=== PATIENT | female | born 1950 | race Caucasian/White ===

== ENCOUNTER → 2018-01-31 08:38 | Outpatient (CLI) | payer MEDICARE, OTHER, SELFPAY ==
[2018-01-31 09:25] LABS: Absolute Lymphocyte Count 2.06 X10^3/ul (0.83-4.51); Absolute Neutrophil Count 3.4 X10^3/uL (2.0-7.7); Basophil# 0.02 X10^3/uL; Basophil% 0.3 % (0-1); Eosinophil# 0.08 X10^3/uL; Eosinophils% 1.3 % (0-5); Hematocrit 40.3 % (37-47); Hemoglobin 13.3 g/dl (12.0-15.0); Lymphocyte # 2.06 X10^3/ul (4.0); Mean Corpuscular Hgb 29.4 pg (27.0-32.0); Mean Corpuscular Volume 89.2 fL (81-99); Mean Platelet Vol. 9.4 fl (6.2-12.0); Monocyte# 0.69 X10^3/uL; Monocyte% 11.1 % (0-10); Neutrophil # 3.38 X10^3/uL (2.7-7.7); Neutrophil % 54.1 % (47-70); Platelet Count 222 K/mm3 (150-450); RBC Distribution Width CV 13.3 % (11.6-14.6); RBC Distribution Width SD 43.1 fl (35.1-43.9); Red Blood Count 4.52 M/mm3 (4.2-5.4); White Blood Count 6.2 K/mm3 (4.4-11.0)
[2018-01-31 09:26] LABS: POSITIVE COUNT NO; POSITIVE DIFFERENTIAL NO; POSITIVE MORPHOLOGY NO
[2018-01-31 09:56] LABS: BUN 17 mg/dL (7-18); Creatinine, Serum 1.44 mg/dL (0.55-1.02); Glucose 74 mg/dL (74-106)
[2018-01-31 09:57] LABS: Anion Gap 7 (5-15); BUN/Creat Ratio 11.8 RATIO (10-20); Calcium,Total 9.2 mg/dL (8.5-10.1); Chloride 107 mmol/L (98-107); EST Glomerular Filtration Rate 39 mL/min (>60); Est Glom Filt Rate - Afr Amer 47 mL/min (>60); Potassium 3.8 mmol/L (3.5-5.1); Sodium Level 142 mmol/L (136-145); Thyroid Stim Hormone (TSH) 2.54 uIU/mL (0.358-3.74)
== END ==
PROVIDERS: Visit Provider Internal Medicine Cardiovascular Disease
DX: I10 Essential (primary) hypertension (principal)
CPT/HCPCS: 36415; 80048; 84443; 85025

== ENCOUNTER → 2019-05-08 08:11 | Outpatient (CLI) | payer MEDICARE, OTHER, SELFPAY ==
[2019-02-28 08:53] VITALS: BMI 27.8
--- NOTE | 2019-05-08 08:14 | BI_ITS ---
MAMMOGRAPHY - BILATERAL SCREENING 3-D TOMOSYNTHESIS REASON FOR EXAM: Female, 68 years old. Bilateral Screening 3-D tomosynthesis PERTINENT HISTORY: No significant family history. TECHNIQUE: 2-D mammograms and 3-D Tomosynthesis of the breast (s) were performed. CAD was performed. COMPARISON: February 02, 2018, January 28, 2017 FINDINGS: The breast composition is almost entirely fat. Scattered benign calcifications are seen. No dense spiculated masses or suspicious microcalcifications are identified. No architectural distortion is identified. There is no skin thickening or retraction. There are stable lymph nodes. There has been no significant change since the prior study. BI/SCREEN MAMM (CAD) W/GERONIMO BILAT IMPRESSION: No mammographic signs of malignancy. Routine yearly mammograms recommended. ASSESSMENT CATEGORY: BIRADS Category 2: Benign. A letter regarding these results will be sent to the patient by the facility within 30 days. FOLLOW UP RECOMMENDATION: Yearly follow up mammogram recommended. (A) Approximately 10% of breast cancers are not detected by mammography. A normal mammogram should not delay biopsy of a clinically suspicious abnormality. Electronically Signed: Joe Agrawal MD at 12:25 EDT , Service support ,
== END ==
PROVIDERS: Referring Provider Obstetrics & Gynecology; Visit Provider Obstetrics & Gynecology
DX: Z12.31 Encounter for screening mammogram for malignant neoplasm of breast (principal)
CPT/HCPCS: 77063; 77067

== ENCOUNTER → 2019-05-10 07:54 | Outpatient (CLI) | payer MEDICARE, OTHER, SELFPAY ==
[2019-02-28 08:53] VITALS: BMI 27.8
--- NOTE | 2019-05-10 07:57 | BD_ITS ---
STUDY: DUAL ENERGY X-RAY ABSORPTIOMETRY / DXA REASON FOR EXAM: Female, 68 years old. The patient is postmenopausal. Loss of height. TECHNIQUE: Bone Mineral Density (BMD) measurements of lumbar spine and bilateral hips were obtained. COMPARISON: None. FINDINGS: Lumbar Spine (L1-L4): g/cm2 (1.008) / T-score (-1.4) / Z-score (0.2) Findings are suggestive of osteopenia with a moderate fracture risk. Left Femur Total: g/cm2 (0.837) / T-score (-1.4) / Z-score (0.0) Left Femoral Neck: g/cm2 (0.737) / T-score (-2.2) / Z-score (-0.5) Right Femur Total: g/cm2 (0.838) / T-score (-1.3) / Z-score (0.0) Right Femoral Neck: g/cm2 (0.747) / T-score (-2.1) / Z-score (-0.5) BD/Dexa Bone Density Study IMPRESSION: The patient is considered osteopenic as outlined below according to World Lele Organization (WHO) criteria with a high fracture risk. Reference Information: The T-score is the number of standard deviations above or below the standard which is normal for young adults at their peak bone mineral density. The World Health Organization (WHO) interprets the T-scores as follows: Above -1 Normal bone density Between -1 and -2.5 Osteopenia Equal to / or below -2.5 Osteoporosis As a practical clinical guideline, osteopenia may be graded as follows: Mild -1 through -1.5 Moderate -1.6 through -2.0 Severe -2.1 through -2.4 The Z-score is the number of standard deviations above or below age-matched controls. A Z-score of less than -1.5 would be considered abnormal. References: 1. NIH Osteoporosis and Related Bone Diseases http://www.osteo.org 2. International Society for Clinical Densitometry http://www.iscd.org 3. National Osteoporosis Foundation http://www.nof.org Electronically Signed: Adán Valderrama, at 11:01 EDT , Service support ,
== END ==
PROVIDERS: Referring Provider Obstetrics & Gynecology; Visit Provider Obstetrics & Gynecology
DX: M85.9 Disorder of bone density and structure, unspecified (principal)
CPT/HCPCS: 77080

== ENCOUNTER → 2021-03-17 08:45 | Outpatient (CLI) | payer MEDICARE, OTHER, SELFPAY ==
[2021-02-24 14:24] VITALS: BMI 27.0
--- NOTE | 2021-03-17 08:48 | ECHOD_ITS ---
Reason For Study: HTN Procedure This was a 2D Doppler, Color Flow transthoracic echocardiogram. Exam performed in department. Left Ventricle Normal LV size. Left ventricular systolic function is normal. The estimated ejection fraction is 60 %. Stage 2 diastolic dysfunction. No regional wall motion abnormalities noted. Right Ventricle Normal RV size. Normal systolic function. Atria Normal left atrium. Normal right atrium. Mitral Valve Normal mitral valve. Tricuspid Valve Normal tricuspid valve. Mild tricuspid valve insufficiency. Pulmonary artery systolic pressure is 37 mmHg. Aortic Valve Normal aortic valve. Trisinus/trileaflet aortic valve. Pulmonic Valve Normal pulmonic valve. Great Vessels Normal aortic root. The pulmonary is not well visualized. Pericardium/Pleural No pericardial effusion. MMode/2D Measurements & Calculations LVIDd: 4.0 cm IVSd: 0.97 cm LA dimension: 3.6 cm LVIDs: 2.9 cm LVPWd: 0.85 cm FS: 28.5 % LAV(MOD-bp): 43.6 ml LA A4 area: 16.4 cm2 RA A4 area: 14.8 cm2 LAV(MOD-bp) Indexed: 26.8 ml/m2 LAV(MOD-sp2): 41.1 ml LAV(MOD-sp4): 42.3 ml Time Measurements MV dec time: 0.18 sec Doppler Measurements & Calculations MV E max timoteo: 104.1 cm/sec Lat Peak E' Timoteo: 11.0 cm/sec Med Peak E' Timoteo: 7.5 cm/sec MV A max timoteo: 79.8 cm/sec E/E' lat: 9.4 E/E' med: 13.9 MV E/A: 1.3 MV V2 max: 113.2 cm/sec MV P1/2t max timoteo: 112.6 cm/sec Ao V2 max: 121.9 cm/sec MV max P.1 mmHg MV P1/2t: 92.1 msec Ao max P.9 mmHg MV V2 mean: 71.0 cm/sec MV dec slope: 358.2 cm/sec2 MV mean P.2 mmHg MVA(P1/2t): 2.4 cm2 MV V2 VTI: 31.3 cm LV V1 max: 111.1 cm/sec PA V2 max: 100.2 cm/sec TR max timoteo: 290.4 cm/sec LV V1 max P.9 mmHg TR max P.7 mmHg ECHO/Echo Complete Interpretation Summary Normal LV size. Left ventricular systolic function is normal. The estimated ejection fraction is 60 %. Mild tricuspid valve insufficiency. Stage 2 diastolic dysfunction. Ordering Physician: Hima Tavarez Referring Physician: Rupert Araya Performed By: Alonzo George RCS
== END ==
PROVIDERS: Referring Provider Internal Medicine Cardiovascular Disease; Visit Provider Internal Medicine Cardiovascular Disease
DX: R00.2 Palpitations (principal); I10 Essential (primary) hypertension
CPT/HCPCS: 93306

== ENCOUNTER → 2021-06-22 14:19 | Outpatient (CLI) | payer MEDICARE, OTHER, SELFPAY ==
[2021-05-01 07:56] VITALS: BMI 25.9
--- NOTE | 2021-06-22 14:21 | CT_ITS ---
STUDY: CT CHEST WITHOUT CONTRAST REASON FOR EXAM: Female, 70 years old. Lung Abscess follow up RADIATION DOSAGE (If Supplied By Facility): CTDIvol = ( 7.07 ) mGy, DLP = ( 247.27 ) mGycm TECHNIQUE: Transaxial imaging was performed without the administration of intravenous contrast material. Multiplanar coronal and sagittal images were reformatted. Individualized dose optimization techniques were used for this CT. COMPARISON: Comparison is made with prior outside chest radiograph dated 04/23/2021. FINDINGS: There is evidence of airspace disease in the posterior aspect of the right upper lobe abutting the right minor fissure. Air bronchograms are seen within this infiltration. This may represent either postpneumonic scarring versus persistent infiltrate. The visualized bronchi are patent. Minimal volume loss of the right upper lobe. Minimal increase in markings at the left lung base suggestive of scarring. There is no demonstrated pleural abnormality. There are calcifications of the coronary arteries. Normal mediastinum. Normal hilar regions. Normal unenhanced pulmonary arteries. Normal aorta arch and descending thoracic aorta. There are degenerative changes of the thoracic spine. Questionable sludge or small gallstones along the dependent portion of the gallbladder. CT/Chest without Contrast IMPRESSION: Persistent patchy airspace disease in the posterior aspect of the right upper lobe abutting the right minor fissure. Air bronchograms are seen within it. Minimal volume loss in the right upper lobe. Further follow-up is recommended. Electronically Signed: Adán Valderrama MD at 15:29 EDT , Service support ,
== END ==
PROVIDERS: PCP Nurse Practitioner Family; Referring Provider Internal Medicine Critical Care Medicine; Visit Provider Internal Medicine Critical Care Medicine
DX: J85.2 Abscess of lung without pneumonia (principal)
CPT/HCPCS: 71250

== ENCOUNTER → 2021-09-23 21:16 | Outpatient (CLI) | payer MEDICARE, OTHER, SELFPAY | PROVIDERS: PCP Nurse Practitioner Family; Visit Provider Nurse Practitioner Acute Care | DX: G47.33 Obstructive sleep apnea (adult) (pediatric) (principal) | CPT/HCPCS: 95811 ==

== ENCOUNTER → 2021-10-29 15:12 | Outpatient (CLI) | payer MEDICARE, OTHER, SELFPAY | PROVIDERS: PCP Nurse Practitioner Family; Visit Provider Nurse Practitioner Acute Care | DX: Z46.89 Encounter for fitting and adjustment of other specified devices (principal) ==

== ENCOUNTER → 2022-10-25 | Outpatient (CLI) | payer MEDICARE, OTHER, SELFPAY ==
[2022-10-25 15:08] LABS: Color, Urine Yellow (Yellow); Glucose, Dipstick Normal (Normal); Ketone-Dipstick Negative (Negative); Leukocyte Esterase-Dipstick Negative /ul (Negative); Nitrite-Dipstick Negative (Negative); Occult Blood-Urine Negative /ul (Negative); Protein-Dipstick Negative (Negative); Specific Gravity, Urine 1.015 (1.002-1.030); Urine Bilirubin Dipstick Negative (Negative); Urine Clarity Clear (Clear); Urine Urobilinogen Normal (Normal)
[2022-10-25 15:31] LABS: Microalbumin:Creatinine Ratio 52.4 mg/g CRE (<30 mg/g CRE)
== END | disposition home or self-care (01) ==
LOC: LABSPEC 13:14
PROVIDERS: PCP Family Medicine; Visit Provider Family Medicine
DX: R30.0 Dysuria (principal); N18.31 Chronic kidney disease, stage 3a
CPT/HCPCS: 81002; 82043; 82570

== ENCOUNTER → 2022-11-12 | Outpatient (CLI) | payer MEDICARE, OTHER, SELFPAY ==
--- NOTE | 2022-11-12 12:43 | VDUE_ITS ---
Reason For Study: Erythema, warmth Left Proximal Left jugular vein is spontaneous, widely patent, phasic, with no intraluminal echogenicity noted. Left subclavian vein is spontaneous, widely patent, phasic, with no intraluminal echogenicity noted. Left Arm Left axillary vein is spontaneous, patent, phasic, competent, compressible and demonstrates augmentation. Left brachial vein is compressible. Left cephalic vein is compressible. Left basilic vein is compressible. Left Lower Arm Left radial vein is compressible. Left ulnar vein is compressible. Patient Safety Preliminary report sent to Dr. Castanon. VL/Venous Duplex US, Unilateral Interpretation Summary No evidence for acute deep venous thrombosis[left] upper extremity with patent and compressible cephalic and basilic veins. Ordering Physician: Alicia Castanon Referring Physician: Alicia Castanon Performed By: Graciela Edwards RVT ???
== END | disposition home or self-care (01) ==
LOC: CVS 12:40
PROVIDERS: PCP Family Medicine; Visit Provider Family Medicine
DX: M79.602 Pain in left arm (principal); M79.89 Other specified soft tissue disorders
CPT/HCPCS: 93971

== ENCOUNTER → 2023-01-24 | Outpatient (CLI) | payer MEDICARE, OTHER, SELFPAY ==
[2023-01-24 18:03] LABS: AST(SGOT) 33 U/L (15-37); Alanine Aminotransfer ALT/SGPT 31 U/L (13-56); Albumin, Serum 3.8 g/dL (3.2-5.0); Alkaline Phosphatase 90 U/L (45-117); Anion Gap 7 (5-15); BUN 18 mg/dL (7-18); BUN/Creat Ratio 14.3 RATIO (10-20); Calcium,Total 9.8 mg/dL (8.5-10.1); Chloride 111 mmol/L (98-107); Creatinine, Serum 1.26 mg/dL (0.55-1.02); EST Glomerular Filtration Rate 44 mL/min (>60); Est Glom Filt Rate - Afr Amer 54 mL/min (>60); Globulin 3.7 g/dL (2.2-4.2); Glucose 102 mg/dL (74-106); Potassium 3.9 mmol/L (3.5-5.1); Protein, Total 7.5 g/dL (6.4-8.2); Sodium Level 144 mmol/L (136-145)
== END | disposition home or self-care (01) ==
LOC: BFHLAB 15:06
PROVIDERS: PCP Family Medicine; Visit Provider Family Medicine
DX: N18.31 Chronic kidney disease, stage 3a (principal); Z51.81 Encounter for therapeutic drug level monitoring
CPT/HCPCS: 36415; 80053; 82043; 82570

== ENCOUNTER → 2023-02-04 | Outpatient (CLI) | payer MEDICARE, OTHER, SELFPAY ==
--- NOTE | 2023-02-04 12:18 | US_ITS ---
STUDY: RENAL ULTRASOUND - COMPLETE REASON FOR EXAM: Female, 72 years old. Decreased renal function. TECHNIQUE: Ultrasound evaluation of the kidneys was performed with real-time and static diamond-scale imaging. COMPARISON: None. FINDINGS: RIGHT KIDNEY: Normal location of the right kidney, which is normal in size. The right kidney measures 8.9 cm. There is a normal cortex of the right kidney. The renal cortex measures 1.1 cm. There is a 2.4 x 2.0 x 2.4 cm simple cyst mid cortex. There appears to be a 5 mm nonobstructing calculus lower pole calyx. There is no right hydronephrosis. DISTAL RIGHT URETER: There is non-visualization of the distal right ureter. There is no demonstrated right ureterovesical junction calculus. There is a visualized right ureteral jet. LEFT KIDNEY: Normal location of the left kidney, which is normal in size. The left kidney measures 8.6 cm. There is a normal cortex of the left kidney. The renal cortex measures 1.5 cm. There is no left renal mass or cyst. There are no left renal calculi. There is no left hydronephrosis. DISTAL LEFT URETER: There is non-visualization of the distal left ureter. There is no demonstrated left ureterovesical junction calculus. There is a visualized left ureteral jet. BLADDER: The distended urinary bladder has a volume of 275 ml. There is a normal wall thickness of the distended urinary bladder. There is no demonstrated mass within the urinary bladder. There are no demonstrated bladder calculi. US/Kidney and Bladder IMPRESSION: 1. Nonobstructing right renal calculus. 2. Large simple cyst in the mid right kidney. This requires no further follow-up. 3. Otherwise normal ultrasound of the kidneys and urinary bladder. Electronically Signed: Trent Hassan DO at 17:20 EDT ,
== END | disposition home or self-care (01) ==
LOC: US 12:16
PROVIDERS: PCP Family Medicine; Referring Provider Family Medicine; Visit Provider Family Medicine
DX: N18.9 Chronic kidney disease, unspecified (principal)
CPT/HCPCS: 76770

== ENCOUNTER → 2023-03-31 | Outpatient (CLI) | payer MEDICARE, OTHER, SELFPAY ==
[2023-03-31 12:37] LABS: Absolute Neutrophil Count 4.2 X10^3/uL (2.0-7.7); Basophil# 0.03 X10^3/uL; Basophil% 0.5 % (0-1); Eosinophil# 0.12 X10^3/uL; Eosinophils% 1.8 % (0-5); Hematocrit 40.5 % (37-47); Hemoglobin 12.9 g/dL (12.0-15.0); Lymphocyte % 24.1 % (19-41); Mean Corp Hgb Conc 31.9 g/dL (32-36); Mean Corpuscular Hgb 29.1 pg (27.0-32.0); Mean Corpuscular Volume 91.2 fL (81-99); Mean Platelet Vol. 10.3 fl (6.2-12.0); Monocyte% 10.6 % (0-10); NRBC Flagged by Analyzer 0 % (0-5); Neutrophil # 4.16 X10^3/uL (2.7-7.7); Neutrophil % 62.7 % (47-70); Platelet Count 193 K/mm3 (150-450); RBC Distribution Width CV 13.2 % (11.6-14.6); RBC Distribution Width SD 44.6 fl (35.1-43.9); Red Blood Count 4.44 M/mm3 (4.2-5.4); White Blood Count 6.6 K/mm3 (4.4-11.0)
[2023-03-31 12:54] LABS: AST(SGOT) 33 U/L (15-37); Alanine Aminotransfer ALT/SGPT 27 U/L (13-56); Albumin, Serum 3.7 g/dL (3.2-5.0); Alkaline Phosphatase 94 U/L (45-117); Anion Gap 5 (5-15); BUN 19 mg/dL (7-18); BUN/Creat Ratio 14.4 RATIO (10-20); Calcium,Total 9.6 mg/dL (8.5-10.1); Chloride 109 mmol/L (98-107); Cholesterol 143 mg/dL (200); Creatinine, Serum 1.32 mg/dL (0.55-1.02); EST Glomerular Filtration Rate 42 mL/min (>60); Est Glom Filt Rate - Afr Amer 51 mL/min (>60); Globulin 3.8 g/dL (2.2-4.2); Glucose 78 mg/dL (74-106); High Density Lipoprotein 84 mg/dL; Potassium 4.1 mmol/L (3.5-5.1); Protein, Total 7.5 g/dL (6.4-8.2); Sodium Level 141 mmol/L (136-145); Triglycerides 43 mg/dL; Very Low Density Lipoprotein 9 mg/dL (5-40)
[2023-03-31 13:12] LABS: Microalbumin,Random Urine 95.1 mg/L (NO RANGE EST.); Microalbumin:Creatinine Ratio 84.9 mg/g CRE (<30 mg/g CRE)
[2023-04-01 18:39] LABS: Color, Urine Yellow (Yellow); Glucose, Dipstick Normal (Normal); Ketone-Dipstick Negative (Negative); Leukocyte Esterase-Dipstick 500 /ul (Negative); Nitrite-Dipstick Negative (Negative); Occult Blood-Urine 25 /ul (Negative); Protein-Dipstick 30 mg/dl (Negative); Specific Gravity, Urine 1.015 (1.002-1.030); Urine Bilirubin Dipstick Negative (Negative); Urine Clarity Cloudy (Clear); Urine Urobilinogen Normal (Normal)
== END | disposition home or self-care (01) ==
LOC: BFHLAB 09:06
PROVIDERS: PCP Family Medicine; Referring Provider Family Medicine; Visit Provider Family Medicine
DX: R30.0 Dysuria (principal); N18.31 Chronic kidney disease, stage 3a; I12.9 Hypertensive chronic kidney disease with stage 1 through stage 4 chronic kidney disease, or unspecified chronic kidney disease; E78.5 Hyperlipidemia, unspecified; R80.9 Proteinuria, unspecified
CPT/HCPCS: 36415; 80053; 80061; 81002; 82043; 82570; 85025; 87077; 87086; 87088; 87186

== ENCOUNTER → 2023-05-12 | Outpatient (CLI) | payer MEDICARE, OTHER, SELFPAY | END | disposition home or self-care (01) | LOC: SL 15:27 | PROVIDERS: PCP Family Medicine; Referring Provider Nurse Practitioner Acute Care; Visit Provider Nurse Practitioner Acute Care | DX: G47.33 Obstructive sleep apnea (adult) (pediatric) (principal) | CPT/HCPCS: 95806 ==

== ENCOUNTER → 2023-07-27 | Outpatient (CLI) | payer MEDICARE, OTHER, SELFPAY ==
[2023-07-27 12:30] LABS: Absolute Lymphocyte Count 1.51 X10^3/uL (0.83-4.51); Absolute Neutrophil Count 4.7 X10^3/uL (2.0-7.7); Basophil# 0.04 X10^3/uL; Basophil% 0.6 % (0-1); Eosinophil# 0.09 X10^3/uL; Eosinophils% 1.3 % (0-5); Hematocrit 43.5 % (37-47); Hemoglobin 13.3 g/dL (12.0-15.0); Lymphocyte # 1.51 X10^3/ul (0.83-4.51); Lymphocyte % 21.4 % (19-41); Mean Corp Hgb Conc 30.6 g/dL (32-36); Mean Corpuscular Hgb 28.3 pg (27.0-32.0); Mean Corpuscular Volume 92.6 fL (81-99); Mean Platelet Vol. 10.2 fl (6.2-12.0); Monocyte# 0.68 X10^3/uL; Monocyte% 9.7 % (0-10); NRBC Flagged by Analyzer 0 % (0-5); Neutrophil # 4.69 X10^3/uL (2.7-7.7); Neutrophil % 66.6 % (47-70); Platelet Count 223 K/mm3 (150-450); RBC Distribution Width CV 13.7 % (11.6-14.6); RBC Distribution Width SD 47.1 fl (35.1-43.9)
[2023-07-27 12:52] LABS: ALB/GLOB Ratio 1.1 RATIO (0.9-2.4); AST(SGOT) 24 U/L (15-37); Alanine Aminotransfer ALT/SGPT 24 U/L (13-56); Albumin, Serum 3.9 g/dL (3.2-5.0); Alkaline Phosphatase 104 U/L (45-117); Anion Gap 3 (5-15); BUN 22 mg/dL (7-18); BUN/Creat Ratio 16.4 RATIO (10-20); Calcium,Total 9.6 mg/dL (8.5-10.1); Chloride 110 mmol/L (98-107); Creatinine, Serum 1.34 mg/dL (0.55-1.02); EST Glomerular Filtration Rate 41 mL/min (>60); Est Glom Filt Rate - Afr Amer 50 mL/min (>60); Globulin 3.6 g/dL (2.2-4.2); Glucose 83 mg/dL (74-106); Potassium 4.3 mmol/L (3.5-5.1); Protein, Total 7.5 g/dL (6.4-8.2); Sodium Level 141 mmol/L (136-145)
[2023-07-27 12:59] LABS: Vitamin D,25 Hydroxy 46.6 ng/mL
[2023-07-27 13:06] LABS: Microalbumin,Random Urine 43.2 mg/L (NO RANGE EST.); Microalbumin:Creatinine Ratio 35.4 mg/g CRE (<30 mg/g CRE)
== END | disposition home or self-care (01) ==
LOC: BFHLAB 09:12
PROVIDERS: PCP Family Medicine; Referring Provider Family Medicine; Visit Provider Family Medicine
DX: I12.9 Hypertensive chronic kidney disease with stage 1 through stage 4 chronic kidney disease, or unspecified chronic kidney disease (principal); N18.31 Chronic kidney disease, stage 3a; E55.9 Vitamin D deficiency, unspecified; Z51.81 Encounter for therapeutic drug level monitoring
CPT/HCPCS: 36415; 80053; 82043; 82306; 82570; 85025

== ENCOUNTER → 2024-01-25 | Outpatient (CLI) | payer MEDICARE, OTHER, SELFPAY ==
[2024-01-25 13:05] LABS: ALB/GLOB Ratio 1.1 RATIO (0.9-2.4); AST(SGOT) 26 U/L (15-37); Alanine Aminotransfer ALT/SGPT 22 U/L (13-56); Albumin, Serum 3.9 g/dL (3.2-5.0); Alkaline Phosphatase 88 U/L (45-117); Anion Gap 10 (5-15); BUN 21 mg/dL (7-18); Calcium,Total 9.4 mg/dL (8.5-10.1); Chloride 107 mmol/L (98-107); EST Glomerular Filtration Rate 36 mL/min (>60); Est Glom Filt Rate - Afr Amer 44 mL/min (>60); Globulin 3.4 g/dL (2.2-4.2); Glucose 99 mg/dL (74-106); Protein, Total 7.3 g/dL (6.4-8.2); Sodium Level 141 mmol/L (136-145)
[2024-01-25 13:17] LABS: Microalbumin,Random Urine 24.3 mg/L (NO RANGE EST.); Microalbumin:Creatinine Ratio 22.9 mg/g CRE (<30 mg/g CRE)
== END | disposition home or self-care (01) ==
LOC: BFHLAB 09:54
PROVIDERS: PCP Family Medicine; Visit Provider Family Medicine
DX: I12.9 Hypertensive chronic kidney disease with stage 1 through stage 4 chronic kidney disease, or unspecified chronic kidney disease (principal); N18.31 Chronic kidney disease, stage 3a
CPT/HCPCS: 36415; 80053; 82043; 82570

== ENCOUNTER → 2024-02-21 | Outpatient (CLI) | payer MEDICARE, OTHER, SELFPAY ==
[2024-02-21 14:51] LABS: Anion Gap 9 (5-15); BUN 25 mg/dL (7-18); BUN/Creat Ratio 15.5 RATIO (10-20); Calcium,Total 9.9 mg/dL (8.5-10.1); Chloride 106 mmol/L (98-107); Creatinine, Serum 1.61 mg/dL (0.55-1.02); EST Glomerular Filtration Rate 33 mL/min (>60); Est Glom Filt Rate - Afr Amer 40 mL/min (>60); Glucose 136 mg/dL (74-106); Potassium 4.3 mmol/L (3.5-5.1); Sodium Level 140 mmol/L (136-145)
== END | disposition home or self-care (01) ==
LOC: LAB.FUTURE 09:33 → BFHLAB 09:35
PROVIDERS: PCP Family Medicine; Visit Provider Family Medicine
DX: N18.31 Chronic kidney disease, stage 3a (principal); Z51.81 Encounter for therapeutic drug level monitoring
CPT/HCPCS: 36415; 80048

== ENCOUNTER → 2024-03-14 | Outpatient (CLI) | payer MEDICARE, OTHER, SELFPAY ==
--- NOTE | 2024-03-14 13:47 | US_ITS ---
STUDY: RENAL ULTRASOUND - COMPLETE REASON FOR EXAM: Female, 73 years old. CKD/ DECREASED KIDNEY FX TECHNIQUE: Ultrasound evaluation of the kidneys was performed with real-time and static diamond-scale imaging. COMPARISON: Comparison is made with prior study February 04, 2023. FINDINGS: RIGHT KIDNEY: Normal location of the right kidney, which is normal in size. The right kidney measures 8.2 sono by 4.8 cm x 3.4 cm. There is diffuse thinning of the renal cortex. The renal cortex measures 0.72 cm. There is a 2.5 cm x 2.6 cm x 1.9 cm cyst in the lower pole. There are no right renal calculi. There is no right hydronephrosis. DISTAL RIGHT URETER: There is non-visualization of the distal right ureter. There is no demonstrated right ureterovesical junction calculus. There is no demonstrated right ureteral jet. LEFT KIDNEY: Normal location of the left kidney, which is normal in size. The left kidney measures 8.5 cm x 4.1 cm x 5 cm. There is a normal cortex of the left kidney. The renal cortex measures 1.2 cm. There is no left renal mass or cyst. There are no left renal calculi. There is no left hydronephrosis. DISTAL LEFT URETER: There is non-visualization of the distal left ureter. There is no demonstrated left ureterovesical junction calculus. There is no demonstrated left ureteral jet. BLADDER: The distended urinary bladder has a volume of 93 ml. Bladder wall thickening. There is no demonstrated mass within the urinary bladder. There are no demonstrated bladder calculi. US/Kidney and Bladder IMPRESSION: Cortical thinning of the right kidney. 2.5 cm x 2.6 cm x 1.9 cm cyst in the inferior pole of the right kidney. Bladder wall thickening. Electronically Signed: Adán Valderrama MD at 10:37 EDT ,
== END | disposition home or self-care (01) ==
LOC: US 13:46
PROVIDERS: PCP Family Medicine; Referring Provider Family Medicine; Visit Provider Family Medicine
DX: N18.31 Chronic kidney disease, stage 3a (principal)
CPT/HCPCS: 76770

== ENCOUNTER → 2024-05-07 | Outpatient (CLI) | payer MEDICARE, OTHER, SELFPAY ==
[2024-05-07 18:30] LABS: Microalbumin,Random Urine 12.6 mg/L (NO RANGE EST.); Microalbumin:Creatinine Ratio 17.4 mg/g CRE (<30 mg/g CRE)
[2024-05-07 18:46] LABS: ALB/GLOB Ratio 1.1 RATIO (0.9-2.4); AST(SGOT) 26 U/L (15-37); Alanine Aminotransfer ALT/SGPT 25 U/L (13-56); Albumin, Serum 3.6 g/dL (3.2-5.0); Alkaline Phosphatase 92 U/L (45-117); Anion Gap 9 (5-15); BUN 20 mg/dL (7-18); BUN/Creat Ratio 14.7 RATIO (10-20); CRP 3.26 mg/L (0.0-3.0); Calcium,Total 9.6 mg/dL (8.5-10.1); Chloride 101 mmol/L (98-107); Creatinine, Serum 1.36 mg/dL (0.55-1.02); EST Glomerular Filtration Rate 40 mL/min (>60); Est Glom Filt Rate - Afr Amer 49 mL/min (>60); Globulin 3.4 g/dL (2.2-4.2); Glucose 85 mg/dL (74-106); Potassium 4.2 mmol/L (3.5-5.1); Sodium Level 132 mmol/L (136-145)
[2024-05-07 19:03] LABS: Absolute Lymphocyte Count 1.65 X10^3/uL (0.83-4.51); Absolute Neutrophil Count 5.2 X10^3/uL (2.0-7.7); Basophil# 0.06 X10^3/uL; Basophil% 0.8 % (0-1); Eosinophil# 0.13 X10^3/uL; Eosinophils% 1.6 % (0-5); Erythrocyte Sedimentation Rate 18 mm/hr (0-30); Hematocrit 39.9 % (37-47); Hemoglobin 12.5 g/dL (12.0-15.0); Lymphocyte # 1.65 X10^3/ul (0.83-4.51); Lymphocyte % 20.7 % (19-41); Mean Corp Hgb Conc 31.3 g/dL (32-36); Mean Corpuscular Hgb 28.2 pg (27.0-32.0); Mean Corpuscular Volume 90.1 fL (81-99); Mean Platelet Vol. 9.1 fl (6.2-12.0); Monocyte# 0.93 X10^3/uL; Monocyte% 11.7 % (0-10); NRBC Flagged by Analyzer 0 % (0-5); Neutrophil # 5.15 X10^3/uL (2.7-7.7); Neutrophil % 64.6 % (47-70); Platelet Count 251 K/mm3 (150-450); RBC Distribution Width CV 13.6 % (11.6-14.6); RBC Distribution Width SD 45.4 fl (35.1-43.9); Red Blood Count 4.43 M/mm3 (4.2-5.4)
[2024-05-09 11:09] LABS: ANTINUCLEAR ANTIBODIES DIRECT Negative (Negative)
== END | disposition home or self-care (01) ==
LOC: BFHLAB 14:37
PROVIDERS: PCP Family Medicine; Referring Provider Family Medicine; Visit Provider Family Medicine
DX: N18.31 Chronic kidney disease, stage 3a (principal); Z51.81 Encounter for therapeutic drug level monitoring
CPT/HCPCS: 36415; 80053; 82043; 82570; 85025; 85652; 86038; 86140; 86225; 86235

== ENCOUNTER → 2024-05-10 | Outpatient (CLI) | payer MEDICARE, OTHER, SELFPAY | END | disposition home or self-care (01) | LOC: BFHLAB 13:57 → LABSPEC 13:59 | PROVIDERS: PCP Family Medicine; Referring Provider Family Medicine; Visit Provider Family Medicine | DX: R30.0 Dysuria (principal) | CPT/HCPCS: 87086; 87088 ==

== ENCOUNTER → 2024-05-22 | Outpatient (CLI) | payer MEDICARE, OTHER, SELFPAY | END | disposition home or self-care (01) | PROVIDERS: PCP Family Medicine; Referring Provider Nurse Practitioner Acute Care; Visit Provider Nurse Practitioner Acute Care | DX: G47.33 Obstructive sleep apnea (adult) (pediatric) (principal) | CPT/HCPCS: 95806 ==

== ENCOUNTER → 2024-06-19 | Outpatient (CLI) | payer MEDICARE, OTHER, SELFPAY ==
[2024-06-19 15:30] LABS: Absolute Lymphocyte Count 1.88 X10^3/uL (0.83-4.51); Absolute Neutrophil Count 4.7 X10^3/uL (2.0-7.7); Basophil# 0.05 X10^3/uL; Basophil% 0.7 % (0-1); Eosinophil# 0.08 X10^3/uL; Eosinophils% 1.1 % (0-5); Hematocrit 39.2 % (37-47); Hemoglobin 12.5 g/dL (12.0-15.0); Lymphocyte # 1.88 X10^3/ul (0.83-4.51); Mean Corp Hgb Conc 31.9 g/dL (32-36); Mean Corpuscular Hgb 28.1 pg (27.0-32.0); Mean Corpuscular Volume 88.1 fL (81-99); Mean Platelet Vol. 9.5 fl (6.2-12.0); Monocyte# 0.76 X10^3/uL; Monocyte% 10.1 % (0-10); NRBC Flagged by Analyzer 0 % (0-5); Neutrophil # 4.71 X10^3/uL (2.7-7.7); Neutrophil % 62.7 % (47-70); Platelet Count 197 K/mm3 (150-450); RBC Distribution Width CV 13.4 % (11.6-14.6); RBC Distribution Width SD 43.2 fl (35.1-43.9); Red Blood Count 4.45 M/mm3 (4.2-5.4); White Blood Count 7.5 K/mm3 (4.4-11.0)
[2024-06-19 15:53] LABS: Protein, Urine (Random) 6.6 mg/dL (<11.9); Protein:Creat Ratio 233 mg/g CRE (0-200)
[2024-06-19 20:24] LABS: BUN 19 mg/dL (7-18); BUN/Creat Ratio 13.3 RATIO (10-20); Calcium,Total 9.6 mg/dL (8.5-10.1); Chloride 99 mmol/L (98-107); Creatinine, Serum 1.43 mg/dL (0.55-1.02); EST Glomerular Filtration Rate 38 mL/min (>60); Est Glom Filt Rate - Afr Amer 46 mL/min (>60); Glucose 87 mg/dL (74-106); Phosphorus 2.7 mg/dL (2.5-4.9); Potassium 4.1 mmol/L (3.5-5.1); Sodium Level 131 mmol/L (136-145)
[2024-06-20 14:29] LABS: Color, Urine Straw (Yellow); Glucose, Dipstick Normal (Normal); Ketone-Dipstick Negative (Negative); Leukocyte Esterase-Dipstick Negative /ul (Negative); Nitrite-Dipstick Negative (Negative); Occult Blood-Urine Negative /ul (Negative); Protein-Dipstick Negative (Negative); Urine Bilirubin Dipstick Negative (Negative); Urine Clarity Clear (Clear); Urine Urobilinogen Normal (Normal)
[2024-06-21 14:09] LABS: ANTINUCLEAR ANTIBODIES DIRECT Negative (Negative)
[2024-06-26 11:59] LABS: Complement C3 131 mg/dL (82-167); Complement CH50 > 60 U/mL (>41); Cytoplasmic Ab (C-ANCA) <1:20 titer (Neg:<1:20); Free Lambda Light Chains 10.5 mg/L (5.7-26.3); Immunoglobulin A 129 mg/dL (64-422); Immunoglobulin G 812 mg/dL (586-1602); Immunoglobulin M 32 mg/dL (26-217); Perinuclear Ab (P-ANCA) <1:20 titer (Neg:<1:20)
== END | disposition home or self-care (01) ==
PROVIDERS: PCP Family Medicine
DX: N17.9 Acute kidney failure, unspecified (principal)
CPT/HCPCS: 36415; 80069; 81002; 82570; 82784; 83883; 84156; 85025; 86038; 86160; 86162; 86256; 86334; 86335

== ENCOUNTER → 2024-08-01 | Outpatient (CLI) | payer MEDICARE, OTHER, SELFPAY ==
[2024-08-01 15:24] LABS: Osmolality, Serum 280 mOsm/KG (280-301); Osmolality, Urine 293 mOsm/KG
[2024-08-01 15:40] LABS: ALB/GLOB Ratio 1.2 RATIO (0.9-2.4); AST(SGOT) 25 U/L (15-37); Alanine Aminotransfer ALT/SGPT 21 U/L (13-56); Alkaline Phosphatase 93 U/L (45-117); Anion Gap 9 (5-15); BUN 22 mg/dL (7-18); BUN/Creat Ratio 14.6 RATIO (10-20); Calcium,Total 9.9 mg/dL (8.5-10.1); Chloride 99 mmol/L (98-107); Creatinine, Serum 1.51 mg/dL (0.55-1.02); EST Glomerular Filtration Rate 36 mL/min (>60); Est Glom Filt Rate - Afr Amer 43 mL/min (>60); Free T3 2.5 pg/mL (2.18-3.98); Globulin 3.4 g/dL (2.2-4.2); Glucose 80 mg/dL (74-106); Potassium 4.4 mmol/L (3.5-5.1); Protein, Total 7.4 g/dL (6.4-8.2); Sodium Level 131 mmol/L (136-145); T4 Free Direct 0.96 ng/dL (0.76-1.46); Uric Acid 4.1 mg/dL (2.6-6.0)
[2024-08-01 16:00] LABS: Microalbumin,Random Urine 17.8 mg/L (NO RANGE EST.); Urine Sodium 47 mmol/L (Not Establ.)
== END | disposition home or self-care (01) ==
LOC: MTLAB 10:48
PROVIDERS: PCP Family Medicine; Referring Provider Family Medicine; Visit Provider Family Medicine
DX: Z51.81 Encounter for therapeutic drug level monitoring (principal); N18.31 Chronic kidney disease, stage 3a; E87.1 Hypo-osmolality and hyponatremia
CPT/HCPCS: 36415; 80053; 82043; 83930; 83935; 84300; 84439; 84443; 84481; 84550

== ENCOUNTER → 2024-08-24 | Outpatient (CLI) | payer MEDICARE, OTHER, SELFPAY ==
[2024-08-24 13:15] LABS: ALB/GLOB Ratio 1.1 RATIO (0.9-2.4); AST(SGOT) 24 U/L (15-37); Alanine Aminotransfer ALT/SGPT 21 U/L (13-56); Albumin, Serum 3.9 g/dL (3.2-5.0); Alkaline Phosphatase 95 U/L (45-117); Anion Gap 7 (5-15); BUN 17 mg/dL (7-18); BUN/Creat Ratio 12.5 RATIO (10-20); Calcium,Total 9.9 mg/dL (8.5-10.1); Chloride 102 mmol/L (98-107); Creatinine, Serum 1.36 mg/dL (0.55-1.02); EST Glomerular Filtration Rate 40 mL/min (>60); Est Glom Filt Rate - Afr Amer 49 mL/min (>60); Globulin 3.6 g/dL (2.2-4.2); Glucose 78 mg/dL (74-106); Potassium 4.1 mmol/L (3.5-5.1); Protein, Total 7.5 g/dL (6.4-8.2); Sodium Level 136 mmol/L (136-145)
== END | disposition home or self-care (01) ==
LOC: BFHLAB 09:36
PROVIDERS: PCP Family Medicine; Referring Provider Family Medicine; Visit Provider Family Medicine
DX: M17.9 Osteoarthritis of knee, unspecified (principal); N18.32 Chronic kidney disease, stage 3b; E87.1 Hypo-osmolality and hyponatremia
CPT/HCPCS: 36415; 80053

== ENCOUNTER → 2024-09-18 | Outpatient (CLI) | payer MEDICARE, OTHER, SELFPAY ==
--- NOTE | 2024-09-18 09:34 | RAD_ITS ---
STUDY: X-RAY - LUMBAR SPINE REASON FOR EXAM: Female, 73 years old. Pain, Sciatica, left side TECHNIQUE: 4 view(s) of the lumbar spine were obtained. COMPARISON: None FINDINGS: Normal lumbar lordosis. Mild dextroscoliosis centered at L3. Bilateral pars defects at L5 vertebra consistent with L5 spondylolysis. 15 mm of anterolisthesis of L5 on S1 consistent with grade 2 spondylolisthesis. There is multilevel endplate spondylosis of the lumbar vertebrae. There is multi-level degenerative disc disease with multi-level disc space narrowing. There is multilevel facet hypertrophy in the lower lumbar spine. The soft tissue structures are unremarkable. 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 Mild dextroscoliosis with degenerative disc disease. Electronically Signed: Iker Soriano MD at 9:25 EST ,
[2024-09-18 12:24] LABS: Anion Gap 10 (5-15); BUN 19 mg/dL (7-18); Calcium,Total 10.1 mg/dL (8.5-10.1); Chloride 105 mmol/L (98-107); Creatinine, Serum 1.36 mg/dL (0.55-1.02); EST Glomerular Filtration Rate 40 mL/min (>60); Est Glom Filt Rate - Afr Amer 49 mL/min (>60); Glucose 71 mg/dL (74-106); Sodium Level 140 mmol/L (136-145)
== END | disposition home or self-care (01) ==
LOC: MTRAD 09:32
PROVIDERS: PCP Family Medicine; Referring Provider Nurse Practitioner Family; Visit Provider Nurse Practitioner Family
DX: M54.32 Sciatica, left side (principal); N18.32 Chronic kidney disease, stage 3b
CPT/HCPCS: 36415; 72110; 80048

== ENCOUNTER → 2024-10-31 | Outpatient (CLI) | payer MEDICARE, OTHER, SELFPAY ==
--- NOTE | 2024-10-31 10:14 | RAD_ITS ---
INDICATION: BILATERAL HIP PAIN EXAMINATION/TECHNIQUE: X-RAY - XR Hips Bilateral with Pelvis when performed; 2 Views COMPARISON: FINDINGS: PELVIC BONES: No displaced fracture, destructive or sclerotic lesions. Note that overlapping bowel shadows may however obscure fine detail. Sacroiliac joints are unremarkable. No widening of the pubic symphysis. HIPS: The articular structures are unremarkable. No displaced fracture seen in this frontal view. SOFT TISSUES: No soft tissue swelling or gas. RAD/Hips B/L min 2 views w/ Pelvis IMPRESSION: No evidence of displaced pelvic or hip fracture. Electronically Signed: Iker Soriano MD at 13:46 EST ,
== END | disposition home or self-care (01) ==
LOC: MTRAD 10:12
PROVIDERS: PCP Family Medicine; Referring Provider Family Medicine; Visit Provider Family Medicine
DX: M25.551 Pain in right hip (principal); M25.552 Pain in left hip
CPT/HCPCS: 73521

== ENCOUNTER → 2025-02-27 | Outpatient (CLI) | payer MEDICARE, OTHER, SELFPAY ==
[2025-02-27 13:11] LABS: PTHIN 70 pg/mL (11-61)
[2025-02-27 13:45] LABS: Protein, Urine (Random) 8.1 mg/dL (0.0-12.0); Protein:Creat Ratio 186 mg/g CRE (0-200)
== END | disposition home or self-care (01) ==
LOC: BFHLAB 10:44
PROVIDERS: PCP Family Medicine
DX: I12.9 Hypertensive chronic kidney disease with stage 1 through stage 4 chronic kidney disease, or unspecified chronic kidney disease (principal); N18.32 Chronic kidney disease, stage 3b; N17.9 Acute kidney failure, unspecified
CPT/HCPCS: 36415; 82570; 83970; 84156

== ENCOUNTER → 2025-03-13 | Outpatient (CLI) | payer MEDICARE, OTHER, SELFPAY ==
[2025-03-13 11:35] LABS: Albumin, Serum 4.6 g/dL (3.4-4.8); Anion Gap 12 (5-15); BUN 25 mg/dL (4-19); BUN/Creat Ratio 16.4 RATIO (10-20); Calcium,Total 10.1 mg/dL (7.6-11.0); Carbon Dioxide 24.7 mmol/L (21.0-32.0); Chloride 104 mmol/L (98-108); Creatinine, Serum 1.52 mg/dL (0.70-1.20); EST Glomerular Filtration Rate 36 (>60); Glucose 84 mg/dL (70-99); Phosphorus 3.5 mg/dL (2.7-4.5); Potassium 4.8 mmol/L (3.3-5.1); Sodium Level 140 mmol/L (133-145)
== END | disposition home or self-care (01) ==
LOC: LAB.FUTURE 10:15 → LAB 10:18
PROVIDERS: PCP Family Medicine
DX: I12.9 Hypertensive chronic kidney disease with stage 1 through stage 4 chronic kidney disease, or unspecified chronic kidney disease (principal); N18.32 Chronic kidney disease, stage 3b; N17.9 Acute kidney failure, unspecified
CPT/HCPCS: 80069

== ENCOUNTER → 2025-06-18 | Outpatient (CLI) | payer MEDICARE, OTHER, SELFPAY ==
--- OUTSIDE RECORDS SUMMARY | 2025-06-18 10:02 | XMS RPT_ITS | CCD ---
Author Organization [facility] Care Team Providers Care Pharmacy Stock Clerk Name Role Phone DannysEkaterinaAranza L Unavailable Unavailable Benekos, Aranza L Unavailable Unavailable Rupert Araya Unavailable Unavailable Benekos, Aranza L Unavailable Unavailable Benekos, Aranza L Unavailable Unavailable Rupert Araya Unavailable Unavailable Regina Quiñones Unavailable Damon Bergern Unavailable Unavailable Baldo Arriola Unavailable Unknown, Pcp Unavailable Unavailable Dr. Alicia Castanon Primary Care Provider Dr. Alicia Castanon Referring Provider DAVID Chen Attending Provider Dr. Ernesto Jason Attending Provider [phone] Dr. Alicia Castanon Primary Care Provider [phone] Dr. Alicia Castanon Referring Provider [phone] DAVID Chen Attending Provider Dr. Ernesto Jason Attending Provider Jeannette VERIFIER OPERATOR, VERIFIER OPERATOR-C Regina Referring Provider [phone] Belkis VERIFIER OPERATOR, VERIFIER OPERATOR-C Anne Attending Provider Dr. Alicia Castanon Primary Care Provider Unavailable Primary Care Provider UnavailMARY JO Fleming Attending Unavailable Dr. Alicia Castanon DO Primary Care Provider [phone] RICHA VARGHESE Attending Provider [phone] ABIMAEL CHAUDHRY Attending Provider ABIMAEL CHAUDHRY Referring Provider Malys, Alicia Primary Care Unavailable Yinka, Marleny Attending Unavailable Yinka, Marleny Referring Unavailable Malys, Alicia Primary Care Unavailable Malys, Alicia Attending Unavailable Malys, Alicia Referring Unavailable Page, Norberto Referring Unavailable Malys, Alicia Primary Care Unavailable Page, Norberto Attending Unavailable Malys, Alicia Primary Care Unavailable Malys, Alicia Attending Unavailable Malys, Alicia Referring Unavailable Tamayo VERIFIER OPERATOR, Anen Attending Unavailable Tamayo VERIFIER OPERATOR, Anne Referring Unavailable Malys, Alicia Primary Care Unavailable Malys, Alicia Primary Care Unavailable Malys, Alicia Attending Unavailable Malys, Alicia Referring Unavailable Malys, Alicia Primary Care Unavailable Malys, Alicia Attending Unavailable Malys, Alicia Referring Unavailable Tamayo VERIFIER OPERATOR, Anne Attending Unavailable Malys, Alicia Primary Care Unavailable Malys, Alicia Referring Unavailable Malys, Alicia Primary Care Unavailable Page, Norberto Referring Unavailable Page, Norberto Attending Unavailable Malys, Alicia Primary Care Unavailable Page, Norberto Attending Unavailable Malys, Alicia Primary Care Unavailable Medardo Tate Attending Unavailable Medardo Tate Referring Unavailable Allergies Allergy Classification Reported Allergen(s) Allergy Type Date of Onset Reaction(s) Facility Penicillins (antibiotic) (2 sources) Penicillin Drug Allergy Hives/Urticaria [facility] Sulfonamides (antibiotic) (2 sources) Sulfonamides (Antibiotic) Drug Allergy Hives/Urticaria [facility] (12 sources) Penicillins; Translations: [penicillins] Propensity to adverse reactions (disorder) 2 AOF, unknown [facility] Repository (1 source) sertraline; Translations: [Zoloft] [facility] Sulfonamides (Antibiotic); Translations: [sulfa drugs] Propensity to adverse reactions to drug (disorder) AOF, Hives/Urticaria [facility] Repository (4 sources) Penicillin; Translations: [PENICILLIN] Drug Allergy 4 [facility] (11 sources) Sulfonamides (Antibiotic); Translations: [SULFA (SULFONAMIDE ANTIBIOTICS)] Allergy to substance 2 [facility] (9 sources) Cephalexin; Translations: [CEPHALEXIN] Drug Allergy 3 Unknown [facility] Comment on above: Pt had C-diff (3 sources) Codeine; Translations: [CODEINE] Drug Allergy 4 Unknown [facility] Work Phone: (2 sources) Sulfonamides (Antibiotic) Propensity to adverse reactions 4 Anxiety [facility] Work Phone: (1 source) Cephalexin Drug Allergy 4 [facility] Repository (1 source) Sulfonamides (Antibiotic) Drug allergy (disorder) 4 [facility] Repository Medications Current Medications Medication Drug Class(es) Dates Sig (Normalized) Sig (Original) amiodarone hydrochloride 100 mg oral tablet (3 sources) Antiarrhythmic take 2 tablets by mouth once daily amiodarone 100 mg oral tablet ; 2 tab(s) orally once a day Quantity: 0 Refills: 0 Ordered: 04-Nov-2020 Alicia Baeza Status: Other Generic Substitution Allowed atorvastatin 10 mg oral tablet (15 sources) HMG-CoA Reductase Inhibitor Start: 02-24-2021 take 1 tablet by mouth at bedtime Atorvastatin 10 mg tablet Active 10 mg PO AT BEDTIME February 24, 2021 12:00am 24 hr buPROPion hydrochloride 150 mg extended release oral tablet (3 sources) Aminoketone take 1 tablet by mouth twice daily buPROPion XL (Wellbutrin XL) 150 mg 24 hr tablet Take 1 tablet (150 mg) by mouth 2 times a day. Active take 1 tablet by levi th every twenty-four hours buPROPion 150 mg/24 hours (XL) oral tablet, extended release ; 1 tab(s) orally every 24 hours Quantity: 0 Refills: 0 Ordered: 18-Feb-2022 Carolyn Goodwin Generic Substitution Allowed calcium citrate 1190 mg / cholecalciferol 0.005 mg oral tablet (10 sources) Vitamin D Start: 02-24-2021 Calcium Citrate-Vitamin D3 250 mg-5 mcg (200 unit) tablet Active 1 {tbl} PO DAILY February 24, 2021 12:00am ciprofloxacin 250 mg oral tablet (10 sources) Quinolone Antimicrobial Start: 10-24-2024 End: 10-27-2024 take 1 tablet by mouth twice daily ciprofloxacin (Cipro) 250 mg tablet Indications: Urinary incontinence, unspecified type Take 1 tablet (250 mg) by mouth 2 times a day for 3 days. 6 tablet 10/24/2024 10/27/2024 Active Start: 05-16-2024 take 1 tablet by levi twice daily as needed Ciprofloxacin Hcl 500 mg tablet Active 500 mg PO TWICE A DAY as needed May 16, 2024 12:00am Start: 02-18-2022 End: 02-22-2022 take 1 tablet by mouth twice daily Cipro 500 mg oral tablet ; 1 tab(s) orally 2 times a day x 5 days Quantity: 10 Refills: 0 Ordered: 18-Feb-2022 AbPer Start: 18-Feb-2022 End: 22-Feb-2022 Generic Substitution Allowed Comments: Avoid prolonged or excessive exposure to direct and/or artificial sunlight while taking this medication.Check with your doctor before becoming .Do not take dairy products, antacids, or iron preparations within one hour of this medication.Finish all this medication unless otherwise directed by prescriber.Medication should be taken with plenty of water. Start: 05-07-2020 End: 06-05-2020 take 1 tablet by mouth twice daily Cipro 500 mg oral tablet ; 1 tab(s) orally 2 times a day Quantity: 20 Refills: 2 Ordered: 07-May-2020 Thomas Stevenson Start: 07-May-2020 End: 05-Jun-2020 Status: Completed Generic Substitution Allowed Comments: Avoid prolonged or excessive exposure to direct and/or artificial sunlight while taking this medication.Check with your doctor before becoming .Do not take dairy products, antacids, or iron preparations within one hour of this medication.Finish all this medication unless otherwise directed by prescriber.Medication should be taken with plenty of water. Start: 09-02-2019 End: 12-04-2019 take 1 tablet by mouth twice daily Cipro 250 mg oral tablet ; 1 tab(s) orally 2 times a day Quantity: 10 Refills: 0 Ordered: 30-Nov-2019 Thomas Stevenson Start: 02-Sep-2019 End: 04-Dec-2019 Status: Discontinued Generic Substitution Allowed Comments: Avoid prolonged or excessive exposure to direct and/or artificial sunlight while taking this medication.Check with your doctor before becoming .Do not take dairy products, antacids, or iron preparations within one hour of this medication.Finish all this medication unless otherwise directed by prescriber.Medication should be taken with plenty of water. Comment on above: Avoid prolonged or e xcessive exposure to direct and/or artificial sunlight while taking this medication.Check with your doctor before becoming .Do not take dairy products, antacids, or iron preparations within one hour of this medication.Finish all this medication unless otherwise directed by prescriber.Medication should be taken with plenty of water. FLUoxetine 10 mg oral capsule (12 sources) Serotonin Reuptake Inhibitor Start: take 1 capsule by mouth once daily Fluoxetine 10 mg capsule Active 10 mg PO daily May 16, 2024 12:00am Start: 01-26-2018 End: 02-25-2020 take 1 tablet by mouth once daily Fluoxetine 20 mg tablet Discontinued 20 mg PO daily January 26, 2018 12:00am February 25, 2020 2:03pm fluticasone propionate 0.05 mg/actuat metered dose nasal spray (12 sources) Corticosteroid Start: 02-25-2020 Fluticasone Pr opionate 50 mcg/actuation spray,suspension Active 2 NMA INTRANASAL DAILY February 25, 2020 12:00am Start: 02-25-2020 Fluticasone Pr opionate Active 2 SPRAY INTRANASAL DAILY February 25, 2020 12:00am latanoprost 0.05 mg/ml ophthalmic solution (4 sources) Prostaglandin Analog Start: 05-16-[address] 0.005 % drops Active 1 NMA OPHTHALMIC AT BEDTIME May 16, 2024 12:00am take 1 drop(s) into the eye(s) once daily in the evening latanoprost 0.005% ophthalmic solution ; 1 drop(s) to each affected eye once a day (in the evening) Quantity: 0 Refills: 0 Ordered: 24-Apr-2021 Melanie Lo Generic Substitution Allowed montelukast 10 mg oral tablet (14 sources) Leukotriene Receptor Antagonist Start: 02-24-2021 take 1 tablet by mouth once daily Montelukast 10 mg tablet Active 10 mg PO DAILY February 24, 2021 12:00am Oral appliance (6 sources) Start: 02-23-2023 Oral appliance Active 0 .ROUTE .MEDSUPPLY February 23, 2023 12:00am As directed pantoprazole 40 mg delayed release oral tablet (14 sources) Proton Pump Inhibitor Start: 02-24-2021 End: 09-19-2024 take 1 tablet by mouth once daily Pantoprazole 40 mg tablet,delayed release (DR/EC) Active 40 mg PO DAILY February 24, 2021 12:00am vibegron (Gemtesa) 75 mg tablet (1 source) Start: 10-24-2024 take 1 tablet by mouth once daily vibegron (Gemtesa) 75 mg tablet Indications: Urinary incontinence, unspecified type Take 1 tablet (75 mg) by mouth once daily. 30 tablet 11 10/24/2024 Active Completed/Discontinued Medications Medication Drug Class(es) Dates Sig (Normalized) Sig (Original) [id number] actuat albuterol 0.09 mg/actuat metered dose inhaler (12 sources) beta2-Adrenergic Agonist Start: 05-01-2021 End: 09-14-2021 Albuterol Sulfate 90 mcg/actuation HFA aerosol inhaler Discontinued 2 NMA INHALATION EVERY 6 HOURS as needed May 01, 2021 12:00am September 14, 2021 8:38am Start: 05-01-2021 End: 09-14-2021 take 1 puff(s) by inhalation every six hours Albuterol Sulfate Discontinued 2 PUFF INHALATION EVERY 6 HOURS May 01, 2021 12:00am September 14, 2021 8:38am Start: 04-23-2021 End: 05-02-2021 take 2 puff(s) by inhalation every four hours as needed for wheezing albuterol 90 mcg/inh inhalation aerosol ; 2 puff(s) inhaled every 4 hours, As Needed for wheezing or shortness of breath Quantity: 1 Refills: 0 Ordered: 23-Apr-2021 Per Berger Start: 23-Apr-2021 End: 02-May-2021 Generic Substitution Allowed Comments: For inhalation only.It is very important that you take or use this exactly as directed. Do not skip doses or discontinue unless directed by your doctor.Obtain medical advice before taking any non-prescription drugs as some may affect the action of this medication.Shake well before use. Comment on above: For inhalation only. It is very important that you take or use this exactly as directed. Do not skip doses or discontinue unless directed by your doctor.Obtain medical advice before taking any non-prescription drugs as some may affect the action of this medication.Shake well before use. amLODIPine 10 mg oral tablet (20 sources) Dihydropyridine Calcium Channel Charmaine Start: 01-27-20 18 End: 02-25-20 take 1 tablet by mouth once daily Amlodipine 10 mg tablet Discontinued 10 mg PO daily 90 February 28, 2019 10:27am February 25, 2020 2:06pm azithromycin 250 mg oral tablet (2 sources) Macrolide Antimicrobial Start: 04-23-20 End: 04-27-20 Zithromax Z-Arsh 250 mg oral tablet ; 2 tab(s) by mouth at once on day 1, then 1 tablet once a day on days 2-5 Quantity: 6 Refills: 0 Ordered: 23-Apr-2021 Per Berger Start: 23-Apr-2021 End: 27-Apr-2021 Status: Discontinued Generic Substitution Allowed Comments: Do not take dairy products, antacids, or iron preparations within one hour of this medication.Finish all this medication unless otherwise directed by prescriber. Comment on above: Do not take dairy pr oducts, antacids, or iron preparations within one hour of this medication.Finish all this medication unless otherwise directed by prescriber. citalopram 10 mg oral tablet (10 sources) Serotonin Reuptake Inhibitor Start: 09-14-20 End: 05-16-20 take 1 tablet by mouth once daily Citalopram 10 mg tablet Discontinued 10 mg PO DAILY September 14, 2021 12:00am May 16, 2024 9:14am levoFLOXacin 500 mg oral tablet (2 sources) Quinolone Antimicrobial Start: 04-27-20 End: 05-03-20 take 1 tablet by mouth once daily levoFLOXacin 500 mg oral tablet ; 1 tab(s) orally once a day Quantity: 7 Refills: 0 Ordered: 26-Apr-2021 Baldo Arriola Start: 27-Apr-2021 End: 03-May-2021 Status: Other Generic Substitution Allowed Comments: Avoid prolonged or excessive exposure to direct and/or artificial sunlight while taking this medication.Do not take dairy products, antacids, or iron preparations within one hour of this medication.Finish all this medication unless otherwise directed by prescriber.May cause drowsiness or dizziness.Medicatio n should be taken with plenty of water. Comment on above: Avoid prolonged or e xcessive exposure to direct and/or artificial sunlight while taking this medication.Do not take dairy products, antacids, or iron preparations within one hour of this medication.Finish all this medication unless otherwise directed by prescriber.May cause drowsiness or dizziness.Medication should be taken with plenty of water. 24 hr metoprolol succinate 25 mg extended release oral tablet (20 sources) beta-Adrenergic Charmaine Start: 01-27-20 18 End: 02-25-20 20 take 1 tablet by mouth once daily Metoprolol Succinate 25 mg tablet extended release 24 hr Discontinued 25 mg PO daily 90 February 28, 2019 10:27am February 25, 2020 2:06pm take 1 tablet by mouth once daniel y metoprolol tartrate 25 mg oral tablet ; 1 tab(s) orally once a day Quantity: 0 Refills: 0 Ordered: 04-Nov-2020 Alicia Baeza Generic Substitution Allowed metroNIDAZOLE 500 mg oral tablet (2 sources) Nitroimidazole Antimicrobial Start: 04-26-2021 End: 05-02-2021 take 1 tablet by mouth every eight hours metroNIDAZOLE 500 mg oral tablet ; 1 tab(s) orally every 8 hours; take first dose today at 1 pm Quantity: 21 Refills: 0 Ordered: 26-Apr-2021 Baldo Arriola Start: 26-Apr-2021 End: 02-May-2021 Status: Other Generic Substitution Allowed Molnupiravir (10 sources) Start: 11-05-2022 End: 11-10-2022 take 1 capsule by mouth every twelve hours Molnupiravir 200 mg capsule Discontinued 800 mg PO Q12H 40 5 November 05, 2022 1:00am November 09, 2022 1:00am November 10, 2022 1:04am Start: 11-05-2022 End: 11-10-2022 take 800 mg by mouth every twelve hours Molnupiravir Discontinued 800 MG PO Q12H 40 November 05, 2022 1:00am November 10, 2022 1:04am Start: 11-05-2022 End: 11-10-2022 take 800 mg by mouth every twelve hours Molnupiravir Discontinued 800 MG PO Q12H 40 5 November 05, 2022 12:00am November 10, 2022 12:04am vitamin b12 1 mg oral capsule (10 sources) Vitamin B12 Start: 02-24-2021 End: 09-14-2021 take 1 capsule by mouth once daily Cyanocobalamin (Vitamin B-12) 1,000 mcg capsule Discontinued 1000 ug PO DAILY February 24, 2021 12:00am September 14, 2021 8:39am Problems Active Problems Problem Classification Problem Date Documented Date Episodic/Chronic Cardiac dysrhythmias (10 sources) Palpitations; Translations: [Palpitations] 01-25-2018 Episodic Chronic kidney disease (1 source) Chronic kidney disease; Translations: [Chronic kidney disease, stage 3a] Onset: 05-09-2024 Disorders of lipid metabolism (10 sources) Hypercholesterolemia; Translations: [Pure hypercholesterolemia, unspecified] 05-01-2021 Chronic Essential hypertension (10 sources) Essential hypertension; Translations: [Essential (primary) hypertension] 02-23-2020 Chronic Fluid and electrolyte disorders (4 sources) Hypokalemia; Translations: [Hypopotassemia] 04-24-2021 Episodic Comment on above: HYPOKALEMIA Genitourinary symptoms and ill-defined conditions (4 sources) Urinary incontinence; Translations: [Unspecified urinary incontinence] Onset: 09-19-2024 09-19-2024 Chronic Hypertension with complications and secondary hypertension (1 source) Hypertensive chronic kidney disease with stage 1 through stage 4 chronic kidney disease, or unspecified chronic kidney disease; Translations: [Hypertensive chronic kidney disease with stage 1 through stage 4 chronic kidney disease, or unspecified chronic kidney disease] Onset: 03-20-2025 Chronic Malaise and fatigue (4 sources) Fatigue; Translations: [Other malaise and fatigue] 04-23-2021 Episodic Osteoarthritis (1 source) Osteoarthritis of knee, unspecified; Translations: [Osteoarthritis of knee, unspecified] Onset: 09-19-2024 Chronic Other lower respiratory disease (2 sources) Cough; Translations: [Cough] 04-23-2021 Episodic Other lower respiratory disease (11 sources) Abscess of lung; Translations: [Abscess of lung] 04-24-2021 Episodic Pleurisy; pneumothorax; pulmonary collapse (2 sources) Empyema ; Translations: [Empyema without mention of fistula] 04-24-2021 Episodic Residual codes; unclassified (10 sources) Obstructive sleep apnea syndrome; Translations: [Obstructive sleep apnea (adult) (pediatric)] 09-14-2021 Chronic Comment on above: oral device Residual codes; unclassified (2 sources) Obstructive sleep apnea (adult) (pediatric); Translations: [Obstructive sleep apnea (adult)(pediatric)] Onset: 05-31-2024 02-23-2023 Chronic Unclassified (2 sources) DRY COUGH FATIGUE BODY ACHES 04-23-2021 Comment on above: DRY COUGH FATIGUE PIERRE DY ACHES Unclassified (1 source) Lung abscess 04-24-2021 Urinary tract infections (2 sources) Urinary tract infectious disease 02-18-2022 Episodic Comment on above: UTI Viral infection (14 sources) Disease caused by 2019-nCoV; Translations: [COVID-19] Episodic Past or Other Problems Problem Classification Problem Date Documented Da te Episodic/Chronic Acute and unspecified renal failure (1 source) Acute kidney failure, unspecified; Translations: [Acute kidney failure, unspecified] Onset: 07-18-2024 Episodic Genitourinary symptoms and ill-defined conditions (6 sources) Dysuria; Translations: [Dysuria] Onset: 05-17-2024 02-18-2022 Episodic Other aftercare (1 source) Encounter for therapeutic drug level monitoring; Translations: [Encounter for therapeutic drug level monitoring] Onset: 08-28-2024 Episodic Other non-traumatic joint disorders (1 source) Pain in right hip; Translations: [Pain in right hip] Onset: 12-05-2024 Episodic Spondylosis; intervertebral disc disorders; other back problems (1 source) Sciatica, left side; Translations: [Sciatica, left side] Onset: 10-10-2024 Episodic Unclassified (1 source) EXAM - SENT BY DOCTOR AT [facility] 04-24-2021 Comment on above: EXAM - SENT BY ARELIS R AT [facility] Unclassified (2 sources) Onset: 09-19-2024 09-19-2024 Results Test Name Value Interpretation Reference Range Facility Anion gap in Serum or Plasma on 03-13-2025 Anion gap [Moles/Vol] 12 mmol[facility]L 5-[facility]/creatinine [facility] 03-13 Urea nitrogen/Creatinine [Mass ratio] 16.4 mg/mg - [facility] Carbon dioxide, total [Moles /volume] in Central venous bloodon 03-13-2025 CO2 [Moles/Vol] 24.7 mmol/L 21.0-32.0 [facility] Chloride assayon 03-13-2025 Chloride [Moles/Vol] 104 mmol/L 98-108 [facility] Glomerular filtration rate ( GFR) estimation/1.73 sq m using serum, plasma, or whole bon 03-13-2025 GFR/1.73 sq M.predicted among non-blacks MDRD (S/P/Bld) [Vol rate/Area] 36 mL/min/{1.73_m2} Low >60 [facility] Comment on above: mL/min/1.73m2 CKD-EP I Creatinine Equation (2020) Potassium measurement (mass/ volume)on 03-13-2025 Potassium (Unsp spec) [Mass/Vol] 4.8 mmol/L 3.3-5.1 [facility] Renal Profileon 03-13-2025 Albumin [Mass/Vol] 4.6 g/dL Normal 3.4-4.8 [facility] Comment on above: Performed By: #### L [id number] #### [facility] [address] [place], [address] BUN/CRE 16.4 RATIO Normal 10-20 [facility] Comment on above: Performed By: #### L [id number] #### [facility] [address] [place], [address] Calcium [Mass/Vol] 10.1 mg/dL Normal 7.6-11.0 [facility] Comment on above: Performed By: #### L [id number] #### [facility] [address] [place], [address] Chloride [Moles/Vol] 104 mmol/L Normal 98-108 [facility] Comment on above: Performed By: #### L [id number] #### [facility] [address] [place], [address] CO2 [Moles/Vol] 24.7 mmol/L Normal 21.0-32.0 [facility] Comment on above: Performed By: #### L [id number] #### [facility] [address] [place], [address] Creatinine [Mass/Vol] 1.52 mg/dL High 0.70-1.20 [facility] Comment on above: Performed By: #### L [id number] #### [facility] [address] [place], [address] GAP 12 Normal 5-15 [facility] Comment on above: Performed By: #### L [id number] #### [facility] [address] [place], [address] GFR/1.73 sq M.predicted among non-blacks MDRD (S/P/Bld) [Vol rate/Area] 36 mL/min/{1.73_m2} Low >60 [facility] Comment on above: Result Comment: mL/m in/1.73m2 CKD-EPI Creatinine Equation (2020) Performed By: #### L [id number] #### [facility] [address] [place], [address] Glucose [Mass/Vol] 84 mg/dL Normal 70-99 [facility] Comment on above: Performed By: #### L [id number] #### [facility] [address] [place], [address] Phosphate [Mass/Vol] 3.5 mg/dL Normal 2.7-4.5 [facility] Comment on above: Performed By: #### L [id number] #### [facility] [address] [place], [address] Potassium [Moles/Vol] 4.8 mmol/L Normal 3.3-5.1 [facility] Comment on above: Performed By: #### L [id number] #### [facility] [address] [place], [address] Sodium [Moles/Vol] 140 mmol/L Normal 133-145 [facility] Comment on above: Performed By: #### L [id number] #### [facility] [address] [place], [address] Urea nitrogen [Mass/Vol] 25 mg/dL High 03-02 [facility] Comment on above: Performed By: #### L [id number] #### [facility] [address] [place], [place], [address] Serum creatinine measurement (mass/volume)on 03-13-2025 Creatinine [Mass/Vol] 1.52 mg/dL High 0.70-1.20 [facility] Serum glucose measurement (m ass/volume)on 03-13-2025 Glucose [Mass/Vol] 84 mg/dL 70-99 [facility] Serum or plasma albumin linnea urement (mass/volume)on 03-13-2025 Albumin [Mass/Vol] 4.6 g/dL 3.4-4.8 [facility] Serum or plasma calcium linnea urement (mass/volume)on 03-13-2025 Calcium [Mass/Vol] 10.1 mg/dL 7.6-11.0 [facility] Serum or plasma urea nitroge n measurement (mass/volume)on 03-13-2025 Urea nitrogen [Mass/Vol] 25 mg/dL High 03-02 [facility] Sodium levelon 03-13-2025 Sodium [Moles/Vol] 140 mmol/L 133-145 [facility] Creatinine Unsp time (U) [Ma ss/Vol]on 02-27-2025 Creatinine (U) [Mass/Vol] 43.60 mg/dL 28.00-217. 00 [facility] PTH intacton 02-27-2025 Parathyroid Hormone (Intact) 70 pg/mL High [facility] PTHINon 02-27-2025 PTH 70 pg/mL High [facility] Comment on above: Performed By: #### L 501.0900, L509.1000 #### [facility] [facility] [address] [facility] [place], [address] Protein+Creatinine Ratio,Uri neon 02-27-2025 PROT:CRE RATIO 186 mg/g CRE Normal 0-200 [facility] Comment on above: Performed By: #### L 501.0900, L509.1000 #### [facility] [address] [place], [address] Protein (U) [Mass/Vol] 8.1 mg/dL Normal 0.0-12.0 [facility] Comment on above: Performed By: #### L 501.0900, L509.1000 #### [facility] [address] [place], [address] UR CREAT 43.60 mg/dL Normal 28.00-217. 00 [facility] Comment on above: Performed By: #### L 501.0900, L509.1000 #### [facility] [address] [place], [address] Protein/Creatinine (U) [Mass ratio]on 02-27-2025 Urine Protein/Creatinine Ratio 186 mg/g CRE 0-200 [facility] Random urine creatinine linnea urement (mass/volume)on 02-27-2025 Creatinine Unsp time (U) [Mass/Vol] 43.60 mg/dL 28.00-217. 00 [facility] Urine protein measurement (m ass/volume)on 02-27-2025 Protein (U) [Mass/Vol] 8.1 mg/dL 0.0-12.0 [facility] Urine protein/creatinine mas s ratioon 02-27-2025 Protein/Creatinine (U) [Mass ratio] 186 mg/g CRE 0-200 [facility] Hips B/L min 2 views w/ Pelv sully 10-31-2024 Hips B/L min 2 views w/ Pelvis [facility] Imaging Services [address] [place] [address] Hips B/L min 2 views w/ Pelvis MR#: [id number] Acct: [id number] Name: KRISTY LICONA Rep #: [id number] : 1950 F 74 From: Iker Soriano MD PCP: Dr. Alicia Castanon DO Status: REG CLI Study: Hips B/L min 2 views w/ Pelvis Date of Exam: 01/01/24 Exam# [id number] Ordering Dr: Medardo Tate DO :[id number] INDICATION: BILATERAL HIP PAIN EXAMINATION/TECHNIQUE: X-RAY - XR Hips Bilateral with Pelvis when performed; 2 Views COMPARISON: FINDINGS: PELVIC BONES: No displaced fracture, destructive or sclerotic lesions. Note that overlapping bowel shadows may however obscure fine detail. Sacroiliac joints are unremarkable. No widening of the pubic symphysis. HIPS: The articular structures are unremarkable. No displaced fracture seen in this frontal view. SOFT TISSUES: No soft tissue swelling or gas. RAD/Hips B/L min 2 views w/ Pelvis IMPRESSION: No evidence of displaced pelvic or hip fracture. Electronically Signed: Iker Soriano MD at 13:46 EST , CC: Dr. Alicia Castanon DO; Dr. 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 [place], [place], [address] CA,Total 10.1 mg/dL Normal 8.5-10.1 [facility] Comment on above: Performed By: #### L 500.2500 ####[facility] [address] [place], [address] Chloride [Moles/Vol] 105 mmol/L Normal 98-107 [facility] Comment on above: Performed By: #### L 500.2500 ####[facility] [address] [place], [address] CO2 [Moles/Vol] 25.0 mmol/L Normal 21.0-32.0 [facility] Comment on above: Performed By: #### L 500.2500 ####[facility] [address] [place], [address] Creatinine [Mass/Vol] 1.36 mg/dL High 0.55-1.02 [facility] Comment on above: Result Comment: The validity of the calculated GFR GFRAA in patients over 70 years has not been determined. Clinical correlation is essential. Performed By: #### L 500.2500 ####[facility] [address] [place], [address] EST GFR - AA 49 mL/min Low >60 [facility] Comment on above: Result Comment: Afri can Russian GFR Calc Performed By: #### L 500.2500 ####[facility] [address] [place], [address] GAP 10 Normal 5-15 [facility] Comment on above: Performed By: #### L 500.2500 ####[facility] [address] [place], [address] GFR/1.73 sq M.predicted among non-blacks MDRD (S/P/Bld) [Vol rate/Area] 40 mL/min/{1.73_m2} Low >60 [facility] Comment on above: Result Comment: Non- GFR Calc Performed By: #### L 500.2500 ####[facility] [address] [place], [address] Glucose [Mass/Vol] 71 mg/dL Low 74-106 [facility] Comment on above: Performed By: #### L 500.2500 ####[facility] [address] [place], [address] Potassium [Moles/Vol] 4.0 mmol/L Normal 3.5-5.1 [facility] Comment on above: Performed By: #### L 500.2500 ####[facility] [address] [place], [address] Sodium [Moles/Vol] 140 mmol/L Normal 136-145 [facility] Comment on above: Performed By: #### L 500.2500 ####[facility] [address] [place], [address] Urea nitrogen [Mass/Vol] 19 mg/dL High 7-18 [facility] Comment on above: Performed By: #### L 500.2500 ####[facility] [address] [place], [address] L/S Spine Min 4 Viewson 11-0 5-2024 L/S Spine Min 4 Views [facility] Imaging Services [address] [place] [address] L/S Spine Min 4 Views MR#: [id number] Acct: [id number] Name: KRISTY LICONA Rep #: [id number] : 1950 F 73 From: Iker Soriano MD PCP: Dr. 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 Pain, Sciatica, left side TECHNIQUE: 4 view(s) of the lumbar spine were obtained. COMPARISON: None FINDINGS: Normal lumbar lordosis. Mild dextroscoliosis centered at L3. Bilateral pars defects at L5 vertebra consistent with L5 spondylolysis. 15 mm of anterolisthesis of L5 on S1 consistent with grade 2 spondylolisthesis. There is multilevel endplate spondylosis of the lumbar vertebrae. There is multi-level degenerative disc disease with multi-level disc space narrowing. There is multilevel facet hypertrophy in the lower lumbar spine. The soft tissue structures are unremarkable. 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 Mild dextroscoliosis with degenerative disc disease. Electronically Signed: Iker Soriano MD at 9:25 EST , CC: LEONARDO Honeycutt; Dr. Alicia Castanon DO [employer]: Signed Normal [facility] Comprehensive Metabolic Prof ilon 08-24-2024 Albumin [Mass/Vol] 3.9 g/dL Normal 3.2-5.0 [facility] Comment on above: Performed By: #### L 500.3603 #### [facility] [address] [place], [place], [address] Albumin/Globulin [Mass ratio] 1.1 {ratio} Normal 0.9-2.4 [facility] Comment on above: Performed By: #### L 500.3600 #### [facility] [address] [place], [address] ALK P 95 U/L Normal 45-117 [facility] Comment on above: Performed By: #### L 500.3606 #### [facility] [address] [place], [address] ALT [Catalytic activity/Vol] 21 U/L Normal 13-56 [facility] Comment on above: Performed By: #### L 500.3600 #### [facility] [address] [place], [address] AST [Catalytic activity/Vol] 24 U/L Normal 15-37 [facility] Comment on above: Performed By: #### L 500.3600 #### [facility] [address] [place], [address] Bilirubin [Mass/Vol] 0.50 mg/dL Normal 0.20-1.00 [facility] Comment on above: Result Comment: For patients on eltrombopag therapy, use of Dimension [place] TBIL is not recommended. Performed By: #### L 500.3600 #### [facility] [address] [place], [address] BUN/CRE 12.5 RATIO Normal 10-20 [facility] Comment on above: Performed By: #### L 500.3600 #### [facility] [address] [place], [address] CA,Total 9.9 mg/dL Normal 8.5-10.1 [facility] Comment on above: Performed By: #### L 500.3600 #### [facility] [address] [place], [address] Chloride [Moles/Vol] 102 mmol/L Normal 98-107 [facility] Comment on above: Performed By: #### L 500.3600 #### [facility] [address] [place], [address] CO2 [Moles/Vol] 27.0 mmol/L Normal 21.0-32.0 [facility] Comment on above: Performed By: #### L 500.3600 #### [facility] [address] [place], [address] Creatinine [Mass/Vol] 1.36 mg/dL High 0.55-1.02 [facility] Comment on above: Result Comment: The validity of the calculated GFR GFRAA in patients over 70 years has not been determined. Clinical correlation is essential. Performed By: #### L 500.3600 #### [facility] [address] [place], [address] EST GFR - AA 49 mL/min Low >60 [facility] Comment on above: Result Comment: Afri can Russian GFR Calc Performed By: #### L 500.3600 #### [facility] [address] [place], [address] GAP 7 Normal 5-15 [facility] Comment on above: Performed By: #### L 500.3600 #### [facility] [address] [place], [address] GFR/1.73 sq M.predicted among non-blacks MDRD (S/P/Bld) [Vol rate/Area] 40 mL/min/{1.73_m2} Low >60 [facility] Comment on above: Result Comment: Non- GFR Calc Performed By: #### L 500.3600 #### [facility] [address] [place], [address] Globulin (S) [Mass/Vol] 3.6 g/dL Normal 2.2-4.2 [facility] Comment on above: Performed By: #### L 500.3600 #### [facility] [address] [place], [address] Glucose [Mass/Vol] 78 mg/dL Normal 74-106 [facility] Comment on above: Performed By: #### L 500.3600 #### [facility] [address] [place], [address] Potassium [Moles/Vol] 4.1 mmol/L Normal 3.5-5.1 [facility] Comment on above: Performed By: #### L 500.3600 #### [facility] [address] [place], [address] Sodium [Moles/Vol] 136 mmol/L Normal 136-145 [facility] Comment on above: Performed By: #### L 500.3600 #### [facility] [address] [place], [address] T PROT 7.5 g/dL Normal 6.4-8.2 [facility] Comment on above: Performed By: #### L 500.3600 #### [facility] [address] [place], [address] Urea nitrogen [Mass/Vol] 17 mg/dL Normal 7-18 [facility] Comment on above: Performed By: #### L 500.3600 #### [facility] [address] [place], [address] Comprehensive Metabolic Prof [facility] 08-01-2024 Albumin [Mass/Vol] 4.0 g/dL Normal 3.2-5.0 [facility] Comment on above: Performed By: #### L 500.3600 #### [facility] [address] [place], [address] Albumin/Globulin [Mass ratio] 1.2 {ratio} Normal 0.9-2.4 [facility] Comment on above: Performed By: #### L 500.3600 #### [facility] [address] [place], [address] ALK P 93 U/L Normal 45-117 [facility] Comment on above: Performed By: #### L 500.3600 #### [facility] [address] [place], [address] ALT [Catalytic activity/Vol] 21 U/L Normal 13-56 [facility] Comment on above: Performed By: #### L 500.3600 #### [facility] [address] [place], [address] AST [Catalytic activity/Vol] 25 U/L Normal 15-37 [facility] Comment on above: Performed By: #### L 500.3600 #### [facility] [address] [place], [address] Bilirubin [Mass/Vol] 0.40 mg/dL Normal 0.20-1.00 [facility] Comment on above: Result Comment: For patients on eltrombopag therapy, use of Dimension [place] TBIL is not recommended. Performed By: #### L 500.3600 #### [facility] [address] [place], [address] BUN/CRE 14.6 RATIO Normal 10-20 [facility] Comment on above: Performed By: #### L 500.3600 #### [facility] [address] [place], [address] CA,Total 9.9 mg/dL Normal 8.5-10.1 [facility] Comment on above: Performed By: #### L 500.3600 #### [facility] [address] [place], [address] Chloride [Moles/Vol] 99 mmol/L Normal 98-107 [facility] Comment on above: Performed By: #### L 500.3600 #### [facility] [address] [place], [address] CO2 [Moles/Vol] 23.0 mmol/L Normal 21.0-32.0 [facility] Comment on above: Performed By: #### L 500.3600 #### [facility] [address] [place], [address] Creatinine [Mass/Vol] 1.51 mg/dL High 0.55-1.02 [facility] Comment on above: Result Comment: The validity of the calculated GFR GFRAA in patients over 70 years has not been determined. Clinical correlation is essential. Performed By: #### L 500.3600 #### [place] [facility] [address] [place], [address] EST GFR - AA 43 mL/min Low >60 [facility] Comment on above: Result Comment: Afri can Russian GFR Calc Performed By: #### L 500.3600 #### [facility] [address] [place], [address] GAP 9 Normal 5-15 [facility] Comment on above: Performed By: #### L 500.3600 #### [facility] [address] [place], [address] GFR/1.73 sq M.predicted among non-blacks MDRD (S/P/Bld) [Vol rate/Area] 36 mL/min/{1.73_m2} Low >60 [facility] Comment on above: Result Comment: Non- GFR Calc Performed By: #### L 500.3600 #### [facility] [address] [place], [address] Globulin (S) [Mass/Vol] 3.4 g/dL Normal 2.2-4.2 [facility] Comment on above: Performed By: #### L 500.3600 #### [facility] [address] [place], [address] Glucose [Mass/Vol] 80 mg/dL Normal 74-106 [facility] Comment on above: Performed By: #### L 500.3600 #### [facility] [address] [place], [address] Potassium [Moles/Vol] 4.4 mmol/L Normal 3.5-5.1 [facility] Comment on above: Performed By: #### L 500.3600 #### [facility] [address] [place], [address] Sodium [Moles/Vol] 131 mmol/L Low 136-145 [facility] Comment on above: Performed By: #### L 500.3600 #### [facility] [address] [place], [address] T PROT 7.4 g/dL Normal 6.4-8.2 [facility] Comment on above: Performed By: #### L 500.3600 #### [facility] [address] [place], [address] Urea nitrogen [Mass/Vol] 22 mg/dL High - [facility] Comment on above: Performed By: #### L 500.3600 #### [facility] [address] [place], [address] Free T3on 08-01-2024 Free T3 [Mass/Vol] 2.5 pg/mL Normal 2.18-3.98 [facility] Comment on above: Performed By: #### L 500.3600 #### [facility] [address] [place], [address] Microalbumin,Random Urineon 08-01-2024 MICROALBUMIN,UR 17.8 mg/L Normal NO RANGE EST. [facility] Comment on above: Performed By: #### L 500.3600 #### [facility] [address] [place], [address] Osmolality, Serumon 08-01-20 24 OSMOLALITY,SER 280 mOsm/KG Normal 280-301 [facility] Comment on above: Performed By: #### L 500.3600 #### [facility] [address] [place], [address] Osmolality, Urineon 08-01-20 24 OSMOLALITY,UR 293 mOsm/KG Normal [facility] Comment on above: Result Comment: Normal Urine Reference Ranges Random: 50 - 1200 mOsm/kg H20 depending on fluid intake Random: >850 mOsm/kg after 12 hour fluid restriction 24 hour: 300 - 900 mOsm/kg H2O Performed By: #### L 501.0900, L509.1000 #### [facility] [address] [place], [address] T4 Free Directon 08-01-2024 T4 FREE DIRECT 0.96 ng/dL Normal 0.76-1.46 [facility] Comment on above: Performed By: #### L 500.3600 #### [facility] [address] [place], [address] Thyroid Stim Hormone (TSH)on 08-01-2024 TSH 1.740 uIU/mL Normal 0.358-3.74 0 [facility] Comment on above: Performed By: #### L 500.3600 #### [facility] [address] [place], [address] Uric Acidon 08-01-2024 URIC 4.1 mg/dL Normal 2.6-6.0 [facility] Comment on above: Result Comment: The drugs N-Acetylcysteine and Metamizole may falsely depress this assay. Performed By: #### L 500.3600 #### [facility] [address] [place], [address] Urine Sodiumon 08-01-2024 Sodium (U) [Moles/Vol] 47 mmol/L Normal Not Establ. [facility] Comment on above: Performed By: #### L 500.3600 #### [facility] [address] [place], [address] ANCAon 06-26-2024 Atypical pANCA <1:20 Normal Neg:<1:20 [facility] Comment on above: Result Comment: The atypical pANCA pattern has been observed in a significant percentage of patients with ulcerative colitis, primary sclerosing cholangitis and autoimmune hepatitis. Performed By: #### L 501.0900, L509.1000 #### [facility] [address] [place], [address] Cytoplasmic Ab <1:20 Normal Neg:<1:20 [facility] Comment on above: Performed By: #### L 501.0900, L509.1000 #### [facility] [address] [place], [address] Perinuclear Ab. <1:20 Normal Neg:<1:20 [facility] Comment on above: Result Comment: The presence of positive fluorescence exhibiting P-ANCA or C-ANCA patterns alone is not specific for the diagnosis of Lizet's Granulomatosis (WG) or microscopic polyangiitis. Decisions about treatment should not be based solely on ANCA IFA results. The International ANCA Group Consensus recommends follow up testing of positive sera with both KS- 3 and MPO-ANCA enzyme immunoassays. As many as 5% serum samples are positive only by EIA. Ref. AM J Clin Pathol 1999;111:507-513. Performed By: #### L 501.0900, L509.1000 #### [facility] [address] [place], [address] Complement C3on 06-26-2024 COMP C3 131 mg/dL Normal 82-167 [facility] Comment on above: Performed By: #### L 501.0900, L509.1000 #### [facility] [address] [place], [address] Complement C4on 06-26-2024 COMPLEMENT, C4 29 mg/dL Normal 12-38 [facility] Comment on above: Performed By: #### L 501.0900, L509.1000 #### [facility] [address] [place], [address] Complement CH50on 06-26-2024 COMPLEMENT,CH50 > 60 Normal >41 [facility] Comment on above: Result Comment: Age Male Female 1 - 30 days Not Estab. Not Estab. 31 days - 6 months >32 >20 7 months - 17 years >39 >39 >17 years >41 >41 NOTE: The adult (>17 years) reference interval range is used to flag abnormals on this report. If the patient is 17 years old or younger, use the table above to determine out of range values. Performed at: [facility] [place] [address] [id number] Penciller: Cameron Justice PhD, Phone: [phone] Performed By: #### L 501.0900, L509.1000 #### [facility] [address] [place], [address] Immunofixation Urineon 06-26 ELIZABETH Urine Comment Normal . [facility] Comment on above: Result Comment: No m onoclonality detected. Performed By: #### L 501.0900, L509.1000 #### [facility] [address] [place], [address] Immunofixation, Serumon 06-14 ELIZABETH RESULT,S Comment Normal . [facility] Comment on above: Result Comment: No m onoclonality detected. Performed By: #### L 501.0900, L509.1000 #### [facility] [address] [place], [address] IMMUNOGLOB A QN 129 mg/dL Normal 64-422 [facility] Comment on above: Performed By: #### L 501.0900, L509.1000 #### [facility] [address] [place], [address] IMMUNOGLOB G QN 812 mg/dL Normal 586-1602 [facility] Comment on above: Performed By: #### L 501.0900, L509.1000 #### [facility] [address] [place], [address] IMMUNOGLOB M QN 32 mg/dL Normal 26-217 [facility] Comment on above: Performed By: #### L 501.0900, L509.1000 #### [facility] [address] [place], [address] [place] [employer] Chainson 06-26-2024 FR KAPPA LT CHN 13.0 mg/L Normal 3.3-19.4 [facility] Comment on above: Performed By: #### L 501.0900, L509.1000 #### [facility] [address] [place], [address] FR LAMBDA LT CH 10.5 mg/L Normal 5.7-26.3 [facility] Comment on above: Performed By: #### L 501.0900, L509.1000 #### [facility] [address] [place], [address] KAPPA/LAMBDA % 1.24 Normal 0.26-1.65 [facility] Comment on above: Performed By: #### L 501.0900, L509.1000 #### [facility] [address] [place], [address] ANTINUCLEAR ANTIBODIES DIREC Ton 06-21-2024 GOOD,DIRECT Negative Normal Negative [facility] Comment on above: Result Comment: Perf ormed at: - [facility] [id number] Penciller: Cameron Justice PhD, Phone: [phone] Performed By: #### L 501.0900, L509.1000 #### [facility] [address] [place], [address] Urinalysis, Routine (Dipstic k)on 06-20-2024 BILIRUBIN URINE Negative Normal Negative [facility] Comment on above: Order Comment: Urine , Random Performed By: #### L 501.0900, L509.1000 #### [facility] [address] [place], [address] Clarity (U) Clear Normal Clear [facility] Comment on above: Order Comment: Urine , Random Performed By: #### L 501.0900, L509.1000 #### [facility] [address] [place], [address] Color (U) Straw Normal Yellow [facility] Comment on above: Order Comment: Urine , Random Performed By: #### L 501.0900, L509.1000 #### [facility] [address] [place], [address] GLUCOSE, UR Normal Normal Normal [facility] Comment on above: Order Comment: Urine , Random Performed By: #### L 501.0900, L509.1000 #### [facility] [address] [place], [address] KETONE UR Negative Normal Negative [facility] Comment on above: Order Comment: Urine , Random Performed By: #### L 501.0900, L509.1000 #### [facility] [address] [place], [address] LEUK ESTERASE Negative Normal Negative [facility] Comment on above: Order Comment: Urine , Random Performed By: #### L 501.0900, L509.1000 #### [facility] [address] [place], [address] Nitrite Ql (U) Negative Normal Negative [facility] Comment on above: Order Comment: Urine , Random Performed By: #### L 501.0900, L509.1000 #### [facility] [address] [place], [address] OCCULT BLOOD-UR Negative Normal Negative [facility] Comment on above: Order Comment: Urine , Random Performed By: #### L 501.0900, L509.1000 #### [facility] [address] [place], [address] pH UR 5.0 Normal 5.0 - 8.0 [facility] Comment on above: Order Comment: Urine , Random Performed By: #### L 501.0900, L509.1000 #### [facility] [address] [place], [address] PROT DIPSTX Negative Normal Negative [facility] Comment on above: Order Comment: Urine , Random Performed By: #### L 501.0900, L509.1000 #### [facility] [address] [place], [address] SP.GR. DIPSTX 1.010 Normal 1.002-1.03 0 [facility] Comment on above: Order Comment: Urine , Random Performed By: #### L 501.0900, L509.1000 #### [facility] [address] [place], [address] UROBILI Normal Normal Normal [facility] Comment on above: Order Comment: Urine , Random Performed By: #### L 501.0900, L509.1000 #### [facility] [address] [place], [address] CBC W/Diff, Automatedon 08-0 -2023 Absolute Lymph 1.88 X10 3/uL Normal 0.83-4.51 [facility] Comment on above: Performed By: #### L 3130.0010, L3300.1200, L100.0100, L3100.5600, L3100.5475, L501.0900, L3100.5800, L400.2011, L3600.4030, L3100.5700, L500.3600, L3200.1275 #### [facility] [address] [place] [place], [address] Absolute Neut 4.7 X10 3/uL Normal 2.0-7.7 [facility] Comment on above: Performed By: #### L 3130.0010, L3300.1200, L100.0100, L3100.5600, L3100.5475, L501.0900, L3100.5800, L400.2011, L3600.4030, L3100.5700, L500.3600, L3200.1275 #### [facility] [address] [place], [address] Basophils/100 WBC (Bld) 0.7 % Normal 0-1 [facility] Comment on above: Performed By: #### L 3130.0010, L3300.1200, L100.0100, L3100.5600, L3100.5475, L501.0900, L3100.5800, L400.2011, L3600.4030, L3100.5700, L500.3600, L3200.1275 #### [facility] [address] [place], [address] Eosinophils/100 WBC (Bld) 1.1 % Normal 0-5 [facility] Comment on above: Performed By: #### L 3130.0010, L3300.1200, L100.0100, L3100.5600, L3100.5475, L501.0900, L3100.5800, L400.2011, L3600.4030, L3100.5700, L500.3600, L3200.1275 #### [facility] [address] [place], [place], [phone] (204) Erythrocyte distribution width (RBC) [Ratio] 13.4 % Normal 11.6-14.6 [facility] Comment on above: Performed By: #### L 3130.0010, L3300.1200, L100.0100, L3100.5600, L3100.5475, L501.0900, L3100.5800, L400.2010, L3600.4030, L3100.5700, L500.3600, L3200.1275 #### [facility] [address] [place], [address] (643) Hematocrit (Bld) [Volume fraction] 39.2 % Normal 37-47 [facility] Comment on above: Performed By: #### L 3130.0010, L3300.1200, L100.0100, L3100.5600, L3100.5475, L501.0900, L3100.5800, L400.2010, L3600.4030, L3100.5700, L500.3600, L3200.1275 #### [facility] [address] [place], [place], [phone] (937) Hemoglobin (Bld) [Mass/Vol] 12.5 g/dL Normal 12.0-15.0 [facility] Comment on above: Performed By: #### L 3130.0010, L3300.1200, L100.0100, L3100.5600, L3100.5475, L501.0900, L3100.5800, L400.2011, L3600.4030, L3100.5700, L500.3600, L3200.1275 #### [facility] [address] [place], [address] IG% 0.400 Normal 0.0-0.9 [facility] Comment on above: Result Comment: IG% - Immature Granulocytes (promyelocytes, myelocytes and metamyelocytes) > 1% indicates that a LEFT SHIFT is Present. Performed By: #### L 3130.0010, L3300.1200, L100.0100, L3100.5600, L3100.5475, L501.0900, L3100.5800, L400.2010, L3600.4030, L3100.5700, L500.3600, L3200.1275 #### [facility] [address] [place], [address] Lymphocytes/100 WBC (Bld) 25.0 % Normal 19-41 [facility] Comment on above: Performed By: #### L 3130.0010, L3300.1200, L100.0100, L3100.5600, L3100.5475, L501.0900, L3100.5800, L400.2010, L3600.4030, L3100.5700, L500.3600, L3200.1275 #### [facility] [address] [place], [address] MCH (RBC) [Entitic mass] 28.1 pg Normal 27.0-32.0 [facility] Comment on above: Performed By: #### L 3130.0010, L3300.1200, L100.0100, L3100.5600, L3100.5475, L501.0900, L3100.5800, L400.2010, L3600.4030, L3100.5700, L500.3600, L3200.1275 #### [facility] [address] [place], [address] MCHC (RBC) [Mass/Vol] 31.9 g/dL Low 32-36 [facility] Comment on above: Performed By: #### L 3130.0010, L3300.1200, L100.0100, L3100.5600, L3100.5475, L501.0900, L3100.5800, L400.2011, L3600.4030, L3100.5700, L500.3600, L3200.1275 #### [facility] [address] [place], [address] MCV (RBC) [Entitic vol] 88.1 fL Normal 81-99 [facility] Comment on above: Performed By: #### L 3130.0010, L3300.1200, L100.0100, L3100.5600, L3100.5475, L501.0900, L3100.5800, L400.2011, L3600.4030, L3100.5700, L500.3600, L3200.1275 #### [facility] [address] [place], [address] Monocytes/100 WBC (Bld) 10.1 % High 0-10 [facility] Comment on above: Performed By: #### L 3130.0010, L3300.1200, L100.0100, L3100.5600, L3100.5475, L501.0900, L3100.5800, L400.2011, L3600.4030, L3100.5700, L500.3600, L3200.1275 #### [facility] [address] [place], [address] Neutrophils/100 WBC (Bld) 62.7 % Normal 47-70 [facility] Comment on above: Performed By: #### L 3130.0010, L3300.1200, L100.0100, L3100.5600, L3100.5475, L501.0900, L3100.5800, L400.2011, L3600.4030, L3100.5700, L500.3600, L3200.1275 #### [facility] [address] [place], [address] Nucleated RBC (Bld) [#/Vol] 0 10*3/uL Normal 0-5 [facility] Comment on above: Performed By: #### L 3130.0010, L3300.1200, L100.0100, L3100.5600, L3100.5475, L501.0900, L3100.5800, L400.2011, L3600.4030, L3100.5700, L500.3600, L3200.1275 #### [facility] [address] [place], [address] (619) Platelet mean volume (Bld) [Entitic vol] 9.5 fL Normal 6.2-12.0 [facility] Comment on above: Performed By: #### L 3130.0010, L3300.1200, L100.0100, L3100.5600, L3100.5475, L501.0900, L3100.5800, L400.2011, L3600.4030, L3100.5700, L500.3600, L3200.1275 #### [facility] [address] [place], [place], [phone] (319 Platelets (Bld) [#/Vol] 197 10*3/uL Normal 150-450 [facility] Comment on above: Performed By: #### L 3130.0010, L3300.1200, L100.0100, L3100.5600, L3100.5475, L501.0900, L3100.5800, L400.2011, L3600.4030, L3100.5700, L500.3600, L3200.1275 #### [facility] [address] [place], [address] (687) RBC (Bld) [#/Vol] 4.45 10*6/uL Normal 4.2-5.4 [facility] Comment on above: Performed By: #### L 3130.0010, L3300.1200, L100.0100, L3100.5600, L3100.5475, L501.0900, L3100.5800, L400.2011, L3600.4030, L3100.5700, L500.3600, L3200.1275 #### [facility] [address] [place], [address] RDW SD 43.2 fl Normal 35.1-43.9 [facility] Comment on above: Performed By: #### L 3130.0010, L3300.1200, L100.0100, L3100.5600, L3100.5475, L501.0900, L3100.5800, L400.2010, L3600.4030, L3100.5700, L500.3600, L3200.1275 #### [facility] [address] [place], [address] WBC (Bld) [#/Vol] 7.5 10*3/uL Normal 4.4-11.0 [facility] Comment on above: Performed By: #### L 3130.0010, L3300.1200, L100.0100, L3100.5600, L3100.5475, L501.0900, L3100.5800, L400.2010, L3600.4030, L3100.5700, L500.3600, L3200.1275 #### [facility] [address] [place], [address] Protein+Creatinine Ratio,Uri neon 06-19-2024 PROT:CRE RATIO 233 mg/g CRE High 0-200 [facility] Comment on above: Performed By: #### L 3130.0010, L3300.1200, L100.0100, L3100.5600, L3100.5475, L501.0900, L3100.5800, L400.2010, L3600.4030, L3100.5700, L500.3600, L3200.1275 #### [facility] [address] [place], [place], [phone] (357) Protein (U) [Mass/Vol] 6.6 mg/dL Normal <11.9 [facility] Comment on above: Performed By: #### L 3130.0010, L3300.1200, L100.0100, L3100.5600, L3100.5475, L501.0900, L3100.5800, L400.2010, L3600.4030, L3100.5700, L500.3600, L3200.1275 #### [facility] [address] [place], [address] UR CREAT 28.30 mg/dL Normal NO RANGE EST. [facility] Comment on above: Performed By: #### L 3130.0010, L3300.1200, L100.0100, L3100.5600, L3100.5475, L501.0900, L3100.5800, L400.2010, L3600.4030, L3100.5700, L500.3600, L3200.1275 #### [facility] [address] [place], [place], [phone] (946) Renal Profileon 06-19-2024 Albumin [Mass/Vol] 4.0 g/dL Normal 3.2-5.0 [facility] Comment on above: Performed By: #### L 3130.0010, L3300.1200, L100.0100, L3100.5600, L3100.5475, L501.0900, L3100.5800, L400.2010, L3600.4030, L3100.5700, L500.3600, L3200.1275 #### [facility] [address] [place], [place], [phone] (465) BUN/CRE 13.3 RATIO Normal 10-20 [facility] Comment on above: Performed By: #### L 3130.0010, L3300.1200, L100.0100, L3100.5600, L3100.5475, L501.0900, L3100.5800, L400.2011, L3600.4030, L3100.5700, L500.3600, L3200.1275 #### [facility] [address] [place], [address] CA,Total 9.6 mg/dL Normal 8.5-10.1 [facility] Comment on above: Performed By: #### L 3130.0010, L3300.1200, L100.0100, L3100.5600, L3100.5475, L501.0900, L3100.5800, L400.2011, L3600.4030, L3100.5700, L500.3600, L3200.1275 #### [facility] [address] [place], [place], [phone] (188) Chloride [Moles/Vol] 99 mmol/L Normal 98-107 [facility] Comment on above: Performed By: #### L 3130.0010, L3300.1200, L100.0100, L3100.5600, L3100.5475, L501.0900, L3100.5800, L400.2011, L3600.4030, L3100.5700, L500.3600, L3200.1275 #### [facility] [address] [place], [address] CO2 [Moles/Vol] 21.0 mmol/L Normal 21.0-32.0 [facility] Comment on above: Performed By: #### L 3130.0010, L3300.1200, L100.0100, L3100.5600, L3100.5475, L501.0900, L3100.5800, L400.2011, L3600.4030, L3100.5700, L500.3600, L3200.1275 #### [facility] [address] [place], [place], [phone] (096) Creatinine [Mass/Vol] 1.43 mg/dL High 0.55-1.02 [facility] Comment on above: Result Comment: The validity of the calculated GFR GFRAA in patients over 70 years has not been determined. Clinical correlation is essential. Performed By: #### L 3130.0010, L3300.1200, L100.0100, L3100.5600, L3100.5475, L501.0900, L3100.5800, L400.2011, L3600.4030, L3100.5700, L500.3600, L3200.1275 #### [facility] [address] [place], [address] EST GFR - AA 46 mL/min Low >60 [facility] Comment on above: Result Comment: Afri can Russian GFR Calc Performed By: #### L 3130.0010, L3300.1200, L100.0100, L3100.5600, L3100.5475, L501.0900, L3100.5800, L400.2010, L3600.4030, L3100.5700, L500.3600, L3200.1275 #### [facility] [address] [place], [place], [phone] (702) GFR/1.73 sq M.predicted among non-blacks MDRD (S/P/Bld) [Vol rate/Area] 38 mL/min/{1.73_m2} Low >60 [facility] Comment on above: Result Comment: Non- GFR Calc Performed By: #### L 3130.0010, L3300.1200, L100.0100, L3100.5600, L3100.5475, L501.0900, L3100.5800, L400.2010, L3600.4030, L3100.5700, L500.3600, L3200.1275 #### [facility] [address] [place], [place], [phone] Glucose [Mass/Vol] 87 mg/dL Normal 74-106 [facility] Comment on above: Performed By: #### L 3130.0010, L3300.1200, L100.0100, L3100.5600, L3100.5475, L501.0900, L3100.5800, L400.2011, L3600.4030, L3100.5700, L500.3600, L3200.1275 #### [facility] [address] [place], [address] Phosphate [Mass/Vol] 2.7 mg/dL Normal 2.5-4.9 [facility] Comment on above: Performed By: #### L 3130.0010, L3300.1200, L100.0100, L3100.5600, L3100.5475, L501.0900, L3100.5800, L400.2011, L3600.4030, L3100.5700, L500.3600, L3200.1275 #### [facility] [address] [place], [address] Potassium [Moles/Vol] 4.1 mmol/L Normal 3.5-5.1 [facility] Comment on above: Performed By: #### L 3130.0010, L3300.1200, L100.0100, L3100.5600, L3100.5475, L501.0900, L3100.5800, L400.2010, L3600.4030, L3100.5700, L500.3600, L3200.1275 #### [facility] [address] [place], [address] Sodium [Moles/Vol] 131 mmol/L Low 136-145 [facility] Comment on above: Performed By: #### L 3130.0010, L3300.1200, L100.0100, L3100.5600, L3100.5475, L501.0900, L3100.5800, L400.2011, L3600.4030, L3100.5700, L500.3600, L3200.1275 #### [facility] [address] [place], [address] Urea nitrogen [Mass/Vol] 19 mg/dL High 7-18 [facility] Comment on above: Performed By: #### L 3130.0010, L3300.1200, L100.0100, L3100.5600, L3100.5475, L501.0900, L3100.5800, L400.2011, L3600.4030, L3100.5700, L500.3600, L3200.1275 #### [facility] [address] [place], [place], [phone] Pulmonary Visit Reporton Pulmonary Visit Report [facility] [address] [place], [place] [address] OFFICE VISIT Date of Service: 05/16/24 MR#: [id number] Acct: [id number] Name: KRISTY LICONA SANA Rep #: [id number] : 1950 Provider: LEONARDO Tamayo Age/Sex: 73/F Location: [facility] [place] Status: Signed Assessment and Plan Assessment and Plan (1) ONIEL (obstructive sleep apnea): Status: Chronic Comment: oral device Plan: Currently treating with oral device. The patient is agreeable to an unattended home sleep study with the oral device in place. Test results will be reviewed with the patient by phone. If this indicates adequate control of her sleep apnea the patient may follow-up as needed. Orders: Orders Polysomnography Today G47.33 - Obstructive sleep apnea (adult) (pediatric) HPI 1 Y FU Chief Complaint: Sleep apnea HPI Comments Details: This patient presents to the office today for follow-up of her obstructive sleep apnea. She is ambulatory and currently on room air. She has not recently been seen in the ED or urgent care for any respiratory illness. She has not required any antibiotics or prednisone for any breathing problems. She denies any difficulty with shortness of breath. She denies any wheezing, chest tightness, chest pain or palpitations. She has a dry cough with a hoarse voice. She feels as though she is suffering from some seasonal allergies. She has not had any fever, chills or body aches. The patient did have the oral appliance designed and has been utilizing it for almost a year. The patient reports waking up feeling rested and refreshed. She only occasionally has difficulty with dry mouth. She is not having morning headaches. She is not requiring naps. She loves it. Test results personally viewed with patient: Polysomnogram completed on May 12, 2023. Overall AHI is 5.3 events per hour. Diagnosis is mild obstructive sleep apnea. Recommendation is to consider a dental device therapy for sleep apnea. Intake Vital Signs 02/23/23 07:44 05/16/24 07:45 Height 5 ft 1.5 in 5 ft 1.5 in Weight: 138 lb BMI 25.6 BP 134/67 H Blood Pressure Location Rt brachial Position Sitting Respiration 16 Pulse 50 L Pulse Source Monitor Temp 98.0 F Temperature Source Temporal Artery Pulse Oximetry (%) 99 Oxygen Delivery Method room air Intake Visit Reasons: 1 Y FU Chief Complaint: ONIEL [employer] Required: No DME Vendor: None Accompanied by: Self Is patient in pain?: No Allergies Sulfa (Sulfonamide Antibiotics) Allergy (Severe, Verified 05/16/24 09:12) Hives cephalexin (From Keflex) Allergy (Verified 05/16/24 09:12) Diarrhea Penicillins Adverse Reaction (Mild, Verified 05/16/24 09:12) unknown Medications ???Medication ???Instructions ???Recorded ???Confirmed ???Type amlodipine 10 mg tablet 10 mg PO QDAY #90 tabs 02/25/20 05/16/24 Rx fluticasone propionate 50 2 spray intranasal DAILY 02/25/20 05/16/24 History mcg/actuation nasal spray,suspension metoprolol succinate 25 mg 25 mg PO QDAY #90 tabs 02/25/20 05/16/24 Rx tablet,extended release 24 hr atorvastatin 10 mg tablet 10 mg PO QHS 02/24/21 05/16/24 History calcium citrate 250 mg 1 tablet PO DAILY 02/24/21 05/16/24 History calcium-vitamin D3 5 mcg (200 unit) tablet montelukast 10 mg tablet 10 mg PO DAILY 02/24/21 05/16/24 History pantoprazole 40 mg tablet,delayed 40 mg PO DAILY 02/24/21 05/16/24 History release Oral appliance #1 ea 02/23/23 02/23/23 Rx ciprofloxacin HCl 500 mg tablet 500 mg PO BID PRN 05/16/24 05/16/24 History fluoxetine 10 mg capsule 10 mg PO QDAY 05/16/24 05/16/24 History latanoprost 0.005 % eye drops 1 drp ophthalmic (eye) QHS 05/16/24 05/16/24 History Have you fallen in the past year?: No PFSH Medical History COVID-19 Hx of gastroesophageal reflux (GERD) Essential (primary) hypertension Palpitations Surgical History History of bladder suspension procedure History of appendectomy Family History Grandfather , AGe 50 from [place] CAD (coronary artery disease) Myocardial infarction Sudden cardiac Aunt , Age 80 CVA CVA (cerebral vascular accident) Social History Smoking Status: Never smoker Review of Systems Resp Respiratory: Yes as per HPI Exam Const Constitutional: Positive conversant, cooperative, in no acute respiratory distress, well developed, well nourished and good hygiene Head Head: Yes normocephalic, Yes atraumatic and Yes micrognathia Eyes Eye: Positive clear conjunctiva (more content not included)... Normal [facility] Urine Cultureon 05-12-2024 URC Mixed Gram Pos Gram Neg Org [place] Count 1000-10,000 MIXC Mixed contaminants. Submit a new specimen if indicated. Normal [facility] Comment on above: Performed By: #### M 100.0758 #### [facility] [address] [place], [address] GOOD w/ Reflex Mult Confirmon 05-09-2024 GOOD,DIRECT Negative Normal Negative [facility] Comment on above: Result Comment: Perf ormed at: CB - [facility] [address] [id number] Penciller: Cameron Justice PhD, Phone: [phone] Performed By: #### L 854.9157, L502.0250, L500.4050, L101.9900, L100.0100, L3100.5450 ####[facility] [address] [place], [address] CBC W/Diff, Automatedon 04-15 Absolute Lymph 1.65 X10 3/uL Normal 0.83-4.51 [facility] Comment on above: Performed By: #### L 501.6710, L502.0250, L500.4050, L101.9900, L100.0100, L3100.5450 ####[facility] [address] [place], [address] Absolute Neut 5.2 X10 3/uL Normal 2.0-7.7 [facility] Comment on above: Performed By: #### L 501.6710, L502.0250, L500.4050, L101.9900, L100.0100, L3100.5450 ####[facility] [address] [place], [address] Basophils/100 WBC (Bld) 0.8 % Normal 0-1 [facility] Comment on above: Performed By: #### L 501.6710, L502.0250, L500.4050, L101.9900, L100.0100, L3100.5450 ####[facility] [address] [place], [address] Eosinophils/100 WBC (Bld) 1.6 % Normal 0-5 [facility] Comment on above: Performed By: #### L 501.6710, L502.0250, L500.4050, L101.9900, L100.0100, L3100.5450 ####[facility] [address] [place], [address] Erythrocyte distribution width (RBC) [Ratio] 13.6 % Normal 11.6-14.6 [facility] Comment on above: Performed By: #### L 501.6710, L502.0250, L500.4050, L101.9900, L100.0100, L3100.5450 ####[facility] [address] [place], [address] Hematocrit (Bld) [Volume fraction] 39.9 % Normal 37-47 [facility] Comment on above: Performed By: #### L 501.6710, L502.0250, L500.4050, L101.9900, L100.0100, L3100.5450 ####[facility] [address] [place], [address] Hemoglobin (Bld) [Mass/Vol] 12.5 g/dL Normal 12.0-15.0 [facility] Comment on above: Performed By: #### L 501.6710, L502.0250, L500.4050, L101.9900, L100.0100, L3100.5450 ####[facility] [address] [place], [address] IG% 0.600 Normal 0.0-0.9 [facility] Comment on above: Result Comment: IG% - Immature Granulocytes (promyelocytes, myelocytes and metamyelocytes) > 1% indicates that a LEFT SHIFT is Present. Performed By: #### L 501.6710, L502.0250, L500.4050, L101.9900, L100.0100, L3100.5450 ####[facility] [address] [place], [address] Lymphocytes/100 WBC (Bld) 20.7 % Normal 19-41 [facility] Comment on above: Performed By: #### L 501.6710, L502.0250, L500.4050, L101.9900, L100.0100, L3100.5450 ####[facility] [address] [place], [address] MCH (RBC) [Entitic mass] 28.2 pg Normal 27.0-32.0 [facility] Comment on above: Performed By: #### L 501.6710, L502.0250, L500.4050, L101.9900, L100.0100, L3100.5450 ####[facility] [address] [place], [address] MCHC (RBC) [Mass/Vol] 31.3 g/dL Low 32-36 [facility] Comment on above: Performed By: #### L 501.6710, L502.0250, L500.4050, L101.9900, L100.0100, L3100.5450 ####[facility] [address] [place], [address] MCV (RBC) [Entitic vol] 90.1 fL Normal 81-99 [facility] Comment on above: Performed By: #### L 501.6710, L502.0250, L500.4050, L101.9900, L100.0100, L3100.5450 ####[facility] [address] [place], [address] Monocytes/100 WBC (Bld) 11.7 % High 0-10 [facility] Comment on above: Performed By: #### L 501.6710, L502.0250, L500.4050, L101.9900, L100.0100, L3100.5450 ####[facility] [address] [place], [address] Neutrophils/100 WBC (Bld) 64.6 % Normal 47-70 [facility] Comment on above: Performed By: #### L 501.6710, L502.0250, L500.4050, L101.9900, L100.0100, L3100.5450 ####[facility] [address] [place], [address] Nucleated RBC (Bld) [#/Vol] 0 10*3/uL Normal 0-5 [facility] Comment on above: Performed By: #### L 501.6710, L502.0250, L500.4050, L101.9900, L100.0100, L3100.5450 ####[facility] [address] [place], [address] Platelet mean volume (Bld) [Entitic vol] 9.1 fL Normal 6.2-12.0 [facility] Comment on above: Performed By: #### L 501.6710, L502.0250, L500.4050, L101.9900, L100.0100, L3100.5450 ####[facility] [address] [place], [address] Platelets (Bld) [#/Vol] 251 10*3/uL Normal 150-450 [facility] Comment on above: Performed By: #### L 501.6710, L502.0250, L500.4050, L101.9900, L100.0100, L3100.5450 ####[facility] [address] [place], [address] RBC (Bld) [#/Vol] 4.43 10*6/uL Normal 4.2-5.4 [facility] Comment on above: Performed By: #### L 501.6710, L502.0250, L500.4050, L101.9900, L100.0100, L3100.5450 ####[facility] [address] [place], [address] RDW SD 45.4 fl High 35.1-43.9 [facility] Comment on above: Performed By: #### L 501.6710, L502.0250, L500.4050, L101.9900, L100.0100, L3100.5450 ####[facility] [address] [place], [address] WBC (Bld) [#/Vol] 8.0 10*3/uL Normal 4.4-11.0 [facility] Comment on above: Performed By: #### L 501.6710, L502.0250, L500.4050, L101.9900, L100.0100, L3100.5450 ####[facility] [address] [place], [address] CRPon 05-07-2024 C-REACTIVE PROT 3.26 mg/L High 0.0-3.0 [facility] Comment on above: Result Comment: C-Re active Protein (CRP) provides useful information for the diagnosis, therapy and monitoring of inflammatory processes and associated diseases. For the evaluation of Relative Risk for Cardiovascular Disease, a High Sensitivity CRP (HSCRP) should be ordered. Performed By: #### L 501.6710, L502.0250, L500.4050, L101.9900, L100.0100, L3100.5450 ####[facility] [address] [place], [address] Comprehensive Metabolic Prof ilon 05-07-2024 Albumin [Mass/Vol] 3.6 g/dL Normal 3.2-5.0 [facility] Comment on above: Performed By: #### L 501.6710, L502.0250, L500.4050, L101.9900, L100.0100, L3100.5450 ####[facility] [address] [place], [address] Albumin/Globulin [Mass ratio] 1.1 {ratio} Normal 0.9-2.4 [facility] Comment on above: Performed By: #### L 501.6710, L502.0250, L500.4050, L101.9900, L100.0100, L3100.5450 ####[facility] [address] [place], [address] ALK P 92 U/L Normal 45-117 [facility] Comment on above: Performed By: #### L 501.6710, L502.0250, L500.4050, L101.9900, L100.0100, L3100.5450 ####[facility] [address] [place], [address] ALT [Catalytic activity/Vol] 25 U/L Normal 13-56 [facility] Comment on above: Performed By: #### L 501.6710, L502.0250, L500.4050, L101.9900, L100.0100, L3100.5450 ####[facility] [address] [place], [address] AST [Catalytic activity/Vol] 26 U/L Normal 15-37 [facility] Comment on above: Performed By: #### L 501.6710, L502.0250, L500.4050, L101.9900, L100.0100, L3100.5450 ####[facility] [address] [place], [address] Bilirubin [Mass/Vol] 0.30 mg/dL Normal 0.20-1.00 [facility] Comment on above: Result Comment: For patients on eltrombopag therapy, use of Dimension [place] TBIL is not recommended. Performed By: #### L 501.6710, L502.0250, L500.4050, L101.9900, L100.0100, L3100.5450 ####[facility] [address] [place], [address] BUN/CRE 14.7 RATIO Normal 10-20 [facility] Comment on above: Performed By: #### L 501.6710, L502.0250, L500.4050, L101.9900, L100.0100, L3100.5450 ####[facility] [address] [place], [address] CA,Total 9.6 mg/dL Normal 8.5-10.1 [facility] Comment on above: Performed By: #### L 501.6710, L502.0250, L500.4050, L101.9900, L100.0100, L3100.5450 ####[facility] [address] [place], [address] Chloride [Moles/Vol] 101 mmol/L Normal 98-107 [facility] Comment on above: Performed By: #### L 501.6710, L502.0250, L500.4050, L101.9900, L100.0100, L3100.5450 ####[facility] [address] [place], [address] CO2 [Moles/Vol] 22.0 mmol/L Normal 21.0-32.0 [facility] Comment on above: Performed By: #### L 501.6710, L502.0250, L500.4050, L101.9900, L100.0100, L3100.5450 ####[facility] [address] [place], [address] Creatinine [Mass/Vol] 1.36 mg/dL High 0.55-1.02 [facility] Comment on above: Result Comment: The validity of the calculated GFR GFRAA in patients over 70 years has not been determined. Clinical correlation is essential. Performed By: #### L 501.6710, L502.0250, L500.4050, L101.9900, L100.0100, L3100.5450 ####[facility] [address] [place], [address] EST GFR - AA 49 mL/min Low >60 [facility] Comment on above: Result Comment: Afri can Russian GFR Calc Performed By: #### L 501.6710, L502.0250, L500.4050, L101.9900, L100.0100, L3100.5450 ####[facility] [address] [place], [address] GAP 9 Normal 5-15 [facility] Comment on above: Performed By: #### L 501.6710, L502.0250, L500.4050, L101.9900, L100.0100, L3100.5450 ####[facility] [address] [place], [address] GFR/1.73 sq M.predicted among non-blacks MDRD (S/P/Bld) [Vol rate/Area] 40 mL/min/{1.73_m2} Low >60 [facility] Comment on above: Result Comment: Non- GFR Calc Performed By: #### L 501.6710, L502.0250, L500.4050, L101.9900, L100.0100, L3100.5450 ####[facility] [address] [place], [address] Globulin (S) [Mass/Vol] 3.4 g/dL Normal 2.2-4.2 [facility] Comment on above: Performed By: #### L 501.6710, L502.0250, L500.4050, L101.9900, L100.0100, L3100.5450 ####[facility] [address] [place], [address] Glucose [Mass/Vol] 85 mg/dL Normal 74-106 [facility] Comment on above: Performed By: #### L 501.6710, L502.0250, L500.4050, L101.9900, L100.0100, L3100.5450 ####[facility] [address] [place], [address] Potassium [Moles/Vol] 4.2 mmol/L Normal 3.5-5.1 [facility] Comment on above: Performed By: #### L 501.6710, L502.0250, L500.4050, L101.9900, L100.0100, L3100.5450 ####[facility] [address] [place], [address] Sodium [Moles/Vol] 132 mmol/L Low 136-145 [facility] Comment on above: Performed By: #### L 501.6710, L502.0250, L500.4050, L101.9900, L100.0100, L3100.5450 ####[facility] [address] [place], [address] T PROT 7.0 g/dL Normal 6.4-8.2 [facility] Comment on above: Performed By: #### L 501.6710, L502.0250, L500.4050, L101.9900, L100.0100, L3100.5450 ####[facility] [address] [place], [address] Urea nitrogen [Mass/Vol] 20 mg/dL High 7-18 [facility] Comment on above: Performed By: #### L 501.6710, L502.0250, L500.4050, L101.9900, L100.0100, L3100.5450 ####[facility] [address] [place], [address] Erythrocyte Sed Rateon 05-07 SED RATE 18 mm/hr Normal 0-30 [facility] Comment on above: Performed By: #### L 501.6710, L502.0250, L500.4050, L101.9900, L100.0100, L3100.5450 ####[facility] [address] [place], [address] Microalb:Creat Ratio,Random URon 05-07-2024 Creatinine [Mass/Vol] 72.30 mg/dL Normal NO RAN GE EST. [facility] Comment on above: Performed By: #### L 500.3600 #### [facility] [address] [place], [address] MALB:CRE 17.4 mg/g CRE Normal <30 mg/g CRE [facility] Comment on above: Performed By: #### L 500.3600 #### [facility] [address] [place], [place], [address] MICROALBUMIN,UR 12.6 mg/L Normal NO RANGE EST. [facility] Comment on above: Performed By: #### L 500.3600 #### [facility] [address] [place], [place], [address] Basophil percentageOrdered B y: Alicia Castanon on 02-21-2024 Chloride [Moles/Vol] 106 mmol/L 98-107 [facility] Glucose [Mass/Vol] 136 mg/dL 74-106 [facility] Comment on above: Fasting Glucose resu lt greater than or equal to 126 mg/dL suggests DIABETES MELLITUS per A.D.A. criteria. Potassium [Moles/Vol] 4.3 mmol/L 3.5-5.1 [facility] Sodium [Moles/Vol] 140 mmol/L 136-145 [facility] - Chemistry and C hemistry - challengeOrdered By: Alicia Castanon on 02-21-2024 CO2 [Moles/Vol] 25.0 mmol/L 21.0-32.0 [facility] Urea nitrogen/Creatinine [Mass ratio] 15.5 mg/mg 10-20 [facility] No Panel InformationOrdered By: Alicia Castanon on 02-21-2024 Estimated GFR (MDRD) Amer 40 mL/min >60 [facility] Comment on above: GFR Calc Estimated GFR (MDRD) Non-Af Amer 33 mL/min >60 [facility] Comment on above: Non- GFR Calc Serum or plasma calcium linnea urement (mass/volume)Ordered By: Alicia Castanon on 02-21-2024 Calcium [Mass/Vol] 9.9 mg/dL 8.5-10.1 [facility] Serum or plasma creatinine m easurement (mass/volume)Ordered By: Alicia Castanon on 02-21-2024 Creatinine [Mass/Vol] 1.61 mg/dL 0.55-1.02 [facility] Comment on above: The validity of the calculated GFR & GFRAA in patients over 70 years has not been determined. Clinical correlation is essential. Serum or plasma urea nitroge n measurement (mass/volume)Ordered By: Alicia Castanon on 02-21-2024 Urea nitrogen [Mass/Vol] 25 mg/dL 7-18 [facility] Thin prep Papanicolaou smear with manual screeningOrdered By: Alicia Castanon on 02-21-2024 Thin prep Papanicolaou smear with manual screening 9 5-15 [facility] Basophil percentageOrdered B y: Alicia Castanon on 01-25-2024 Bilirubin [Mass/Vol] 0.40 mg/dL 0.20-1.00 [facility] Comment on above: For patients on eltr ombopag therapy, use of Dimension [place] TBIL is not recommended. Chloride [Moles/Vol] 107 mmol/L 98-107 [facility] Glucose [Mass/Vol] 99 mg/dL 74-106 [facility] Potassium [Moles/Vol] 4.0 mmol/L 3.5-5.1 [facility] Protein [Mass/Vol] 7.3 g/dL 6.4-8.2 [facility] Sodium [Moles/Vol] 141 mmol/L 136-145 [facility] - Chemistry and C hemistry - challengeOrdered By: Alicia Castanon on 01-25-2024 Albumin/Globulin [Mass ratio] 1.1 {ratio} 0.9-2.4 [facility] ALP [Catalytic activity/Vol] 88 U/L 45-117 [facility] ALT [Catalytic activity/Vol] 22 U/L 13-56 [facility] CO2 [Moles/Vol] 24.0 mmol/L 21.0-32.0 [facility] Globulin (S) [Mass/Vol] 3.4 g/dL 2.2-4.2 [facility] Urea nitrogen/Creatinine [Mass ratio] 14.0 mg/mg 10-20 [facility] No Panel InformationOrdered By: Alicia Castanon on 01-25-2024 Estimated GFR (MDRD) Amer 44 mL/min >60 [facility] Comment on above: GFR Calc Estimated GFR (MDRD) Non-Af Amer 36 mL/min >60 [facility] Comment on above: Non- GFR Calc Urine Microalbumin/Creatinin e Ratio 22.9 mg/g CRE <30 [facility] Serum or plasma calcium linnea urement (mass/volume)Ordered By: Alicia Castanon on 01-25-2024 Calcium [Mass/Vol] 9.4 mg/dL 8.5-10.1 [facility] Serum or plasma creatinine m easurement (mass/volume)Ordered By: Alicia Castanon on 01-25-2024 Creatinine [Mass/Vol] 1.50 mg/dL 0.55-1.02 [facility] Comment on above: The validity of the calculated GFR & GFRAA in patients over 70 years has not been determined. Clinical correlation is essential. Serum or plasma urea nitroge n measurement (mass/volume)Ordered By: Alicia Castanon on 01-25-2024 Urea nitrogen [Mass/Vol] 21 mg/dL 7-18 [facility] Thin prep Papanicolaou smear with manual screeningOrdered By: Alicia Castanon on 01-25-2024 Thin prep Papanicolaou smear with manual screening 3.9 g/dL 3.2-5.0 [facility] Thin prep Papanicolaou smear with manual screening 26 U/L 15-37 [facility] Thin prep Papanicolaou smear with manual screening 10 5-15 [facility] Thin prep Papanicolaou smear with manual screening 24.3 mg/L NO RANGE EST. [facility] Urine creatinine measurement (mass/volume)Ordered By: Alicia Castanon on 01-25-2024 Creatinine (U) [Mass/Vol] 106.00 mg/dL NO RANGE EST. [facility] Culture, urineOrdered By: Dr Radha Castanon on 04-03-2023 Bacteria identified Cx Nom (U) Proteus mirabilis [facility] Absolute lymphocyte countOrd ered By: Dr. Castanon on 03-31-2023 Lymphocytes Auto (Unsp spec) [#/Vol] 1.60 10*3/uL 0.83-4.51 [facility] Basophil percentageOrdered B y: Dr. Castanon on 03-31-2023 Basophils/100 WBC (Bld) 0.5 % 0-1 [facility] Bilirubin [Mass/Vol] 0.60 mg/dL 0.20-1.00 [facility] Comment on above: For patients on eltr ombopag therapy, use of Dimension [place] TBIL is not recommended. Chloride [Moles/Vol] 109 mmol/L 98-107 [facility] Cholesterol [Mass/Vol] 143 mg/dL <200 [facility] Comment on above: <200 mg/dL Desirable 200-240 mg/dL Borderline >240 mg/dL High Risk Eosinophils/100 WBC (Bld) 1.8 % 0-5 [facility] Glucose [Mass/Vol] 78 mg/dL 74-106 [facility] Neutrophils (Bld) [#/Vol] 4.2 10*3/uL 2.0-7.7 [facility] Neutrophils/100 WBC (Bld) 62.7 % 47-70 [facility] Potassium [Moles/Vol] 4.1 mmol/L 3.5-5.1 [facility] Protein [Mass/Vol] 7.5 g/dL 6.4-8.2 [facility] Sodium [Moles/Vol] 141 mmol/L 136-145 [facility] Triglyceride [Mass/Vol] 43 mg/dL <199 [facility] Comment on above: The drugs N-Acetylcy steine and Metamizole may falsely depress this assay.Serum Triglycerides Reference Interval Normal <150 mg/dL Borderline high 150 - 199 mg/dL High 200 - 499 mg/dL Very High > or = 500 mg/dL WBC (Bld) [#/Vol] 6.6 10*3/uL 4.4-11.0 [facility] Bilirubin Test strip Ql (U)O rdered By: Dr. Castanon on 03-31-2023 Bilirubin Ql (U) Negative Negative [facility] Blood erythrocytes count (nu mber/volume)Ordered By: Dr. Castanon on 03-31-2023 RBC (Bld) [#/Vol] 4.44 10*6/uL 4.2-5.4 [facility] Blood hemoglobin measurement (mass/volume)Ordered By: Dr. Castanon on 03-31-2023 Hemoglobin (Bld) [Mass/Vol] 12.9 g/dL 12.0-15.0 [facility] Blood lymphocytes/100 leukoc ytesOrdered By: Dr. Castanon on 03-31-2023 Lymphocytes/100 WBC (Bld) 24.1 % 19-41 [facility] Blood monocytes/100 leukocyt esOrdered By: Dr. Castanon on 03-31-2023 Monocytes/100 WBC (Bld) 10.6 % 0-10 [facility] Blood platelet mean volumeOr dered By: Dr. Castanon on 03-31-2023 Platelet mean volume (Bld) [Entitic vol] 10.3 fL 6.2-12.0 [facility] Determination of erythrocyte mean corpuscular volume (MCV)Ordered By: Dr. Castanon on 03-31-2023 MCV (RBC) [Entitic vol] 91.2 fL 81-99 [facility] Hematocrit Auto (Bld) [Volum e fraction]Ordered By: Dr. Castanon on 03-31-2023 Hematocrit (Bld) [Volume fraction] 40.5 % 37-47 [facility] Ketones Test strip Ql (U)Ord ered By: Dr. Castanon on 03-31-2023 Ketones Ql (U) Negative Negative [facility] - Chemistry and C hemistry - challengeOrdered By: Dr. Castanon on 03-31-2023 ALP [Catalytic activity/Vol] 94 U/L 45-117 [facility] ALT [Catalytic activity/Vol] 27 U/L 13-56 [facility] CO2 [Moles/Vol] 27.0 mmol/L 21.0-32.0 [facility] Globulin (S) [Mass/Vol] 3.8 g/dL 2.2-4.2 [facility] Urea nitrogen/Creatinine [Mass ratio] 14.4 mg/mg 10-20 [facility] - Hematology and Cell countsOrdered By: Dr. Castanon on 03-31-2023 Erythrocyte distribution width (RBC) [Entitic vol] 44.6 fL 35.1-43.9 [facility] Erythrocyte distribution width (RBC) [Ratio] 13.2 % 11.6-14.6 [facility] Immature granulocytes/100 WBC (Bld) 0.300 % 0.0-0.9 [facility] Comment on above: IG% - Immature Granu locytes (promyelocytes, myelocytes and metamyelocytes) > 1% indicates that a LEFT SHIFT is Present. MCH (RBC) [Entitic mass] 29.1 pg 27.0-32.0 [facility] Nucleated RBC/100 WBC (Bld) [Ratio] 0 % 0-5 [facility] MCHC Auto (RBC) [Mass/Vol]Or dered By: Dr. Castanon on 03-31-2023 MCHC (RBC) [Mass/Vol] 31.9 g/dL 32-36 [facility] Nitrite Test strip Ql (U)Ord ered By: Dr. Castanon on 03-31-2023 Nitrite Ql (U) Negative Negative [facility] No Panel InformationOrdered By: Dr. Castanon on 03-31-2023 Estimated GFR (MDRD) Amer 51 mL/min >60 [facility] Comment on above: GFR Calc Estimated GFR (MDRD) Non-Af Amer 42 mL/min >60 [facility] Comment on above: Non- GFR Calc Urine Microalbumin/Creatinin e Ratio 84.9 mg/g CRE <30 [facility] Platelets bldOrdered By: Dr. Castanon on 03-31-2023 Platelets (Bld) [#/Vol] 193 10*3/uL 150-450 [facility] Protein Test strip Ql (U)Ord ered By: Dr. Castanon on 03-31-2023 Protein Ql (U) 30 mg/dl Negative [facility] Serum or plasma albumin linnea urement (mass/volume)Ordered By: Dr. Castanon on 03-31-2023 Albumin [Mass/Vol] 3.7 g/dL 3.2-5.0 [facility] Serum or plasma albumin/glob ulin mass ratioOrdered By: Dr. Castanon on 03-31-2023 Albumin/Globulin [Mass ratio] 1.0 {ratio} 0.9-2.4 [facility] Serum or plasma calcium linnea urement (mass/volume)Ordered By: Dr. Castanon on 03-31-2023 Calcium [Mass/Vol] 9.6 mg/dL 8.5-10.1 [facility] Serum or plasma cholesterol in HDL measurement (mass/volume)Ordered By: Dr. Castanon on 03-31-2023 Cholesterol in HDL [Mass/Vol] 84 mg/dL >40 [facility] Comment on above: The drugs N-Acetylcy steine and Metamizole may falsely depress this assay. Reference Range HDL <40 mg/dL Low HDL Cholesterol HDL >or= 60 mg/dL High HDL Cholesterol Serum or plasma cholesterol in VLDL measurement (mass/volume)Ordered By: Dr. Castanon on 03-31-2023 Cholesterol in VLDL [Mass/Vol] 9 mg/dL 5-40 [facility] Serum or plasma creatinine m easurement (mass/volume)Ordered By: Dr. Castanon on 03-31-2023 Creatinine [Mass/Vol] 1.32 mg/dL 0.55-1.02 [facility] Comment on above: The validity of the calculated GFR & GFRAA in patients over 70 years has not been determined. Clinical correlation is essential. Serum or plasma low density lipoprotein (LDL) cholesterol measurement (mass/volume)Ordered By: Dr. Castanon on 03-31-2023 Cholesterol in LDL [Mass/Vol] 50 mg/dL 0-130 [facility] Serum or plasma urea nitroge n measurement (mass/volume)Ordered By: Dr. Castanon on 03-31-2023 Urea nitrogen [Mass/Vol] 19 mg/dL 7-18 [facility] Thin prep Papanicolaou smear with manual screeningOrdered By: Dr. Castanon on 03-31-2023 Thin prep Papanicolaou smear with manual screening 33 U/L 15-37 [facility] Thin prep Papanicolaou smear with manual screening 5 5-15 [facility] Thin prep Papanicolaou smear with manual screening 95.1 mg/L NO RANGE EST. [facility] Urine blood detectionOrdered By: Dr. Castanon on 03-31-2023 RBC Ql (U) 25 /ul Negative [facility] Urine clarityOrdered By: Dr. Castanon on 03-31-2023 Clarity (U) Cloudy Clear [facility] Urine color determinationOrd ered By: Dr. Castanon on 03-31-2023 Color (U) Yellow Yellow [facility] Urine creatinine measurement (mass/volume)Ordered By: Dr. Castanon on 03-31-2023 Creatinine (U) [Mass/Vol] 112.00 mg/dL NO RANGE EST. [facility] Urine glucose detectionOrder ed By: Dr. Castanon on 03-31-2023 Glucose Ql (U) Normal mg/dl Normal [facility] Urine leukocyte esterase det ection by dipstickOrdered By: Dr. Castanon on 03-31-2023 Leukocyte esterase Test strip Ql (U) 500 /ul Negative [facility] Urine pHOrdered By: Dr. Martha jones on 03-31-2023 pH (U) 9.0 [pH] 5.0 - 8.0 [facility] Urine specific gravity measu rementOrdered By: Dr. Castanon on 03-31-2023 Specific gravity (U) [Rel density] 1.015 1.002-1.03 0 [facility] Urobilinogen Auto test strip Ql (U)Ordered By: Dr. Castanon on 03-31-2023 Urobilinogen Ql (U) Normal mg/dl Normal [facility] Basophil percentageOrdered B y: Dr. Castanon on 01-24-2023 Bilirubin [Mass/Vol] 0.30 mg/dL 0.20-1.00 [facility] Comment on above: For patients on eltr ombopag therapy, use of Dimension [place] TBIL is not recommended. Chloride [Moles/Vol] 111 mmol/L 98-107 [facility] Glucose [Mass/Vol] 102 mg/dL 74-106 [facility] Comment on above: Fasting Glucose resu lt from 100 to 125 mg/dL suggests IMPAIRED HOMEOSTASIS per A.D.A. criteria. Potassium [Moles/Vol] 3.9 mmol/L 3.5-5.1 [facility] Protein [Mass/Vol] 7.5 g/dL 6.4-8.2 [facility] Sodium [Moles/Vol] 144 mmol/L 136-145 [facility] - Chemistry and C hemistry - challengeOrdered By: Dr. Castanon on 01-24-2023 ALP [Catalytic activity/Vol] 90 U/L 45-117 [facility] ALT [Catalytic activity/Vol] 31 U/L 13-56 [facility] CO2 [Moles/Vol] 26.0 mmol/L 21.0-32.0 [facility] Globulin (S) [Mass/Vol] 3.7 g/dL 2.2-4.2 [facility] Urea nitrogen/Creatinine [Mass ratio] 14.3 mg/mg 10-20 [facility] No Panel InformationOrdered By: Dr. Castanon on 01-24-2023 Urine Microalbumin/Creatinin e Ratio 200.0 mg/g CRE <30 [facility] Estimated GFR (MDRD) Amer 54 mL/min >60 [facility] Comment on above: GFR Calc Estimated GFR (MDRD) Non-Af Amer 44 mL/min >60 [facility] Comment on above: Non- GFR Calc Serum or plasma albumin linnea urement (mass/volume)Ordered By: Dr. Castanon on 01-24-2023 Albumin [Mass/Vol] 3.8 g/dL 3.2-5.0 [facility] Serum or plasma albumin/glob ulin mass ratioOrdered By: Dr. Castanon on 01-24-2023 Albumin/Globulin [Mass ratio] 1.0 {ratio} 0.9-2.4 [facility] Serum or plasma calcium linnea urement (mass/volume)Ordered By: Dr. Castanon on 01-24-2023 Calcium [Mass/Vol] 9.8 mg/dL 8.5-10.1 [facility] Serum or plasma creatinine m easurement (mass/volume)Ordered By: Dr. Castanon on 01-24-2023 Creatinine [Mass/Vol] 1.26 mg/dL 0.55-1.02 [facility] Comment on above: The validity of the calculated GFR & GFRAA in patients over 70 years has not been determined. Clinical correlation is essential. Serum or plasma urea nitroge n measurement (mass/volume)Ordered By: Dr. Castanon on 01-24-2023 Urea nitrogen [Mass/Vol] 18 mg/dL 7-18 [facility] Thin prep Papanicolaou smear with manual screeningOrdered By: Dr. Castanon on 01-24-2023 Thin prep Papanicolaou smear with manual screening 234.0 mg/L NO RANGE EST. [facility] Thin prep Papanicolaou smear with manual screening 33 U/L 15-37 [facility] Thin prep Papanicolaou smear with manual screening 7 5-15 [facility] Urine creatinine measurement (mass/volume)Ordered By: Dr. Castanon on 01-24-2023 Creatinine (U) [Mass/Vol] 117.00 mg/dL NO RANGE EST. [facility] Laboratory - Microbiology an d Antimicrobial susceptibilityon 11-04-2022 SARS-CoV-2 (COVID-19) RNA MARILY+probe Ql (Unsp spec) Detected [facility] No Panel Informationon 11-04 Influenza Types A,B Rapid (Clinic) Not detected [facility] Bilirubin Test strip Ql (U)O rdered By: Dr. Castanon on 10-25-2022 Bilirubin Ql (U) Negative Negative [facility] Ketones Test strip Ql (U)Ord ered By: Dr. Castanon on 10-25-2022 Ketones Ql (U) Negative Negative [facility] Nitrite Test strip Ql (U)Ord ered By: Dr. Castanon on 10-25-2022 Nitrite Ql (U) Negative Negative [facility] No Panel InformationOrdered By: Dr. Castanon on 10-25-2022 Urine Microalbumin/Creatinin e Ratio 52.4 mg/g CRE <30 [facility] Protein Test strip Ql (U)Ord ered By: Dr. Castanon on 10-25-2022 Protein Ql (U) Negative Negative [facility] Thin prep Papanicolaou smear with manual screeningOrdered By: Dr. Castanon on 10-25-2022 Thin prep Papanicolaou smear with manual screening 40.0 mg/L NO RANGE EST. [facility] Urine blood detectionOrdered By: Dr. Castanon on 10-25-2022 RBC Ql (U) Negative Negative [facility] Urine clarityOrdered By: Dr. Castanon on 10-25-2022 Clarity (U) Clear Clear [facility] Urine color determinationOrd ered By: Dr. Castanon on 10-25-2022 Color (U) Yellow Yellow [facility] Urine creatinine measurement (mass/volume)Ordered By: Dr. Castanon on 10-25-2022 Creatinine (U) [Mass/Vol] 76.30 mg/dL NO RANGE EST. [facility] Urine glucose detectionOrder ed By: Dr. Castanon on 10-25-2022 Glucose Ql (U) Normal mg/dl Normal [facility] Urine leukocyte esterase det ection by dipstickOrdered By: Dr. Castanon on 10-25-2022 Leukocyte esterase Test strip Ql (U) Negative Negative [facility] Urine pHOrdered By: Dr. Martha jones on 10-25-2022 pH (U) 6.0 [pH] 5.0 - 8.0 [facility] Urine specific gravity measu rementOrdered By: Dr. Castanon on 10-25-2022 Specific gravity (U) [Rel density] 1.015 1.002-1.03 0 [facility] Urobilinogen Auto test strip Ql (U)Ordered By: Dr. Castanon on 10-25-2022 Urobilinogen Ql (U) Normal mg/dl Normal [facility] Provider Note - ED v3on 040 Provider Note - ED v3 Provider Note: Chart Review HISTORY OF PRESENTING ILLNESS KRISTY is a 71 year old Female and was seen by me at 18-Feb-2022 16:13. The historian is the patient. Triage Information: Most recent Vital Sign Value Date PAST MEDICAL HISTORY ALLERGIES/INTOLERANCES: Allergy Allergen: penicillin Type: Drug Reaction: Hives/Urticaria Allergen: sulfa drugs Type: Drug Category Reaction: Hives/Urticaria Intolerance Allergen: Doxycycline Hyclate Type: Drug Reaction: Nausea/Vomiting Allergen: levofloxacin Type: Drug Reaction: Nausea/Vomiting HEALTH HISTORY: Medical History Name:Hypertension Code:I10 Name:High cholesterol Code:E78.00 Name:GERD (gastroesophageal reflux disease) Code:K21.9 Family history: sister recently dx'd with lung CA. Social history: Non-smoker. . OUTPATIENT MEDICATIONS: Home Medications Review Status for Reconciliation: Incomplete Med Status: Patient Currently Takes Medications Drug Name: atorvastatin 10 mg oral tablet Instructions: 1 tab(s) orally once a day Drug Name: pantoprazole 40 mg oral delayed release tablet Instructions: 1 tab(s) orally once a day Drug Name: albuterol 90 mcg/inh inhalation aerosol Instructions: 2 puff(s) inhaled every 4 hours, As Needed for wheezing or shortness of breath Drug Name: montelukast 10 mg oral tablet Instructions: 1 tab(s) orally once a day Drug Name: amLODIPine 10 mg oral tablet Instructions: 1 tab(s) orally once a day Drug Name: fluticasone 50 mcg/inh nasal spray Instructions: 1 spray(s) nasal once a day Drug Name: latanoprost 0.005% ophthalmic solution Instructions: 1 drop(s) to each affected eye once a day (in the evening) Drug Name: Metoprolol Succinate ER 25 mg oral tablet, extended release Instructions: 1 tab(s) orally once a day Drug Name: buPROPion 150 mg/24 hours (XL) oral tablet, extended release Instructions: 1 tab(s) orally every 24 hours Drug Name: Cipro 500 mg oral tablet Instructions: 1 tab(s) orally 2 times a day x 5 days SIGNIFICANT EVENTS: Past Medical History Description:Pneumonia History of appendectomy and bladder sling; no other known significant events or other known past surgical history. Has received 2 doses of the COVID-19 vaccine + 1 booster. Has received the [id number] flu vaccine. CRITICAL CARE RESULTS: Recent Lab Results: POCT Urinalysis showed trace blood and 1+ leukocytes; neg nitrites. SG 1.025. VITAL SIGNS: T PRBP SpO2O2(LPM) %FiO2 Method 18-Feb-2022 16:08:[id number]/61 97 MDM MDM/ED COURSE: This note was generated with voice recognition software and may contain errors including spelling, grammar, syntax, and misrecognization of what was dictated CHIEF COMPLAINT burning with urination, urinary frequency/urgency HISTORY OF PRESENT ILLNESS Patient presents for evaluation of dysuria x 5-6 days - symptoms come and go. Has had burning with urination, urinary frequency, urgency, and one episode of urinary incontinence d/t the urgency. She denies any fever/chills, blood in urine, malaise, lethargy, nausea/vomiting, bloating, abdominal distention/pain, back pain, change in bowel habits, and vaginal symptoms. Patient reports has had similar symptoms in the past (last time was in ~2019) and was diagnosed with a UTI - reports that Cipro 500 mg BID has been the only thing that seems to work. Feels that actively urinating helps symptoms, but the discomfort returns as soon as she is finished voiding. Has not tried any OTC medications for her symptoms. Admits does not drink a lot of water. REVIEW OF SYSTEMS 10 systems reviewed negative with exception of history of present illness listed above PHYSICAL EXAMINATION General: Pleasant, well-nourished female; alert and oriented, in no acute distress. Sitting comfortably on exam table. Eye: Pupils equal, round and reactive to light. HENT: Normocephalic. Oral mucosa moist. Neck: Supple. No lymphadenopathy. Respiratory: Lungs are clear to auscultation; no wheezes, rhonchi, or rales. Respirations unlabored, Breath sounds are equal, Symmetrical chest wall expansion. Cardiovascular: Regular rate, Regular rhythm. Normal S1S2. No m/r/g. Gastrointestinal: Soft, non-tender, non-distended; no palpable masses or organomegaly. No suprapubic tenderness. Bowel sounds normoactive. No CVA tenderness. Musculoskeletal: Grossly normal; appropriate for age. Integumentary: [place], warm, dry, and intact. No rashes or skin discoloration appreciated. Good skin turgor. Neurologic: Alert and oriented; grossly intact. Cognition and Speech: Oriented, Speech clear and coherent. Psychiatric: Cooperative, Appropriate mood & affect. MEDICAL DECISION MAKING Course: Worsening; stable. Impression/Plan: Symptoms/exam consistent with UTI, although reviewed other potential etiologies. No CVA tenderness, but has low-grade fever (more content not included)... Normal [facility] URINE CULTURE,BACTERIALon URINE CULTURE,BACTERIAL PATIENT: KRISTY LICONA LOCATION: [address]#: [id number] : 50 AGE: SEX: F ORDERED BY: PER BERGER SOURCE: URINE COLLECTED: 02/18/22 16:28 ANTIBIOTICS AT SAM.: RECEIVED : 02/19/22 00:26 SITE: Clean Catch/Voided R E S U L T S URINE CULTURE,BACTERIAL FINAL 02/19/22 18:47 NO SIGNIFICANT GROWTH. Normal [facility] Comment on above: Performed By: #### [facility] #### [facility] [address] [place] [address] BONE DENSITY, DEXA 1 OR MORE SITES: AXIAL SKELETONon 06-29-2021 BONE DENSITY, DEXA 1 OR MORE SITES: AXIAL SKELETON Patient Name: KRISTY LICONA STUDY: BONE DENSITY, DEXA 1 OR MORE SITES: AXIAL SKELETN; 06/29/2021 7:45 am INDICATION: POST MENOPAUSAL 2 YRS. Evaluate for osteopenia/osteoporosis, ACCESSION NUMBER(S): [id number] ORDERING CLINICIAN: REGINA QUIÑONES FINDINGS: Standard measurements were obtained utilizing an [employer] X-ray Absorptiometry bone densitometer. Data obtained includes planar bone density measurements over the left hip and lumbar spine. Comparison of measured data and standardized mean data for a young adult population (when peak bone mass occurs) results in a T score. This represents the number of standard deviations above or below the mean of a young adult population. Comparison of measured data to standards from an age-adjusted population similarly yields a Z score. Left femoral neck Bone density: 0.596 g/cm2 T score: -2.3 Z Score: -0.4 Lumbar Spine (L1-4) Bone density: 0.843 g/cm2 T Score: -1.9 Z Score: 0.3 World Health Organization (WHO) criteria defines normal bone density as that which is less than 1 standard deviation below the mean of a young adult population. Osteopenia is defined as a measured bone density that is between 1 and 2.5 standard deviations below the mean of a young adult population. Osteoporosis is defined as a measured bone density that is greater than or equal to 2.5 standard deviations below the mean of a young adult population. IMPRESSION: According to World Health Organization criteria, bone mineral density of the left femoral neck and lumbar spine is osteopenic. The patient is at increased risk for fracture. 10 year fracture risk for major osteoporotic fracture is 13 %. 10 year fracture risk for hip fracture 3.0 % according to the World Health Organization FRAX- fracture risk assessment tool. Left total hip bone mineral density has decreased 2.6 % when compared to the prior study of 01/28/2017. Lumbar spine bone mineral density has decreased 3.7 % when compared to the prior study. Electronically signed by: HARDIK YUNG MD [facility] DIGITAL MAMM SCREENING W/ TO [facility] 06-29-2021 DIGITAL MAMM SCREENING W/ GERONIMO Patient Name: KRISTY LICONA STUDY: DIGITAL MAMM SCREENING W/ GERONIMO; 06/29/2021 7:52 am ACCESSION NUMBER(S): [id number] ORDERING CLINICIAN: REGINA QUIÑONES INDICATION: Screening. COMPARISON: 02/02/2018, 01/28/2017 FINDINGS: 2D and tomosynthesis images were reviewed at 1 mm slice thickness. There are areas of scattered fibroglandular tissue. No suspicious masses or calcifications are identified. Benign calcifications are seen bilaterally. CAD was utilized. IMPRESSION: No mammographic evidence of malignancy. BI-RADS CATEGORY: Category: 2 - Benign. Recommendation: 1 Year Screening. For any future breast imaging appointments, please call [phone]). Electronically signed by: MIKE SOUSA MD Normal [facility] BASIC METABOLIC PANELon - Anion gap [Moles/Vol] 12 mmol/L Normal 10 - 20 [facility] Comment on above: Performed By: #### B MP #### [place] [address] Calcium [Mass/Vol] 9.3 mg/dL Normal 8.6 - 10.3 [facility] Comment on above: Performed By: #### B MP #### [address] [address] Chloride [Moles/Vol] 104 mmol/L Normal 98 - 107 [facility] Comment on above: Performed By: #### B MP #### [place] [id number] Creatinine [Mass/Vol] 0.95 mg/dL Normal 0.50 - 1.05 [facility] Comment on above: Performed By: #### B MP #### [place] [id number] GFR- AM. 70 mL/min/1.73m2 Normal >60 [facility] Comment on above: Result Comment: CALC ULATIONS OF ESTIMATED GFR ARE PERFORMED USING THE MDRD STUDY EQUATION FOR THE IDMS-TRACEABLE CREATININE METHODS. CLIN CHEM 2007;53:766-72 Performed By: #### B MP #### [address] [address] GFR-NON AM. 58 mL/min/1.73m2 Abnormal >60 [facility] Comment on above: Performed By: #### B MP #### [address] [address] Glucose [Mass/Vol] 87 mg/dL Normal 74 - 99 [facility] Comment on above: Performed By: #### B MP #### [address] [address] HCO3 (Bld) [Moles/Vol] 26 mmol/L Normal 21 - 32 [facility] Comment on above: Performed By: #### B MP #### [address] [address] Potassium [Moles/Vol] 3.9 mmol/L Normal 3.5 - 5.3 [facility] Comment on above: Performed By: #### B MP #### [address] [address] Sodium [Moles/Vol] 138 mmol/L Normal 136 - 145 [facility] Comment on above: Performed By: #### B MP #### [address] [address] Urea nitrogen [Mass/Vol] 10 mg/dL Normal 6 - 23 [facility] Comment on above: Performed By: #### B MP #### [address] [address] Discharge [id number] Discharge Profile2 Discharge Orders: Anticipated Discharge Date: Anticipated Discharge [id number] DNAR: DNAR Status: none Diet: Dietlow fat, low sodium Provider FINAL REVIEW of Orders: Final Review: Final Review of Medication Reconciliation and Orders Completedby Physician Reviewing ProviderBaldo Dorado MD at 26-Apr-2021 09:45:10 Appointments: Follow-Up Appointment 01: 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 Electronic Signatures: Baldo Arriola) (Signed 26-Apr-2021 09:45) Authored: Discharge Orders, Provider FINAL REVIEW of Orders, Appointments, Gold Form - Unhairing Inspector Summary Shruthi Diaz (SUZIE) (Signed 26-Apr-2021 09:46) Authored: Discharge Orders, Appointments Last Updated: 26-Apr-2021 09:46 by Shruthi Diaz (SUZIE) [facility] MAGNESIUMon 04-26-2021 Magnesium [Mass/Vol] 1.84 mg/dL Normal 1.60 - 2.40 [facility] Comment on above: Performed By: #### B #### [facility] [address] [place] [address] Order Reconciliationon 04-26 Order Reconciliation Page 1 Discharge Reconciliation Document Reconciliation Type: Discharge requested on behalf of Baldo Arriola (Physician) done by Baldo Arriola) Discharge - Reconciliation: 26-Apr-2021 09:44 by: Baldo Arriola) Home Medications EnteredHOME MEDICATIONS AT DISCHARGE DateReconciliation Comment/ Additional Information albuterol 90 mcg/inh inhalation aerosol 2 puff(s) inhaled every 4 hours, As Needed for wheezing or shortness of breath 23-Apr-2021 13:10 albuterol 90 mcg/inh inhalation aerosol 2 puff(s) inhaled every 4 hours, As Needed for wheezing or shortness of breath 23-Apr-2021 13:10 albuterol 90 mcg/inh inhalation aerosol is continued as albuterol 90 mcg/inh inhalation aerosol amLODIPine 10 mg oral tablet 1 tab(s) orally once a day 24-Apr-2021 01:06 amLODIPine 10 mg oral tablet 1 tab(s) orally once a day 24-Apr-2021 01:06 amLODIPine 10 mg oral tablet is continued as amLODIPine 10 mg oral tablet atorvastatin 10 mg oral tablet 1 tab(s) orally once a day 04-Nov-2020 10:01 atorvastatin 10 mg oral tablet 1 tab(s) orally once a day 04-Nov-2020 10:01 atorvastatin 10 mg oral tablet is continued as atorvastatin 10 mg oral tablet fluticasone 50 mcg/inh nasal spray 1 spray(s) nasal once a day 24-Apr-2021 01:07 fluticasone 50 mcg/inh nasal spray 1 spray(s) nasal once a day 24-Apr-2021 01:07 fluticasone 50 mcg/inh nasal spray is continued as fluticasone 50 mcg/inh nasal spray latanoprost 0.005% ophthalmic solution 1 drop(s) to each affected eye once a day (in the evening) 24-Apr-2021 06:59 latanoprost 0.005% ophthalmic solution 1 drop(s) to each affected eye once a day (in the evening) 24-Apr-2021 06:59 latanoprost 0.005% ophthalmic solution is continued as latanoprost 0.005% ophthalmic solution Metoprolol Succinate ER 25 mg oral tablet, extended release 1 tab(s) orally once a day 24-Apr-2021 06:59 Metoprolol Succinate ER 25 mg oral tablet, extended release 1 tab(s) orally once a day 24-Apr-2021 06:59 Metoprolol Succinate ER 25 mg oral tablet, extended release is continued as Metoprolol Succinate ER 25 mg oral tablet, extended release montelukast 10 mg oral tablet 1 tab(s) orally once a day 24-Apr-2021 01:03 montelukast 10 mg oral tablet 1 tab(s) orally once a day 24-Apr-2021 01:03 montelukast 10 mg oral tablet is continued as montelukast 10 mg oral tablet pantoprazole 40 mg oral delayed release tablet 1 tab(s) orally once a day 04-Nov-2020 10:02 pantoprazole 40 mg oral delayed release tablet 1 tab(s) orally once a day 04-Nov-2020 10:02 pantoprazole 40 mg oral delayed release tablet is continued as pantoprazole 40 mg oral delayed release tablet Zithromax Z-Arsh 250 mg oral tablet 2 tab(s) by mouth at once on day 1, then 1 tablet once a day on days 2-5 23-Apr-2021 13:13 Discontinued; Discontinue from ORM Zithromax Z-Arsh 250 mg oral tablet is not required Current OrdersDateHOME MEDICATIONS AT DISCHARGE DateReconciliation Comment/ Additional Information Acetaminophen Tablet (TYLENOL)DOSE = 650 mg Oral Every 4 Hours, PRN Pain - Mild (1-3) 24-Apr-2021 02:16 Acetaminophen is not required Acetaminophen Tablet (TYLENOL)DOSE = 650 mg Oral Every 4 Hours, PRN Temp Greater Than or Equal to 38.0 C 24-Apr-2021 02:16 Acetaminophen is not required amLODIPine (NORVASC) TabletDOSE = 10 mg Oral Daily 24-Apr-2021 01:33 amLODIPine (NORVASC) is not required Atorvastatin Tablet (LIPITOR)DOSE = 10 mg Oral Daily 24-Apr-2021 01:33 Atorvastatin is not required levoFLOXacin (LEVAQUIN) TabletDOSE = 750 mg Oral Every 24 Hours 25-Apr-2021 22:58 levoFLOXacin (LEVAQUIN) is not required Magnesium Hydroxide Oral Liquid CONCENTRATE (MILK OF MAGNESIA)DOSE = 10 mL Oral Every 24 Hours, PRN Constipation 24-Apr-2021 02:16 Magnesium Hydroxide Oral Liquid CONCENTRATE is not required Metoprolol Succinate Extended Release Tablet, Extended Release (TOPROL-XL)DOSE = 25 mg Oral Daily 24-Apr-2021 07:36 Metoprolol Succinate Extended Release is not required metroNIDAZOLE (FLAGYL) TabletDOSE = 500 mg Oral Every 8 Hours 25-Apr-2021 22:58 metroNIDAZOLE 500 mg oral tablet 1 tab(s) orally every 8 hours; take first dose today at 1 pm 26-Apr-2021 09:42 Prescription is created for metroNIDAZOLE 500 mg oral tablet Montelukast Tablet (SINGULAIR)DOSE = 10 mg Oral At Bedtime 24-Apr-2021 01:33 Montelukast is not required Ondansetron Injectable (ZOFRAN)DOSE = 4 mg IntraVenous Push Every 4 Hours, PRN Nausea and/or Vomiting 24-Apr-2021 02:16 Ondansetron Injectable is not required Pantoprazole Enteric Coated Tablet (PROTONIX)DOSE = 40 mg Oral Daily 24-Apr-2021 01:33 Pantoprazole is not required Home Medications Added During Discharge Reconciliation Discharge Discharge Diagnosis< J18.9 Pneumonia;J85.2 Lung abscess Discharge Provider, Baldo Arriola Discharge Disposition : .Home Condition at Discharge: Satisfactory Discharge Communication Instructions for Nursing Only: Remove IV prior to discha (more content not included)... Normal [facility] PHOSPHORUSon 04-26-2021 Phosphate [Mass/Vol] 3.6 mg/dL Normal 2.5 - 4.9 [facility] Comment on above: Result Comment: The performance characteristics of phosphorus testing in heparinized plasma have been validated by the individual laboratory site where testing is performed. Testing on heparinized plasma is not approved by the FDA; however, such approval is not necessary. Performed By: #### P HOS ####[place] [address] BASIC METABOLIC PANELon 04-14 Anion gap [Moles/Vol] 10 mmol/L Normal 10 - 20 [facility] Comment on above: Performed By: #### B MP #### [address] [address] Calcium [Mass/Vol] 9.4 mg/dL Normal 8.6 - 10.3 [facility] Comment on above: Performed By: #### B MP #### [address] [address] Chloride [Moles/Vol] 107 mmol/L Normal 98 - 107 [facility] Comment on above: Performed By: #### B MP #### [address] [address] Creatinine [Mass/Vol] 0.92 mg/dL Normal 0.50 - 1.05 [facility] Comment on above: Performed By: #### B MP #### [address] [address] GFR- AM. 73 mL/min/1.73m2 Normal >60 [facility] Comment on above: Result Comment: CALC ULATIONS OF ESTIMATED GFR ARE PERFORMED USING THE MDRD STUDY EQUATION FOR THE IDMS-TRACEABLE CREATININE METHODS. CLIN CHEM 2007;53:766-72 Performed By: #### B MP #### [address] [address] GFR-NON AM. 60 mL/min/1.73m2 Abnormal >60 [facility] Comment on above: Performed By: #### B MP #### [address] [address] Glucose [Mass/Vol] 85 mg/dL Normal 74 - 99 [facility] Comment on above: Performed By: #### B MP #### [address] [address] HCO3 (Bld) [Moles/Vol] 27 mmol/L Normal 21 - 32 [facility] Comment on above: Performed By: #### B MP #### [address] [address] Potassium [Moles/Vol] 4.1 mmol/L Normal 3.5 - 5.3 [facility] Comment on above: Performed By: #### B MP #### [address] [address] Sodium [Moles/Vol] 140 mmol/L Normal 136 - 145 [facility] Comment on above: Performed By: #### B MP #### [address] [address] Urea nitrogen [Mass/Vol] 9 mg/dL Normal 6 - 23 [facility] Comment on above: Performed By: #### B MP #### [address] [address] CBC AND DIFFERENTIALon 04-25 DIFFERENTIAL SEE MANUAL DIFF Normal [facility] Comment on above: Performed By: #### B MP #### [address] [address] Erythrocyte distribution width (RBC) [Ratio] 13.2 % Normal 11.5 - 14.5 [facility] Comment on above: Performed By: #### B MP #### [place] [id number] Hematocrit (Bld) [Volume fraction] 30.3 % Low 36.0 - 46.0 [facility] Comment on above: Performed By: #### B MP #### [address] [address] Hemoglobin (Bld) [Mass/Vol] 10.1 g/dL Low 12.0 - 16.0 [facility] Comment on above: Performed By: #### B MP #### [place] [id number] MCHC (RBC) [Mass/Vol] 33.4 g/dL Normal 32.0 - 36.0 [facility] Comment on above: Performed By: #### B MP #### [address] [address] MCV (RBC) [Entitic vol] 85 fL Normal 80 - 100 [facility] Comment on above: Performed By: #### B MP #### [address] [address] Platelets (Bld) [#/Vol] 326 10*3/uL Normal 150 - 450 [facility] Comment on above: Performed By: #### B MP #### [address] [address] RBC 3.56 x10E12/L Low 4.00 - 5.20 [facility] Comment on above: Performed By: #### B MP #### [address] [address] WBC (Bld) [#/Vol] 10.0 10*3/uL Normal 4.4 - 11.3 [facility] Comment on above: Performed By: #### B MP #### [address] [address] Daily Progress Note-Medicine on 04-25-2021 Daily Progress Note-Medicine Service: Medicine Subjective Data: KRISTY LICONA is a 70 year old Female who is Hospital Day # 3. No acute events overnight. Patient today reports that she is still feeling crappy and weak and tired. No subjective fever or chills. No chest pain. Appetite is good. Objective Data: Objective Information: T PRBPSpO2 [id number]/7193% Date/Time04/25 7: 7: 7: 7: 7:51 Range(36.4C - 36.9C ) (70 - 75 ) (18 - 18 ) (111 - 133 )/ (68 - 72 ) (93% - 95% ) Highest temp of 36.9 C was recorded at 04/24 15:29 Pain reported at 04/25 7:30: 0 = None Physical Exam by System: Constitutional: awake/alert/oriented x3, not in acute distress, Eyes: PERRL, EOMI, clear sclera ENMT: normal hearing, mucous membranes moist, no pharyngeal erythema or exudates Head/Neck: neck supple, no apparent injury, no JVD, no lymphadenopathy, trachea midline Respiratory/Thorax: patent airways, clear to auscultation bilaterally, no crackles or wheezing or rhonchi Cardiovascular: Regular, rate and rhythm, no murmurs, 2+ equal pulses of the extremities Gastrointestinal: nondistended, positive bowel sounds, soft, non-tender, no rebound tenderness or guarding, no masses palpable, no organomegaly Extremities: no edema Neurological: intact senses, motor, response and reflexes, normal strength, babinski negative Psychological: Appropriate mood and behavior Skin: warm, no rashes Medication: Medications: Continuous Medications ---- No continuous medications are active Scheduled Medications ---- 1. amLODIPine (NORVASC): 10 mg Oral Daily 2. Atorvastatin: 10 mg Oral Daily 3. levoFLOXacin (LEVAQUIN) 750 mg IVPB/ Premix 150 mL: 150 mL IntraVenous Piggyback Every 24 Hours 4. Metoprolol Succinate Extended Release: 25 mg Oral Daily 5. metroNIDAZOLE (FLAGYL) 500 mg IVPB/ Premixed Soln 100 mL: 100 mL IntraVenous Piggyback Every 8 Hours 6. Montelukast: 10 mg Oral At Bedtime 7. Pantoprazole: 40 mg Oral Daily 8. Potassium Phosphate - Sodium Phosphate: 1 tablet(s) Oral Every 6 Hours PRN Medications ---- 1. Acetaminophen: 650 mg Oral Every 4 Hours 2. Acetaminophen: 650 mg Oral Every 4 Hours 3. Magnesium Hydroxide Oral Liquid CONCENTRATE: 10 mL Oral Every 24 Hours 4. Ondansetron Injectable: 4 mg IntraVenous Push Every 4 Hours Recent Lab Results: Results: CBC: 04/25/2021 05:24 \ Hgb / \ 10.1 L / WBC Plt 10.0 326 / Hct \ / 30.3 L \ RBC: 3.56 L MCV: 85 BMP: 04/25/2021 05:24 NA+ Cl- BUN / 140 107 9 / ---- Glucose 85 K+ HCO3- Creat \ 4.1 27 0.92 \ Calcium : 9.4 Anion Gap : 10 Assessment and Plan: Code Status: Code StatusFull Code Advance Care Planning: Advance Care Planning: I evaluated the patient and determined the patient's capacity to understand the risks, benefits and alternatives to treatment. I elicited the patient's goals for treatment and reviewed advance directives and medical orders for life sustaining treatment. The patient was given an opportunity to review a blank advance directive as appropriate. Assessment: 70-year-old female with a past medical history of hypertension, hyperlipidemia and GERD who presented to the emergency room for dry cough and severe weakness. She was found to have a right upper lobe pneumonia with the possibility of an abscess formation associated with leukocytosis. Patient still feeling weak but leukocytosis resolved. No subjective fever. No chills. Hemodynamically stable. So patient is responding to the antibiotic regimen. The weakness is expected to happen in the setting of the pneumonia and I told the patient this may take a while to resolve. That is why she would benefit from outpatient physical therapy later on his discharge. I will go ahead and replace the IV Levaquin and Flagyl by oral and see if patient will be able to tolerate them or not. DuoNebs 4 times a day. Pulmicort twice a day. Continue home dose Singulair. SCDs for DVT prophylaxis Full code (This note was generated with voice recognition software and may contain errors including spelling, grammar, syntax and misrecognition of what was dictated, that are not fully corrected) Electronic Signatures: Baldo Arriola) (Signed 25-Apr-2021 10:52) Authored: Service, Subjective Data, Objective Data, Assessment and Plan, Note Completion Last Updated: 25-Apr-2021 10:52 by Baldo Arriola) Normal [facility] MAGNESIUMon 04-25-2021 Magnesium [Mass/Vol] 1.85 mg/dL Normal 1.60 - 2.40 [facility] Comment on above: Performed By: #### B MP #### [facility] [address] [place] [id number] MANUAL DIFFERENTIALon 2020 % BASOPHIL 0.0 % Normal 0.0 - 2.0 [facility] Comment on above: Performed By: #### B MP #### [address] [address] % EOSINOPHIL 0.0 % Normal 0.0 - 6.0 [facility] Comment on above: Performed By: #### B MP #### [address] [address] % LYMPHOCYTE 21.0 % Normal 13.0 - 44.0 [facility] Comment on above: Performed By: #### B MP #### [address] [address] % MONOCYTE 4.0 % Normal 2.0 - 10.0 [facility] Comment on above: Performed By: #### B MP #### [address] [address] % SEG NEUTROPHIL 75.0 % Normal 40.0 - 80.0 [facility] Comment on above: Result Comment: Perc ent differential counts (%) should be interpreted in the context of the absolute cell counts (cells/L). Performed By: #### B MP #### [address] [address] ANC 7.50 x10E9/L Normal 1.20 - 7.70 [facility] Comment on above: Performed By: #### B MP #### [address] [address] BASOPHIL 0.00 x10E9/L Normal 0.00 - 0.10 [facility] Comment on above: Performed By: #### B MP #### [address] [address] EOSINOPHIL 0.00 x10E9/L Normal 0.00 - 0.70 [facility] Comment on above: Performed By: #### B MP #### [address] [address] LYMPHOCYTE 2.10 x10E9/L Normal 1.20 - 4.80 [facility] Comment on above: Performed By: #### B MP #### [address] [address] MONOCYTE 0.40 x10E9/L Normal 0.10 - 1.00 [facility] Comment on above: Performed By: #### B MP #### [address] [address] SEG NEUTROPHIL 7.50 x10E9/L High 1.20 - 7.00 [facility] Comment on above: Performed By: #### B MP #### [address] [address] PHOSPHORUSon 04-25-2021 Phosphate [Mass/Vol] 2.1 mg/dL Low 2.5 - 4.9 [facility] Comment on above: Result Comment: The performance characteristics of phosphorus testing in heparinized plasma have been validated by the individual laboratory site where testing is performed. Testing on heparinized plasma is not approved by the FDA; however, such approval is not necessary. Performed By: #### B MP #### [address] [address] RED CELL MORPHOLOGYon 2020 RBC morphology finding Nom (Bld) NORMAL Normal [facility] Comment on above: Performed By: #### B MP #### [address] [address] Admission Risk Screen - Adul ton 04-24-2021 Admission Risk Screen - Adult Allergies: Allergies: penicillin: Hives/Urticaria sulfa drugs: Hives/Urticaria Intolerances: Doxycycline Hyclate: Nausea/Vomiting levofloxacin: Nausea/Vomiting Patient Verification: New W ID Band Applied in my Departmentno Type of ID Patient is WearingW wristband, but not applied here Patient Transferred from Other Facility ([facility], [facility],etc)no Patient Identity Verified Bypatient ID Band FULL Name, include Middle, spelling matches patient's ID used for verificationyes ID Band Matches Patient ID used for Verficationyes ID Band MRN Matches EMR MRNyes Visitor Restriction: Coronavirus Visitor Restriction: Reasonable restrictions to in-person visitors will be observed due to current coronavirus pandemic. Travel History: COVID-19 Screening Completedno exposure or symptoms(1) Travel or Exposure Past 30 DaysNO travel to International locations in the past 30 days Ebola AlertFor Ebola-like Symptoms: Isolate Patient and Notify Provider/Data Integration Developer For Contact: Notify Provider/Data Integration Developer Advance Directive: Advance Directive/DNRyes Advance Directive typeLiving Will Living Will AvailabilityLiving Will not available now Living Will [id number] Advanced Directive CommentPt states she thinks it is on file here [facility] Fall Screen: History of falling (immediate or previous)no (0) Secondary Diagnosisyes (15) Intravenous Therapy/ Heparin/Saline Lockyes (20) Gait/Transferringnormal/bedr est/wheelchair (0) Ambulatory Aidsnone/bedrest/nurse assist (0) Mental Statusoriented to own ability (0) Score: Low risk (<25). Moderate risk (25-44). High risk (>44).35 [facility] InterventionsMODERATE INTERVENTIONS: *Low Interventions Plus: * falls risk band/sticker applied to patient, *yellow non-skid footwear, *instruct to call for assistance before getting out of bed, *bed/chair/bedside commode/toilet alarms, *sensory devices/ambulatory aides available and in reach, *medications reviewed for potential side effects and care planning. Family Violence Screen: Are you or have you been threatened or abused physically, emotionally, or sexually by anyoneno Do you feel UNSAFE going back to the place where you are livingno Clinical assessment: Are there any apparent signs of injuries/behaviors that could be related to abuse/neglectno Social Service Consult for abuse/neglect needed this visitno Functional Screen: Functional Screen: In the recent/past 2-4 weeks, patient or family have noticedno issues that require a speech/language consult at this time AM-PAC- Basic Mobility/Daily Activity: Patient baseline bedboundno Turning from your back to your side while in a flat bed without using bedrailsnone Moving from lying on your back to sitting on the side of a flat bed without using bedrailsnone Moving to and from bed to chair (including a wheelchair)none Standing up from a chair using your arms (e.g. wheelchair or bedside chair) none To walk in hospital roomnone Climbing 3-5 steps with railingnone Basic Mobility - Total Score24 Putting on and taking off regular lower body clothingnone Bathing (including washing, rinsing, drying)none Putting on and taking off regular upper body clothingnone Toileting, which includes using toilet, bedpan or urinalnone Taking care of personal grooming such as brushing teethnone Eating Mealsnone Daily Activity - Total Score24 Learning Assessment (Patient): Patient is Able to be Assessed for Learningyes Factors Influencing Readiness to Learnacuteness of illness Factors that Impact Ability to Learnnone Devices/Methods Used to Communicateglasses Learning Preferencesindividual instruction Cultural Considerationsnone Developmental Considerationsnone Yarsanism Considerationsnone Learning Assessment (Other Learner): Other learner availableno Depression Screen: During the past month, have you often been bothered by feeling down, depressed or hopelessno During the past month, have you often had little interest or pleasure in doing thingsno Have you had any thoughts of harming anyone elseno (1) [place] Suicide: Risk Screen Not Applicable/Able to Answerable to be screened In the Past Month: Have you wished you were or could go to sleep and not wake upno(1) In the Past Month: Have you had any actual thoughts of killing yourself no(1) Lifetime: Have you ever done, started to do, or prepared to do anything to end your lifeno [place] Suicide Risknegative Adult Nutrition Screen: Have you recently lost weight without tryingyes; 2-13 lb Have you been eating poorly because of a decreased appetiteyes Malnutrition Screening Tool Score2 Malnutrition Screening Tool RiskMST = 2 or more At Risk. Eating poorly and/or recent weight loss Nutrition Consult needed this visityes Can Patient Participate in Room Serviceyes Patient requires Paper Dishes/Plasti (more content not included)... Normal [facility] BASIC METABOLIC PANELon 06 Anion gap [Moles/Vol] 11 mmol/L Normal 10 - 20 [facility] Comment on above: Performed By: #### B MP #### [address] [address] Calcium [Mass/Vol] 8.8 mg/dL Normal 8.6 - 10.3 [facility] Comment on above: Performed By: #### B MP #### [address] [address] Chloride [Moles/Vol] 104 mmol/L Normal 98 - 107 [facility] Comment on above: Performed By: #### B MP #### [address] [address] Creatinine [Mass/Vol] 0.81 mg/dL Normal 0.50 - 1.05 [facility] Comment on above: Performed By: #### B MP #### [address] [address] GFR- AM. >60 Normal >60 [facility] Comment on above: Result Comment: CALC ULATIONS OF ESTIMATED GFR ARE PERFORMED USING THE MDRD STUDY EQUATION FOR THE IDMS-TRACEABLE CREATININE METHODS. CLIN CHEM 2007;53:766-72 Performed By: #### B MP #### [address] [address] GFR-NON AM. >60 Normal >60 [facility] Comment on above: Performed By: #### B MP #### [address] [address] Glucose [Mass/Vol] 95 mg/dL Normal 74 - 99 [facility] Comment on above: Performed By: #### B MP #### [address] [address] HCO3 (Bld) [Moles/Vol] 26 mmol/L Normal 21 - 32 [facility] Comment on above: Performed By: #### B MP #### [address] [address] Potassium [Moles/Vol] 3.2 mmol/L Low 3.5 - 5.3 [facility] Comment on above: Performed By: #### B MP #### [address] [address] Sodium [Moles/Vol] 138 mmol/L Normal 136 - 145 [facility] Comment on above: Performed By: #### B MP #### [address] [address] Urea nitrogen [Mass/Vol] 11 mg/dL Normal 6 - 23 [facility] Comment on above: Performed By: #### B MP #### [address] [address] CBC AND DIFFERENTIALon 04-24 Basophils (Bld) [#/Vol] 0.00 10*3/uL Normal 0.00 - 0.10 [facility] Comment on above: Performed By: #### C BCDF #### [address] [address] Basophils/100 WBC (Bld) 0.2 % Normal 0.0 - 2.0 [facility] Comment on above: Performed By: #### C BCDF #### [address] [address] Eosinophils (Bld) [#/Vol] 0.10 10*3/uL Normal 0.00 - 0.70 [facility] Comment on above: Performed By: #### C BCDF #### [address] [address] Eosinophils/100 WBC (Bld) 0.6 % Normal 0.0 - 6.0 [facility] Comment on above: Performed By: #### C BCDF #### [address] [address] Erythrocyte distribution width (RBC) [Ratio] 13.0 % Normal 11.5 - 14.5 [facility] Comment on above: Performed By: #### C BCDF #### [address] [address] Hematocrit (Bld) [Volume fraction] 29.0 % Low 36.0 - 46.0 [facility] Comment on above: Performed By: #### C BCDF #### [address] [address] Hemoglobin (Bld) [Mass/Vol] 9.8 g/dL Low 12.0 - 16.0 [facility] Comment on above: Performed By: #### C BCDF #### [address] [address] Lymphocytes (Bld) [#/Vol] 1.90 10*3/uL Normal 1.20 - 4.80 [facility] Comment on above: Performed By: #### C BCDF #### [address] [address] Lymphocytes/100 WBC (Bld) 17.4 % Normal 13.0 - 44.0 [facility] Comment on above: Performed By: #### C BCDF #### [address] [address] MCHC (RBC) [Mass/Vol] 33.8 g/dL Normal 32.0 - 36.0 [facility] Comment on above: Performed By: #### C BCDF #### [address] [address] MCV (RBC) [Entitic vol] 84 fL Normal 80 - 100 [facility] Comment on above: Performed By: #### C BCDF #### [address] [address] Monocytes (Bld) [#/Vol] 1.10 10*3/uL High 0.10 - 1.00 [facility] Comment on above: Performed By: #### C BCDF #### [address] [address] Monocytes/100 WBC (Bld) 9.7 % Normal 2.0 - 10.0 [facility] Comment on above: Performed By: #### C BCDF #### [address] [address] Neutrophils (Bld) [#/Vol] 7.90 10*3/uL High 1.20 - 7.70 [facility] Comment on above: Result Comment: Perc ent differential counts (%) should be interpreted in the context of the absolute cell counts (cells/L). Performed By: #### C BCDF #### [address] [address] Neutrophils/100 WBC (Bld) 72.1 % Normal 40.0 - 80.0 [facility] Comment on above: Performed By: #### C BCDF #### [address] [address] Platelets (Bld) [#/Vol] 307 10*3/uL Normal 150 - 450 [facility] Comment on above: Performed By: #### C BCDF #### [address] [address] RBC 3.45 x10E12/L Low 4.00 - 5.20 [facility] Comment on above: Performed By: #### C BCDF #### [address] [address] WBC (Bld) [#/Vol] 11.0 10*3/uL Normal 4.4 - 11.3 [facility] Comment on above: Performed By: #### C BCDF #### [address] [address] CORONAVIRUS 2019 BY PCRon SARS-CoV-2 (COVID-19) RNA MARILY+probe Ql (Unsp spec) Not detected Normal Not Detected [facility] Comment on above: Result Comment: . This assay is designed to detect the ORF1ab and/or S genes of SARS-CoV-2 via nucleic acid amplification. A Not Detected result does not preclude 2019-nCoV infection since the adequacy of sample collection and/or low viral burden may result in presence of viral nucleic acids below the clinical sensitivity of this test method. Fact sheet for providers: www.fda.gov/media/904475/download Fact sheet for patients: www.fda.gov/media/079061/download This test has received FDA Emergency Use Authorization (EUA) and has been verified by [facility] ([facility]). This test is only authorized for the duration of time that circumstances exist to justify the authorization of the emergency use of in vitro diagnostic tests for the detection of SARS-CoV-2 virus and/or diagnosis of COVID-19 infection under section 564(b)(1) of the Act, 21 U.S.C. 360bbb-3(b)(1), unless the authorization is terminated or revoked sooner. [facility] is certified under CLIA-88 as qualified to perform high complexity testing. Testing is performed in the [facility] laboratories located at [id number] [place] [address]. Performed By: #### C OV19 #### [facility] [address] [place] [address] Covid 19 Resultson SARS-CoV-2 (COVID-19) RNA MARILY+probe Ql (Unsp spec) NEGATIVE COVID-19 Test Coronaviruses are common world-wide and are the cause of many common colds. SARS-COV2 is a new coronavirus that began circulating worldwide in 2019 so we are calling it COVID-19. It has been estimated that four out of five patients with COVID-19 will recover at home without the need for medical attention. Symptoms of COVID-19 may include cough, fever, shortness of breath, loss of taste or smell and other flu-like symptoms including chills, sore muscles, sore throat, and headache. Severe illness is more common in older people and people with other health problems such as high blood pressure, obesity, and immune system problems. If the test is positive, you have COVID-19. You will be contacted by the ordering physicians office and instructed to remain on home isolation, in accordance with CDC guidelines. You may also be contacted by the [facility] to see if any of your close contacts may have been exposed to the virus and need to quarantine. If the test is negative, you likely do not have COVID-19 at this time, but you still may have a different illness that can spread to other people (like Influenza, or the Flu) and could still be at risk for getting COVID-19. We recommend that you stay away from other people to limit the spread of illness until your symptoms are improving and you are fever-free for 24 hours without the use of fever lowering medications such as acetaminophen or ibuprofen. No test is 100% accurate so if you are still concerned you may have COVID-19, talk to your doctor about the need to continue to stay away from others. Medicines Unless your provider told you not to use the following: Acetaminophen (Tylenol and others) is generally safe. Anti-inflammatory medications, such as Ibuprofen (Advil or Motrin) or Naproxen (Aleve) can also be used. Sdpe-wlu-waxghrm cough and cold medicines can be used according to the instructions on the package. Some zcdd-ogz-gkexobn medicines also contain acetaminophen. Make sure you are not taking more than your recommended dose. For those not hospitalized, there is no specific treatment available for this illness. Antibiotics do not treat Coronaviruses. Follow-Up Follow up with your doctor by scheduling a virtual visit or consider follow-up at one of our urgent care fever clinics. If you are having difficulty breathing, or are very weak and having difficulty standing, this is a medical emergency. Call 911 or have someone take you to the nearest emergency room immediately. If possible, wear a facemask. Additional guidance from the CDC for patients who tested POSITIVE for COVID-19 How to isolate: Isolate yourself in a specific room at home and limit your contact with others. Use a separate bathroom from other members of the household, when possible. Leave home only to get essential medical care. Do not go to work, school or public areas. Avoid using public transportation, ride-sharing, or taxis. Restrict contact with pets and other animals. If you must care for your pet or be around animals while you are sick, wash your hands before and after your interaction and wear a facemask. Make sure that shared spaces in the home have good airflow, such as by an air conditioner or an opened window, weather permitting. Personal Hygiene Procedures: Wear a face mask when in the same room as other people or pets. If a face mask interferes with your breathing, others should wear a mask when sharing space with you. Frequent hand-washing: wash your hands with soap and water for at least 20 seconds. If soap and water are not available, use alcohol-based hand vice president financial. Avoid touching your eyes, nose, and mouth with unwashed hands. Household Hygiene Procedures: Avoid sharing personal household items such as dishes, glassware, cups, eating utensils, towels or bedding with other people or pets in your home. After use, these items should be washed with soap and hot water. Disinfect all high-touch surfaces every day with antibacterial cleaning solutions such as Lysol wipes, bleach, cleansers, etc. High-touch surfaces include tabletops, doorknobs, bathroom fixtures, toilets, phones, keyboards, tablets and bedside tables. Immediately clean any surfaces that may have blood, poop or body fluids on them, using antibacterial cleaning solutions such as Lysol wipes, bleach, cleansers, etc. If clothing or bedding come into contact with blood, poop or body fluids, they should be washed immediately. Follow the directions on the laundry detergent and clothing labels but hot water is recommended when possible. Stopping home isolation precautions: If possible, consult your doctor before stopping home isolation precautions. According to the CDC, you can discontinue home isolation precautions when you have met both of these criteria: Your fever and respiratory symptoms have been gone for 24 gaurav (more content not included)... Normal [facility] Discharge Planning Excm6xt 0 04-24-2021 Discharge Planning Note2 Discharge Planning: Planned Dispositionhome Discharge DestinationHome [facility] Patient/Sheriffs Stated GoalHome Anticipated Discharge [id number] Discharge Planning 04/26/2021 @1030- Pt A+Ox4. VS stable. Pt denies needs at this time. Reviewed discharge instructions with pt via teachback method. Discussed new medications and reviewed education regarding pneumonia with pt. allowed time for questions. Pt denied questions at this time. IV removed. Copy of discharge instructions placed in chart. Pt awaiting ride at this time. MARIA R Gonzalez 04/26/2021 @1135- Pt taken to private vehicle via wheelchair accompanied by GABRIEL Epperson. No needs at this time. MARIA R Gonzalezcardiac technician: Discharge Planning Assessment [id number] Discharge Planning Assessment Completed byE.. JULIANNA Haro Primary Contact Name and NumberJian Licona, Stated Reason for Admissionno energy for 8 days, decided to go to urgent care(1) Arrived [place] (1) Readmission Within the Last 30 Daysno previous admission in last 30 days PCPHellinger PCP Last Date Seenapprox 1 week ago [facility] Medication Adherence/Afford/Obtainyes InsuranceMedicare, Other Lives Withspouse(1) Living Arrangementshouse(1) Prior Level of FunctioningIndependent Resource/Environmental Concernsnone(1) Anticipated Transition [place](1) Services Anticipated at Transitionnone(1) Anticipated Changes Related to Illnessnone Equipment Needed After Dischargenone Anticipated Discharge Facility/Level of Care NeedsHome Discharge Planning Comments04/24/21 @ 311pm Care Transitions; bridge ironworker helper reviewed chart and met with pt to complete the assessment. Pt is alert and oriented, pleasant and cooperative and she was educated to the wheel worker's roles in the discharge planning process. Prior to hospitalization, pt was living with her spouse in a two story home. She reports being independent with all care/activities, including driving. Pt does not use any DME. She reports being at the same level of functioning and will return home at discharge. She has no concerns regarding her discharge plan. AMPAC score is 24 today- approp for return home. No needs identified at this time. Care Transitions will follow if needed. JULIANNA Andujar Discharge Documentation: Discharge/Transfer Date/[id number] 11:35 Discharge Modewheelchair Discharged Accompanied Byspouse Transportation Methodprivate car Final DispositionHome Electronic Signatures: Jasmina Millan (VOCATIONAL INSTRUCTOR-S) (Signed 24-Apr-2021 15:16) Authored: Discharge Planning, Assessment Judi Ch (RN) (Signed 26-Apr-2021 11:37) Authored: Discharge Planning, Discharge Documentation Clemencia Landaverde (RN) (Signed 24-Apr-2021 01:09) Authored: Assessment Last Updated: 26-Apr-2021 11:37 by Judi Ch (RN) References: 1. Data Referenced From Patient Profile - Adult v2 24-Apr-2021 00:29 Formerly [facility] EMR ADDONon 04-24-2021 ADDON CONFIRMATION REQUEST REC'D Normal [facility] Comment on above: Performed By: #### E MRAD #### [place] [id number] MAGNESIUMon 04-24-2021 Magnesium [Mass/Vol] 1.95 mg/dL Normal 1.60 - 2.40 [facility] Comment on above: Performed By: #### M G #### [place] [id number] Nutrition Therapy-Assessment on 04-24-2021 Nutrition Therapy-Assessment Assessment Subjective/Objective: Note Type: Assessment Note Authored by: Registered Dietitian Fire Protection Specialist Pager Number: Doc Halo Nutrition Note: The patient is a 70 year old Female hospital day 1. Nutrition assessment complete today for MST 2 - recent weight loss and eating poorly. Pt admitted right upper lobe pneumonia with possibility of abscess formation associated with leukocytosis per H&P note. Past medical history of hypertension, hyperlipidemia, and GERD. Seen this morning sitting up in bed with breakfast tray in front of her. Pt recalls poor appetite at home for ~1 week just as she began feeling sick. Prior to illness, she reports good appetite and appropriate intake. Usual body weight ~135-145lbs per patient. Admission weight 142lbs consistent with reported usual body weight. No further EMR wt history available for review. Pt stated that she is feeling slightly better and plans to attempt eating food provided on trays. No further concerns. Based on assessment data, pt not currently at high nutrition risk. Will follow PRN. Please re-consult if condition declines or with identified need for additional nutrition intervention or recommendation. Admitting Dx: Pneumonia: Additional Dx: Lung abscess: Medical History: GERD (gastroesophageal reflux disease): High cholesterol: Hypertension: Medical History: GERD (gastroesophageal reflux disease): High cholesterol: Hypertension: Surg History: History of tubal ligation: History of esophagogastroduodenoscopy (EGD): History of colonoscopy: History of appendectomy: History of bladder suspension procedure: Objective Information: T PRBPSpO2 [id number]/7195% Date/Time04/24 8: 8: 8: 8: 8:02 Range(36.8C - 37.8C ) (80 - 90 ) (16 - 18 ) (117 - 152 )/ (69 - 80 ) (91% - 97% ) Highest temp of 37.8 C was recorded at 04/23 20:01 Pain reported at 04/24 8:37: 0 = None Weights 04/24 0:29: Weight in kg (Weight (kg)) 64.9 04/24 0:29: Weight in lbs ((lbs)) 143 04/24 0:29: BMI (kg/m2) (BMI (kg/m2)) 27.048 Height/Weight: Height in cm: 154.9 centimeter(s) Weight (kg): 64.9 BMI (kg/m2): 27.048 square meter Weight history/ % weight change: No EMR wt history available for review. Significant Weight Change: no Recent Lab Results: Results: I have reviewed these laboratory results: Basic Metabolic Panel 24-Apr-2021 05:37:00 ResultValue Glucose, Serum 95 NA 138 K 3.2 L CL 104 Bicarbonate, Serum 26 Anion Gap, Serum 11 BUN 11 CREAT 0.81 GFR-Non >60 GFR- >60 Calcium, Serum 8.8 Magnesium, Serum 23-Apr-2021 20:46:00 ResultValue Magnesium, Serum 1.95 Comprehensive Metabolic Panel 23-Apr-2021 13:28:00 ResultValue Lab Comment: Potassium Called- RB to Cece Ramírez, 04/23/2021 17:39 Glucose, Serum 134 H NA 138 K 2.9 LL CL 98 Bicarbonate, Serum 30 Anion Gap, Serum 13 BUN 14 CREAT 1.00 GFR-Non 55 A GFR- 67 Calcium, Serum 9.9 ALB 3.6 ALKP 128 T Pro 7.3 T Bili 0.6 Alanine Aminotransferase, Serum 17 Aspartate Transaminase, Serum 21 Current Active Medications/PN: amLODIPine (NORVASC), Tablet DOSE = 10 mg Oral Daily, 24-Apr-2021 Atorvastatin, Tablet (LIPITOR) DOSE = 10 mg Oral Daily, 24-Apr-2021 Montelukast, Tablet (SINGULAIR) DOSE = 10 mg Oral At Bedtime, 24-Apr-2021 Pantoprazole, Enteric Coated Tablet (PROTONIX) DOSE = 40 mg Oral Daily, 24-Apr-2021 levoFLOXacin (LEVAQUIN) 750 mg IVPB/ Premix 150 mL, Every 24 Hours Recommended Infusion Time: 90 minute(s), 24-Apr-2021 metroNIDAZOLE (FLAGYL) 500 mg IVPB/ Premixed Soln 100 mL, Every 8 Hours Recommended Infusion Time: 60 minute(s), 24-Apr-2021 Metoprolol Succinate Extended Release, Tablet, Extended Release (TOPROL-XL) DOSE = 25 mg Oral Daily, 24-Apr-2021 Potassium Chloride Extended Release, Tablet, Extended Release DOSE = 40 mEq Oral 2 Times a Day Stop After 2 Doses, 24-Apr-2021 Nutrition Orders: Patient tray Paper-Plastic, Patient requires paper dishes/plastic utensils/disposable tray, 23-Apr-2021 May Participate in Room Service, Yes Order entered from Admission Screens., 24-Apr-2021 Diet, Cardiac; Regular, 24-Apr-2021 Food/Nutrition Related History: Change in Oral Intake/Appetite: decrease Decrease just BOARD LAYER, but patient reports slight increase now GI Symptoms: none Oral Problems: denies Food Allergies Comment: NKFA Nutritional Supplements: denies Food/Nutrition Related History: Pt recalled intake prior to illness. Recalls decreased appetite ~1 week, but states that this is not usual for her. She was eager to try breakfast and increase intake. Nutrition Focused Physical Findings: Physical Findings: deferred Pt without current risk criteria for malnutrition based on assessment Other Physical Findings: Subjective Global Assessment Rating: mal (more content not included)... Normal [facility] Order Reconciliationon 04-24 Order Reconciliation Page 1 Admission Reconciliation Document Reconciliation Type: ED to Observation requested on behalf of Baldo Arriola (Physician) done by Baldo Arriola) ED to Observation - Reconciliation: 24-Apr-2021 01:33 by: Baldo Arriola) ED to Observation - AutoLinked: 24-Apr-2021 01:33 by: Baldo Arriola) Home MedicationsEnteredLast Dose TakenReconciled with current Order Reconciliation Comment/ Additional Information albuterol 90 mcg/inh inhalation aerosol 2 puff(s) inhaled every 4 hours, As Needed for wheezing or shortness of [id number] Reviewed and Held amLODIPine 10 mg oral tablet 1 tab(s) orally once a [id number] 9:00 AM amLODIPine (NORVASC) TabletDOSE = 10 mg Oral DailyamLODIPine 10 mg oral tablet continued as the inpatient order amLODIPine (NORVASC) atorvastatin 10 mg oral tablet 1 tab(s) orally once a [id number]-Apr-2021 Atorvastatin Tablet (LIPITOR)DOSE = 10 mg Oral Daily atorvastatin 10 mg oral tablet continued as the inpatient order Atorvastatin fluticasone 50 mcg/inh nasal spray 1 spray(s) nasal once a [id number]-Apr-2021 9:00 AM Reviewed and Held metoprolol tartrate 25 mg oral tablet 1 tab(s) orally once a [id number]-Apr-2021 AM Metoprolol Tartrate Tablet (LOPRESSOR)DOSE = 25 mg Oral 2 Times a Daymetoprolol tartrate 25 mg oral tablet continued as the inpatient order Metoprolol Tartrate montelukast 10 mg oral tablet 1 tab(s) orally once a [id number]-Apr-2021 9:00 AM Montelukast Tablet (SINGULAIR)DOSE = 10 mg Oral At Bedtimemontelukast 10 mg oral tablet continued as the inpatient order Montelukast pantoprazole 40 mg oral delayed release tablet 1 tab(s) orally once a day [id number] Pantoprazole Enteric Coated Tablet (PROTONIX)DOSE = 40 mg Oral Dailypantoprazole 40 mg oral delayed release tablet continued as the inpatient order Pantoprazole Zithromax Z-Arsh 250 mg oral tablet 2 tab(s) by mouth at once on day 1, then 1 tablet once a day on days [id number] 2:00 PM Reviewed and Held Additional Current Orders Pneumococcal 23-Valent (PNEUMOVAX) Vaccine DOSE = 0.5 mL IntraMuscular OnceClinician Notes: :: Must be given prior to discharge. Order entered from Admission Screen. Formerly [facility] Patient Profile - Adult v2on 04-24-2021 Patient Profile - Adult v2 Profile: Initial Info: How to be AddressedDeb(1) Spoken Language PreferredEnglish (1) Stated Reason for Admissionno energy for 8 days, decided to go to urgent care Primary Contact Name and NumberJian Licona Other Contact Names and [phone] Patient Belongingsremains with patient Patient Belongings Remaining with Patientmedication(s); vision aids; jewelry; clothing; cell phone/electronics Arrived [place] [facility] Med[facility] Dispositionbedside Are you currently using the Personal Electronic Health Record or flexReceiptsno (1) Wants Family/Rep Notified of Admissionn/a; family present Notify PCPnotify PCP Informed of Patient Visiting [facility] General Health: Weight in kg64.9 kilogram(s) Weight in ujs705 pound(s) Weight Methodactual (measured) Scale Typebed Height in cm154.9 centimeter(s) Height in feet5 feet(2) Height in inches1 inch(es)(2) Height Methodstated BMI (kg/m2)27.048 square meter RSP Based Care: How would you like to participate in your careto be taken care of What is the number one concern for you during this hospitalizationnothing What is the most important thing we can do to support you during this hospitalizationtake care of me Is there anything we need to know to best care for youno Substance: Current or Former Substance Use never: Cigarette/Tobacco, e-Cigarette/Vaping, Street Drugs YES: Alcohol Alcohol Use Statuscurrent alcohol Alcohol Frequency2-3 times/week Health Mgmt: Symptoms/Conditions Managed at Homecardiovascular; gastrointestinal Cardiovascular Symptoms/Conditionshypertens ion Cardiovascular Management Strategiesmedication therapy Cardiovascular Managementmanaged Gastrointestinal Symptoms/Conditionsreflux/he artburn Gastrointestinal Management Strategiesmedication therapy Gastrointestinal Managementmanaged Relationship/Environ: Resource/Environmental Concernsnone Primary Source of Support/Comfortspouse Lives Withspouse Living Arrangementshouse Services Anticipated at Transitionnone Anticipated Transition [facility] Significant IndicatorsComplete Information Review: Allergies, Home Meds and Significant Events have been Reviewed and Verified with Patient/Familyyes ALLERGY, INTOLERANCE, ADVERSE EVENT: Allergies: penicillin: Drug, Hives/Urticaria, Active sulfa drugs: Drug Category, Hives/Urticaria, Active Intolerances: Doxycycline Hyclate: Drug, Nausea/Vomiting, Active levofloxacin: Drug, Nausea/Vomiting, Active Electronic Signatures: Clemencia Landaverde (MARIA R) (Signed 24-Apr-2021 00:41) Authored: Initial Info, General Health, [facility] [place] Based Care, Substance, Health Mgmt, Relationship/Environ, Additional Information Last Updated: 24-Apr-2021 00:41 by Clemencia Landaverde (MARIA R) References: 1. Data Referenced From Patient Profile - Procedure-H and P 04-Nov-2020 10:02 2. Data Referenced From 1. Vital Signs 23-Apr-2021 20:01 Formerly [facility] STAPH/MRSA SCREENon 04-24-20 21 STAPH/MRSA SCREEN PATIENT: COLUMBA LICONA LOCATION: [address]#: [id number] : 50 AGE: SEX: F ORDERED BY: BALDO ARRIOLA SOURCE: ANTERIOR NARES COLLECTED: 04/24/21 06:43 ANTIBIOTICS AT SAM.: RECEIVED : 04/24/21 10:52 SITE: nares R E S U L T S STAPH/MRSA SCREEN FINAL 04/26/21 08:30 NO Staphylococcus aureus ISOLATED. [facility] Comment on above: Performed By: #### B MP #### [place] [address] BLOOD CULTURE, BACTERIALon 0 04-23-2021 BLOOD CULTURE, BACTERIAL PATIENT: KRISTY LICONA LOCATION: [facility] [place]#: [id number] : 50 AGE: SEX: F ORDERED BY: KACI HAZEL SOURCE: Blood COLLECTED: 04/23/21 21:22 ANTIBIOTICS AT SAM.: RECEIVED : 04/24/21 10:10 SITE: R E S U L T S BLOOD CULTURE, BACTERIAL FINAL 04/29/21 11:42 No Growth at 1 days No Growth at 2 days No Growth at 3 days No Growth at 4 days NO GROWTH - FINAL REPORT Normal [facility] Comment on above: Performed By: #### B LDC #### [facility] [address] [place] [address] BLOOD CULTURE, BACTERIAL PATIENT: KRISTY LICONA LOCATION: [facility]#: [id number] : 50 AGE: SEX: F ORDERED BY: KACI HAZEL SOURCE: Blood COLLECTED: 04/23/21 20:46 ANTIBIOTICS AT SAM.: RECEIVED : 04/24/21 10:12 SITE: PERIPHERAL R E S U L T S BLOOD CULTURE, BACTERIAL FINAL 04/29/21 11:42 No Growth at 1 days No Growth at 2 days No Growth at 3 days No Growth at 4 days NO GROWTH - FINAL REPORT Normal [facility] Comment on above: Performed By: #### B LDC ####[id number] [place] [address] CBC AND DIFFERENTIALon 04-23 Basophils (Bld) [#/Vol] 0.00 10*3/uL Normal 0.00 - 0.10 [facility] Comment on above: Performed By: #### C BCDF ####[address] [address] Basophils/100 WBC (Bld) 0.2 % Normal 0.0 - 2.0 [facility] Comment on above: Performed By: #### C BCDF ####[address] [address] Eosinophils (Bld) [#/Vol] 0.00 10*3/uL Normal 0.00 - 0.70 [facility] Comment on above: Performed By: #### C BCDF ####[address] [address] Eosinophils/100 WBC (Bld) 0.2 % Normal 0.0 - 6.0 [facility] Comment on above: Performed By: #### C BCDF ####[address] [address] Erythrocyte distribution width (RBC) [Ratio] 13.0 % Normal 11.5 - 14.5 [facility] Comment on above: Performed By: #### C BCDF ####[address] [address] Hematocrit (Bld) [Volume fraction] 36.2 % Normal 36.0 - 46.0 [facility] Comment on above: Performed By: #### C BCDF ####[address] [address] Hemoglobin (Bld) [Mass/Vol] 11.8 g/dL Low 12.0 - 16.0 [facility] Comment on above: Performed By: #### C BCDF ####[address] [address] Lymphocytes (Bld) [#/Vol] 2.30 10*3/uL Normal 1.20 - 4.80 [facility] Comment on above: Performed By: #### C BCDF ####[address] [address] Lymphocytes/100 WBC (Bld) 16.4 % Normal 13.0 - 44.0 [facility] Comment on above: Performed By: #### C BCDF ####[address] [address] MCHC (RBC) [Mass/Vol] 32.5 g/dL Normal 32.0 - 36.0 [facility] Comment on above: Performed By: #### C BCDF ####[address] [address] MCV (RBC) [Entitic vol] 85 fL Normal 80 - 100 [facility] Comment on above: Performed By: #### C BCDF ####[address] [address] Monocytes (Bld) [#/Vol] 1.10 10*3/uL High 0.10 - 1.00 [facility] Comment on above: Performed By: #### C BCDF ####[address] [address] Monocytes/100 WBC (Bld) 7.7 % Normal 2.0 - 10.0 [facility] Comment on above: Performed By: #### C BCDF ####[address] [address] Neutrophils (Bld) [#/Vol] 10.50 10*3/uL High 1.20 - 7.70 [facility] Comment on above: Result Comment: Perc ent differential counts (%) should be interpreted in the context of the absolute cell counts (cells/L). Performed By: #### C BCDF ####[address] [address] Neutrophils/100 WBC (Bld) 75.5 % Normal 40.0 - 80.0 [facility] Comment on above: Performed By: #### C BCDF ####[address] [address] Platelets (Bld) [#/Vol] 367 10*3/uL Normal 150 - 450 [facility] Comment on above: Performed By: #### C BCDF ####[address] [address] RBC 4.25 x10E12/L Normal 4.00 - 5.20 [facility] Comment on above: Performed By: #### C BCDF ####[address] [address] WBC (Bld) [#/Vol] 14.0 10*3/uL High 4.4 - 11.3 [facility] Comment on above: Performed By: #### C BCDF ####[address] [address] CHEST 2 VIEW PA AND LATon CHEST 2 VIEW PA AND LAT Patient Name: KRISTY LICONA STUDY: TH CHEST 2 VIEW PA AND LAT; 04/23/2021 10:41 am INDICATION: persistent cough, fatigue, body aches x 3.5 weeks. COMPARISON: None. ACCESSION NUMBER(S): [id number] ORDERING CLINICIAN: PER BERGER FINDINGS: PA and lateral views of the chest were obtained. Dense airspace consolidation is seen in the right upper lobe along the minor fissure, concerning for pneumonia. No pneumothorax is identified. The cardiac silhouette is within normal limits for size. Mild discogenic degenerative changes are seen throughout the thoracic spine. IMPRESSION: Right upper lobe airspace consolidation, as above. Clinical correlation and continued follow-up until clearing is recommended. Electronically signed by: HARDIK YUNG MD Normal [facility] COMPREHENSIVE PANELon 2020 Anion gap [Moles/Vol] 13 mmol/L Normal 10 - 20 [facility] Comment on above: Order Comment: Potas sium Called- RB to Cece Ramírez, 04/23/2021 17:39 Performed By: #### C MP ####[place] [address] Potassium [Moles/Vol] 2.9 mmol/L Critically low 3.5 - 5.3 [facility] Comment on above: Order Comment: Potas sium Called- RB to Cece Ramírez, 04/23/2021 17:39 Result Comment: Pota ssium Called- RB to Cece Ramírez, 04/23/2021 17:39 Performed By: #### C MP ####[place] [id number] Albumin [Mass/Vol] 3.6 g/dL Normal 3.4 - 5.0 [facility] Comment on above: Order Comment: Potas sium Called- RB to Cece Ramírez, 04/23/2021 17:39 Performed By: #### C MP ####[place] [id number] ALP [Catalytic activity/Vol] 128 U/L Normal 33 - 136 [facility] Comment on above: Order Comment: Potas sium Called- RB to Cece Ritz, 04/23/2021 17:39 Performed By: #### C MP ####[address] [address] ALT [Catalytic activity/Vol] 17 U/L Normal 7 - 45 [facility] Comment on above: Order Comment: Potas sium Called- RB to Cece Ritz, 04/23/2021 17:39 Result Comment: Khadijah ents treated with Sulfasalazine may generate falsely decreased results for ALT. Performed By: #### C MP ####[place] [address] AST [Catalytic activity/Vol] 21 U/L Normal 9 - 39 [facility] Comment on above: Order Comment: Potas sium Called- RB to Cece Ritz, 04/23/2021 17:39 Performed By: #### C MP ####[place] [id number] Bilirubin [Mass/Vol] 0.6 mg/dL Normal 0.0 - 1.2 [facility] Comment on above: Order Comment: Potas sium Called- RB to Cece Ritz, 04/23/2021 17:39 Performed By: #### C MP ####[address] [address] Calcium [Mass/Vol] 9.9 mg/dL Normal 8.6 - 10.3 [facility] Comment on above: Order Comment: Potas sium Called- RB to Cece Ritz, 04/23/2021 17:39 Performed By: #### C MP ####[address] [address] Chloride [Moles/Vol] 98 mmol/L Normal 98 - 107 [facility] Comment on above: Order Comment: Potas sium Called- RB to Cece Ritz, 04/23/2021 17:39 Performed By: #### C MP ####[address] [address] Creatinine [Mass/Vol] 1.00 mg/dL Normal 0.50 - 1.05 [facility] Comment on above: Order Comment: Potleti sium Called- RB to Cece Itaz, 04/23/2021 17:39 Performed By: #### C MP ####[address] [address] GFR- AM. 67 mL/min/1.73m2 Normal >60 [facility] Comment on above: Order Comment: Potas sium Called- RB to Cece Itaz, 04/23/2021 17:39 Result Comment: CALC ULATIONS OF ESTIMATED GFR ARE PERFORMED USING THE MDRD STUDY EQUATION FOR THE IDMS-TRACEABLE CREATININE METHODS. CLIN CHEM 2007;53:766-72 Performed By: #### C MP ####[place] [id number] GFR-NON AM. 55 mL/min/1.73m2 Abnormal >60 [facility] Comment on above: Order Comment: Potleti sium Called- RB to Cece Desiree, 04/23/2021 17:39 Performed By: #### C MP ####[place] [id number] Glucose [Mass/Vol] 134 mg/dL High 74 - 99 [facility] Comment on above: Order Comment: Potleti sium Called- RB to Cece Ramírez, 04/23/2021 17:39 Performed By: #### C MP ####[address] [address] HCO3 (Bld) [Moles/Vol] 30 mmol/L Normal 21 - 32 [facility] Comment on above: Order Comment: Potas sium Called- RB to Cece Ritz, 04/23/2021 17:39 Performed By: #### C MP ####[address] [address] Protein [Mass/Vol] 7.3 g/dL Normal 6.4 - 8.2 [facility] Comment on above: Order Comment: Potas sium Called- RB to Cece Ritz, 04/23/2021 17:39 Performed By: #### C MP ####[address] [place] [address] Sodium [Moles/Vol] 138 mmol/L Normal 136 - 145 [facility] Comment on above: Order Comment: William simon Called- RB to Cece Ramírez, 04/23/2021 17:39 Performed By: #### C MP ####[place] [address] Urea nitrogen [Mass/Vol] 14 mg/dL Normal 6 - 23 [facility] Comment on above: Order Comment: William simon Called- RB to Cece Ramírez, 04/23/2021 17:39 Performed By: #### C MP ####[place] [address] CORONAVIRUS 2019 BY PCRon SARS-CoV-2 (COVID-19) RNA MARILY+probe Ql (Unsp spec) Not detected Normal Not Detected [facility] Comment on above: Result Comment: . This test has received FDA Emergency Use Authorization (EUA) and has been verified by [facility]. This test is only authorized for the duration of time that circumstances exist to justify the authorization of the emergency use of in vitro diagnostic tests for the detection of SARS-CoV-2 virus and/or diagnosis of COVID-19 infection under section 564(b)(1) of the Act, 21 U.S.C. 360bbb-3(b)(1), unless the authorization is terminated or revoked sooner. [facility] is certified under CLIA-88 as qualified to perform high complexity testing. Testing is performed in the [facility] laboratory located at [address] [place] [address]. SARS-CoV-2/Flu/RSV Multiplex Test: Fact sheet for providers: https://www.fda.gov/media/213848/download Fact sheet for patients: https://www.fda.gov/media/998610/download Performed By: #### C OV19 ####[place] [address] Lab Specimen Source Nasal, Nasopharyngeal Normal [facility] Comment on above: Performed By: #### C OV19 ####[address] [place] [address] DATE OF SYMPTOM ONSET [YYYYMMDD]? [id number] Normal [facility] Comment on above: Performed By: #### C OV19 ####[place] [address] [place] [address] DATE OF SYMPTOM ONSET [YYYYMMDD]? [id number] Normal [facility] Comment on above: Performed By: #### C OV19 #### [facility] [address] [place] [address] Lab Specimen Source Nasal, Nasopharyngeal Normal [facility] Comment on above: Performed By: #### C OV19 #### [facility] [address] [place] [address] CT CHEST W CONTRASTon 2020 CT CHEST W CONTRAST STUDY: CT Chest with IV Contrast; 04/23/2021 at 6:53 p.m. INDICATION: Shortness of breath. Cough. Fatigue. Additional History: Hypertension. Appendectomy. COMPARISON: None Available. ACCESSION NUMBER(S): [id number] ORDERING CLINICIAN: KACI HAZEL PA-C TECHNIQUE: CT of the chest was performed with intravenous contrast. Omnipaque 300 90 mL was administered intravenously. Automated mA/kV exposure control was utilized and patient examination was performed in strict accordance with principles of ALARA. FINDINGS: MEDIASTINUM: The heart is normal in size without pericardial effusion. Central vascular structures opacify normally. There is no aneurysm in the thoracic aorta and no evidence of aortic dissection. There are multiple borderline enlarged pericarinal and right paratracheal lymph nodes. There is a small hiatal hernia. LUNGS/PLEURA: There is no pneumothorax. There is a tiny right pleural effusion. The left lung shows linear scarring or discoid atelectasis at the left base but the left lung otherwise is clear. On the right there is dense consolidation in the posterior right upper lobe in the area measuring about 6 x 5.5 cm. The airways appear patent but there are areas of loculated low-density or fluid suggesting possible parenchymal abscess within this consolidation the largest about 3.5 x 2.4 cm. LYMPH NODES: Thoracic lymph nodes are not enlarged. UPPER ABDOMEN: In the included upper abdomen there is a question of mild hydronephrosis on the right.. BONES: There are no acute fractures. No suspicious bony lesions. IMPRESSION: There is an area of dense alveolar consolidation or pneumonia in the posterior right upper lobe measuring about 6 x 5.5 cm. While there is no evidence of airway obstruction there are areas of low density irregular fluid collection within this consolidation that could represent areas of parenchymal abscess. Also noted is a very tiny right pleural effusion. In the included upper abdomen there is a question of mild right hydronephrosis. Signed by Vaughn Martinez MD Electronically signed by: VAUGHN MARTINEZ MD [facility] Covid 19 Resultson 1 SARS-CoV-2 (COVID-19) RNA MARILY+probe Ql (Unsp spec) NEGATIVE COVID-19 Test Coronaviruses are common world-wide and are the cause of many common colds. SARS-COV2 is a new coronavirus that began circulating worldwide in 2019 so we are calling it COVID-19. It has been estimated that four out of five patients with COVID-19 will recover at home without the need for medical attention. Symptoms of COVID-19 may include cough, fever, shortness of breath, loss of taste or smell and other flu-like symptoms including chills, sore muscles, sore throat, and headache. Severe illness is more common in older people and people with other health problems such as high blood pressure, obesity, and immune system problems. If the test is positive, you have COVID-19. You will be contacted by the ordering physicians office and instructed to remain on home isolation, in accordance with CDC guidelines. You may also be contacted by the [facility] to see if any of your close contacts may have been exposed to the virus and need to quarantine. If the test is negative, you likely do not have COVID-19 at this time, but you still may have a different illness that can spread to other people (like Influenza, or the Flu) and could still be at risk for getting COVID-19. We recommend that you stay away from other people to limit the spread of illness until your symptoms are improving and you are fever-free for 24 hours without the use of fever lowering medications such as acetaminophen or ibuprofen. No test is 100% accurate so if you are still concerned you may have COVID-19, talk to your doctor about the need to continue to stay away from others. Medicines Unless your provider told you not to use the following: Acetaminophen (Tylenol and others) is generally safe. Anti-inflammatory medications, such as Ibuprofen (Advil or Motrin) or Naproxen (Aleve) can also be used. Jhcy-ckn-qbwoexa cough and cold medicines can be used according to the instructions on the package. Some jafd-tmb-xrrqrhp medicines also contain acetaminophen. Make sure you are not taking more than your recommended dose. For those not hospitalized, there is no specific treatment available for this illness. Antibiotics do not treat Coronaviruses. Follow-Up Follow up with your doctor by scheduling a virtual visit or consider follow-up at one of our urgent care fever clinics. If you are having difficulty breathing, or are very weak and having difficulty standing, this is a medical emergency. Call 911 or have someone take you to the nearest emergency room immediately. If possible, wear a facemask. Additional guidance from the CDC for patients who tested POSITIVE for COVID-19 How to isolate: Isolate yourself in a specific room at home and limit your contact with others. Use a separate bathroom from other members of the household, when possible. Leave home only to get essential medical care. Do not go to work, school or public areas. Avoid using public transportation, ride-sharing, or taxis. Restrict contact with pets and other animals. If you must care for your pet or be around animals while you are sick, wash your hands before and after your interaction and wear a facemask. Make sure that shared spaces in the home have good airflow, such as by an air conditioner or an opened window, weather permitting. Personal Hygiene Procedures: Wear a face mask when in the same room as other people or pets. If a face mask interferes with your breathing, others should wear a mask when sharing space with you. Frequent hand-washing: wash your hands with soap and water for at least 20 seconds. If soap and water are not available, use alcohol-based hand vice president financial. Avoid touching your eyes, nose, and mouth with unwashed hands. Household Hygiene Procedures: Avoid sharing personal household items such as dishes, glassware, cups, eating utensils, towels or bedding with other people or pets in your home. After use, these items should be washed with soap and hot water. Disinfect all high-touch surfaces every day with antibacterial cleaning solutions such as Lysol wipes, bleach, cleansers, etc. High-touch surfaces include tabletops, doorknobs, bathroom fixtures, toilets, phones, keyboards, tablets and bedside tables. Immediately clean any surfaces that may have blood, poop or body fluids on them, using antibacterial cleaning solutions such as Lysol wipes, bleach, cleansers, etc. If clothing or bedding come into contact with blood, poop or body fluids, they should be washed immediately. Follow the directions on the laundry detergent and clothing labels but hot water is recommended when possible. Stopping home isolation precautions: If possible, consult your doctor before stopping home isolation precautions. According to the CDC, you can discontinue home isolation precautions when you have met both of these criteria: Your fever and respiratory symptoms have been gone for 24 gaurav (more content not included)... Normal [facility] LACTATEon 04-23-2021 Lactate [Moles/Vol] 1.1 mmol/L Normal 0.4 - 2.0 [facility] Comment on above: Result Comment: Lou puncture immediately after or during the administration of Metamizole may lead to falsely low results. Testing should be performed immediately prior to Metamizole dosing. Performed By: #### L ACT ####[place] [address] Provider Note - ED v2on 04-14 Provider Note - ED v2 Provider Note - ED v2: Chart Review: ED NOTES ED NOTES: ====HPI==== Patient is a 70-year-old female who presents to the emergency department with a chief complaint of generalized weakness. She states that over the past 3 weeks she has felt generally unwell. She states that she saw her family physician who prescribed her an antibiotic. She states that she took 1 dose and it made her sick and did not continue to take any additional doses. She states that her family practitioner prescribed her another antibiotic, doxycycline. She states that was prescribed on Tuesday. She states that she is taken only about 5 or 6 pills. She states that she has not had a fever until tonight. She reports that she has had a cough. She states that she has had a Covid vaccine. She denies any vomiting or nausea. No abdominal pain. No chest pain or shortness of breath. He states that she went to [place] urgent care today and was told that she has pneumonia and prescribed azithromycin. They did lab work and the patient's potassium was 2.9. They recommended she be evaluated in the emergency department. PMHX: HTN, High Cholesterol, GERD Social HX: Denies TOBACCO Denies ETOH Denies DRUGS ====Review of Systems==== 10 point system review is negative except for those specifically mentioned in history of present illness ====Physical Exam==== VITALS: Constitutional/General: Alert and oriented x3, well appearing, nontoxic, and in NAD. Head: Normocephalic and atraumatic. Eyes: PERRL, EOMI, conjunctive normal, sclera nonicteric, subconjunctival layer is pink. Mouth: Oropharynx clear, handling secretions, no trismus, no asymmetry of the posterior oropharynx or uvular edema Neck: Supple, full ROM, non tender to palpation in the midline, no stridor, no crepitus, no meningeal signs. Trachea at midline. Respiratory: Lungs clear to auscultation bilaterally, no wheezes, rales, or rhonchi, not in respiratory distress. Cardiovascular: Regular rate, regular rhythm, no murmurs, gallops, or rubs, 2+ distal pulses. Chest: normal chest wall movement GI: Abdomen soft, nontender, nondistended, + BS, no organomegaly, no palpable masses, no rebound, guarding, or rigidity. Musculoskeletal: Moves all extremities x4, warm and well perfused, no clubbing, cyanosis, or edema, cap refill <3 seconds Integument: Skin warm and dry, no rashes. Lymphatic: No lymphadenopathy noted. Neurologic: GCS 15, no focal deficits, symmetric strength 5/5 in the upper and lower extremities bilaterally. Psychiatric: Normal affect. ====ED Course and Medical Decision Making==== Differential diagnosis includes, but is not limited to: #### See MDM section for review of findings & plan of care. Portions of this note were dictated by speech recognition. An attempt at proof reading was made to minimize errors. Minor errors in electric welder helper may be present. Please call if questions.. HISTORY OF PRESENTING ILLNESS KRISTY is a 70 year old Female and was seen by me at 23-Apr-2021 19:02 for a chief complaint of other (Seen at [place] and diagnosed with Pneumonia which she go Zithromax for. Also was informed that her Potassium is 2.9 and WBC is 14. Pt c/o very tired.)(1). Triage Information: Most recent Vital Sign Value Date Temp (F): 100.1 04-23-2021 20:01 Temp (C): 37.8 04-23-2021 20:01 Heart Rate (beats/min): 87 04-23-2021 20:01 Respirations (breaths/min): 18 04-23-2021 20:01 SpO2 (%): 97 04-23-2021 20:01 BP Systolic (mm Hg): 146 04-23-2021 20:01 BP Diastolic (mm Hg): 75 04-23-2021 20:01 PAST MEDICAL HISTORY ATTESTATION: I have reviewed and confirmed nurse's/medic's notes for patient's medications, allergies, and medical, surgical, family and social history ALLERGIES/INTOLERANCES: Allergy Allergen: penicillin Type: Drug Reaction: Hives/Urticaria Allergen: sulfa drugs Type: Drug Category Reaction: Hives/Urticaria Intolerance Allergen: Doxycycline Hyclate Type: Drug Reaction: Nausea/Vomiting Allergen: levofloxacin Type: Drug Reaction: Nausea/Vomiting HEALTH HISTORY: Medical History Name:Hypertension Code:I10 Name:High cholesterol Code:E78.00 Name:GERD (gastroesophageal reflux disease) Code:K21.9 OUTPATIENT MEDICATIONS: Home Medications Review Status for Reconciliation: N/A Med Status: Patient Currently Takes Medications Drug Name: amiodarone 100 mg oral tablet Instructions: 2 tab(s) orally once a day Drug Name: metoprolol tartrate 25 mg oral tablet Instructions: 1 tab(s) orally once a day Drug Name: atorvastatin 10 mg oral tablet Instructions: 1 tab(s) orally once a day Drug Name: pantoprazole 40 mg oral delayed release tablet Instructions: 1 tab(s) orally once a day Drug Name: albuterol 90 mcg/inh inhalation aerosol Instructions: 2 puff(s) inhaled every 4 hours, As Needed for wheezing or shortness of breath Drug Nam (more content not included)... Normal [facility] Provider Note - ED v2 Provider Note - ED v2: Chart Review HISTORY OF PRESENTING ILLNESS KRISTY is a 70 year old Female and was seen by me at 23-Apr-2021 16:42. The historian is the patient. Triage Information: Most recent Vital Sign Value Date PAST MEDICAL HISTORY ATTESTATION: I have reviewed and confirmed nurse's/medic's notes for patient's medications, allergies, and medical, surgical, family and social history ALLERGIES/INTOLERANCES: Allergy Allergen: penicillin Type: Drug Reaction: Hives/Urticaria Allergen: sulfa drugs Type: Drug Category Reaction: Hives/Urticaria Intolerance Allergen: Doxycycline Hyclate Type: Drug Reaction: Nausea/Vomiting Allergen: levofloxacin Type: Drug Reaction: Nausea/Vomiting HEALTH HISTORY: Medical History Name:Hypertension Code:I10 Name:High cholesterol Code:E78.00 Name:GERD (gastroesophageal reflux disease) Code:K21.9 Family history: sister recently dx'd with lung CA. Social history: Non-smoker. . OUTPATIENT MEDICATIONS: Home Medications Review Status for Reconciliation: Complete Med Status: Patient Currently Takes Medications Drug Name: amiodarone 100 mg oral tablet Instructions: 2 tab(s) orally once a day Drug Name: metoprolol tartrate 25 mg oral tablet Instructions: 1 tab(s) orally once a day Drug Name: atorvastatin 10 mg oral tablet Instructions: 1 tab(s) orally once a day Drug Name: pantoprazole 40 mg oral delayed release tablet Instructions: 1 tab(s) orally once a day Drug Name: albuterol 90 mcg/inh inhalation aerosol Instructions: 2 puff(s) inhaled every 4 hours, As Needed for wheezing or shortness of breath Drug Name: Zithromax Z-Arsh 250 mg oral tablet Instructions: 2 tab(s) by mouth at once on day 1, then 1 tablet once a day on days 2-5 SIGNIFICANT EVENTS: No known significant events or known past surgical history. Has had Moderna vaccines x2 in 02/2021. RESULTS/VITAL SIGNS RESULTS: Radiology Results: Xray Chest 2 View PA + Lateral [Apr 23 2021 10:57AM] FINAL REPORT Interpreted by: HARDIK YUNG CHRISTOPHER, MD 04/23/21 10:55 Facility: [facility] Patient Name: KRISTY LICONA STUDY: CHEST 2 VIEW PA AND LAT; 04/23/2021 10:41 am INDICATION: persistent cough, fatigue, body aches x 3.5 weeks. COMPARISON: None. ACCESSION NUMBER(S): [id number] ORDERING CLINICIAN: PER BERGER FINDINGS: PA and lateral views of the chest were obtained. Dense airspace consolidation is seen in the right upper lobe along the minor fissure, concerning for pneumonia. No pneumothorax is identified. The cardiac silhouette is within normal limits for size. Mild discogenic degenerative changes are seen throughout the thoracic spine. IMPRESSION: Right upper lobe airspace consolidation, as above. Clinical correlation and continued follow-up until clearing is recommended. Transcribed By: Interface, User Electronically Signed By: HARDIK YUNG CHRISTOPHER 04/23/21 10:55 VITAL SIGNS: T PRBP SpO2O2(LPM) %FiO2 Method 23-Apr-2021 09:41:[id number] MEDICAL DECISION MAKING/ED COURSE MDM/ED COURSE: This note was generated with voice recognition software and may contain errors including spelling, grammar, syntax, and misrecognization of what was dictated CHIEF COMPLAINT persistent cough, fatigue, body aches HISTORY OF PRESENT ILLNESS Patient presents today for evaluation - reports that a little over 3 weeks ago, she developed what she believed were allergy symptoms. Reports she saw her PCP (Regina Quiñones) and was told to use OTC allergy medications. Sxs improved with time, although never fully resolved. About 1 week ago, she developed extreme fatigue, skin aches, and intermittent nausea; she also has a persistent dry cough that comes and goes. She reports nasal congestion is mild at this point; denies any sore throat, ear pain, and fever/chills; denies any wheezing, shortness of breath, rashes, abdominal pain, urinary symptoms, diarrhea, and swelling in legs. On Tuesday, she called her PCP (as her fatigue/aches were continuing to worsen) and they rx'd Levofloxacin - she took 1 dose but had emesis soon after. She called her PCP again that night - Levofloxacin was stopped and Doxycycline was started. She has taken ~5 doses of the Doxycycline (admits poor compliance with BID dosing), but has had further emesis with some of the doses, and ongoing nausea - reports appetite is very poor. Tried to schedule with her PCP today, but they were unable to fit her in, so she decided to come here today, instead. States she does not want to take either of these rx'd antibiotics anymore d/t the nausea/vomiting they have caused. She has been trying to eat small amounts, and is able to drink fluids without difficulty; denies any loss of sense of taste or smell. Last emesis was last nigh (more content not included)... [facility] Risk Screen - Adult Emergenc yon 04-23-2021 Risk Screen - Adult Emergency Preferred Language: Preferred Language: Preferred Language for Discussing Health Care (patient/designee)Malian Advanced Directives: Advance Directive/DNRno Family Violence Adult: Abuse Screen: Are you or have you been threatened or abused physically, emotionally, or sexually by anyoneno Learning Assessment (Patient): Learning Assessment (Patient): Patient is Able to be Assessed for Learningyes Factors Influencing Readiness to Learnpain Factors that Impact Ability to Learnnone Devices/Methods Used to Communicatenone Learning Preferenceswritten material Cultural Considerationsnone Developmental Considerationsnone Yarsanism Considerationsnone Other Learnersnone Learning Assessment (Other Learner): Learning Assessment (Other Learner): Other learner availableno Pressure Injury/TB/Substance: Pressure Injury: Pressure Injury Present on Admissionno Do you have a coughno Substance Use Current or Former Historynever: Cigarette/Tobacco, e-Cigarette/Vaping, Alcohol, Street Drugs Admission Risk Screen: Significant IndicatorsComplete CAGE: CAGE: Is this an injured patient at a Trauma Center ([facility]/[place]): no Electronic Signatures: Kalpana Kebede (SUPCarmela) (Signed 23-Apr-2021 20:10) Authored: Preferred Language, Advanced Directives, Family Violence Adult, Learning Assessment (Patient), Learning Assessment (Other Learner), Pressure Injury/TB/Substance, Pressure Injury, CAGE Last Updated: 23-Apr-2021 20:10 by Kalpana Kebede (SUPV) [facility] Triage - EDon 04-23-2021 Triage - ED Quick Triage: The patient and/or guardian verbally acknowledges placement for services into the following (when Urgent Care Service hours are operating):emergency department Chart Review: ARRIVAL INFORMATION Mode of Arrival: private vehicle CHIEF COMPLAINT KRISTY LICONA is a Female patient with a chief complaint of other (Seen at [place] and diagnosed with Pneumonia which she go Zithromax for. Also was informed that her Potassium is 2.9 and WBC is 14. Pt c/o very tired.). Onset of the Complaint: 23-Apr-2021 Triage Date/Time: 23-Apr-2021 20:01 ISSAC: 3 Pain Rating (0-10): 0 = None Vital Signs: Temperature: 100.1F ( 37.8C) taken oral Blood Pressure: 146/75 Mean: Heart Rate: 87 Respiratory Rate: 18 Pulse Oximetry: 97% on room air, no respiratory support. Height: 5 feet 1 inches. 154.9 CM Weight: 136.6 pounds. Calculated 62.0 kg. 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 Patient has homicidal thoughts: no Last Known Well: unknown Risk Screens Suicide Risk Screen In the Past Month: Have you wished you were or wished you could go to sleep and not wake up no In the Past Month: Have you had any actual thoughts of killing yourself no In Your Lifetime: Have you ever done anything, started to do anything, or prepared to do anything to end your life no Guerra Fall Scale Screening Has the patient fallen before (or is the patient in the ED as a result of a fall) has not had a fall Does the patient have an impaired gait does not have impaired gait Is the patient cognitively impaired not cognitively impaired Interventions: Guerra Fall Interventions: LOW INTERVENTIONS: *patient oriented to surroundings and call system, * patient/family falls education completed and documented, *patients fall status communicated during bedside handoff, *whiteboard updated, *mode of toileting discussed with patient, *bed in low position with brakes locked, *call light in reach, * non-skid footwearlow interventions except: patient oriented to surroundings and call systemlow interventions except: patient/family falls education completed and documentedlow interventions except: patients fall status communicated during bedside handoff, whiteboard updatedlow interventions except: mode of toileting discussed with patientlow interventions except: bed in low position with brakes lockedlow interventions except: call light in reach and low interventions except: non-skid footwear TRAVEL HISTORY Travel History Coronavirus Screening: no exposure or symptoms Travel Exposure History: NO travel to International locations in the past 30 days PAIN Pain Scale Used: BRANDON Pain Rating (0-10): 0 = None Past Medical History: Past Medical History Reviewedyes Pneumonia: Past Medical History, Active Electronic Signatures: Kalpana Kebede (SUPV) (Signed 23-Apr-2021 20:08) Entered: Risk Screens, Pain, Travel History, Chart Review, Scores, Past Medical History Authored: Quick Triage, Risk Screens, Pain, Travel History, Chart Review, Scores, Past Medical History Last Updated: 23-Apr-2021 20:08 by Kalpana Kebede (SUPV) Normal [facility] URINALYSIS WITH CULTURE IF I NDICATEDon 04-23-2021 Appearance (U) CLEAR Normal CLEAR [facility] Comment on above: Performed By: #### U ARFX #### [place] [address] Bilirubin Ql (U) Negative Normal NEGATIVE [facility] Comment on above: Performed By: #### U ARFX #### [place] [id number] Color (U) Straw Normal STRAW,YELL OW [facility] Comment on above: Performed By: #### U ARFX #### [address] [address] Glucose Ql (U) Negative Normal NEGATIVE [facility] Comment on above: Performed By: #### U ARFX #### [address] [address] Hemoglobin Ql (U) Negative Normal NEGATIVE [facility] Comment on above: Performed By: #### U ARFX #### [address] [address] Ketones Ql (U) Negative Normal NEGATIVE [facility] Comment on above: Performed By: #### U ARFX #### [address] [address] Leukocyte esterase Test strip Ql (U) Negative Normal NEGATIVE [facility] Comment on above: Performed By: #### U ARFX #### [address] [address] Nitrite Ql (U) Negative Normal NEGATIVE [facility] Comment on above: Performed By: #### U ARFX #### [address] [address] pH (U) 6.0 [pH] Normal 5.0 - 8.0 [facility] Comment on above: Performed By: #### U ARFX #### [address] [address] Protein Ql (U) Negative Normal NEGATIVE [facility] Comment on above: Performed By: #### U ARFX #### [address] [address] Specific gravity (U) [Rel density] 1.004 Low 1.005 - 1.035 [facility] Comment on above: Performed By: #### U ARFX #### [address] [address] Urobilinogen (U) [Mass/Vol] mg/dL Normal 0.0 - 1.9 [facility] Comment on above: Performed By: #### U ARFX #### [address] [address] [place] Mamm Diag w/CAD if perfor med RTon 02-22-2018 [place] Mamm Diag w/CAD if performed RT Exam Date/Time:02/22/2018 09:04 EDTReason for Exam:ABN RIGHT BREAST MAMMOReportRIGHT DIGITAL DIAGNOSTIC MAMMOGRAMS with CADHISTORY: Nodular density on the last mammogram of 02/02/2018.FINDINGS: The right breast is examined in the MLO and ML positions. Thedensity, seen earlier dissipates, and is attributed to overlapping breastparenchyma. The retromammary fat is normally seen. No abnormality is seen onthe ML or the MLO views.IMPRESSION:Resolution of the previously suspected density in the upper portion of theright breast posteriorly.BI-RADS 2 - Benign, no evidence of malignancy. Normal interval followup isrecommended in 12 months.OVERALL ASSESSMENT- BENIGNA letter of notification will be sent to the patient regarding the results.Assessment / Recommendation: 2-1 Normal interval follow-upBreast density: Scattered Fibroglandular DensityRecall interval: 012 months FINAL REPORT Dictated: 02/22/2018 6:22 pm Mike Sousa MDigned (Electronic Signature): 02/22/2018 6:22 pmSigned by: Mike Sousa MD Technologist: Sunitaessment: BI-RADS Category 2-Benign findingRecommendation: Normal interval follow-up Normal [facility] [place] Mamm Screen w/CAD if perf ormed bilaton 02-05-2018 Bilirubin (direct) Exam Date/Time:2017 13:52 EDTReason for Exam:SCREENINGReportBILATERA L DIGITAL SCREENING MAMMOGRAMS WITH CADCOMPARISON: 01/28/2017, 01/06/2016, and 10/03/2014.FINDINGS: An asymmetric density is seen, in the MLO projection close to thepectoral margin. This should be confirmed with a repeat MLO and a 90-degreelateral view to rule out a developing density. The left breast is unremarkable.The CC views do not show any abnormality.IMPRESSION:Asymm etric density right breast in the posterior third on the MLO projection.Followup with MLO and ML views recommended.BI-RADS 0 - Need additional imaging evaluation at this time.OVERALL ASSESSMENT- NEED ADDITIONAL IMAGING EVALUATION.A letter of notification will be sent to the patient regarding the results.Assessment / Recommendation: 0-1 Additional projectionsBreast density: Scattered Fibroglandular DensityRecall interval: Now FINAL REPORT Dictated: 02/05/2018 8:38 pm Mike Sousa MDigned (Electronic Signature): 02/05/2018 8:38 pmSigned by: Mike Sousa MD Technologist: Lisaessment: BI-RADS Category 0-Incomplete: Need additional imaging evaluationRecommendation: Additional projections Normal [facility] [facility] Vital Signs Date Time Vital Sign Value Performing Clinician Facility 10-24-2024 08:54-0500 Body height 152.4 cm Mary Jo Rosenbaum MD Work Phone: [facility] 10-24-2024 08:54-0500 Body mass index (BMI) [Ratio] 26.95 kg/m2 Mary Jo Rosenbaum MD Work Phone: [facility] 10-24-2024 08:54-0500 Body weight 62.6 kg Mary Jo Rosenbaum MD Work Phone: [facility] 09-19-2024 09:41-0500 Body height 152.4 cm Mary Jo Rosenbaum MD Work Phone: [facility] 09-19-2024 09:41-0500 Body mass index (BMI) [Ratio] 26.95 kg/m2 Mary Jo Rosenbaum MD Work Phone: [facility] 09-19-2024 09:41-0500 Body weight 62.6 kg Mary Jo Rosenbaum MD Work Phone: [facility] 09-19-2024 09:41-0500 Diastolic blood pressure 71 mm[Hg] Mary Jo Rosenbaum MD Work Phone: [facility] 09-19-2024 09:41-0500 Heart rate 76 /min Mary Jo Rosenbaum MD Work Phone: [facility] 09-19-2024 09:41-0500 Systolic blood pressure 166 mm[Hg] Mary Jo Rosenbaum MD Work Phone: [facility] 02-23-2023 07:44-0400 Body height 156.21 cm VERIFIER OPERATOR-C Regina Hellinger VERIFIER OPERATOR Work Phone: [facility] 02-23-2023 07:44-0400 Body mass index (BMI) [Ratio] 26.6 kg/m2 VERIFIER OPERATOR-C Regina Hellinger VERIFIER OPERATOR Work Phone: [facility] 02-23-2023 07:44-0400 Body temperature 97.2 [degF] VERIFIER OPERATOR-C Regina Hellinger VERIFIER OPERATOR Work Phone: [facility] 02-23-2023 07:44-0400 Body weight 64.86 kg VERIFIER OPERATOR-C Regina Hellinger VERIFIER OPERATOR Work Phone: [facility] 02-23-2023 07:44-0400 Diastolic blood pressure 76 mm[Hg] VERIFIER OPERATOR-C Regina Hellinger VERIFIER OPERATOR Work Phone: [facility] 02-23-2023 07:44-0400 Heart rate 66 /min VERIFIER OPERATOR-C Regina Mcknightlinger VERIFIER OPERATOR Work Phone: [facility] 02-23-2023 07:44-0400 Respiratory rate 18 /min VERIFIER OPERATOR-C Regina Whitfielder VERIFIER OPERATOR Work Phone: [facility] 02-23-2023 07:44-0400 SaO2% (BldA) [Mass fraction] 99 % VERIFIER OPERATOR-C Regina Whitfielder VERIFIER OPERATOR Work Phone: [facility] 02-23-2023 07:44-0400 Systolic blood pressure 162 mm[Hg] VERIFIER OPERATOR-C Regina Whitfielder VERIFIER OPERATOR Work Phone: [facility] 11-04-2022 17:17-0500 Body height 156.[address] Alicia Castanon Work Phone: [facility] 11-04-2022 17:17-0500 Body mass index (BMI) [Ratio] 27.3 kg/m2 Dr. Alicia Castanon Work Phone: [facility] 11-04-2022 17:17-0500 Body temperature 100.2 [degF] Dr. Alicia Castanon Work Phone: [facility] 11-04-2022 17:17-0500 Body weight 66.[address] Alicia Castanon Work Phone: [facility] 11-04-2022 17:17-0500 Diastolic blood pressure 82 mm[Hg] Dr. Alicia Castanon Work Phone: [facility] 11-04-2022 17:17-0500 Heart rate 120 /min Dr. Alicia Castanon Work Phone: [facility] 11-04-2022 17:17-0500 Respiratory rate 16 /min Dr. Alicia Castanon Work Phone: [facility] 11-04-2022 17:17-0500 SaO2% (BldA) [Mass fraction] 98 % Dr. Alicia Castanon Work Phone: [facility] 11-04-2022 17:17-0500 Systolic blood pressure 140 mm[Hg] Dr. Alicia Castanon Work Phone: [facility] 02-18-2022 18:08-0400 Body height 154.9 cm Pcp Unknown [facility] 02-18-2022 18:08-0400 Body temperature 99.86 [degF] Pcp Unknown [facility] 02-18-2022 18:08-0400 Diastolic blood pressure 61 mm[Hg] Pcp Unknown [facility] 02-18-2022 18:08-0400 Heart rate 57 /min Pcp Unknown [facility] 02-18-2022 18:08-0400 Respiratory rate 16 /min Pcp Unknown [facility] 02-18-2022 18:08-0400 SaO2% (BldA) [Mass fraction] 97 % Pcp Unknown [facility] 02-18-2022 18:08-0400 Systolic blood pressure 133 mm[Hg] Pcp Unknown [facility] 04-26-2021 09:28-0400 Body temperature 97.7 [degF] Regina Hellinger Other Phone: [facility] 04-26-2021 09:28-0400 Diastolic blood pressure 70 mm[Hg] Regina Hellinger Other Phone: [facility] 04-26-2021 09:28-0400 Heart rate 71 /min Regina Hellinger Other Phone: [facility] 04-26-2021 09:28-0400 Respiratory rate 18 /min Regina Hellinger Other Phone: [facility] 04-26-2021 09:28-0400 SaO2% (BldA) [Mass fraction] 93 % Regina Hellinger Other Phone: [facility] 04-26-2021 09:28-0400 Systolic blood pressure 125 mm[Hg] Regina Roxannalinger Other Phone: [facility] 04-23-2021 11:41-0400 Body height 154.9 cm Regina Hellinger Other Phone: [facility] 04-23-2021 11:41-0400 Body temperature 98.96 [degF] Regina Roxannalinger Other Phone: [facility] 04-23-2021 11:41-0400 Diastolic blood pressure 76 mm[Hg] Regina Hellinger Other Phone: [facility] 04-23-2021 11:41-0400 Heart rate 89 /min Regina Hellinger Other Phone: [facility] 04-23-2021 11:41-0400 Respiratory rate 16 /min Regina Roxannalinger Other Phone: [facility] 04-23-2021 11:41-0400 SaO2% (BldA) [Mass fraction] 97 % Regina Roxannalinger Other Phone: [facility] 04-23-2021 11:41-0400 Systolic blood pressure 135 mm[Hg] Regina Hellinger Other Phone: [facility] Encounters Encounter Date Encounter Type Care Provider Facility Start: 03-13-2025 End: 03-13-[address] Alicia Castanon DO Work Phone: [facility] Work Phone: Start: 03-13-2025 End: 03-13-[address] Alicia Castanon DO Work Phone: -Laboratory Work Phone: Start: 03-13-2025 End: 03-13-2025 ambulatory Alicia Castanon Facility:[facility] Start: 02-27-2025 End: 02-27-[address] Alicia Castanon DO Work Phone: [facility] Work Phone: Start: 02-27-2025 End: 02-27-[address] Alicia Castanon DO Work Phone: -Janina Harman [facility] Start: 02-27-2025 End: 02-27-2025 ambulatory Alicia Malys Facility:[facility] Start: 10-31-2024 End: 10-31-2024 ambulatory Alicia Malys Facility:[facility] Start: 10-24-2024 End: 10-24-2024 Patient encounter procedure Mary Jo Rosenbaum MD Work Phone: [facility] Comment on above: Urinary incontinence , unspecified type (Primary Dx) Start: 10-24-2024 End: 10-24-2024 ambulatory [facility] Start: 09-19-2024 End: 09-19-2024 ambulatory [facility]ulatory Start: 09-19-2024 End: 09-19-2024 Office outpatient new 45 minutes Mary Jo Rosenbaum MD Work Phone: [facility] Comment on above: Nocturia; Urinary incontinence, unspecified type Start: 09-18-2024 End: 09-18-2024 ambulatory Alicia Malys Facility:[facility] Start: 08-24-2024 End: 08-24-2024 ambulatory Alicia Malys Facility:[facility] Start: 08-01-2024 End: 08-01-2024 ambulatory Alicia Malys Facility:[facility] Start: 06-19-2024 End: 06-19-2024 ambulatory Norberto Page Facility:[facility] Start: 05-22-2024 End: 05-22-2024 ambulatory Anne Tamayo VERIFIER OPERATOR Facility:[facility] Start: 05-16-2024 End: 05-16-2024 ambulatory Anne Tamayo VERIFIER OPERATOR Facility:[facility] Start: 05-10-2024 End: 05-10-2024 ambulatory Alicia Malys Facility:[facility] Start: 05-07-2024 End: 05-07-2024 ambulatory Alicia Malys Facility:[facility] Start: 03-14-2024 End: 03-14-2024 ambulatory [facility] Work Phone: Start: 03-14-2024 End: 03-14-2024 Patient encounter procedure [facility] Work Phone: Start: 02-21-2024 End: 02-21-2024 ambulatory [facility] Work Phone: Start: 02-21-2024 End: 02-21-2024 [facility] Start: 01-25-2024 End: 01-25-2024 ambulatory [facility] Work Phone: Start: 01-25-2024 End: 01-25-2024 [facility] Start: 03-31-2023 End: 03-31-2023 ambulatory VERIFIER OPERATOR-C Regina Roxannaprashanther VERIFIER OPERATOR Work Phone: [facility] Work Phone: Start: 03-31-2023 End: 03-31-2023 Patient encounter procedure VERIFIER OPERATOR-C Regina Roxannalinger VERIFIER OPERATOR [facility] Start: 02-23-2023 End: 02-23-2023 Patient encounter procedure VERIFIER OPERATOR-C Regina Hellinger VERIFIER OPERATOR Work Phone: [facility]-Pulmonary Medicine [facility] Start: 02-04-2023 End: 02-04-[address] Alicia Castanon Work Phone: [facility] Work Phone: Start: 02-04-2023 End: 02-04-[address] Alicia Castanon Work Phone: [facility]-Ultrasound, [facility] Start: 01-24-2023 End: 01-24-[address] Alicia Castanon Work Phone: [facility] Work Phone: Start: 01-24-2023 End: 01-24-[address] Alicia Castanon Work Phone: [facility]-Laboratory, Janina England [facility] Start: 11-12-2022 Non-patient / Non-visit Dr. Janki Castanon Work Phone: [facility] Start: 11-12-2022 End: 11-12-[address] Alicia Castanon Work Phone: [facility] Work Phone: Start: 11-12-2022 End: 11-12-[address] Alicia Castanon Work Phone: [facility]-Cardiovascula r Services Start: 11-04-2022 End: 11-04-[address] Alicia Castanon Work Phone: [facility] Start: 10-25-2022 End: 10-25-[address] Alicia Castanon Work Phone: [facility] Work Phone: Start: 10-25-2022 End: 10-25-[address] Alicia Castanon Work Phone: [facility]-Laboratory, Specimen Start: 02-18-2022 End: 02-18-2022 Emergency department patient visit Per [facility] 02 Start: 04-23-2021 End: 04-26-2021 Evaluation and management of inpatient [address] [facility] 3 Med Surg [place] [id number] 01 Start: 04-23-2021 End: 04-23-2021 Emergency department patient visit Per [facility] 01 Start: 02-22-2018 End: 02-23-2018 Ambulatory Aranza Ines Facility:[facility] Start: 02-02-2018 End: 02-03-2018 Ambulatory [facility] Facility:[facility] Procedures Date Procedure Procedure Detail Performing Clinician Start: 03-13-2025 Serum inorganic phos phate measurement Dr. Alicia Castanon DO Work Phone: Start: 02-27-[address] Alicia Castanon DO Work Phone: Start: 03-14-2024 US urinary tract Start: 02-04-[address] Janki Castanon Work Phone: Start: 06-29-2021 Mammography Mary Jo Rosenbaum MD Work Phone: Start: 11-11-2020 Colonoscopy Mary Jo Rosenbaum MD Work Phone: Urine culture VERIFIER OPERATOR-C Regina kramer NP Work Phone: Plan of Treatment Date Care Activity Detail Author Start: 11-11-2030 Screening for malignant neoplasm of colon [facility] Start: 2025 RSV High Risk: (Elderly (60+) or Population) (1 - 1-dose 75+ series) RSV High Risk: (Elderly (60+) or Population) (1 - 1-dose 75+ series) [facility] Start: 07-15-2024 COVID-19 Vaccine ( season) COVID-19 Vaccine ( season) [facility] Start: 07-15-2024 Influenza vaccination Influenza Vaccine (#1) [facility] Start: 02-23-2023 Patient referral [facility] Work Phone: Start: 06-29-2022 Screening for malignant neoplasm of breast Mammogram [facility] Start: 04-24-2021 End: 04-25-2022 [facility] Start: 2000 Zoster Vaccines (1 of 2) Zoster Vaccines (1 of 2) [facility] Start: 1972 DTaP/Tdap/Td Vaccines (1 - Tdap) DTaP/Tdap/Td Vaccines (1 - Tdap) [facility] Start: 1968 Hepatitis C screening Hepatitis C Screening [facility] Start: 1950 Lipid panel Lipid Panel [facility] Start: 1950 Medicare Annual Wellness Visit Medicare Annual Wellness Visit (AWV) [facility] Start: 1950 Screening for malignant neoplasm of colon [facility] H/O: surgery History of bladd er suspension procedure [facility] H/O: tubal ligation History of tubal liga tion [facility] History of appendectomy History of appendectomy [facility] History of colonoscopy History of colonoscopy [facility] Past history of procedure History of esophagogastroduodenoscopy (EGD) [facility] Patient referral [facility] Work Phone: Immunizations Immunization Date Immunization Notes Care Provider Fa cility 10-06-2022 influenza virus vaccine, unspecified formulation Mary Jo Rosenbaum MD Work Phone: [facility] Work Phone: Payers Date Payer Category Payer Self-pay [id number] 2023 Unknown [id number] 2020 Medicare supplementa l policy (as second payer) GENERIC MEDICARE SUPPLEMENT [id number] 2015 Medicare 2015 Unknown 2015 Unknown [id number] 2015 Medicare [id number] 1950 Unknown [id number] 1950 Unknown [id number] .[id number] [place] [id number] Unknown [id number] Unknown [id number] .2.462 Unknown [id number] .2.462 Unknown [id number] .2.462 Unknown [id number] .2.462 Unknown [id number] .2.462 Unknown [id number] .2.462 Unknown [id number] .2.462 Unknown [id number] .2.462 Unknown [id number] .[id number] Unknown [id number] .2.462 Social History Date Type Detail Facility [facility] Start: 11-04-2022 End: 02-23-2023 Tobacco smoking consumption unknown [facility] Start: 1950 Sex Assigned At Female W [facility] Start: 02-23-2023 End: 09-19-2024 Tobacco smoking status NHIS Never smoked tobacco [facility] Work Phone: Start: 09-19-2024 Tobacco use and exposure Smokeless tobacco non-user [facility] Work Phone: Start: 09-19-2024 End: 10-24-2024 History of Social function [facility] Work Phone: Start: 09-19-2024 End: 10-24-2024 Tobacco use panel [facility] Work Phone: Start: 1950 [facility] Start: 09-09-2024 End: 10-24-2024 Exposure to SARS-CoV-2 (event) Not sure [facility] Start: 03-06-2025 Sex Female (finding) [place] Functional Status Date Assessment Result Facility Functional observable [facility] Mental Status Date Assessment Result Facility 04-26-2021 Cognitive functions 0219:42 [facility] Clinical Notes 04-24-2021 to 10-24-2024 Juju Maria MA - 10/24/2024 8:30 AM Gladys Rosenbaum MD - 09/19/2024 9:30 AM EST Note Date & Type Note Facility 10-24-2024 History of Present illness Narrative Patient ID: Kristy Licona is a 74 y.o. female. Procedures The patient was prepped using a Betadine solution. Lidocaine jelly was instilled into the urethra. The flexible cystoscope was sterilely inserted into the urethra and formal cystoscopy performed in a systematic fashion. . For detailed findings of the procedure, please see Dr. Rosenbaum remarks below CIPRO 250MG POBID TIMES 3 DAYS GIVEN NO MASS. NO STONE. PVR MINIMAL NO SIGNIFICANT PROLAPSE CONTINUE GEMTESA F/U 6 MONTHS documented in this encounter [facility] Work Phone: 09-19-2024 History of Present illness Narrative Subjective Patient ID: Kristy Licona is a 73 y.o. female. HPI Patient is here to establish for urinary incontinence. She states she goes to stand up and will start to leak. Also gets the urge and cannot make it in time. MARTITA is an issue too. She did have surgery 1984. Denies dysuria. Denies hematuria. Nocturia x1-2. No medication for LUT'S. She does have CKD. She thinks he had 1 kidney stone in the past. No recent sx. Review of Systems Constitutional: Negative for chills and fever. HENT: Negative. Eyes: Negative. Respiratory: Negative for cough and shortness of breath. Cardiovascular: Negative for chest pain and leg swelling. Gastrointestinal: Negative for nausea. Endocrine: Negative. Genitourinary: Negative for difficulty urinating. Negative except for documented in HPI Allergic/Immunologic: Negative. Neurological: Alert & oriented X 3 Hematological: Denies blood thinners Psychiatric/Behavioral: Negative. Objective Physical Exam Vitals and nursing note reviewed. Pulmonary: Effort: Pulmonary effort is normal. Abdominal: Palpations: Abdomen is soft. Tenderness: There is no abdominal tenderness. Genitourinary: Comments: Kidneys non palpable bilaterally Bladder non palpable or tender Neurological: Mental Status: She is alert. Assessment/Plan Diagnoses and all orders for this visit: Nocturia Urinary incontinence, unspecified type Treatment options for LUTS reviewed Pelvic floor exercises discussed. Pros/cons of PT discussed.. Questions answered PT consult made Cysto scheduled to evaluate bladder and for any prolapse Gemtesa samples given Discussed timed voiding. Discussed fluid and caffeine intake Lifestyle change to help prevent UTIs discussed. Encouraged fluid intake. Recent UA was negative F/u 1 month cysto and Med review documented in this encounter [facility] Work Phone: 04-26-2021 Note Send Summary: Discharge Summary Providers: Provider RoleProvider Name Baldo Hua [facility] Discharge: Summary: Admission Date: .23-Apr-2021 18:53:00 Discharge Date: 26-Apr-2021 Attending Physician at Discharge: Baldo Arriola Admission Reason: weakness Final Discharge Diagnoses: Pneumonia Procedures: none Condition at Discharge: Satisfactory Disposition at Discharge: .Home Vital Signs: T PRBPSpO2 [id number]/7093% Date/Time04/26 7:286/13 7: 7: 7: 7:28 Range(36.5C - 36.9C ) (71 - 72 ) (16 - 18 ) (120 - 125 )/ (67 - 71 ) (91% - 95% ) Highest temp of 36.9 C was recorded at 04/25 15:00 Date: Weight/Scale Type:Height: 24-Apr-2021 00:2964.9 kg / rsc135.9 cm Physical Exam: Constitutional: awake/alert/oriented x3, not in acute distress, Eyes: PERRL, EOMI, clear sclera ENMT: normal hearing, mucous membranes moist, no pharyngeal erythema or exudates Head/Neck: neck supple, no apparent injury, no JVD, no lymphadenopathy, trachea midline Respiratory/Thorax: patent airways, clear to auscultation bilaterally, no crackles or wheezing or rhonchi Cardiovascular: Regular, rate and rhythm, no murmurs, 2+ equal pulses of the extremities Gastrointestinal: nondistended, positive bowel sounds, soft, non-tender, no rebound tenderness or guarding, no masses palpable, no organomegaly Extremities: no edema Neurological: intact senses, motor, response and reflexes, normal strength, babinski negative Psychological: Appropriate mood and behavior Skin: warm, no rashes Hospital Course: 70-year-old female with a past medical history of hypertension, hyperlipidemia and GERD who presented to the emergency room for dry cough and severe weakness. Please refer to the H&P for further detailed history. On presentation, blood pressure 146/75, heart rate 87, respiratory rate 18, afebrile, saturation O2 97% on room air. Pertinent findings on blood work-up; WBC 14,000, neutrophil shift, potassium 2.9 and the rest is grossly within normal limits. CT scan of the chest showed an area of dense alveolar consolidation or pneumonia in the posterior right upper lobe measuring about 6 x 5.5 cm. While there is no evidence of airway obstruction there are areas of low density irregular fluid collection within this consolidation that could represent areas of parenchymal abscess. Also noted is a very tiny right pleural effusion. Patient was given in the emergency room 1 g IV cefepime, 1 g IV vancomycin, potassium and IV fluids and then admitted to the medical service for further investigation and management of a right upper lobe pneumonia with the possibility of an abscess formation associated with leukocytosis. I treated the patient with Levaquin 750 mg IV daily and Flagyl 500 mg IV every 8 hours. I wanted to give Unasyn but patient is allergic to penicillins. I did send for MRSA swab which came back negative and a sputum culture but patient was not having any cough. I will continue treating the patient with this regimen for 48 hours. She did not have any fever and remained hemodynamically stable. Leukocytosis resolved. She was still having generalized weakness. I discharged the patient home on oral Levaquin and Flagyl for 7 more days. She will follow up with pulmonary as outpatient. Recommended stationary exercises for her weakness. And if it remains, then she will need physical therapy as outpatient. A total of 30 minutes were spent in preparing in coordinating this patient's discharge. This includes a [id number] encounter, patient counseling, discharge and follow-up assessments. 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 manager Call to Schedule in: 1 week Discharge Medications: Home Medication montelukast 10 mg oral tablet - 1 tab(s) orally once a day amLODIPine 10 mg oral tablet - 1 tab(s) orally once a day fluticasone 50 mcg/inh nasal spray - 1 spray(s) nasal once a day latanoprost 0.005% ophthalmic solution - 1 drop(s) to each affected eye once a day (in the evening) Metoprolol Succinate ER 25 mg oral tablet, extended release - 1 tab(s) orally once a day metroNIDAZOLE 500 mg oral tablet - 1 tab(s) orally every 8 hours; take first dose today at 1 pm levoFLOXacin 500 mg oral tablet - 1 tab(s) orally once a day atorvastatin 10 mg oral tablet - 1 tab(s) orally once a day pantoprazole (more content not included)... [facility] 04-24-2021 Note History of Present I llness: HPI: KRISTY LICONA is a 70 year old Female Who presented to the emergency room for weakness for 3 weeks. On presentation, blood pressure 146/75, heart rate 87, respiratory rate 18, afebrile, saturation O2 97% on room air. Pertinent findings on blood work-up; WBC 14,000, neutrophil shift, potassium 2.9 and the rest is grossly within normal limits. CT scan of the chest showed an area of dense alveolar consolidation or pneumonia in the posterior right upper lobe measuring about 6 x 5.5 cm. While there is no evidence of airway obstruction there are areas of low density irregular fluid collection within this consolidation that could represent areas of parenchymal abscess. Also noted is a very tiny right pleural effusion. Patient was given in the emergency room 1 g IV cefepime, 1 g IV vancomycin, potassium and IV fluids and then admitted to the medical service for further investigation and management. Patient dates back her history to around 3 weeks ago when she said that she started experiencing allergies in the form of a dry cough and runny nose. She has allergy medications that she used after which her symptoms resolved but then she started has been progressively worsening generalized weakness and fatigue. Did not have any subjective fever or chills. No chest pain. No cough. No congestion. No sore throat. No palpitations. No shortness of breath. She saw her PCP last week and the latter gave her a prescription of azithromycin of which patient vomited after the first dose. So it was replaced with doxycycline and the same situation happened but the patient could not tolerate the pill and she continued to have weakness so she came to the emergency room. Review of Systems: 10 systems were reviewed and were negative except for those noted in the history of present illness. Past medical history: Hypertension, hyperlipidemia, GERD, allergic rhinitis Past surgical history: Cholecystectomy, appendectomy Social history: Nonsmoker, no alcohol abuse. Lives at home with spouse Family history: has been reviewed and there are no findings pertinent to the chief complaint Allergies: penicillin: Hives/Urticaria sulfa drugs: Hives/Urticaria Intolerances: Doxycycline Hyclate: Nausea/Vomiting levofloxacin: Nausea/Vomiting Medications Prior to Admission: metoprolol tartrate 25 mg oral tablet: 1 tab(s) orally once a day atorvastatin 10 mg oral tablet: 1 tab(s) orally once a day pantoprazole 40 mg oral delayed release tablet: 1 tab(s) orally once a day albuterol 90 mcg/inh inhalation aerosol: 2 puff(s) inhaled every 4 hours, As Needed for wheezing or shortness of breath Zithromax Z-Arsh 250 mg oral tablet: 2 tab(s) by mouth at once on day 1, then 1 tablet once a day on days 2-5 montelukast 10 mg oral tablet: 1 tab(s) orally once a day amLODIPine 10 mg oral tablet: 1 tab(s) orally once a day fluticasone 50 mcg/inh nasal spray: 1 spray(s) nasal once a day. Objective: Objective Information: T PRBPSpO2 [id number]/8094% Date/Time04/24 0: 0: 0: 0: 0:20 Range(36.9C - 37.8C ) (80 - 90 ) (18 - 18 ) (138 - 152 )/ (72 - 80 ) (94% - 97% ) Highest temp of 37.8 C was recorded at 04/23 20:01 Pain reported at 04/23 20:01: 0 = None Physical Exam by System: Constitutional: awake/alert/oriented x3, not in acute distress, Eyes: PERRL, EOMI, clear sclera ENMT: normal hearing, mucous membranes moist, no pharyngeal erythema or exudates Head/Neck: neck supple, no apparent injury, no JVD, no lymphadenopathy, trachea midline Respiratory/Thorax: patent airways, clear to auscultation bilaterally, no crackles or wheezing or rhonchi Cardiovascular: Regular, rate and rhythm, no murmurs, 2+ equal pulses of the extremities Gastrointestinal: nondistended, positive bowel sounds, soft, non-tender, no rebound tenderness or guarding, no masses palpable, no organomegaly Extremities: no edema Neurological: intact senses, motor, response and reflexes, normal strength, babinski negative Psychological: Appropriate mood and behavior Skin: warm, no rashes Recent Lab Results: Results: CBC: 04/23/2021 13:28 \ Hgb / \ 11.8 L / WBC Plt 14.0 H 367 / Hct \ / 36.2 \ RBC: 4.25 MCV: 85 Neutrophil %: 75.5 CMP: 04/23/2021 13:28 NA+ Cl- BUN / 138 98 14 / - Glucose 134 H K+ HCO3- Creat \ 2.9 LL 30 1.00 \ \ T Bili / \ 0.6 / AST x ---- x ALT 21 x ---- x 17 / Alk P \ / 128 \ Calcium : 9.9 Anion Gap : 13 Albumin : 3.6 T Protein : 7.3 Radiology Results: Results: Impression: There is an area of dense alveolar consolidation or pneumonia in the posterior right upper lobe measuring about 6 x 5.5 cm. While there is no evidence of airway obstruction there are areas of low density irregular f (more content not included)... [facility] Chief complaint+Reason for v isit Narrative Reason for Visit [address] Work Phone: Evaluation note* Neurological: intact senses, motor, response and reflexes, normal strength, babinski negativeExtremities: no edemaGastrointestinal: nondistended, positive bowel sounds, soft, non-tender, no rebound tenderness or guarding, no masses palpable, no organomegalyCardiovascular: Regular, rate and rhythm, no murmurs, 2+ equal pulses of the extremitiesRespiratory/Thorax: patent airways, clear to auscultation bilaterally, no crackles or wheezing or rhonchiHead/Neck: neck supple, no apparent injury, no JVD, no lymphadenopathy, trachea midlineENMT: normal hearing, mucous membranes moist, no pharyngeal erythema or exudatesEyes: PERRL, EOMI, clear scleraSkin: warm, no rashesPsychological: Appropriate mood and behaviorConstitutional: awake/alert/oriented x3, not in acute distress, [facility] Diagnosis Onset Date Resolution Status [facility] Work Phone: Evaluation note* Diagnosis Onset Date Resolution Status ONIEL (obstructive sleep apnea) acute [facility] Work Phone: Evaluation noteNo assessment information available [facility] Work Phone: Evaluation note* Diagnosis Nocturia Urinary incontinence, unspecified type documented in this encounter [facility] Work Phone: Evaluation note* Diagnosis Urinary incontinence, unspecified type- Primary documented in this encounter [facility] Work Phone: Hospital Discharge instructions* Follow Up Appointment 1:Physician/Dept/Service: your pulmonologistCall to Schedule in: 1 weekComments: Patient prefers to schedule appointment. [facility] (narrative)No reason for referral information availableWWVUMedicine [facility] Work Phone: Summary Purpose Family History No Family History Records Found Relationship Condition Age at Onset Recorded Date/T zaid grandfather Coronary artery disease Unknown Myocardial infarction Unknown Sudden cardiac Unknown aunt Cerebrovascular accident (CVA) Unknown Advance Directives No Advanced Directives Records FoundNo Advanced Directives Records FoundNo Advanced Directives Records FoundNo Advanced Directives Records FoundNo Advanced Directives Records Found Chief Complaint and Reason for Visit Chief Complaint CONGESTED, HEADACHE, COUGH ERYTHEMA/WARMTH LT ARM, R/O DVT (COVID 1 WK AGO) Reason for Visit COVID-19 Chief Complaint CONGESTED, HEADACHE, COUGH ERYTHEMA/WARMTH LT ARM, R/O DVT (COVID 1 WK AGO) DECREASED RENAL FUNCTION Reason for Visit COVID-19 Chief Complaint DECREASED RENAL FUNC TION 1 Y FU Reason for Visit ONIEL (obstructive sle ep apnea) Chief Complaint CHRONIC KIDNEY DISEA SE Chief Complaint Admit Date REDRAW March 13, 2025 10: 14am Additional Source Comments INFORMATION SOURCE (unrecogn ized section and content) DATE CREATED AUTHOR 05/04/2018 [facility] DATE CREATED AUTHOR AUTHOR'S ORGANIZ ATION 02/22/2022 [facility] DATE CREATED AUTHOR AUTHOR'S ORGANIZ ATION 02/23/2022 [facility] DATE CREATED AUTHOR AUTHOR'S ORGANIZ ATION 10/27/2024 [facility] DATE CREATED AUTHOR AUTHOR'S ORGANIZ ATION 03/23/2025 [facility] <item><item><item> Privacy Markings (unrecogniz ed section and content) Section Author: Kim Vaughan PROHIBITION ON REDISCLOSURE OF CONFIDENTIAL INFORMATION This notice accompanies a disclosure of information concerning a client made to you with the consent of such client. Section Author: Kim Vaughan PROHIBITION ON REDISCLOSURE OF CONFIDENTIAL INFORMATION This notice accompanies a disclosure of information concerning a client made to you with the consent of such client. Section Author: Kim Vaughan PROHIBITION ON REDISCLOSURE OF CONFIDENTIAL INFORMATION This notice accompanies a disclosure of information concerning a client made to you with the consent of such client. Goals (unrecognized section and content) Goals may be documented in a n alternate sectionGoals may be documented in an alternate sectionGoals may be documented in an alternate sectionGoals may be documented in an alternate sectionGoals may be documented in an alternate sectionGoals may be documented in an alternate sectionGoals may be documented in an alternate sectionGoals may be documented in an alternate sectionGoals may be documented in an alternate sectionGoals may be documented in an alternate section Care Teams (unrecognized sec tion and content) Team Status: Active Member Role Status Dates Dr. Rupert Araya MD Family Provider Active Dr. Alicia Castanon DO Primary Care Provider Active Team Status: Inactive Member Role Status Dates Dr. Alicia Castanon DO Primary Care Provider, Referring P rovider Active Troy Carpenter PA, PA Attending Provider Active Team Status: Active Member Role Status Dates Dr. Alicia Castanon DO Primary Care Provider, Referring P rovider Active Dr. Ernesto Jason MD Attending Provider Active Team Status: Inactive Member Role Status Dates Dr. Alicia Castanon DO Primary Care Provider, Attending P rovider Active Team Status: Inactive Member Role Status Dates Dr. Alicia Castanon DO Primary Care Provide r, Attending Provider, Referring Provider Active Team Status: Inactive Member Role Status Dates Regina Quiñones VERIFIER OPERATOR, VERIFIER OPERATOR-C Referring Provider Active Anne Tamayo VERIFIER OPERATOR, VERIFIER OPERATOR-C Attending Provider Active Dr. Alicia Castanon DO Primary Care Provider Active Team Status: Inactive Member Role Status Dates Dr. Alicia Castanon DO Primary Care Provide r, Attending Provider, Referring Provider Active RICHA PAYNE Other Provider Active Team Status: Inactive Member Role Status Dates Dr. Alicia Castanon DO Primary Care Provider Active Start: February 27, 2025 End: February 27, 2025 ABIMAEL CHAUDHRY Attending Provider Active Start : February 27, 2025 End: February 27, 2025 Team Status: Active Member Role Status Dates Dr. Alicia Castanon DO Primary Care Provider Active Team Status: Inactive Member Role Status Dates Dr. Alicia Castanon DO Primary Care Provider Active Start: March 13, 2025 End: March 13, 2025 SULAIMAN VARGHESEADAGISELA Attending Provider Active Start : March 13, 2025 End: March 13, 2025 SULAIMAN VARGHESEADAGISELA Referring Provider Active Start : March 13, 2025 End: March 13, 2025 Reason for Visit (unrecogniz ed section and content) Reason Comments Urine Leakage Reason Comments CYSTOSCOPY Specialty Diagnoses / Procedures Referred By Contac t Referred To Contact Urology Diagnoses Unspecified urinary incontinence Procedures [place] CYSTOURETHROSCOPY [facility] [address] [place] [address] [address] [place] [address] Phone: tel: fax: Mary Jo Rosenbaum MD [address] [place] [address] Phone: tel: fax: Referral ID Status Reason Start Date Expiration Date V isits Requested Visits Authorized [id number] Authorized 10/15/2024 10/15/2025 1 1 FOR RECORDS PERTAINING TO PATIENTS WHO ARE OR HAVE BEEN ENROLLED IN A CHEMICAL DEPENDENCY/SUBSTANCEABUSE PROGRAM, SOME INFORMATION MAY BE OMITTED. This clinical summary was aggregated from multiple sources. Caution should be exercised in using it in the provision of clinical care. This summary normalizes information from multiple sources, and as a consequence, information in this document may materially change the coding, format and clinical context of patient data. In addition, data may be omitted in some cases. CLINICAL DECISIONS SHOULD BE BASED ON THE PRIMARY CLINICAL RECORDS. [employer] provides no warranty or guarantee of the accuracy or completeness of information in this document.
--- OUTSIDE RECORDS SUMMARY | 2025-06-18 10:02 | XMS RPT_ITS | CCD ---
Author Organization [facility] Care Team Providers Care Electrical Worker Name Role Phone DannysEkaterinaAranza L Unavailable Unavailable Benekos, Aranza L Unavailable Unavailable Rupert Araya Unavailable Unavailable Benekos, Aranza L Unavailable Unavailable Benekos, Aranza L Unavailable Unavailable Rupert Araya Unavailable Unavailable Regina Quiñones Unavailable Damon Bergern Unavailable Unavailable Baldo Arriola Unavailable Unknown, Pcp Unavailable Unavailable Dr. Alicia Castanon Primary Care Provider Dr. Alicia Castanon Referring Provider DAVID Chen Attending Provider [phone] Dr. Ernesto Jason Attending Provider [phone] Dr. Alicia Castanon Primary Care Provider Dr. Alicia Castanon Referring Provider [phone] DAVID Chen Attending Provider Dr. Ernesto Jason Attending Provider Jeannette FILM CASTING OPERATOR, FILM CASTING OPERATOR-C Regina Referring Provider Belkis FILM CASTING OPERATOR, FILM CASTING OPERATOR-C Anne Attending Provider [phone] Dr. Alicia Castanon Primary Care Provider [phone] Unavailable Primary Care Provider UnavailMARY JO Fleming Attending Unavailable Dr. Alicia Castanon DO Primary Care Provider [phone] RICHA VARGHESE Attending Provider ABIMAEL CHAUDHRY Attending Provider ABIMAEL CHAUDHRY Referring Provider Malys, Alicia Primary Care Unavailable Yinka, Marleny Attending Unavailable Yinka, Marleny Referring Unavailable Malys, Alicia Primary Care Unavailable Malys, Alicia Attending Unavailable Malys, Alicia Referring Unavailable Page, Norberto Referring Unavailable Malys, Alicia Primary Care Unavailable Page, Norberto Attending Unavailable Malys, Alicia Primary Care Unavailable Malys, Alicia Attending Unavailable Malys, Alicia Referring Unavailable Tamayo FILM CASTING OPERATOR, Anne Attending Unavailable Tamayo FILM CASTING OPERATOR, Anne Referring Unavailable Malys, Alicia Primary Care Unavailable Malys, Alicia Primary Care Unavailable Malys, Alicia Attending Unavailable Malys, Alicia Referring Unavailable Malys, Alicia Primary Care Unavailable Malys, Alicia Attending Unavailable Malys, Alicia Referring Unavailable Tamayo FILM CASTING OPERATOR, Anne Attending Unavailable Malys, Alicia Primary [...] (antibiotic) (2 sources) Penicillin Drug Allergy Hives/Urticaria [facility] Sulfonamides (antibiotic) (2 sources) Sulfonamides (Antibiotic) Drug Allergy Hives/Urticaria [facility] (12 sources) Penicillins; Translations: [penicillins] Propensity to adverse reactions (disorder) 2 AOF, unknown [facility] Repository (1 source) sertraline; Translations: [facility]ft] [facility] Sulfonamides (Antibiotic); Translations: [sulfa drugs] Propensity to adverse reactions to drug (disorder) AOF, Hives/Urticaria [facility] Repository (4 sources) Penicillin; Translations: [PENICILLIN] Drug Allergy 4 [facility] (11 sources) Sulfonamides (Antibiotic); Translations: [SULFA (SULFONAMIDE ANTIBIOTICS)] Allergy to substance 2 [facility] (9 sources) Cephalexin; Translations: [CEPHALEXIN] Drug Allergy 3 Unknown [facility] Comment on above: Pt had C-diff (3 sources) Codeine; Translations: [CODEINE] Drug Allergy 4 Unknown [facility] Work Phone: (2 sources) Sulfonamides (Antibiotic) Propensity to adverse reactions 4 [facility] Work Phone: (1 source) Cephalexin Drug Allergy 4 [facility] Repository (1 source) Sulfonamides (Antibiotic) Drug allergy (disorder) 4 [facility] Repository Medications Current Medications Medication Drug [...] Drug Class(es) Dates Sig (Normalized) Sig (Original) [id number] 200 actuat albuterol 0.09 mg/actuat metered dose [...] source) EXAM - SENT BY DOCTOR AT [facility] 04-24-2021 Comment on above: EXAM - SENT BY ARELIS R AT [facility] Unclassified (2 sources) Onset: 09-19-2024 09-19-2024 Results Test Name Value Interpretation Reference Range Facility Anion gap in Serum or Plasma on 03-13-2025 Anion gap [Moles/Vol] 12 mmol/L 5[facility] BUN/[facility]inine [facility]on 03-13 Urea nitrogen/Creatinine [Mass ratio] 16.4 mg/mg - [facility] Carbon dioxide, total [Moles /volume] in Central venous bloodon 03-13-2025 CO2 [Moles/Vol] 24.7 mmol/L 21.0-32.0 [facility] Chloride assayon 03-13-2025 Chloride [Moles/Vol] 104 mmol/L 98-108 [facility] Glomerular filtration rate ( GFR) estimation/1.73 sq m using serum, plasma, or whole bon 03-13-2025 GFR/1.73 sq M.predicted among non-blacks MDRD (S/P/Bld) [Vol rate/Area] 36 mL/min/{1.73_m2} Low >60 [facility] Comment on above: mL/min/1.73m2 CKD-EP I Creatinine Equation (2020) Potassium measurement (mass/ volume)on 03-13-2025 Potassium (Unsp spec) [Mass/Vol] 4.8 mmol/L 3.3-5.1 [facility] Renal Profileon 03-13-2025 Albumin [Mass/Vol] 4.6 g/dL Normal 3.4-4.8 [facility] Comment on above: Performed By: #### L 500.3600 #### [facility] [address] [place], [address] BUN/CRE 16.4 RATIO Normal 10-20 [facility] Comment on above: Performed By: #### L 500.3600 #### [facility] [address] [place], [address] Calcium [Mass/Vol] 10.1 mg/dL Normal 7.6-11.0 [facility] Comment on above: Performed By: #### L 500.3600 #### [facility] [address] [place], [address] Chloride [Moles/Vol] 104 mmol/L Normal 98-108 [facility] Comment on above: Performed By: #### L 500.3600 #### [facility] [address] [place], [address] CO2 [Moles/Vol] 24.7 mmol/L Normal 21.0-32.0 [facility] Comment on above: Performed By: #### L 500.3600 #### [facility] [address] [place], [address] Creatinine [Mass/Vol] 1.52 mg/dL High 0.70-1.20 [facility] Comment on above: Performed By: #### L 500.3600 #### [facility] [address] [place], [address] GAP 12 Normal 5-15 [facility] Comment on above: Performed By: #### L 500.3600 #### [facility] [address] [place], [address] GFR/1.73 sq M.predicted among non-blacks MDRD (S/P/Bld) [Vol rate/Area] 36 mL/min/{1.73_m2} Low >60 [facility] Comment on above: Result Comment: mL/m in/1.73m2 CKD-EPI Creatinine Equation (2020) Performed By: #### L 500.3600 #### [facility] [address] [place], [address] Glucose [Mass/Vol] 84 mg/dL Normal 70-99 [facility] Comment on above: Performed By: #### L 500.3600 #### [facility] [address] [place], [address] Phosphate [Mass/Vol] 3.5 mg/dL Normal 2.7-4.5 [facility] Comment on above: Performed By: #### L 500.3600 #### [facility] [address] [place], [address] Potassium [Moles/Vol] 4.8 mmol/L Normal 3.3-5.1 [facility] Comment on above: Performed By: #### L 500.3600 #### [facility] [address] [place], [address] Sodium [Moles/Vol] 140 mmol/L Normal 133-145 [facility] Comment on above: Performed By: #### L 500.3600 #### [facility] [address] [place], [address] Urea nitrogen [Mass/Vol] 25 mg/dL High 03-02 [facility] Comment on above: Performed By: #### L 500.3600 #### [facility] [address] [place], [place], [address] Serum creatinine measurement (mass/volume)on 03-13-2025 Creatinine [Mass/Vol] 1.52 mg/dL High 0.70-1.20 [facility] Serum glucose measurement (m ass/volume)on 03-13-2025 Glucose [Mass/Vol] 84 mg/dL 70-99 [facility] Serum or plasma albumin linnea urement (mass/volume)on 03-13-2025 Albumin [Mass/Vol] 4.6 g/dL 3.4-4.8 [facility] Serum or plasma calcium linnea urement (mass/volume)on 03-13-2025 Calcium [Mass/Vol] 10.1 mg/dL 7.6-11.0 [facility] Serum or plasma urea nitroge n measurement (mass/volume)on 03-13-2025 Urea nitrogen [Mass/Vol] 25 mg/dL High 03-02 [facility] Sodium levelon 03-13-2025 Sodium [Moles/Vol] 140 mmol/L 133-145 [facility] Creatinine Unsp time (U) [Ma ss/Vol]on 02-27-2025 Creatinine (U) [Mass/Vol] 43.60 mg/dL 28.00-217. 00 [facility] PTH intacton 02-27-2025 Parathyroid Hormone (Intact) 70 pg/mL High [facility] PTHINon 02-27-2025 PTH 70 pg/mL High [facility] Comment on above: Performed By: #### L 501.0900, L509.1000 #### [facility] [address] [facility] [place], [address] Protein+Creatinine Ratio,Uri neon 02-27-2025 PROT:CRE RATIO 186 mg/g CRE Normal 0-200 [facility] Comment on above: Performed By: #### L 501.0900, L509.1000 #### [facility] [address] [place], [address] Protein (U) [Mass/Vol] 8.1 mg/dL Normal 0.0-12.0 [facility] Comment on above: Performed By: #### L 501.0900, L509.1000 #### [facility] [address] [place], [address] UR CREAT 43.60 mg/dL Normal 28.00-217. 00 [facility] Comment on above: Performed By: #### L 501.0900, L509.1000 #### [facility] [address] [place], [address] Protein/Creatinine (U) [Mass ratio]on 02-27-2025 Urine Protein/Creatinine Ratio 186 mg/g CRE 0-200 [facility] Random urine creatinine linnea urement (mass/volume)on 02-27-2025 Creatinine Unsp time (U) [Mass/Vol] 43.60 mg/dL 28.00-217. 00 [facility] Urine protein measurement (m ass/volume)on 02-27-2025 Protein (U) [Mass/Vol] 8.1 mg/dL 0.0-12.0 [facility] Urine protein/creatinine mas s ratioon 02-27-2025 Protein/Creatinine (U) [Mass ratio] 186 mg/g CRE 0-200 [facility] Hips B/L min 2 views w/ Pelv sully 10-31-2024 Hips B/L min 2 views w/ Pelvis [facility] Imaging Services [address] [place] [address] Hips B/L min 2 views w/ Pelvis MR#: [id number] Acct: [id number] Name: KRISTY LICONA Rep #: [id number] : 1950 F 74 From: Iker Soriano MD PCP: Dr. Alicia Castanon DO Status: REG CLI Study: Hips B/L min 2 views w/ Pelvis Date of Exam: 01/01/24 Exam# [id number] Ordering Dr: Medardo Tate DO :[id number] INDICATION: BILATERAL HIP PAIN EXAMINATION/TECHNIQUE: X-RAY - [...] Alicia Castanon DO; Dr. Medardo Tate DO Financial Aid Manager: Signed Normal [facility] Basic Metabolic Profile (BMP )on 09-18-2024 BUN/CRE 14.0 RATIO Normal 10-20 [facility] Comment on above: Performed By: #### L 500.2500 ####[facility] [address] [place], [place], [address] CA,Total 10.1 mg/dL Normal 8.5-10.1 [facility] Comment on above: Performed By: #### L 500.2500 ####[facility] [address] [place], [address] Chloride [Moles/Vol] 105 mmol/L Normal 98-107 [facility] Comment on above: Performed By: #### L 500.2500 ####[facility] [address] [place], [address] CO2 [Moles/Vol] 25.0 mmol/L Normal 21.0-32.0 [facility] Comment on above: Performed By: #### L 500.2500 ####[facility] [address] [place], [address] Creatinine [Mass/Vol] 1.36 mg/dL High 0.55-1.02 [facility] Comment on above: Result Comment: The validity of the calculated GFR GFRAA in patients over 70 years has not been determined. Clinical correlation is essential. Performed By: #### L 500.2500 ####[facility] [address] [place], [address] EST GFR - AA 49 mL/min Low >60 [facility] Comment on above: Result Comment: Afri can Marshallese GFR Calc Performed By: #### L 500.2500 ####[facility] [address] [place], [address] GAP 10 Normal 5-15 [facility] Comment on above: Performed By: #### L 500.2500 ####[facility] [address] [place], [address] GFR/1.73 sq M.predicted among non-blacks MDRD (S/P/Bld) [Vol rate/Area] 40 mL/min/{1.73_m2} Low >60 [facility] Comment on above: Result Comment: Non- GFR Calc Performed By: #### L 500.2500 ####[facility] [address] [place], [address] Glucose [Mass/Vol] 71 mg/dL Low 74-106 [facility] Comment on above: Performed By: #### L 500.2500 ####[facility] [address] [place], [address] Potassium [Moles/Vol] 4.0 mmol/L Normal 3.5-5.1 [facility] Comment on above: Performed By: #### L 500.2500 ####[facility] [address] [place], [address] Sodium [Moles/Vol] 140 mmol/L Normal 136-145 [facility] Comment on above: Performed By: #### L 500.2500 ####[facility] [address] [place], [address] Urea nitrogen [Mass/Vol] 19 mg/dL High 7-18 [facility] Comment on above: Performed By: #### L 500.2500 ####[facility] [address] [place], [address] L/S Spine Min 4 Viewson 11-0 5-2024 L/S Spine Min 4 Views [facility] Imaging Services [address] [address] L/S Spine Min 4 Views MR#: [id number] Acct: [id number] Name: KRISTY LICONA Rep #: [id number] : 1950 F 73 From: Iker Soriano MD PCP: Dr. Alicia Castanon, DO Status: REG CLI Study: L/S Spine Min 4 Views Date of Exam: 09/18/24 Exam# [id number] Ordering Dr: Marleny Honeycutt FILM CASTING OPERATOR-C :[id number] STUDY: X-RAY - LUMBAR SPINE REASON FOR [...] CC: LEONARDO Honeycutt; Dr. Alicia Castanon DO Financial Aid Manager: Signed Normal [facility] Comprehensive Metabolic Prof ilon 08-24-2024 Albumin [Mass/Vol] 3.9 g/dL Normal 3.2-5.0 [facility] Comment on above: Performed By: #### L 500.3603 #### [facility] [address] [place], [place], [address] Albumin/Globulin [Mass ratio] 1.1 {ratio} Normal 0.9-2.4 [facility] Comment on above: Performed By: #### L 500.3600 #### [facility] [address] [place], [address] ALK P 95 U/L Normal 45-117 [facility] Comment on above: Performed By: #### L 500.3606 #### [facility] [address] [place], [address] ALT [Catalytic activity/Vol] 21 U/L Normal 13-56 [facility] Comment on above: Performed By: #### L 500.3600 #### [facility] [address] [place], [address] AST [Catalytic activity/Vol] 24 U/L Normal 15-37 [facility] Comment on above: Performed By: #### L 500.3600 #### [facility] [address] [place], [address] Bilirubin [Mass/Vol] 0.50 mg/dL Normal 0.20-1.00 [facility] Comment on above: Result Comment: For patients on eltrombopag therapy, use of Dimension [place] TBIL is not recommended. Performed By: #### L 500.3600 #### [facility] [address] [place], [address] BUN/CRE 12.5 RATIO Normal 10-20 [facility] Comment on above: Performed By: #### L 500.3600 #### [facility] [address] [place], [address] CA,Total 9.9 mg/dL Normal 8.5-10.1 [facility] Comment on above: Performed By: #### L 500.3600 #### [facility] [address] [place], [address] Chloride [Moles/Vol] 102 mmol/L Normal 98-107 [facility] Comment on above: Performed By: #### L 500.3600 #### [facility] [address] [place], [address] CO2 [Moles/Vol] 27.0 mmol/L Normal 21.0-32.0 [facility] Comment on above: Performed By: #### L 500.3600 #### [facility] [address] [place], [address] Creatinine [Mass/Vol] 1.36 mg/dL High 0.55-1.02 [facility] Comment on above: Result Comment: The validity of the calculated GFR GFRAA in patients over 70 years has not been determined. Clinical correlation is essential. Performed By: #### L 500.3600 #### [facility] [address] [place], [address] EST GFR - AA 49 mL/min Low >60 [facility] Comment on above: Result Comment: Afri can Marshallese GFR Calc Performed By: #### L 500.3600 #### [facility] [address] [place], [address] GAP 7 Normal 5-15 [facility] Comment on above: Performed By: #### L 500.3600 #### [facility] [address] [place], [address] GFR/1.73 sq M.predicted among non-blacks MDRD (S/P/Bld) [Vol rate/Area] 40 mL/min/{1.73_m2} Low >60 [facility] Comment on above: Result Comment: Non- GFR Calc Performed By: #### L 500.3600 #### [facility] [address] [place], [address] Globulin (S) [Mass/Vol] 3.6 g/dL Normal 2.2-4.2 [facility] Comment on above: Performed By: #### L 500.3600 #### [facility] [address] [place], [address] Glucose [Mass/Vol] 78 mg/dL Normal 74-106 [facility] Comment on above: Performed By: #### L 500.3600 #### [facility] [address] [place], [address] Potassium [Moles/Vol] 4.1 mmol/L Normal 3.5-5.1 [facility] Comment on above: Performed By: #### L 500.3600 #### [facility] [address] [place], [address] Sodium [Moles/Vol] 136 mmol/L Normal 136-145 [facility] Comment on above: Performed By: #### L 500.3600 #### [facility] [address] [place], [address] T PROT 7.5 g/dL Normal 6.4-8.2 [facility] Comment on above: Performed By: #### L 500.3600 #### [facility] [address] [place], [address] Urea nitrogen [Mass/Vol] 17 mg/dL Normal 7-18 [facility] Comment on above: Performed By: #### L 500.3600 #### [facility] [address] [place], [address] Comprehensive Metabolic Prof [facility] 08-01-2024 Albumin [Mass/Vol] 4.0 g/dL Normal 3.2-5.0 [facility] Comment on above: Performed By: #### L 500.3600 #### [facility] [address] [place], [address] Albumin/Globulin [Mass ratio] 1.2 {ratio} Normal 0.9-2.4 [facility] Comment on above: Performed By: #### L 500.3600 #### [facility] [address] [place], [address] ALK P 93 U/L Normal 45-117 [facility] Comment on above: Performed By: #### L 500.3600 #### [facility] [address] [place], [address] ALT [Catalytic activity/Vol] 21 U/L Normal 13-56 [facility] Comment on above: Performed By: #### L 500.3600 #### [facility] [address] [place], [address] AST [Catalytic activity/Vol] 25 U/L Normal 15-37 [facility] Comment on above: Performed By: #### L 500.3600 #### [facility] [address] [place], [address] Bilirubin [Mass/Vol] 0.40 mg/dL Normal 0.20-1.00 [facility] Comment on above: Result Comment: For patients on eltrombopag therapy, use of Dimension [place] TBIL is not recommended. Performed By: #### L 500.3600 #### [facility] [address] [place], [address] BUN/CRE 14.6 RATIO Normal 10-20 [facility] Comment on above: Performed By: #### L 500.3600 #### [facility] [address] [place], [address] CA,Total 9.9 mg/dL Normal 8.5-10.1 [facility] Comment on above: Performed By: #### L 500.3600 #### [facility] [address] [place], [address] Chloride [Moles/Vol] 99 mmol/L Normal 98-107 [facility] Comment on above: Performed By: #### L 500.3600 #### [facility] [address] [place], [address] CO2 [Moles/Vol] 23.0 mmol/L Normal 21.0-32.0 [facility] Comment on above: Performed By: #### L 500.3600 #### [facility] [address] [place], [address] Creatinine [Mass/Vol] 1.51 mg/dL High 0.55-1.02 [facility] Comment on above: Result Comment: The validity of the calculated GFR GFRAA in patients over 70 years has not been determined. Clinical correlation is essential. Performed By: #### L 500.3600 #### [facility] [address] [place], [address] EST GFR - AA 43 mL/min Low >60 [facility] Comment on above: Result Comment: Afri can Marshallese GFR Calc Performed By: #### L 500.3600 #### [facility] [address] [place], [address] GAP 9 Normal 5-15 [facility] Comment on above: Performed By: #### L 500.3600 #### [facility] [address] [place], [address] GFR/1.73 sq M.predicted among non-blacks MDRD (S/P/Bld) [Vol rate/Area] 36 mL/min/{1.73_m2} Low >60 [facility] Comment on above: Result Comment: Non- GFR Calc Performed By: #### L 500.3600 #### [facility] [address] [place], [address] Globulin (S) [Mass/Vol] 3.4 g/dL Normal 2.2-4.2 [facility] Comment on above: Performed By: #### L 500.3600 #### [facility] [address] [place], [address] Glucose [Mass/Vol] 80 mg/dL Normal 74-106 [facility] Comment on above: Performed By: #### L 500.3600 #### [facility] [address] [place], [address] Potassium [Moles/Vol] 4.4 mmol/L Normal 3.5-5.1 [facility] Comment on above: Performed By: #### L 500.3600 #### [facility] [address] [place], [address] Sodium [Moles/Vol] 131 mmol/L Low 136-145 [facility] Comment on above: Performed By: #### L 500.3600 #### [facility] [address] [place], [address] T PROT 7.4 g/dL Normal 6.4-8.2 [facility] Comment on above: Performed By: #### L 500.3600 #### [facility] [address] [place], [address] Urea nitrogen [Mass/Vol] 22 mg/dL High - [facility] Comment on above: Performed By: #### L 500.3600 #### [facility] [address] [place], [address] Free T3on 08-01-2024 Free T3 [Mass/Vol] 2.5 pg/mL Normal 2.18-3.98 [facility] Comment on above: Performed By: #### L 500.3600 #### [facility] [address] [place], [address] Microalbumin,Random Urineon 08-01-2024 MICROALBUMIN,UR 17.8 mg/L Normal NO RANGE EST. [facility] Comment on above: Performed By: #### L 500.3600 #### [facility] [address] [place], [address] Osmolality, Serumon 08-01-20 24 OSMOLALITY,SER 280 mOsm/KG Normal 280-301 [facility] Comment on above: Performed By: #### L 500.3600 #### [facility] [address] [place], [address] Osmolality, Urineon 08-01-20 24 OSMOLALITY,UR 293 mOsm/KG Normal [facility] Comment on above: Result Comment: Normal Urine Reference Ranges Random: 50 - 1200 mOsm/kg H20 depending on fluid intake Random: >850 mOsm/kg after 12 hour fluid restriction 24 hour: 300 - 900 mOsm/kg H2O Performed By: #### L 501.0900, L509.1000 #### [facility] [address] [place], [address] T4 Free Directon 08-01-2024 T4 FREE DIRECT 0.96 ng/dL Normal 0.76-1.46 [facility] Comment on above: Performed By: #### L 500.3600 #### [facility] [address] [place], [address] Thyroid Stim Hormone (TSH)on 08-01-2024 TSH 1.740 uIU/mL Normal 0.358-3.74 0 [facility] Comment on above: Performed By: #### L 500.3600 #### [facility] [address] [place], [address] Uric Acidon 08-01-2024 URIC 4.1 mg/dL Normal 2.6-6.0 [facility] Comment on above: Result Comment: The drugs N-Acetylcysteine and Metamizole may falsely depress this assay. Performed By: #### L 500.3600 #### [facility] [address] [place], [address] Urine Sodiumon 08-01-2024 Sodium (U) [Moles/Vol] 47 mmol/L Normal Not Establ. [facility] Comment on above: Performed By: #### L 500.3600 #### [facility] [address] [place], [address] ANCAon 06-26-2024 Atypical pANCA <1:20 Normal Neg:<1:20 [facility] Comment on above: Result Comment: The atypical pANCA pattern has been observed in a significant percentage of patients with ulcerative colitis, primary sclerosing cholangitis and autoimmune hepatitis. Performed By: #### L 501.0900, L509.1000 #### [facility] [address] [place], [address] Cytoplasmic Ab <1:20 Normal Neg:<1:20 [facility] Comment on above: Performed By: #### L 501.0900, L509.1000 #### [facility] [address] [place], [address] Perinuclear Ab. <1:20 Normal Neg:<1:20 [facility] Comment on above: Result Comment: The presence of positive fluorescence exhibiting P-ANCA or C-ANCA patterns alone is not specific for the diagnosis of Lizet's Granulomatosis (WG) or microscopic polyangiitis. Decisions about treatment should not be based solely on ANCA IFA results. The International ANCA [employer] Consensus recommends follow up testing of positive sera with both DE- 3 and MPO-ANCA enzyme immunoassays. As many as 5% serum samples are positive only by EIA. Ref. AM J Clin Pathol 1999;111:507-513. Performed By: #### L 501.0900, L509.1000 #### [facility] [address] [place], [address] Complement C3on 06-26-2024 COMP C3 131 mg/dL Normal 82-167 [facility] Comment on above: Performed By: #### L 501.0900, L509.1000 #### [facility] [address] [place], [address] Complement C4on 06-26-2024 COMPLEMENT, C4 29 mg/dL Normal 12-38 [facility] Comment on above: Performed By: #### L 501.0900, L509.1000 #### [facility] [address] [place], [address] Complement CH50on 06-26-2024 COMPLEMENT,CH50 > 60 Normal >41 [facility] Comment on above: Result Comment: Age [...] determine out of range values. Performed at: [facility] [id number] Radio Despatcher: Cameron Justice PhD, Phone: [phone] Performed By: #### L 501.0900, L509.1000 #### [facility] [address] [place], [address] Immunofixation Urineon 06-26 ELIZABETH Urine Comment Normal . [facility] Comment on above: Result Comment: No m onoclonality detected. Performed By: #### L 501.0900, L509.1000 #### [facility] [address] [place], [address] Immunofixation, Serumon 06-14 ELIZABETH RESULT,S Comment Normal . [facility] Comment on above: Result Comment: No m onoclonality detected. Performed By: #### L 501.0900, L509.1000 #### [facility] [address] [place], [address] IMMUNOGLOB A QN 129 mg/dL Normal 64-422 [facility] Comment on above: Performed By: #### L 501.0900, L509.1000 #### [facility] [address] [place], [address] IMMUNOGLOB G QN 812 mg/dL Normal 586-1602 [facility] Comment on above: Performed By: #### L 501.0900, L509.1000 #### [facility] [address] [place], [address] IMMUNOGLOB M QN 32 mg/dL Normal 26-217 [facility] Comment on above: Performed By: #### L 501.0900, L509.1000 #### [facility] [address] [place], [address] [place] Lambda Light Chainson 06-26-2024 FR KAPPA LT CHN 13.0 mg/L Normal 3.3-19.4 [facility] Comment on above: Performed By: #### L 501.0900, L509.1000 #### [facility] [address] [place], [address] FR LAMBDA LT CH 10.5 mg/L Normal 5.7-26.3 [facility] Comment on above: Performed By: #### L 501.0900, L509.1000 #### [facility] [address] [place], [address] KAPPA/LAMBDA % 1.24 Normal 0.26-1.65 [facility] Comment on above: Performed By: #### L 501.0900, L509.1000 #### [facility] [address] [place], [address] ANTINUCLEAR ANTIBODIES DIREC Ton 06-21-2024 GOOD,DIRECT Negative Normal Negative [facility] Comment on above: Result Comment: Perf ormed at: - [facility] [id number] Radio Despatcher: Cameron Justice PhD, Phone: [phone] Performed By: #### L 501.0900, L509.1000 #### [facility] [address] [place], [address] Urinalysis, Routine (Dipstic k)on 06-20-2024 BILIRUBIN URINE Negative Normal Negative [facility] Comment on above: Order Comment: Urine , Random Performed By: #### L 501.0900, L509.1000 #### [facility] [address] [place], [address] Clarity (U) Clear Normal Clear [facility] Comment on above: Order Comment: Urine , Random Performed By: #### L 501.0900, L509.1000 #### [facility] [address] [place], [address] Color (U) Straw Normal Yellow [facility] Comment on above: Order Comment: Urine , Random Performed By: #### L 501.0900, L509.1000 #### [facility] [address] [place], [address] GLUCOSE, UR Normal Normal Normal [facility] Comment on above: Order Comment: Urine , Random Performed By: #### L 501.0900, L509.1000 #### [facility] [address] [place], [address] KETONE UR Negative Normal Negative [facility] Comment on above: Order Comment: Urine , Random Performed By: #### L 501.0900, L509.1000 #### [facility] [address] [place], [address] LEUK ESTERASE Negative Normal Negative [facility] Comment on above: Order Comment: Urine , Random Performed By: #### L 501.0900, L509.1000 #### [facility] [address] [place], [address] Nitrite Ql (U) Negative Normal Negative [facility] Comment on above: Order Comment: Urine , Random Performed By: #### L 501.0900, L509.1000 #### [facility] [address] [place], [address] OCCULT BLOOD-UR Negative Normal Negative [facility] Comment on above: Order Comment: Urine , Random Performed By: #### L 501.0900, L509.1000 #### [facility] [address] [place], [address] pH UR 5.0 Normal 5.0 - 8.0 [facility] Comment on above: Order Comment: Urine , Random Performed By: #### L 501.0900, L509.1000 #### [facility] [address] [place], [address] PROT DIPSTX Negative Normal Negative [facility] Comment on above: Order Comment: Urine , Random Performed By: #### L 501.0900, L509.1000 #### [facility] [address] [place], [address] SP.GR. DIPSTX 1.010 Normal 1.002-1.03 0 [facility] Comment on above: Order Comment: Urine , Random Performed By: #### L 501.0900, L509.1000 #### [facility] [address] [place], [address] UROBILI Normal Normal Normal [facility] Comment on above: Order Comment: Urine , Random Performed By: #### L 501.0900, L509.1000 #### [facility] [address] [place], [address] CBC W/Diff, Automatedon 08-0 -2023 Absolute Lymph 1.88 X10 3/uL Normal 0.83-4.51 [facility] Comment on above: Performed By: #### L 3130.0010, L3300.1200, L100.0100, L3100.5600, L3100.5475, L501.0900, L3100.5800, L400.2011, L3600.4030, L3100.5700, L500.3600, L3200.1275 #### [facility] [address] [place], [address] Absolute Neut 4.7 X10 3/uL Normal 2.0-7.7 [facility] Comment on above: Performed By: #### L 3130.0010, L3300.1200, L100.0100, L3100.5600, L3100.5475, L501.0900, L3100.5800, L400.2011, L3600.4030, L3100.5700, L500.3600, L3200.1275 #### [facility] [address] [place], [address] Basophils/100 WBC (Bld) 0.7 % Normal 0-1 [facility] Comment on above: Performed By: #### L 3130.0010, L3300.1200, L100.0100, L3100.5600, L3100.5475, L501.0900, L3100.5800, L400.2011, L3600.4030, L3100.5700, L500.3600, L3200.1275 #### [facility] [address] [place], [address] Eosinophils/100 WBC (Bld) 1.1 % Normal 0-5 [facility] Comment on above: Performed By: #### L 3130.0010, L3300.1200, L100.0100, L3100.5600, L3100.5475, L501.0900, L3100.5800, L400.2011, L3600.4030, L3100.5700, L500.3600, L3200.1275 #### [facility] [address] [place], [place], [phone] (739) Erythrocyte distribution width (RBC) [Ratio] 13.4 % Normal 11.6-14.6 [facility] Comment on above: Performed By: #### L 3130.0010, L3300.1200, L100.0100, L3100.5600, L3100.5475, L501.0900, L3100.5800, L400.2010, L3600.4030, L3100.5700, L500.3600, L3200.1275 #### [facility] [address] [place], [address] (554) Hematocrit (Bld) [Volume fraction] 39.2 % Normal 37-47 [facility] Comment on above: Performed By: #### L 3130.0010, L3300.1200, L100.0100, L3100.5600, L3100.5475, L501.0900, L3100.5800, L400.2010, L3600.4030, L3100.5700, L500.3600, L3200.1275 #### [facility] [address] [place], [place], [phone] (953) Hemoglobin (Bld) [Mass/Vol] 12.5 g/dL Normal 12.0-15.0 [facility] Comment on above: Performed By: #### L 3130.0010, L3300.1200, L100.0100, L3100.5600, L3100.5475, L501.0900, L3100.5800, L400.2011, L3600.4030, L3100.5700, L500.3600, L3200.1275 #### [facility] [address] [place], [address] IG% 0.400 Normal 0.0-0.9 [facility] Comment on above: Result Comment: IG% - Immature Granulocytes (promyelocytes, myelocytes and metamyelocytes) > 1% indicates that a LEFT SHIFT is Present. Performed By: #### L 3130.0010, L3300.1200, L100.0100, L3100.5600, L3100.5475, L501.0900, L3100.5800, L400.2010, L3600.4030, L3100.5700, L500.3600, L3200.1275 #### [facility] [address] [place], [address] Lymphocytes/100 WBC (Bld) 25.0 % Normal 19-41 [facility] Comment on above: Performed By: #### L 3130.0010, L3300.1200, L100.0100, L3100.5600, L3100.5475, L501.0900, L3100.5800, L400.2010, L3600.4030, L3100.5700, L500.3600, L3200.1275 #### [facility] [address] [place], [address] MCH (RBC) [Entitic mass] 28.1 pg Normal 27.0-32.0 [facility] Comment on above: Performed By: #### L 3130.0010, L3300.1200, L100.0100, L3100.5600, L3100.5475, L501.0900, L3100.5800, L400.2010, L3600.4030, L3100.5700, L500.3600, L3200.1275 #### [facility] [address] [place], [address] MCHC (RBC) [Mass/Vol] 31.9 g/dL Low 32-36 [facility] Comment on above: Performed By: #### L 3130.0010, L3300.1200, L100.0100, L3100.5600, L3100.5475, L501.0900, L3100.5800, L400.2011, L3600.4030, L3100.5700, L500.3600, L3200.1275 #### [facility] [address] [place], [address] MCV (RBC) [Entitic vol] 88.1 fL Normal 81-99 [facility] Comment on above: Performed By: #### L 3130.0010, L3300.1200, L100.0100, L3100.5600, L3100.5475, L501.0900, L3100.5800, L400.2011, L3600.4030, L3100.5700, L500.3600, L3200.1275 #### [facility] [address] [place], [address] Monocytes/100 WBC (Bld) 10.1 % High 0-10 [facility] Comment on above: Performed By: #### L 3130.0010, L3300.1200, L100.0100, L3100.5600, L3100.5475, L501.0900, L3100.5800, L400.2011, L3600.4030, L3100.5700, L500.3600, L3200.1275 #### [facility] [address] [place], [address] Neutrophils/100 WBC (Bld) 62.7 % Normal 47-70 [facility] Comment on above: Performed By: #### L 3130.0010, L3300.1200, L100.0100, L3100.5600, L3100.5475, L501.0900, L3100.5800, L400.2011, L3600.4030, L3100.5700, L500.3600, L3200.1275 #### [facility] [address] [place], [address] Nucleated RBC (Bld) [#/Vol] 0 10*3/uL Normal 0-5 [facility] Comment on above: Performed By: #### L 3130.0010, L3300.1200, L100.0100, L3100.5600, L3100.5475, L501.0900, L3100.5800, L400.2011, L3600.4030, L3100.5700, L500.3600, L3200.1275 #### [facility] [address] [place], [address] (906) Platelet mean volume (Bld) [Entitic vol] 9.5 fL Normal 6.2-12.0 [facility] Comment on above: Performed By: #### L 3130.0010, L3300.1200, L100.0100, L3100.5600, L3100.5475, L501.0900, L3100.5800, L400.2011, L3600.4030, L3100.5700, L500.3600, L3200.1275 #### [facility] [address] [place], [place], [phone] ([phone] Platelets (Bld) [#/Vol] 197 10*3/uL Normal 150-450 [facility] Comment on above: Performed By: #### L 3130.0010, L3300.1200, L100.0100, L3100.5600, L3100.5475, L501.0900, L3100.5800, L400.2011, L3600.4030, L3100.5700, L500.3600, L3200.1275 #### [facility] [address] [place], [address] (137) RBC (Bld) [#/Vol] 4.45 10*6/uL Normal 4.2-5.4 [facility] Comment on above: Performed By: #### L 3130.0010, L3300.1200, L100.0100, L3100.5600, L3100.5475, L501.0900, L3100.5800, L400.2011, L3600.4030, L3100.5700, L500.3600, L3200.1275 #### [facility] [address] [place], [address] RDW SD 43.2 fl Normal 35.1-43.9 [facility] Comment on above: Performed By: #### L 3130.0010, L3300.1200, L100.0100, L3100.5600, L3100.5475, L501.0900, L3100.5800, L400.2010, L3600.4030, L3100.5700, L500.3600, L3200.1275 #### [facility] [address] [place], [address] WBC (Bld) [#/Vol] 7.5 10*3/uL Normal 4.4-11.0 [facility] Comment on above: Performed By: #### L 3130.0010, L3300.1200, L100.0100, L3100.5600, L3100.5475, L501.0900, L3100.5800, L400.2010, L3600.4030, L3100.5700, L500.3600, L3200.1275 #### [facility] [address] [place], [address] Protein+Creatinine Ratio,Uri neon 06-19-2024 PROT:CRE RATIO 233 mg/g CRE High 0-200 [facility] Comment on above: Performed By: #### L 3130.0010, L3300.1200, L100.0100, L3100.5600, L3100.5475, L501.0900, L3100.5800, L400.2010, L3600.4030, L3100.5700, L500.3600, L3200.1275 #### [facility] [address] [place], [place], [phone] (486) Protein (U) [Mass/Vol] 6.6 mg/dL Normal <11.9 [facility] Comment on above: Performed By: #### L 3130.0010, L3300.1200, L100.0100, L3100.5600, L3100.5475, L501.0900, L3100.5800, L400.2010, L3600.4030, L3100.5700, L500.3600, L3200.1275 #### [facility] [address] [place], [address] UR CREAT 28.30 mg/dL Normal NO RANGE EST. [facility] Comment on above: Performed By: #### L 3130.0010, L3300.1200, L100.0100, L3100.5600, L3100.5475, L501.0900, L3100.5800, L400.2010, L3600.4030, L3100.5700, L500.3600, L3200.1275 #### [facility] [address] [place], [place], [phone] (971) Renal Profileon 06-19-2024 Albumin [Mass/Vol] 4.0 g/dL Normal 3.2-5.0 [facility] Comment on above: Performed By: #### L 3130.0010, L3300.1200, L100.0100, L3100.5600, L3100.5475, L501.0900, L3100.5800, L400.2010, L3600.4030, L3100.5700, L500.3600, L3200.1275 #### [facility] [address] [place], [place], [phone] (426) BUN/CRE 13.3 RATIO Normal 10-20 [facility] Comment on above: Performed By: #### L 3130.0010, L3300.1200, L100.0100, L3100.5600, L3100.5475, L501.0900, L3100.5800, L400.2011, L3600.4030, L3100.5700, L500.3600, L3200.1275 #### [facility] [address] [place], [address] CA,Total 9.6 mg/dL Normal 8.5-10.1 [facility] Comment on above: Performed By: #### L 3130.0010, L3300.1200, L100.0100, L3100.5600, L3100.5475, L501.0900, L3100.5800, L400.2011, L3600.4030, L3100.5700, L500.3600, L3200.1275 #### [facility] [address] [place], [place], [phone] (156) Chloride [Moles/Vol] 99 mmol/L Normal 98-107 [facility] Comment on above: Performed By: #### L 3130.0010, L3300.1200, L100.0100, L3100.5600, L3100.5475, L501.0900, L3100.5800, L400.2011, L3600.4030, L3100.5700, L500.3600, L3200.1275 #### [facility] [address] [place], [address] CO2 [Moles/Vol] 21.0 mmol/L Normal 21.0-32.0 [facility] Comment on above: Performed By: #### L 3130.0010, L3300.1200, L100.0100, L3100.5600, L3100.5475, L501.0900, L3100.5800, L400.2011, L3600.4030, L3100.5700, L500.3600, L3200.1275 #### [facility] [address] [place], [place], [phone] (224) Creatinine [Mass/Vol] 1.43 mg/dL High 0.55-1.02 [facility] Comment on above: Result Comment: The validity of the calculated GFR GFRAA in patients over 70 years has not been determined. Clinical correlation is essential. Performed By: #### L 3130.0010, L3300.1200, L100.0100, L3100.5600, L3100.5475, L501.0900, L3100.5800, L400.2011, L3600.4030, L3100.5700, L500.3600, L3200.1275 #### [facility] [address] [place], [address] EST GFR - AA 46 mL/min Low >60 [facility] Comment on above: Result Comment: Afri can Marshallese GFR Calc Performed By: #### L 3130.0010, L3300.1200, L100.0100, L3100.5600, L3100.5475, L501.0900, L3100.5800, L400.2010, L3600.4030, L3100.5700, L500.3600, L3200.1275 #### [facility] [address] [place], [place], [phone] (943) GFR/1.73 sq M.predicted among non-blacks MDRD (S/P/Bld) [Vol rate/Area] 38 mL/min/{1.73_m2} Low >60 [facility] Comment on above: Result Comment: Non- GFR Calc Performed By: #### L 3130.0010, L3300.1200, L100.0100, L3100.5600, L3100.5475, L501.0900, L3100.5800, L400.2010, L3600.4030, L3100.5700, L500.3600, L3200.1275 #### [facility] [address] [place], [place], [id number] Glucose [Mass/Vol] 87 mg/dL Normal 74-106 [facility] Comment on above: Performed By: #### L 3130.0010, L3300.1200, L100.0100, L3100.5600, L3100.5475, L501.0900, L3100.5800, L400.2011, L3600.4030, L3100.5700, L500.3600, L3200.1275 #### [facility] [address] [place], [address] Phosphate [Mass/Vol] 2.7 mg/dL Normal 2.5-4.9 [facility] Comment on above: Performed By: #### L 3130.0010, L3300.1200, L100.0100, L3100.5600, L3100.5475, L501.0900, L3100.5800, L400.2011, L3600.4030, L3100.5700, L500.3600, L3200.1275 #### [facility] [address] [place], [address] Potassium [Moles/Vol] 4.1 mmol/L Normal 3.5-5.1 [facility] Comment on above: Performed By: #### L 3130.0010, L3300.1200, L100.0100, L3100.5600, L3100.5475, L501.0900, L3100.5800, L400.2010, L3600.4030, L3100.5700, L500.3600, L3200.1275 #### [facility] [address] [place], [address] Sodium [Moles/Vol] 131 mmol/L Low 136-145 [facility] Comment on above: Performed By: #### L 3130.0010, L3300.1200, L100.0100, L3100.5600, L3100.5475, L501.0900, L3100.5800, L400.2011, L3600.4030, L3100.5700, L500.3600, L3200.1275 #### [facility] [address] [place], [address] Urea nitrogen [Mass/Vol] 19 mg/dL High 7-18 [facility] Comment on above: Performed By: #### L 3130.0010, L3300.1200, L100.0100, L3100.5600, L3100.5475, L501.0900, L3100.5800, L400.2011, L3600.4030, L3100.5700, L500.3600, L3200.1275 #### [facility] [address] [place], [place], [id number] Pulmonary Visit Reporton Pulmonary Visit Report [facility] [address] [place], [place] [address] OFFICE VISIT Date of Service: 05/16/24 MR#: [id number] Acct: [id number] Name: KRISTY LICONA SANA Rep #: [id number] : 1950 Provider: LEONARDO Tamayo Age/Sex: 73/F Location: [facility].PMW Status: Signed Assessment and Plan Assessment and [...] Reasons: 1 Y FU Chief Complaint: ONIEL Senior Producer Required: No DME Vendor: None Accompanied by: [...] Family History Grandfather , AGe 50 from [place] CAD (coronary artery disease) Myocardial infarction Sudden [...] clear conjunctiva (more content not included)... Normal [facility] Urine Cultureon 05-12-2024 URC Mixed Gram Pos Gram Neg Org Tiffin Count 1000-10,000 MIXC Mixed contaminants. Submit a new specimen if indicated. Normal [facility] Comment on above: Performed By: #### M 100.8345 #### [facility] [address] [place], [address] GOOD w/ Reflex Mult Confirmon 05-09-2024 GOOD,DIRECT Negative Normal Negative [facility] Comment on above: Result Comment: Perf ormed at: CB - [facility] [address] [id number] Radio Despatcher: Cameron Justice PhD, Phone: [phone] Performed By: #### L 231.8143, L502.0250, L500.4050, L101.9900, L100.0100, L3100.5450 ####[facility] [address] [place], [address] CBC W/Diff, Automatedon 04-15 Absolute Lymph 1.65 X10 3/uL Normal 0.83-4.51 [facility] Comment on above: Performed By: #### L 501.6710, L502.0250, L500.4050, L101.9900, L100.0100, L3100.5450 ####[facility] [address] [place], [address] Absolute Neut 5.2 X10 3/uL Normal 2.0-7.7 [facility] Comment on above: Performed By: #### L 501.6710, L502.0250, L500.4050, L101.9900, L100.0100, L3100.5450 ####[facility] [address] [place], [address] Basophils/100 WBC (Bld) 0.8 % Normal 0-1 [facility] Comment on above: Performed By: #### L 501.6710, L502.0250, L500.4050, L101.9900, L100.0100, L3100.5450 ####[facility] [address] [place], [address] Eosinophils/100 WBC (Bld) 1.6 % Normal 0-5 [facility] Comment on above: Performed By: #### L 501.6710, L502.0250, L500.4050, L101.9900, L100.0100, L3100.5450 ####[facility] [address] [place], [address] Erythrocyte distribution width (RBC) [Ratio] 13.6 % Normal 11.6-14.6 [facility] Comment on above: Performed By: #### L 501.6710, L502.0250, L500.4050, L101.9900, L100.0100, L3100.5450 ####[facility] [address] [place], [address] Hematocrit (Bld) [Volume fraction] 39.9 % Normal 37-47 [facility] Comment on above: Performed By: #### L 501.6710, L502.0250, L500.4050, L101.9900, L100.0100, L3100.5450 ####[facility] [address] [place], [address] Hemoglobin (Bld) [Mass/Vol] 12.5 g/dL Normal 12.0-15.0 [facility] Comment on above: Performed By: #### L 501.6710, L502.0250, L500.4050, L101.9900, L100.0100, L3100.5450 ####[facility] [address] [place], [address] IG% 0.600 Normal 0.0-0.9 [facility] Comment on above: Result Comment: IG% - Immature Granulocytes (promyelocytes, myelocytes and metamyelocytes) > 1% indicates that a LEFT SHIFT is Present. Performed By: #### L 501.6710, L502.0250, L500.4050, L101.9900, L100.0100, L3100.5450 ####[facility] [address] [place], [address] Lymphocytes/100 WBC (Bld) 20.7 % Normal 19-41 [facility] Comment on above: Performed By: #### L 501.6710, L502.0250, L500.4050, L101.9900, L100.0100, L3100.5450 ####[facility] [address] [place], [address] MCH (RBC) [Entitic mass] 28.2 pg Normal 27.0-32.0 [facility] Comment on above: Performed By: #### L 501.6710, L502.0250, L500.4050, L101.9900, L100.0100, L3100.5450 ####[facility] [address] [place], [address] MCHC (RBC) [Mass/Vol] 31.3 g/dL Low 32-36 [facility] Comment on above: Performed By: #### L 501.6710, L502.0250, L500.4050, L101.9900, L100.0100, L3100.5450 ####[facility] [address] [place], [address] MCV (RBC) [Entitic vol] 90.1 fL Normal 81-99 [facility] Comment on above: Performed By: #### L 501.6710, L502.0250, L500.4050, L101.9900, L100.0100, L3100.5450 ####[facility] [address] [place], [address] Monocytes/100 WBC (Bld) 11.7 % High 0-10 [facility] Comment on above: Performed By: #### L 501.6710, L502.0250, L500.4050, L101.9900, L100.0100, L3100.5450 ####[facility] [address] [place], [address] Neutrophils/100 WBC (Bld) 64.6 % Normal 47-70 [facility] Comment on above: Performed By: #### L 501.6710, L502.0250, L500.4050, L101.9900, L100.0100, L3100.5450 ####[facility] [address] [place], [address] Nucleated RBC (Bld) [#/Vol] 0 10*3/uL Normal 0-5 [facility] Comment on above: Performed By: #### L 501.6710, L502.0250, L500.4050, L101.9900, L100.0100, L3100.5450 ####[facility] [address] [place], [address] Platelet mean volume (Bld) [Entitic vol] 9.1 fL Normal 6.2-12.0 [facility] Comment on above: Performed By: #### L 501.6710, L502.0250, L500.4050, L101.9900, L100.0100, L3100.5450 ####[facility] [address] [place], [address] Platelets (Bld) [#/Vol] 251 10*3/uL Normal 150-450 [facility] Comment on above: Performed By: #### L 501.6710, L502.0250, L500.4050, L101.9900, L100.0100, L3100.5450 ####[facility] [address] [place], [address] RBC (Bld) [#/Vol] 4.43 10*6/uL Normal 4.2-5.4 [facility] Comment on above: Performed By: #### L 501.6710, L502.0250, L500.4050, L101.9900, L100.0100, L3100.5450 ####[facility] [address] [place], [address] RDW SD 45.4 fl High 35.1-43.9 [facility] Comment on above: Performed By: #### L 501.6710, L502.0250, L500.4050, L101.9900, L100.0100, L3100.5450 ####[facility] [address] [place], [address] WBC (Bld) [#/Vol] 8.0 10*3/uL Normal 4.4-11.0 [facility] Comment on above: Performed By: #### L 501.6710, L502.0250, L500.4050, L101.9900, L100.0100, L3100.5450 ####[facility] [address] [place], [address] CRPon 05-07-2024 C-REACTIVE PROT 3.26 mg/L High 0.0-3.0 [facility] Comment on above: Result Comment: C-Re active Protein (CRP) provides useful information for the diagnosis, therapy and monitoring of inflammatory processes and associated diseases. For the evaluation of Relative Risk for Cardiovascular Disease, a High Sensitivity CRP (HSCRP) should be ordered. Performed By: #### L 501.6710, L502.0250, L500.4050, L101.9900, L100.0100, L3100.5450 ####[facility] [address] [place], [address] Comprehensive Metabolic Prof ilon 05-07-2024 Albumin [Mass/Vol] 3.6 g/dL Normal 3.2-5.0 [facility] Comment on above: Performed By: #### L 501.6710, L502.0250, L500.4050, L101.9900, L100.0100, L3100.5450 ####[facility] [address] [place], [address] Albumin/Globulin [Mass ratio] 1.1 {ratio} Normal 0.9-2.4 [facility] Comment on above: Performed By: #### L 501.6710, L502.0250, L500.4050, L101.9900, L100.0100, L3100.5450 ####[facility] [address] [place], [address] ALK P 92 U/L Normal 45-117 [facility] Comment on above: Performed By: #### L 501.6710, L502.0250, L500.4050, L101.9900, L100.0100, L3100.5450 ####[facility] [address] [place], [address] ALT [Catalytic activity/Vol] 25 U/L Normal 13-56 [facility] Comment on above: Performed By: #### L 501.6710, L502.0250, L500.4050, L101.9900, L100.0100, L3100.5450 ####[facility] [address] [place], [address] AST [Catalytic activity/Vol] 26 U/L Normal 15-37 [facility] Comment on above: Performed By: #### L 501.6710, L502.0250, L500.4050, L101.9900, L100.0100, L3100.5450 ####[facility] [address] [place], [address] Bilirubin [Mass/Vol] 0.30 mg/dL Normal 0.20-1.00 [facility] Comment on above: Result Comment: For patients on eltrombopag therapy, use of Dimension [place] TBIL is not recommended. Performed By: #### L 501.6710, L502.0250, L500.4050, L101.9900, L100.0100, L3100.5450 ####[facility] [address] [place], [address] BUN/CRE 14.7 RATIO Normal 10-20 [facility] Comment on above: Performed By: #### L 501.6710, L502.0250, L500.4050, L101.9900, L100.0100, L3100.5450 ####[facility] [address] [place], [address] CA,Total 9.6 mg/dL Normal 8.5-10.1 [facility] Comment on above: Performed By: #### L 501.6710, L502.0250, L500.4050, L101.9900, L100.0100, L3100.5450 ####[facility] [address] [place], [address] Chloride [Moles/Vol] 101 mmol/L Normal 98-107 [facility] Comment on above: Performed By: #### L 501.6710, L502.0250, L500.4050, L101.9900, L100.0100, L3100.5450 ####[facility] [address] [place], [address] CO2 [Moles/Vol] 22.0 mmol/L Normal 21.0-32.0 [facility] Comment on above: Performed By: #### L 501.6710, L502.0250, L500.4050, L101.9900, L100.0100, L3100.5450 ####[facility] [address] [place], [address] Creatinine [Mass/Vol] 1.36 mg/dL High 0.55-1.02 [facility] Comment on above: Result Comment: The validity of the calculated GFR GFRAA in patients over 70 years has not been determined. Clinical correlation is essential. Performed By: #### L 501.6710, L502.0250, L500.4050, L101.9900, L100.0100, L3100.5450 ####[facility] [address] [place], [address] EST GFR - AA 49 mL/min Low >60 [facility] Comment on above: Result Comment: Afri can Marshallese GFR Calc Performed By: #### L 501.6710, L502.0250, L500.4050, L101.9900, L100.0100, L3100.5450 ####[facility] [address] [place], [address] GAP 9 Normal 5-15 [facility] Comment on above: Performed By: #### L 501.6710, L502.0250, L500.4050, L101.9900, L100.0100, L3100.5450 ####[facility] [address] [place], [address] GFR/1.73 sq M.predicted among non-blacks MDRD (S/P/Bld) [Vol rate/Area] 40 mL/min/{1.73_m2} Low >60 [facility] Comment on above: Result Comment: Non- GFR Calc Performed By: #### L 501.6710, L502.0250, L500.4050, L101.9900, L100.0100, L3100.5450 ####[facility] [address] [place], [address] Globulin (S) [Mass/Vol] 3.4 g/dL Normal 2.2-4.2 [facility] Comment on above: Performed By: #### L 501.6710, L502.0250, L500.4050, L101.9900, L100.0100, L3100.5450 ####[facility] [address] [place], [address] Glucose [Mass/Vol] 85 mg/dL Normal 74-106 [facility] Comment on above: Performed By: #### L 501.6710, L502.0250, L500.4050, L101.9900, L100.0100, L3100.5450 ####[facility] [address] [place], [address] Potassium [Moles/Vol] 4.2 mmol/L Normal 3.5-5.1 [facility] Comment on above: Performed By: #### L 501.6710, L502.0250, L500.4050, L101.9900, L100.0100, L3100.5450 ####[facility] [address] [place], [address] Sodium [Moles/Vol] 132 mmol/L Low 136-145 [facility] Comment on above: Performed By: #### L 501.6710, L502.0250, L500.4050, L101.9900, L100.0100, L3100.5450 ####[facility] [address] [place], [address] T PROT 7.0 g/dL Normal 6.4-8.2 [facility] Comment on above: Performed By: #### L 501.6710, L502.0250, L500.4050, L101.9900, L100.0100, L3100.5450 ####[facility] [address] [place], [address] Urea nitrogen [Mass/Vol] 20 mg/dL High 7-18 [facility] Comment on above: Performed By: #### L 501.6710, L502.0250, L500.4050, L101.9900, L100.0100, L3100.5450 ####[facility] [address] [place], [address] Erythrocyte Sed Rateon 05-07 SED RATE 18 mm/hr Normal 0-30 [facility] Comment on above: Performed By: #### L 501.6710, L502.0250, L500.4050, L101.9900, L100.0100, L3100.5450 ####[facility] [address] [place], [address] Microalb:Creat Ratio,Random URon 05-07-2024 Creatinine [Mass/Vol] 72.30 mg/dL Normal NO RAN GE EST. [facility] Comment on above: Performed By: #### L 500.3600 #### [facility] [address] [place], [address] MALB:CRE 17.4 mg/g CRE Normal <30 mg/g CRE [facility] Comment on above: Performed By: #### L 500.3600 #### [facility] [address] [place], [place], [id number] MICROALBUMIN,UR 12.6 mg/L Normal NO RANGE EST. [facility] Comment on above: Performed By: #### L 500.3600 #### [facility] [address] [place], [place], [address] Basophil percentageOrdered B y: Alicia Castanon on 02-21-2024 Chloride [Moles/Vol] 106 mmol/L 98-107 [facility] Glucose [Mass/Vol] 136 mg/dL 74-106 [facility] Comment on above: Fasting Glucose resu lt greater than or equal to 126 mg/dL suggests DIABETES MELLITUS per A.D.A. criteria. Potassium [Moles/Vol] 4.3 mmol/L 3.5-5.1 [facility] Sodium [Moles/Vol] 140 mmol/L 136-145 [facility] - Chemistry and C hemistry - challengeOrdered By: Alicia Castanon on 02-21-2024 CO2 [Moles/Vol] 25.0 mmol/L 21.0-32.0 [facility] Urea nitrogen/Creatinine [Mass ratio] 15.5 mg/mg 10-20 [facility] No Panel InformationOrdered By: Alicia Castanon on 02-21-2024 Estimated GFR (MDRD) Amer 40 mL/min >60 [facility] Comment on above: GFR Calc Estimated GFR (MDRD) Non-Af Amer 33 mL/min >60 [facility] Comment on above: Non- GFR Calc Serum or plasma calcium linnea urement (mass/volume)Ordered By: Alicia Castanon on 02-21-2024 Calcium [Mass/Vol] 9.9 mg/dL 8.5-10.1 [facility] Serum or plasma creatinine m easurement (mass/volume)Ordered By: Alicia Castanon on 02-21-2024 Creatinine [Mass/Vol] 1.61 mg/dL 0.55-1.02 [facility] Comment on above: The validity of the calculated GFR & GFRAA in patients over 70 years has not been determined. Clinical correlation is essential. Serum or plasma urea nitroge n measurement (mass/volume)Ordered By: Alicia Castanon on 02-21-2024 Urea nitrogen [Mass/Vol] 25 mg/dL 7-18 [facility] Thin prep Papanicolaou smear with manual screeningOrdered By: Alicia Castanon on 02-21-2024 Thin prep Papanicolaou smear with manual screening 9 5-15 [facility] Basophil percentageOrdered B y: Alicia Castanon on 01-25-2024 Bilirubin [Mass/Vol] 0.40 mg/dL 0.20-1.00 [facility] Comment on above: For patients on eltr ombopag therapy, use of Dimension [place] TBIL is not recommended. Chloride [Moles/Vol] 107 mmol/L 98-107 [facility] Glucose [Mass/Vol] 99 mg/dL 74-106 [facility] Potassium [Moles/Vol] 4.0 mmol/L 3.5-5.1 [facility] Protein [Mass/Vol] 7.3 g/dL 6.4-8.2 [facility] Sodium [Moles/Vol] 141 mmol/L 136-145 [facility] - Chemistry and C hemistry - challengeOrdered By: Alicia Castanon on 01-25-2024 Albumin/Globulin [Mass ratio] 1.1 {ratio} 0.9-2.4 [facility] ALP [Catalytic activity/Vol] 88 U/L 45-117 [facility] ALT [Catalytic activity/Vol] 22 U/L 13-56 [facility] CO2 [Moles/Vol] 24.0 mmol/L 21.0-32.0 [facility] Globulin (S) [Mass/Vol] 3.4 g/dL 2.2-4.2 [facility] Urea nitrogen/Creatinine [Mass ratio] 14.0 mg/mg 10-20 [facility] No Panel InformationOrdered By: Alicia Castanon on 01-25-2024 Estimated GFR (MDRD) Amer 44 mL/min >60 [facility] Comment on above: GFR Calc Estimated GFR (MDRD) Non-Af Amer 36 mL/min >60 [facility] Comment on above: Non- GFR Calc Urine Microalbumin/Creatinin e Ratio 22.9 mg/g CRE <30 [facility] Serum or plasma calcium linnea urement (mass/volume)Ordered By: Alicia Castanon on 01-25-2024 Calcium [Mass/Vol] 9.4 mg/dL 8.5-10.1 [facility] Serum or plasma creatinine m easurement (mass/volume)Ordered By: Alicia Castanon on 01-25-2024 Creatinine [Mass/Vol] 1.50 mg/dL 0.55-1.02 [facility] Comment on above: The validity of the calculated GFR & GFRAA in patients over 70 years has not been determined. Clinical correlation is essential. Serum or plasma urea nitroge n measurement (mass/volume)Ordered By: Alicia Castanon on 01-25-2024 Urea nitrogen [Mass/Vol] 21 mg/dL 7-18 [facility] Thin prep Papanicolaou smear with manual screeningOrdered By: Alicia Castanon on 01-25-2024 Thin prep Papanicolaou smear with manual screening 3.9 g/dL 3.2-5.0 [facility] Thin prep Papanicolaou smear with manual screening 26 U/L 15-37 [facility] Thin prep Papanicolaou smear with manual screening 10 5-15 [facility] Thin prep Papanicolaou smear with manual screening 24.3 mg/L NO RANGE EST. [facility] Urine creatinine measurement (mass/volume)Ordered By: Alicia Castanon on 01-25-2024 Creatinine (U) [Mass/Vol] 106.00 mg/dL NO RANGE EST. [facility] Culture, urineOrdered By: Dr Radha Castanon on 04-03-2023 Bacteria identified Cx Nom (U) Proteus mirabilis [facility] Absolute lymphocyte countOrd ered By: Dr. Castanon on 03-31-2023 Lymphocytes Auto (Unsp spec) [#/Vol] 1.60 10*3/uL 0.83-4.51 [facility] Basophil percentageOrdered B y: Dr. Castanon on 03-31-2023 Basophils/100 WBC (Bld) 0.5 % 0-1 [facility] Bilirubin [Mass/Vol] 0.60 mg/dL 0.20-1.00 [facility] Comment on above: For patients on eltr ombopag therapy, use of Dimension [place] TBIL is not recommended. Chloride [Moles/Vol] 109 mmol/L 98-107 [facility] Cholesterol [Mass/Vol] 143 mg/dL <200 [facility] Comment on above: <200 mg/dL Desirable 200-240 mg/dL Borderline >240 mg/dL High Risk Eosinophils/100 WBC (Bld) 1.8 % 0-5 [facility] Glucose [Mass/Vol] 78 mg/dL 74-106 [facility] Neutrophils (Bld) [#/Vol] 4.2 10*3/uL 2.0-7.7 [facility] Neutrophils/100 WBC (Bld) 62.7 % 47-70 [facility] Potassium [Moles/Vol] 4.1 mmol/L 3.5-5.1 [facility] Protein [Mass/Vol] 7.5 g/dL 6.4-8.2 [facility] Sodium [Moles/Vol] 141 mmol/L 136-145 [facility] Triglyceride [Mass/Vol] 43 mg/dL <199 [facility] Comment on above: The drugs N-Acetylcy steine and Metamizole may falsely depress this assay.Serum Triglycerides Reference Interval Normal <150 mg/dL Borderline high 150 - 199 mg/dL High 200 - 499 mg/dL Very High > or = 500 mg/dL WBC (Bld) [#/Vol] 6.6 10*3/uL 4.4-11.0 [facility] Bilirubin Test strip Ql (U)O rdered By: Dr. Castanon on 03-31-2023 Bilirubin Ql (U) Negative Negative [facility] Blood erythrocytes count (nu mber/volume)Ordered By: Dr. Castanon on 03-31-2023 RBC (Bld) [#/Vol] 4.44 10*6/uL 4.2-5.4 [facility] Blood hemoglobin measurement (mass/volume)Ordered By: Dr. Castanon on 03-31-2023 Hemoglobin (Bld) [Mass/Vol] 12.9 g/dL 12.0-15.0 [facility] Blood lymphocytes/100 leukoc ytesOrdered By: Dr. Castanon on 03-31-2023 Lymphocytes/100 WBC (Bld) 24.1 % 19-41 [facility] Blood monocytes/100 leukocyt esOrdered By: Dr. Castanon on 03-31-2023 Monocytes/100 WBC (Bld) 10.6 % 0-10 [facility] Blood platelet mean volumeOr dered By: Dr. Castanon on 03-31-2023 Platelet mean volume (Bld) [Entitic vol] 10.3 fL 6.2-12.0 [facility] Determination of erythrocyte mean corpuscular volume (MCV)Ordered By: Dr. Castanon on 03-31-2023 MCV (RBC) [Entitic vol] 91.2 fL 81-99 [facility] Hematocrit Auto (Bld) [Volum e fraction]Ordered By: Dr. Castanon on 03-31-2023 Hematocrit (Bld) [Volume fraction] 40.5 % 37-47 [facility] Ketones Test strip Ql (U)Ord ered By: Dr. Castanon on 03-31-2023 Ketones Ql (U) Negative Negative [facility] - Chemistry and C hemistry - challengeOrdered By: Dr. Castanon on 03-31-2023 ALP [Catalytic activity/Vol] 94 U/L 45-117 [facility] ALT [Catalytic activity/Vol] 27 U/L 13-56 [facility] CO2 [Moles/Vol] 27.0 mmol/L 21.0-32.0 [facility] Globulin (S) [Mass/Vol] 3.8 g/dL 2.2-4.2 [facility] Urea nitrogen/Creatinine [Mass ratio] 14.4 mg/mg 10-20 [facility] - Hematology and Cell countsOrdered By: Dr. Castanon on 03-31-2023 Erythrocyte distribution width (RBC) [Entitic vol] 44.6 fL 35.1-43.9 [facility] Erythrocyte distribution width (RBC) [Ratio] 13.2 % 11.6-14.6 [facility] Immature granulocytes/100 WBC (Bld) 0.300 % 0.0-0.9 [facility] Comment on above: IG% - Immature Granu locytes (promyelocytes, myelocytes and metamyelocytes) > 1% indicates that a LEFT SHIFT is Present. MCH (RBC) [Entitic mass] 29.1 pg 27.0-32.0 [facility] Nucleated RBC/100 WBC (Bld) [Ratio] 0 % 0-5 [facility] MCHC Auto (RBC) [Mass/Vol]Or dered By: Dr. Castanon on 03-31-2023 MCHC (RBC) [Mass/Vol] 31.9 g/dL 32-36 [facility] Nitrite Test strip Ql (U)Ord ered By: Dr. Castanon on 03-31-2023 Nitrite Ql (U) Negative Negative [facility] No Panel InformationOrdered By: Dr. Castanon on 03-31-2023 Estimated GFR (MDRD) Amer 51 mL/min >60 [facility] Comment on above: GFR Calc Estimated GFR (MDRD) Non-Af Amer 42 mL/min >60 [facility] Comment on above: Non- GFR Calc Urine Microalbumin/Creatinin e Ratio 84.9 mg/g CRE <30 [facility] Platelets bldOrdered By: Dr. Castanon on 03-31-2023 Platelets (Bld) [#/Vol] 193 10*3/uL 150-450 [facility] Protein Test strip Ql (U)Ord ered By: Dr. Castanon on 03-31-2023 Protein Ql (U) 30 mg/dl Negative [facility] Serum or plasma albumin linnea urement (mass/volume)Ordered By: Dr. Castanon on 03-31-2023 Albumin [Mass/Vol] 3.7 g/dL 3.2-5.0 [facility] Serum or plasma albumin/glob ulin mass ratioOrdered By: Dr. Castanon on 03-31-2023 Albumin/Globulin [Mass ratio] 1.0 {ratio} 0.9-2.4 [facility] Serum or plasma calcium linnea urement (mass/volume)Ordered By: Dr. Castanon on 03-31-2023 Calcium [Mass/Vol] 9.6 mg/dL 8.5-10.1 [facility] Serum or plasma cholesterol in HDL measurement (mass/volume)Ordered By: Dr. Castanon on 03-31-2023 Cholesterol in HDL [Mass/Vol] 84 mg/dL >40 [facility] Comment on above: The drugs N-Acetylcy steine and Metamizole may falsely depress this assay. Reference Range HDL <40 mg/dL Low HDL Cholesterol HDL >or= 60 mg/dL High HDL Cholesterol Serum or plasma cholesterol in VLDL measurement (mass/volume)Ordered By: Dr. Castanon on 03-31-2023 Cholesterol in VLDL [Mass/Vol] 9 mg/dL 5-40 [facility] Serum or plasma creatinine m easurement (mass/volume)Ordered By: Dr. Castanon on 03-31-2023 Creatinine [Mass/Vol] 1.32 mg/dL 0.55-1.02 [facility] Comment on above: The validity of the calculated GFR & GFRAA in patients over 70 years has not been determined. Clinical correlation is essential. Serum or plasma low density lipoprotein (LDL) cholesterol measurement (mass/volume)Ordered By: Dr. Castanon on 03-31-2023 Cholesterol in LDL [Mass/Vol] 50 mg/dL 0-130 [facility] Serum or plasma urea nitroge n measurement (mass/volume)Ordered By: Dr. Castanon on 03-31-2023 Urea nitrogen [Mass/Vol] 19 mg/dL 7-18 [facility] Thin prep Papanicolaou smear with manual screeningOrdered By: Dr. Castanon on 03-31-2023 Thin prep Papanicolaou smear with manual screening 33 U/L 15-37 [facility] Thin prep Papanicolaou smear with manual screening 5 5-15 [facility] Thin prep Papanicolaou smear with manual screening 95.1 mg/L NO RANGE EST. [facility] Urine blood detectionOrdered By: Dr. Castanon on 03-31-2023 RBC Ql (U) 25 /ul Negative [facility] Urine clarityOrdered By: Dr. Castanon on 03-31-2023 Clarity (U) Cloudy Clear [facility] Urine color determinationOrd ered By: Dr. Castanon on 03-31-2023 Color (U) Yellow Yellow [facility] Urine creatinine measurement (mass/volume)Ordered By: Dr. Castanon on 03-31-2023 Creatinine (U) [Mass/Vol] 112.00 mg/dL NO RANGE EST. [facility] Urine glucose detectionOrder ed By: Dr. Castanon on 03-31-2023 Glucose Ql (U) Normal mg/dl Normal [facility] Urine leukocyte esterase det ection by dipstickOrdered By: Dr. Castanon on 03-31-2023 Leukocyte esterase Test strip Ql (U) 500 /ul Negative [facility] Urine pHOrdered By: Dr. Martha jones on 03-31-2023 pH (U) 9.0 [pH] 5.0 - 8.0 [facility] Urine specific gravity measu rementOrdered By: Dr. Castanon on 03-31-2023 Specific gravity (U) [Rel density] 1.015 1.002-1.03 0 [facility] Urobilinogen Auto test strip Ql (U)Ordered By: Dr. Castanon on 03-31-2023 Urobilinogen Ql (U) Normal mg/dl Normal [facility] Basophil percentageOrdered B y: Dr. Castanon on 01-24-2023 Bilirubin [Mass/Vol] 0.30 mg/dL 0.20-1.00 [facility] Comment on above: For patients on eltr ombopag therapy, use of Dimension [place] TBIL is not recommended. Chloride [Moles/Vol] 111 mmol/L 98-107 [facility] Glucose [Mass/Vol] 102 mg/dL 74-106 [facility] Comment on above: Fasting Glucose resu lt from 100 to 125 mg/dL suggests IMPAIRED HOMEOSTASIS per A.D.A. criteria. Potassium [Moles/Vol] 3.9 mmol/L 3.5-5.1 [facility] Protein [Mass/Vol] 7.5 g/dL 6.4-8.2 [facility] Sodium [Moles/Vol] 144 mmol/L 136-145 [facility] - Chemistry and C hemistry - challengeOrdered By: Dr. Castanon on 01-24-2023 ALP [Catalytic activity/Vol] 90 U/L 45-117 [facility] ALT [Catalytic activity/Vol] 31 U/L 13-56 [facility] CO2 [Moles/Vol] 26.0 mmol/L 21.0-32.0 [facility] Globulin (S) [Mass/Vol] 3.7 g/dL 2.2-4.2 [facility] Urea nitrogen/Creatinine [Mass ratio] 14.3 mg/mg 10-20 [facility] No Panel InformationOrdered By: Dr. Castanon on 01-24-2023 Urine Microalbumin/Creatinin e Ratio 200.0 mg/g CRE <30 [facility] Estimated GFR (MDRD) Amer 54 mL/min >60 [facility] Comment on above: GFR Calc Estimated GFR (MDRD) Non-Af Amer 44 mL/min >60 [facility] Comment on above: Non- GFR Calc Serum or plasma albumin linnea urement (mass/volume)Ordered By: Dr. Castanon on 01-24-2023 Albumin [Mass/Vol] 3.8 g/dL 3.2-5.0 [facility] Serum or plasma albumin/glob ulin mass ratioOrdered By: Dr. Castanon on 01-24-2023 Albumin/Globulin [Mass ratio] 1.0 {ratio} 0.9-2.4 [facility] Serum or plasma calcium linnea urement (mass/volume)Ordered By: Dr. Castanon on 01-24-2023 Calcium [Mass/Vol] 9.8 mg/dL 8.5-10.1 [facility] Serum or plasma creatinine m easurement (mass/volume)Ordered By: Dr. Castanon on 01-24-2023 Creatinine [Mass/Vol] 1.26 mg/dL 0.55-1.02 [facility] Comment on above: The validity of the calculated GFR & GFRAA in patients over 70 years has not been determined. Clinical correlation is essential. Serum or plasma urea nitroge n measurement (mass/volume)Ordered By: Dr. Castanon on 01-24-2023 Urea nitrogen [Mass/Vol] 18 mg/dL 7-18 [facility] Thin prep Papanicolaou smear with manual screeningOrdered By: Dr. Castanon on 01-24-2023 Thin prep Papanicolaou smear with manual screening 234.0 mg/L NO RANGE EST. [facility] Thin prep Papanicolaou smear with manual screening 33 U/L 15-37 [facility] Thin prep Papanicolaou smear with manual screening 7 5-15 [facility] Urine creatinine measurement (mass/volume)Ordered By: Dr. Castanon on 01-24-2023 Creatinine (U) [Mass/Vol] 117.00 mg/dL NO RANGE EST. [facility] - Microbiology an d Antimicrobial susceptibilityon 11-04-2022 SARS-CoV-2 (COVID-19) RNA MARILY+probe Ql (Unsp spec) Detected [facility] No Panel Informationon 11-04 Influenza Types A,B Rapid (Clinic) Not detected [facility] Bilirubin Test strip Ql (U)O rdered By: Dr. Castanon on 10-25-2022 Bilirubin Ql (U) Negative Negative [facility] Ketones Test strip Ql (U)Ord ered By: Dr. Castanon on 10-25-2022 Ketones Ql (U) Negative Negative [facility] Nitrite Test strip Ql (U)Ord ered By: Dr. Castanon on 10-25-2022 Nitrite Ql (U) Negative Negative [facility] No Panel InformationOrdered By: Dr. Castanon on 10-25-2022 Urine Microalbumin/Creatinin e Ratio 52.4 mg/g CRE <30 [facility] Protein Test strip Ql (U)Ord ered By: Dr. Castanon on 10-25-2022 Protein Ql (U) Negative Negative [facility] Thin prep Papanicolaou smear with manual screeningOrdered By: Dr. Castanon on 10-25-2022 Thin prep Papanicolaou smear with manual screening 40.0 mg/L NO RANGE EST. [facility] Urine blood detectionOrdered By: Dr. Castanon on 10-25-2022 RBC Ql (U) Negative Negative [facility] Urine clarityOrdered By: Dr. Castanon on 10-25-2022 Clarity (U) Clear Clear [facility] Urine color determinationOrd ered By: Dr. Castanon on 10-25-2022 Color (U) Yellow Yellow [facility] Urine creatinine measurement (mass/volume)Ordered By: Dr. Castanon on 10-25-2022 Creatinine (U) [Mass/Vol] 76.30 mg/dL NO RANGE EST. [facility] Urine glucose detectionOrder ed By: Dr. Castanon on 10-25-2022 Glucose Ql (U) Normal mg/dl Normal [facility] Urine leukocyte esterase det ection by dipstickOrdered By: Dr. Castanon on 10-25-2022 Leukocyte esterase Test strip Ql (U) Negative Negative [facility] Urine pHOrdered By: Dr. Martha jones on 10-25-2022 pH (U) 6.0 [pH] 5.0 - 8.0 [facility] Urine specific gravity measu rementOrdered By: Dr. Castanon on 10-25-2022 Specific gravity (U) [Rel density] 1.015 1.002-1.03 0 [facility] Urobilinogen Auto test strip Ql (U)Ordered By: Dr. Castanon on 10-25-2022 Urobilinogen Ql (U) Normal mg/dl Normal [facility] Provider Note - ED v3on 040 Provider [...] vaccine + 1 booster. Has received the [id number] flu vaccine. CRITICAL CARE RESULTS: Recent Lab Results: POCT Urinalysis showed trace blood and 1+ leukocytes; neg nitrites. SG 1.025. VITAL SIGNS: T PRBP SpO2O2(LPM) %FiO2 Method 18-Feb-2022 16:08:[id number]/61 97 MDM MDM/ED COURSE: This note was [...] Musculoskeletal: Grossly normal; appropriate for age. Integumentary: [place], warm, dry, and intact. No rashes or skin discoloration appreciated. Good skin turgor. Neurologic: Alert and oriented; grossly intact. Cognition and Speech: Oriented, Speech clear and coherent. Psychiatric: Cooperative, Appropriate mood & affect. MEDICAL DECISION MAKING Course: Worsening; stable. Impression/Plan: Symptoms/exam consistent with UTI, although reviewed other potential etiologies. No CVA tenderness, but has low-grade fever (more content not included)... Normal [facility] URINE CULTURE,BACTERIALon URINE CULTURE,BACTERIAL PATIENT: KRISTY LICONA LOCATION: [address]#: [id number] : 50 AGE: SEX: F ORDERED BY: PER BERGER SOURCE: URINE COLLECTED: 02/18/22 16:28 ANTIBIOTICS AT SAM.: RECEIVED : 02/19/22 00:26 SITE: Clean Catch/Voided R E S U L T S URINE CULTURE,BACTERIAL FINAL 02/19/22 18:47 NO SIGNIFICANT GROWTH. Normal [facility] Comment on above: Performed By: #### U [facility] #### [facility] [address] [place] [address] BONE DENSITY, DEXA 1 OR MORE SITES: AXIAL SKELETONon 06-29-2021 BONE DENSITY, DEXA 1 OR MORE SITES: AXIAL SKELETON Patient Name: KRISTY LICONA STUDY: BONE DENSITY, DEXA 1 OR MORE SITES: AXIAL SKELETN; 06/29/2021 7:45 am INDICATION: POST MENOPAUSAL 2 YRS. Evaluate for osteopenia/osteoporosis, ACCESSION NUMBER(S): [id number] ORDERING CLINICIAN: REGINA QUIÑONES FINDINGS: Standard measurements [...] study. Electronically signed by: HARDIK YUNG MD [facility] DIGITAL MAMM SCREENING W/ TO [facility] 06-29-2021 DIGITAL MAMM SCREENING W/ GERONIMO Patient Name: KRISTY LICONA STUDY: DIGITAL MAMM SCREENING W/ GERONIMO; 06/29/2021 7:52 am ACCESSION NUMBER(S): [id number] ORDERING CLINICIAN: REGINA QUIÑONES INDICATION: Screening. COMPARISON: [...] any future breast imaging appointments, please call [phone]). Electronically signed by: MIKE SOUSA MD Normal [facility] BASIC METABOLIC PANELon - Anion gap [Moles/Vol] 12 mmol/L Normal 10 - 20 [facility] Comment on above: Performed By: #### B MP #### [place] [address] Calcium [Mass/Vol] 9.3 mg/dL Normal 8.6 - 10.3 [facility] Comment on above: Performed By: #### B MP #### [address] [address] Chloride [Moles/Vol] 104 mmol/L Normal 98 - 107 [facility] Comment on above: Performed By: #### B MP #### [place] [id number] Creatinine [Mass/Vol] 0.95 mg/dL Normal 0.50 - 1.05 [facility] Comment on above: Performed By: #### B MP #### [place] [id number] GFR- AM. 70 mL/min/1.73m2 Normal >60 [facility] Comment on above: Result Comment: CALC ULATIONS OF ESTIMATED GFR ARE PERFORMED USING THE MDRD STUDY EQUATION FOR THE IDMS-TRACEABLE CREATININE METHODS. CLIN CHEM 2007;53:766-72 Performed By: #### B MP #### [address] [address] GFR-NON AM. 58 mL/min/1.73m2 Abnormal >60 [facility] Comment on above: Performed By: #### B MP #### [address] [address] Glucose [Mass/Vol] 87 mg/dL Normal 74 - 99 [facility] Comment on above: Performed By: #### B MP #### [address] [address] HCO3 (Bld) [Moles/Vol] 26 mmol/L Normal 21 - 32 [facility] Comment on above: Performed By: #### B MP #### [address] [address] Potassium [Moles/Vol] 3.9 mmol/L Normal 3.5 - 5.3 [facility] Comment on above: Performed By: #### B MP #### [address] [address] Sodium [Moles/Vol] 138 mmol/L Normal 136 - 145 [facility] Comment on above: Performed By: #### B MP #### [address] [address] Urea nitrogen [Mass/Vol] 10 mg/dL Normal 6 - 23 [facility] Comment on above: Performed By: #### B MP #### [address] [address] Discharge [id number] Discharge Profile2 Discharge Orders: Anticipated Discharge Date: Anticipated Discharge [id number] DNAR: DNAR Status: none Diet: Dietlow fat, low sodium Provider FINAL REVIEW of Orders: Final Review: Final Review of Medication Reconciliation and Orders Completedby Physician Reviewing ProviderBaldo Dorado MD at 26-Apr-2021 09:45:10 Appointments: Follow-Up Appointment 01: Physician/Dept/Serviceyour top executive Call to Schedule in1 week CommentsPatient prefers to schedule appointment. Electronic Signatures: Baldo Arriola) (Signed 26-Apr-2021 09:45) Authored: Discharge Orders, Provider FINAL REVIEW of Orders, Appointments, Gold Form - Electro Plater Summary Shruthi Diaz (SUZIE) (Signed 26-Apr-2021 09:46) Authored: Discharge Orders, Appointments Last Updated: 26-Apr-2021 09:46 by Shruthi Diaz (SUZIE) [facility] MAGNESIUMon 04-26-2021 Magnesium [Mass/Vol] 1.84 mg/dL Normal 1.60 - 2.40 [facility] Comment on above: Performed By: #### B #### [facility] [address] [place] [address] Order Reconciliationon 04-26 Order Reconciliation Page 1 [...] to discha (more content not included)... Normal [facility] PHOSPHORUSon 04-26-2021 Phosphate [Mass/Vol] 3.6 mg/dL Normal 2.5 - 4.9 [facility] Comment on above: Result Comment: The performance characteristics of phosphorus testing in heparinized plasma have been validated by the individual laboratory site where testing is performed. Testing on heparinized plasma is not approved by the FDA; however, such approval is not necessary. Performed By: #### P [place]OS ####[place] [address] BASIC METABOLIC PANELon 04-14 Anion gap [Moles/Vol] 10 mmol/L Normal 10 - 20 [facility] Comment on above: Performed By: #### B MP #### [address] [address] Calcium [Mass/Vol] 9.4 mg/dL Normal 8.6 - 10.3 [facility] Comment on above: Performed By: #### B MP #### [address] [address] Chloride [Moles/Vol] 107 mmol/L Normal 98 - 107 [facility] Comment on above: Performed By: #### B MP #### [address] [address] Creatinine [Mass/Vol] 0.92 mg/dL Normal 0.50 - 1.05 [facility] Comment on above: Performed By: #### B MP #### [address] [address] GFR- AM. 73 mL/min/1.73m2 Normal >60 [facility] Comment on above: Result Comment: CALC ULATIONS OF ESTIMATED GFR ARE PERFORMED USING THE MDRD STUDY EQUATION FOR THE IDMS-TRACEABLE CREATININE METHODS. CLIN CHEM 2007;53:766-72 Performed By: #### B MP #### [address] [address] GFR-NON AM. 60 mL/min/1.73m2 Abnormal >60 [facility] Comment on above: Performed By: #### B MP #### [address] [address] Glucose [Mass/Vol] 85 mg/dL Normal 74 - 99 [facility] Comment on above: Performed By: #### B MP #### [address] [address] HCO3 (Bld) [Moles/Vol] 27 mmol/L Normal 21 - 32 [facility] Comment on above: Performed By: #### B MP #### [address] [address] Potassium [Moles/Vol] 4.1 mmol/L Normal 3.5 - 5.3 [facility] Comment on above: Performed By: #### B MP #### [address] [address] Sodium [Moles/Vol] 140 mmol/L Normal 136 - 145 [facility] Comment on above: Performed By: #### B MP #### [address] [address] Urea nitrogen [Mass/Vol] 9 mg/dL Normal 6 - 23 [facility] Comment on above: Performed By: #### B MP #### [address] [address] CBC AND DIFFERENTIALon 04-25 DIFFERENTIAL SEE MANUAL DIFF Normal [facility] Comment on above: Performed By: #### B MP #### [address] [address] Erythrocyte distribution width (RBC) [Ratio] 13.2 % Normal 11.5 - 14.5 [facility] Comment on above: Performed By: #### B MP #### [place] [id number] Hematocrit (Bld) [Volume fraction] 30.3 % Low 36.0 - 46.0 [facility] Comment on above: Performed By: #### B MP #### [address] [address] Hemoglobin (Bld) [Mass/Vol] 10.1 g/dL Low 12.0 - 16.0 [facility] Comment on above: Performed By: #### B MP #### [place] [id number] MCHC (RBC) [Mass/Vol] 33.4 g/dL Normal 32.0 - 36.0 [facility] Comment on above: Performed By: #### B MP #### [address] [address] MCV (RBC) [Entitic vol] 85 fL Normal 80 - 100 [facility] Comment on above: Performed By: #### B MP #### [address] [address] Platelets (Bld) [#/Vol] 326 10*3/uL Normal 150 - 450 [facility] Comment on above: Performed By: #### B MP #### [address] [address] RBC 3.56 x10E12/L Low 4.00 - 5.20 [facility] Comment on above: Performed By: #### B MP #### [address] [address] WBC (Bld) [#/Vol] 10.0 10*3/uL Normal 4.4 - 11.3 [facility] Comment on above: Performed By: #### B MP #### [address] [address] Daily Progress Note-Medicine on 04-25-2021 Daily Progress Note-Medicine Service: Medicine Subjective Data: KRISTY LICONA is a 70 year old Female who is Hospital Day # 3. No acute events overnight. Patient today reports that she is still feeling crappy and weak and tired. No subjective fever or chills. No chest pain. Appetite is good. Objective Data: Objective Information: T PRBPSpO2 [id number]/7193% Date/Time04/25 7: 7: 7: 7: 7:51 Range(36.4C [...] Updated: 25-Apr-2021 10:52 by Baldo Arriola) Normal [facility] MAGNESIUMon 04-25-2021 Magnesium [Mass/Vol] 1.85 mg/dL Normal 1.60 - 2.40 [facility] Comment on above: Performed By: #### B MP #### [facility] [address] [place] [address] MANUAL DIFFERENTIALon 2020 % BASOPHIL 0.0 % Normal 0.0 - 2.0 [facility] Comment on above: Performed By: #### B MP #### [address] [address] % EOSINOPHIL 0.0 % Normal 0.0 - 6.0 [facility] Comment on above: Performed By: #### B MP #### [address] [address] % LYMPHOCYTE 21.0 % Normal 13.0 - 44.0 [facility] Comment on above: Performed By: #### B MP #### [address] [address] % MONOCYTE 4.0 % Normal 2.0 - 10.0 [facility] Comment on above: Performed By: #### B MP #### [address] [address] % SEG NEUTROPHIL 75.0 % Normal 40.0 - 80.0 [facility] Comment on above: Result Comment: Perc ent differential counts (%) should be interpreted in the context of the absolute cell counts (cells/L). Performed By: #### B MP #### [address] [address] ANC 7.50 x10E9/L Normal 1.20 - 7.70 [facility] Comment on above: Performed By: #### B MP #### [address] [address] BASOPHIL 0.00 x10E9/L Normal 0.00 - 0.10 [facility] Comment on above: Performed By: #### B MP #### [address] [address] EOSINOPHIL 0.00 x10E9/L Normal 0.00 - 0.70 [facility] Comment on above: Performed By: #### B MP #### [address] [address] LYMPHOCYTE 2.10 x10E9/L Normal 1.20 - 4.80 [facility] Comment on above: Performed By: #### B MP #### [address] [address] MONOCYTE 0.40 x10E9/L Normal 0.10 - 1.00 [facility] Comment on above: Performed By: #### B MP #### [address] [address] SEG NEUTROPHIL 7.50 x10E9/L High 1.20 - 7.00 [facility] Comment on above: Performed By: #### B MP #### [address] [address] PHOSPHORUSon 04-25-2021 Phosphate [Mass/Vol] 2.1 mg/dL Low 2.5 - 4.9 [facility] Comment on above: Result Comment: The performance characteristics of phosphorus testing in heparinized plasma have been validated by the individual laboratory site where testing is performed. Testing on heparinized plasma is not approved by the FDA; however, such approval is not necessary. Performed By: #### B MP #### [address] [address] RED CELL MORPHOLOGYon 2020 RBC morphology finding Nom (Bld) NORMAL Normal [facility] Comment on above: Performed By: #### B MP #### [address] [address] Admission Risk Screen - Adul ton 04-24-2021 Admission Risk Screen - Adult Allergies: Allergies: penicillin: Hives/Urticaria sulfa drugs: Hives/Urticaria Intolerances: Doxycycline Hyclate: Nausea/Vomiting levofloxacin: Nausea/Vomiting Patient Verification: New W ID Band Applied in my Departmentno Type of ID Patient is WearingW wristband, but not applied here Patient Transferred from Other Facility ([facility], [facility],etc)no Patient Identity Verified Bypatient ID Band FULL [...] AlertFor Ebola-like Symptoms: Isolate Patient and Notify Provider/Bead Worker 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 For Contact: Notify Provider/Bead Worker Sewing Advance Directive: Advance Directive/DNRyes Advance Directive typeLiving Will Living Will AvailabilityLiving Will not available now Living Will [id number] Advanced Directive CommentPt states she thinks it [...] Learning Preferencesindividual instruction Cultural Considerationsnone Developmental Considerationsnone Sabianist Considerationsnone Learning Assessment (Other Learner): Other learner availableno Depression Screen: During the past month, have you often been bothered by feeling down, depressed or hopelessno During the past month, have you often had little interest or pleasure in doing thingsno Have you had any thoughts of harming anyone elseno (1) [place] Suicide: Risk Screen Not Applicable/Able to Answerable to be screened In the Past Month: Have you wished you were or could go to sleep and not wake upno(1) In the Past Month: Have you had any actual thoughts of killing yourself no(1) Lifetime: Have you ever done, started to do, or prepared to do anything to end your lifeno [place] Suicide Risknegative Adult Nutrition Screen: Have you [...] Paper Dishes/Plasti (more content not included)... Normal [facility] BASIC METABOLIC PANELon 06 Anion gap [Moles/Vol] 11 mmol/L Normal 10 - 20 [facility] Comment on above: Performed By: #### B MP #### [address] [address] Calcium [Mass/Vol] 8.8 mg/dL Normal 8.6 - 10.3 [facility] Comment on above: Performed By: #### B MP #### [address] [address] Chloride [Moles/Vol] 104 mmol/L Normal 98 - 107 [facility] Comment on above: Performed By: #### B MP #### [address] [address] Creatinine [Mass/Vol] 0.81 mg/dL Normal 0.50 - 1.05 [facility] Comment on above: Performed By: #### B MP #### [address] [address] GFR- AM. >60 Normal >60 [facility] Comment on above: Result Comment: CALC ULATIONS OF ESTIMATED GFR ARE PERFORMED USING THE MDRD STUDY EQUATION FOR THE IDMS-TRACEABLE CREATININE METHODS. CLIN CHEM 2007;53:766-72 Performed By: #### B MP #### [address] [address] GFR-NON AM. >60 Normal >60 [facility] Comment on above: Performed By: #### B MP #### [address] [address] Glucose [Mass/Vol] 95 mg/dL Normal 74 - 99 [facility] Comment on above: Performed By: #### B MP #### [address] [address] HCO3 (Bld) [Moles/Vol] 26 mmol/L Normal 21 - 32 [facility] Comment on above: Performed By: #### B MP #### [address] [address] Potassium [Moles/Vol] 3.2 mmol/L Low 3.5 - 5.3 [facility] Comment on above: Performed By: #### B MP #### [address] [address] Sodium [Moles/Vol] 138 mmol/L Normal 136 - 145 [facility] Comment on above: Performed By: #### B MP #### [address] [address] Urea nitrogen [Mass/Vol] 11 mg/dL Normal 6 - 23 [facility] Comment on above: Performed By: #### B MP #### [address] [address] CBC AND DIFFERENTIALon 04-24 Basophils (Bld) [#/Vol] 0.00 10*3/uL Normal 0.00 - 0.10 [facility] Comment on above: Performed By: #### C BCDF #### [address] [address] Basophils/100 WBC (Bld) 0.2 % Normal 0.0 - 2.0 [facility] Comment on above: Performed By: #### C BCDF #### [address] [address] Eosinophils (Bld) [#/Vol] 0.10 10*3/uL Normal 0.00 - 0.70 [facility] Comment on above: Performed By: #### C BCDF #### [address] [address] Eosinophils/100 WBC (Bld) 0.6 % Normal 0.0 - 6.0 [facility] Comment on above: Performed By: #### C BCDF #### [address] [address] Erythrocyte distribution width (RBC) [Ratio] 13.0 % Normal 11.5 - 14.5 [facility] Comment on above: Performed By: #### C BCDF #### [address] [address] Hematocrit (Bld) [Volume fraction] 29.0 % Low 36.0 - 46.0 [facility] Comment on above: Performed By: #### C BCDF #### [address] [address] Hemoglobin (Bld) [Mass/Vol] 9.8 g/dL Low 12.0 - 16.0 [facility] Comment on above: Performed By: #### C BCDF #### [address] [address] Lymphocytes (Bld) [#/Vol] 1.90 10*3/uL Normal 1.20 - 4.80 [facility] Comment on above: Performed By: #### C BCDF #### [address] [address] Lymphocytes/100 WBC (Bld) 17.4 % Normal 13.0 - 44.0 [facility] Comment on above: Performed By: #### C BCDF #### [address] [address] MCHC (RBC) [Mass/Vol] 33.8 g/dL Normal 32.0 - 36.0 [facility] Comment on above: Performed By: #### C BCDF #### [address] [address] MCV (RBC) [Entitic vol] 84 fL Normal 80 - 100 [facility] Comment on above: Performed By: #### C BCDF #### [address] [address] Monocytes (Bld) [#/Vol] 1.10 10*3/uL High 0.10 - 1.00 [facility] Comment on above: Performed By: #### C BCDF #### [address] [address] Monocytes/100 WBC (Bld) 9.7 % Normal 2.0 - 10.0 [facility] Comment on above: Performed By: #### C BCDF #### [address] [address] Neutrophils (Bld) [#/Vol] 7.90 10*3/uL High 1.20 - 7.70 [facility] Comment on above: Result Comment: Perc ent differential counts (%) should be interpreted in the context of the absolute cell counts (cells/L). Performed By: #### C BCDF #### [address] [address] Neutrophils/100 WBC (Bld) 72.1 % Normal 40.0 - 80.0 [facility] Comment on above: Performed By: #### C BCDF #### [address] [address] Platelets (Bld) [#/Vol] 307 10*3/uL Normal 150 - 450 [facility] Comment on above: Performed By: #### C BCDF #### [address] [address] RBC 3.45 x10E12/L Low 4.00 - 5.20 [facility] Comment on above: Performed By: #### C BCDF #### [address] [address] WBC (Bld) [#/Vol] 11.0 10*3/uL Normal 4.4 - 11.3 [facility] Comment on above: Performed By: #### C BCDF #### [address] [address] CORONAVIRUS 2019 BY PCRon SARS-CoV-2 (COVID-19) RNA MARILY+probe Ql (Unsp spec) Not detected Normal Not Detected [facility] Comment on above: Result Comment: . This assay is designed to detect the ORF1ab and/or S genes of SARS-CoV-2 via nucleic acid amplification. A Not Detected result does not preclude 2019-nCoV infection since the adequacy of sample collection and/or low viral burden may result in presence of viral nucleic acids below the clinical sensitivity of this test method. Fact sheet for providers: www.fda.gov/media/343240/download Fact sheet for patients: www.fda.gov/media/564863/download This test has received FDA Emergency Use Authorization (EUA) and has been verified by [facility] ([facility]). This test is only authorized for the duration of time that circumstances exist to justify the authorization of the emergency use of in vitro diagnostic tests for the detection of SARS-CoV-2 virus and/or diagnosis of COVID-19 infection under section 564(b)(1) of the Act, 21 U.S.C. 360bbb-3(b)(1), unless the authorization is terminated or revoked sooner. [facility] is certified under CLIA-88 as qualified to perform high complexity testing. Testing is performed in the [facility] laboratories located at [id number] [place] [address]. Performed By: #### C OV19 #### [facility] [address] [place] [address] Covid 19 Resultson SARS-CoV-2 (COVID-19) RNA MARILY+probe [...] You may also be contacted by the [facility] to see if any of your [...] or Naproxen (Aleve) can also be used. Vdft-imn-epkytme cough and cold medicines can be used according to the instructions on the package. Some fskz-krx-zhdevqy medicines also contain acetaminophen. Make sure you [...] water are not available, use alcohol-based hand shell press operator. Avoid touching your eyes, nose, and mouth [...] 24 gaurav (more content not included)... 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 VS [...] No needs at this time. MARIA R Gonzalezsupervisor mail carriers: Discharge Planning Assessment [id number] Discharge Planning Assessment Completed byE.. JULIANNA Haro Primary Contact Name and NumberJian Licona, Stated Reason for Admissionno energy for 8 days, decided to go to urgent care(1) Arrived Fromerving (1) Readmission Within the Last 30 Daysno previous admission in last 30 days PCPHellinger PCP Last Date Seenapprox 1 week ago [facility] Medication Adherence/Afford/Obtainyes InsuranceMedicare, Other Lives Withspouse(1) Living Arrangementshouse(1) Prior Level of FunctioningIndependent Resource/Environmental Concernsnone(1) Anticipated Transition Toerving(1) Services Anticipated at Transitionnone(1) Anticipated Changes Related to Illnessnone Equipment Needed After Dischargenone Anticipated Discharge Facility/Level of Care NeedsHome Discharge Planning Comments04/24/21 @ 311pm Care Transitions; hop worker reviewed chart and met with pt to complete the assessment. Pt is alert and oriented, pleasant and cooperative and she was educated to the social media community manager's roles in the discharge planning process. Prior [...] if needed. JULIANNA Andujar Discharge Documentation: Discharge/Transfer Date/[id number] 11:35 Discharge Modewheelchair Discharged Accompanied Byspouse Transportation Methodprivate car Final DispositionHome Electronic Signatures: Jasmina Millan (BINDERY MACHINE SETTER-S) (Signed 24-Apr-2021 15:16) Authored: Discharge Planning, Assessment Judi Ch (RN) (Signed 26-Apr-2021 11:37) Authored: Discharge Planning, Discharge Documentation Clemencia Landaverde (RN) (Signed 24-Apr-2021 01:09) Authored: Assessment Last Updated: 26-Apr-2021 11:37 by Judi Ch (RN) References: 1. Data Referenced From Patient Profile - Adult v2 24-Apr-2021 00:29 [facility] EMR ADDONon 04-24-2021 ADDON CONFIRMATION REQUEST REC'D Normal [facility] Comment on above: Performed By: #### E MRAD #### [place] [id number] MAGNESIUMon 04-24-2021 Magnesium [Mass/Vol] 1.95 mg/dL Normal 1.60 - 2.40 [facility] Comment on above: Performed By: #### M G #### [place] [id number] Nutrition Therapy-Assessment on 04-24-2021 Nutrition Therapy-Assessment Assessment Subjective/Objective: Note Type: Assessment Note Authored by: Registered Dietitian Parking Patroller Pager Number: Doc [facility] Nutrition Note: The [...] bladder suspension procedure: Objective Information: T PRBPSpO2 [id number]% Date/Time04/24 8: 8: 8: 8: 8:02 Range(36.8C [...] Change in Oral Intake/Appetite: decrease 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 Normal [facility] Order Reconciliationon 04-24 Order Reconciliation Page 1 [...] As Needed for wheezing or shortness of [id number] Reviewed and Held amLODIPine 10 mg oral tablet 1 tab(s) orally once a [id number] 9:00 AM amLODIPine (NORVASC) TabletDOSE = 10 mg Oral DailyamLODIPine 10 mg oral tablet continued as the inpatient order amLODIPine (NORVASC) atorvastatin 10 mg oral tablet 1 tab(s) orally once a [id number]-Apr-2021 Atorvastatin Tablet (LIPITOR)DOSE = 10 mg Oral Daily atorvastatin 10 mg oral tablet continued as the inpatient order Atorvastatin fluticasone 50 mcg/inh nasal spray 1 spray(s) nasal once a [id number]-Apr-2021 9:00 AM Reviewed and Held metoprolol tartrate 25 mg oral tablet 1 tab(s) orally once a [id number]-Apr-2021 AM Metoprolol Tartrate Tablet (LOPRESSOR)DOSE = 25 mg Oral 2 Times a Daymetoprolol tartrate 25 mg oral tablet continued as the inpatient order Metoprolol Tartrate montelukast 10 mg oral tablet 1 tab(s) orally once a [id number]-Apr-2021 9:00 AM Montelukast Tablet (SINGULAIR)DOSE = 10 mg Oral At Bedtimemontelukast 10 mg oral tablet continued as the inpatient order Montelukast pantoprazole 40 mg oral delayed release tablet 1 tab(s) orally once a day [id number] Pantoprazole Enteric Coated Tablet (PROTONIX)DOSE = 40 mg Oral Dailypantoprazole 40 mg oral delayed release tablet continued as the inpatient order Pantoprazole Zithromax Z-Arsh 250 mg oral tablet 2 tab(s) by mouth at once on day 1, then 1 tablet once a day on days [id number] 2:00 PM Reviewed and Held Additional Current Orders Pneumococcal 23-Valent (PNEUMOVAX) Vaccine DOSE = 0.5 mL IntraMuscular OnceClinician Notes: :: Must be given prior to discharge. Order entered from Admission Screen. [facility] Patient Profile - Adult v2on 04-24-2021 Patient Profile - Adult v2 Profile: Initial Info: How to be AddressedDeb(1) Spoken Language PreferredEnglish (1) Stated Reason for Admissionno energy for 8 days, decided to go to urgent care Primary Contact Name and NumberJian Licona Other Contact Names and [phone] Patient Belongingsremains with patient Patient Belongings Remaining with Patientmedication(s); vision aids; jewelry; clothing; cell phone/electronics Arrived Fromerving [facility]ations [facility] Medication Dispositionbedside Are you currently using the Personal Electronic Health Record or RocketBoltno (1) Wants Family/Rep Notified of Admissionn/a; family present Notify PCPnotify PCP Informed of Patient Visiting [facility] General Health: Weight in kg64.9 kilogram(s) Weight in fjl046 pound(s) Weight Methodactual (measured) Scale Typebed Height [...] Arrangementshouse Services Anticipated at Transitionnone [facility] Significant IndicatorsComplete Information Review: Allergies, Home Meds and Significant Events have been Reviewed and Verified with Patient/Familyyes ALLERGY, INTOLERANCE, ADVERSE EVENT: Allergies: penicillin: Drug, Hives/Urticaria, Active sulfa drugs: Drug Category, Hives/Urticaria, Active Intolerances: Doxycycline Hyclate: Drug, Nausea/Vomiting, Active levofloxacin: Drug, Nausea/Vomiting, Active Electronic Signatures: Clemencia Landaverde (MARIA R) (Signed 24-Apr-2021 00:41) Authored: Initial Info, General Health, [facility] Based Care, Substance, Health Mgmt, Relationship/Environ, Additional Information Last Updated: 24-Apr-2021 00:41 by Clemencia Landaverde (MARIA R) References: 1. Data Referenced From Patient Profile - Procedure-H and P 04-Nov-2020 10:02 2. Data Referenced From 1. Vital Signs 23-Apr-2021 20:01 [facility] STAPH/MRSA SCREENon 04-24-20 21 STAPH/MRSA SCREEN PATIENT: COLUMBA LICONA LOCATION: [address]#: [id number] : 50 AGE: SEX: F ORDERED BY: BALDO ARRIOLA SOURCE: ANTERIOR NARES COLLECTED: 04/24/21 06:43 ANTIBIOTICS AT SAM.: RECEIVED : 04/24/21 10:52 SITE: nares R E S U L T S STAPH/MRSA SCREEN FINAL 04/26/21 08:30 NO Staphylococcus aureus ISOLATED. [facility] Comment on above: Performed By: #### B MP #### [place] [address] BLOOD CULTURE, BACTERIALon 0 04-23-2021 BLOOD CULTURE, BACTERIAL PATIENT: KRISTY LICONA LOCATION: [facility] [place]#: [id number] : 50 AGE: SEX: F ORDERED BY: KACI HAZEL SOURCE: Blood COLLECTED: 04/23/21 21:22 ANTIBIOTICS AT SAM.: RECEIVED : 04/24/21 10:10 SITE: R E S U L T S BLOOD CULTURE, BACTERIAL FINAL 04/29/21 11:42 No Growth at 1 days No Growth at 2 days No Growth at 3 days No Growth at 4 days NO GROWTH - FINAL REPORT Normal [facility] Comment on above: Performed By: #### B LDC #### [facility] [address] [place] [address] BLOOD CULTURE, BACTERIAL PATIENT: KRISTY LICONA LOCATION: [facility] [place]#: [id number] : 50 AGE: SEX: F ORDERED BY: KACI HAZEL SOURCE: Blood COLLECTED: 04/23/21 20:46 ANTIBIOTICS AT SAM.: RECEIVED : 04/24/21 10:12 SITE: PERIPHERAL R E S U L T S BLOOD CULTURE, BACTERIAL FINAL 04/29/21 11:42 No Growth at 1 days No Growth at 2 days No Growth at 3 days No Growth at 4 days NO GROWTH - FINAL REPORT Normal [facility] Comment on above: Performed By: #### B LDC ####[id number] [place] [address] CBC AND DIFFERENTIALon 04-23 Basophils (Bld) [#/Vol] 0.00 10*3/uL Normal 0.00 - 0.10 [facility] Comment on above: Performed By: #### C BCDF ####[address] [address] Basophils/100 WBC (Bld) 0.2 % Normal 0.0 - 2.0 [facility] Comment on above: Performed By: #### C BCDF ####[address] [address] Eosinophils (Bld) [#/Vol] 0.00 10*3/uL Normal 0.00 - 0.70 [facility] Comment on above: Performed By: #### C BCDF ####[address] [address] Eosinophils/100 WBC (Bld) 0.2 % Normal 0.0 - 6.0 [facility] Comment on above: Performed By: #### C BCDF ####[address] [address] Erythrocyte distribution width (RBC) [Ratio] 13.0 % Normal 11.5 - 14.5 [facility] Comment on above: Performed By: #### C BCDF ####[address] [address] Hematocrit (Bld) [Volume fraction] 36.2 % Normal 36.0 - 46.0 [facility] Comment on above: Performed By: #### C BCDF ####[address] [address] Hemoglobin (Bld) [Mass/Vol] 11.8 g/dL Low 12.0 - 16.0 [facility] Comment on above: Performed By: #### C BCDF ####[address] [address] Lymphocytes (Bld) [#/Vol] 2.30 10*3/uL Normal 1.20 - 4.80 [facility] Comment on above: Performed By: #### C BCDF ####[address] [address] Lymphocytes/100 WBC (Bld) 16.4 % Normal 13.0 - 44.0 [facility] Comment on above: Performed By: #### C BCDF ####[address] [address] MCHC (RBC) [Mass/Vol] 32.5 g/dL Normal 32.0 - 36.0 [facility] Comment on above: Performed By: #### C BCDF ####[address] [address] MCV (RBC) [Entitic vol] 85 fL Normal 80 - 100 [facility] Comment on above: Performed By: #### C BCDF ####[address] [address] Monocytes (Bld) [#/Vol] 1.10 10*3/uL High 0.10 - 1.00 [facility] Comment on above: Performed By: #### C BCDF ####[address] [address] Monocytes/100 WBC (Bld) 7.7 % Normal 2.0 - 10.0 [facility] Comment on above: Performed By: #### C BCDF ####[address] [address] Neutrophils (Bld) [#/Vol] 10.50 10*3/uL High 1.20 - 7.70 [facility] Comment on above: Result Comment: Perc ent differential counts (%) should be interpreted in the context of the absolute cell counts (cells/L). Performed By: #### C BCDF ####[address] [address] Neutrophils/100 WBC (Bld) 75.5 % Normal 40.0 - 80.0 [facility] Comment on above: Performed By: #### C BCDF ####[address] [address] Platelets (Bld) [#/Vol] 367 10*3/uL Normal 150 - 450 [facility] Comment on above: Performed By: #### C BCDF ####[address] [address] RBC 4.25 x10E12/L Normal 4.00 - 5.20 [facility] Comment on above: Performed By: #### C BCDF ####[address] [address] WBC (Bld) [#/Vol] 14.0 10*3/uL High 4.4 - 11.3 [facility] Comment on above: Performed By: #### C BCDF ####[address] [address] CHEST 2 VIEW PA AND LATon CHEST 2 VIEW PA AND LAT Patient Name: KRISTY LICONA STUDY: TH CHEST 2 VIEW PA AND LAT; 04/23/2021 10:41 am INDICATION: persistent cough, fatigue, body aches x 3.5 weeks. COMPARISON: None. ACCESSION NUMBER(S): [id number] ORDERING CLINICIAN: PER BERGER FINDINGS: PA and [...] until clearing is recommended. Electronically signed by: HARDKI YUNG MD Normal [facility] COMPREHENSIVE PANELon 2020 Anion gap [Moles/Vol] 13 mmol/L Normal 10 - 20 [facility] Comment on above: Order Comment: Potas sium Called- RB to Cece Ramírez, 04/23/2021 17:39 Performed By: #### C MP ####[place] [address] Potassium [Moles/Vol] 2.9 mmol/L Critically low 3.5 - 5.3 [facility] Comment on above: Order Comment: Potas sium Called- RB to Cece Ramírez, 04/23/2021 17:39 Result Comment: Pota ssium Called- RB to Cece Ramírez, 04/23/2021 17:39 Performed By: #### C MP ####[place] [id number] Albumin [Mass/Vol] 3.6 g/dL Normal 3.4 - 5.0 [facility] Comment on above: Order Comment: Potas sium Called- RB to Cece Ramírez, 04/23/2021 17:39 Performed By: #### C MP ####[place] [id number] ALP [Catalytic activity/Vol] 128 U/L Normal 33 - 136 [facility] Comment on above: Order Comment: Potas sium Called- RB to Cece Ritz, 04/23/2021 17:39 Performed By: #### C MP ####[address] [address] ALT [Catalytic activity/Vol] 17 U/L Normal 7 - 45 [facility] Comment on above: Order Comment: Potas sium Called- RB to Cece Ritz, 04/23/2021 17:39 Result Comment: Khadijah ents treated with Sulfasalazine may generate falsely decreased results for ALT. Performed By: #### C MP ####[place] [address] AST [Catalytic activity/Vol] 21 U/L Normal 9 - 39 [facility] Comment on above: Order Comment: Potas sium Called- RB to Cece Ritz, 04/23/2021 17:39 Performed By: #### C MP ####[place] [id number] Bilirubin [Mass/Vol] 0.6 mg/dL Normal 0.0 - 1.2 [facility] Comment on above: Order Comment: Potas sium Called- RB to Cece Ritz, 04/23/2021 17:39 Performed By: #### C MP ####[address] [address] Calcium [Mass/Vol] 9.9 mg/dL Normal 8.6 - 10.3 [facility] Comment on above: Order Comment: Potas sium Called- RB to Cece Ritz, 04/23/2021 17:39 Performed By: #### C MP ####[address] [address] Chloride [Moles/Vol] 98 mmol/L Normal 98 - 107 [facility] Comment on above: Order Comment: Potas sium Called- RB to Cece Ritz, 04/23/2021 17:39 Performed By: #### C MP ####[address] [address] Creatinine [Mass/Vol] 1.00 mg/dL Normal 0.50 - 1.05 [facility] Comment on above: Order Comment: Potleti sium Called- RB to Cece Itaz, 04/23/2021 17:39 Performed By: #### C MP ####[address] [address] GFR- AM. 67 mL/min/1.73m2 Normal >60 [facility] Comment on above: Order Comment: Potas sium Called- RB to Cece Itaz, 04/23/2021 17:39 Result Comment: CALC ULATIONS OF ESTIMATED GFR ARE PERFORMED USING THE MDRD STUDY EQUATION FOR THE IDMS-TRACEABLE CREATININE METHODS. CLIN CHEM 2007;53:766-72 Performed By: #### C MP ####[place] [id number] GFR-NON AM. 55 mL/min/1.73m2 Abnormal >60 [facility] Comment on above: Order Comment: Potleti sium Called- RB to Cece Desiree, 04/23/2021 17:39 Performed By: #### C MP ####[place] [id number] Glucose [Mass/Vol] 134 mg/dL High 74 - 99 [facility] Comment on above: Order Comment: Potleti sium Called- RB to Cece Ramírez, 04/23/2021 17:39 Performed By: #### C MP ####[address] [address] HCO3 (Bld) [Moles/Vol] 30 mmol/L Normal 21 - 32 [facility] Comment on above: Order Comment: Potas sium Called- RB to Cece Ritz, 04/23/2021 17:39 Performed By: #### C MP ####[address] [address] Protein [Mass/Vol] 7.3 g/dL Normal 6.4 - 8.2 [facility] Comment on above: Order Comment: Potas sium Called- RB to Cece Ritz, 04/23/2021 17:39 Performed By: #### C MP ####[address] [place] [address] Sodium [Moles/Vol] 138 mmol/L Normal 136 - 145 [facility] Comment on above: Order Comment: William simon Called- RB to Cece Ramírez, 04/23/2021 17:39 Performed By: #### C MP ####[place] [address] Urea nitrogen [Mass/Vol] 14 mg/dL Normal 6 - 23 [facility] Comment on above: Order Comment: William simon Called- RB to Cece Ramírez, 04/23/2021 17:39 Performed By: #### C MP ####[place] [address] CORONAVIRUS 2019 BY PCRon SARS-CoV-2 (COVID-19) RNA MARILY+probe Ql (Unsp spec) Not detected Normal Not Detected [facility] Comment on above: Result Comment: . This test has received FDA Emergency Use Authorization (EUA) and has been verified by [facility]. This test is only authorized for the duration of time that circumstances exist to justify the authorization of the emergency use of in vitro diagnostic tests for the detection of SARS-CoV-2 virus and/or diagnosis of COVID-19 infection under section 564(b)(1) of the Act, 21 U.S.C. 360bbb-3(b)(1), unless the authorization is terminated or revoked sooner. [facility] is certified under CLIA-88 as qualified to perform high complexity testing. Testing is performed in the [facility] laboratory located at [address] [place] [address]. SARS-CoV-2/Flu/RSV Multiplex Test: Fact sheet for providers: https://www.fda.gov/media/488549/download Fact sheet for patients: https://www.fda.gov/media/375106/download Performed By: #### C OV19 ####[place] [address] Lab Specimen Source Nasal, Nasopharyngeal Normal [facility] Comment on above: Performed By: #### C OV19 ####[address] [place] [address] DATE OF SYMPTOM ONSET [YYYYMMDD]? 20210423 Normal [facility] Comment on above: Performed By: #### C OV19 ####[place] [address] [place] [address] DATE OF SYMPTOM ONSET [YYYYMMDD]? [id number] Normal [facility] Comment on above: Performed By: #### C OV19 #### [facility] [address] [place] [address] Lab Specimen Source Nasal, Nasopharyngeal Normal [facility] Comment on above: Performed By: #### C OV19 #### [facility] [address] [place] [address] CT CHEST W CONTRASTon 2020 CT CHEST W CONTRAST STUDY: CT Chest with IV Contrast; 04/23/2021 at 6:53 p.m. INDICATION: Shortness of breath. Cough. Fatigue. Additional History: Hypertension. Appendectomy. COMPARISON: None Available. ACCESSION NUMBER(S): [id number] ORDERING CLINICIAN: KACI HAZEL PA-C TECHNIQUE: CT [...] MD Electronically signed by: VAUGHN MARTINEZ MD [facility] Covid 19 Resultson 1 SARS-CoV-2 (COVID-19) RNA [...] You may also be contacted by the [facility] to see if any of your [...] or Naproxen (Aleve) can also be used. Ighq-iqt-lziramc cough and cold medicines can be used according to the instructions on the package. Some smoe-aqw-tzltyzw medicines also contain acetaminophen. Make sure you [...] water are not available, use alcohol-based hand shell press operator. Avoid touching your eyes, nose, and mouth [...] 24 gaurav (more content not included)... Normal [facility] LACTATEon 04-23-2021 Lactate [Moles/Vol] 1.1 mmol/L Normal 0.4 - 2.0 [facility] Comment on above: Result Comment: Lou puncture immediately after or during the administration of Metamizole may lead to falsely low results. Testing should be performed immediately prior to Metamizole dosing. Performed By: #### L ACT ####[place] [address] Provider Note - ED v2on 04-14 Provider [...] breath. He states that she went to [facility] urgent care today and was told that [...] made to minimize errors. Minor errors in table and desk finisher may be present. Please call if questions.. HISTORY OF PRESENTING ILLNESS KRISTY is a 70 year old Female and was seen by me at 23-Apr-2021 19:02 for a chief complaint of other (Seen at [facility] and diagnosed with Pneumonia which she go [...] Drug Nam (more content not included)... Normal [facility] Provider Note - ED v2 Provider Note [...] HARDIK YUNG CHRISTOPHER, MD 04/23/21 10:55 Facility: [facility] Patient Name: KRISTY LICONA STUDY: CHEST 2 VIEW PA AND LAT; 04/23/2021 10:41 am INDICATION: persistent cough, fatigue, body aches x 3.5 weeks. COMPARISON: None. ACCESSION NUMBER(S): [id number] ORDERING CLINICIAN: PER BERGER FINDINGS: PA and [...] SIGNS: T PRBP SpO2O2(LPM) %FiO2 Method 23-Apr-2021 09:41:[id number] MEDICAL DECISION MAKING/ED COURSE MDM/ED COURSE: [...] was last nigh (more content not included)... [facility] Risk Screen - Adult Emergenc yon 04-23-2021 Risk Screen - Adult Emergency Preferred Language: Preferred Language: Preferred Language for Discussing Health Care (patient/designee)[place] Advanced Directives: Advance Directive/DNRno Family Violence Adult: Abuse Screen: Are you or have you been threatened or abused physically, emotionally, or sexually by anyoneno Learning Assessment (Patient): Learning Assessment (Patient): Patient is Able to be Assessed for Learningyes Factors Influencing Readiness to Learnpain Factors that Impact Ability to Learnnone Devices/Methods Used to Communicatenone Learning Preferenceswritten material Cultural Considerationsnone Developmental Considerationsnone Sabianist Considerationsnone Other Learnersnone Learning Assessment (Other Learner): Learning Assessment (Other Learner): Other learner availableno Pressure Injury/TB/Substance: Pressure Injury: Pressure Injury Present on Admissionno Do you have a coughno Substance Use Current or Former Historynever: Cigarette/Tobacco, e-Cigarette/Vaping, Alcohol, Street Drugs Admission Risk Screen: Significant IndicatorsComplete CAGE: CAGE: Is this an injured patient at a Trauma Center ([facility]/[place]): no Electronic Signatures: Kalpana Kebede (SUPCarmela) (Signed 23-Apr-2021 20:10) Authored: Preferred Language, Advanced Directives, Family Violence Adult, Learning Assessment (Patient), Learning Assessment (Other Learner), Pressure Injury/TB/Substance, Pressure Injury, CAGE Last Updated: 23-Apr-2021 20:10 by Kalpana Kebede (SUPV) [facility] Triage - EDon 04-23-2021 Triage - ED Quick Triage: The patient and/or guardian verbally acknowledges placement for services into the following (when Urgent Care Service hours are operating):emergency department Chart Review: ARRIVAL INFORMATION Mode of Arrival: private vehicle CHIEF COMPLAINT KRISTY LICONA is a Female patient with a chief complaint of other (Seen at [facility] and diagnosed with Pneumonia which she go [...] BMI (kg/m2): 25.839 Calculated BSA (m2) 1.63 [place] Coma Scale: Best Eye Response: (E4) spontaneous Best Motor Response: (M6) obeys commands Cough lasting greater than 3 weeks: no Patient immunocompromised related to: N/A 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: yes 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 Patient has homicidal thoughts: no [...] 23-Apr-2021 20:08 by Kalpana Kebede (SUPV) Normal [facility] URINALYSIS WITH CULTURE IF I NDICATEDon 04-23-2021 Appearance (U) CLEAR Normal CLEAR [facility] Comment on above: Performed By: #### U ARFX #### [place] [address] Bilirubin Ql (U) Negative Normal NEGATIVE [facility] Comment on above: Performed By: #### U ARFX #### [place] [id number] Color (U) Straw Normal STRAW,YELL OW [facility] Comment on above: Performed By: #### U ARFX #### [address] [address] Glucose Ql (U) Negative Normal NEGATIVE [facility] Comment on above: Performed By: #### U ARFX #### [address] [address] Hemoglobin Ql (U) Negative Normal NEGATIVE [facility] Comment on above: Performed By: #### U ARFX #### [address] [address] Ketones Ql (U) Negative Normal NEGATIVE [facility] Comment on above: Performed By: #### U ARFX #### [address] [address] Leukocyte esterase Test strip Ql (U) Negative Normal NEGATIVE [facility] Comment on above: Performed By: #### U ARFX #### [address] [address] Nitrite Ql (U) Negative Normal NEGATIVE [facility] Comment on above: Performed By: #### U ARFX #### [address] [address] pH (U) 6.0 [pH] Normal 5.0 - 8.0 [facility] Comment on above: Performed By: #### U ARFX #### [address] [address] Protein Ql (U) Negative Normal NEGATIVE [facility] Comment on above: Performed By: #### U ARFX #### [address] [address] Specific gravity (U) [Rel density] 1.004 Low 1.005 - 1.035 [facility] Comment on above: Performed By: #### U ARFX #### [address] [address] Urobilinogen (U) [Mass/Vol] mg/dL Normal 0.0 - 1.9 [facility] Comment on above: Performed By: #### U ARFX #### [address] [address] [place] Mamm Diag w/CAD if perfor med [...] Category 2-Benign findingRecommendation: Normal interval follow-up Normal [facility] [place] Mamm Screen w/CAD if perf ormed [...] Need additional imaging evaluationRecommendation: Additional projections Normal [facility] Vital Signs Date Time Vital Sign Value Performing Clinician Facility 10-24-2024 08:54-0500 Body height 152.4 cm Mary Jo Rosenbaum MD Work Phone: [facility] 10-24-2024 08:54-0500 Body mass index (BMI) [Ratio] 26.95 kg/m2 Mary Jo Rosenbaum MD Work Phone: [facility] 10-24-2024 08:54-0500 Body weight 62.6 kg Mary Jo Rosenbaum MD Work Phone: [facility] 09-19-2024 09:41-0500 Body height 152.4 cm Mary Jo Rosenbaum MD Work Phone: [facility] 09-19-2024 09:41-0500 Body mass index (BMI) [Ratio] 26.95 kg/m2 Mary Jo Rosenbaum MD Work Phone: [facility] 09-19-2024 09:41-0500 Body weight 62.6 kg Mary Jo Rosenbaum MD Work Phone: [facility] 09-19-2024 09:41-0500 Diastolic blood pressure 71 mm[Hg] Mary Jo Rosenbaum MD Work Phone: [facility] 09-19-2024 09:41-0500 Heart rate 76 /min Mary Jo Rosenbaum MD Work Phone: [facility] 09-19-2024 09:41-0500 Systolic blood pressure 166 mm[Hg] Mary Jo Rosenbaum MD Work Phone: [facility] 02-23-2023 07:44-0400 Body height 156.21 cm FILM CASTING OPERATOR-C Regina Hellinger FILM CASTING OPERATOR Work Phone: [facility] 02-23-2023 07:44-0400 Body mass index (BMI) [Ratio] 26.6 kg/m2 FILM CASTING OPERATOR-C Regina Hellinger FILM CASTING OPERATOR Work Phone: [facility] 02-23-2023 07:44-0400 Body temperature 97.2 [degF] FILM CASTING OPERATOR-C Regina Hellinger FILM CASTING OPERATOR Work Phone: [facility] 02-23-2023 07:44-0400 Body weight 64.86 kg FILM CASTING OPERATOR-C Regina Hellinger FILM CASTING OPERATOR Work Phone: [facility] 02-23-2023 07:44-0400 Diastolic blood pressure 76 mm[Hg] FILM CASTING OPERATOR-C Regina Hellinger FILM CASTING OPERATOR Work Phone: [facility] 02-23-2023 07:44-0400 Heart rate 66 /min FILM CASTING OPERATOR-C Regina Mcknightlinger FILM CASTING OPERATOR Work Phone: [facility] 02-23-2023 07:44-0400 Respiratory rate 18 /min FILM CASTING OPERATOR-C Regina Whitfielder FILM CASTING OPERATOR Work Phone: [facility] 02-23-2023 07:44-0400 SaO2% (BldA) [Mass fraction] 99 % FILM CASTING OPERATOR-C Regina Whitfielder FILM CASTING OPERATOR Work Phone: [facility] 02-23-2023 07:44-0400 Systolic blood pressure 162 mm[Hg] FILM CASTING OPERATOR-C Regina Whitfielder FILM CASTING OPERATOR Work Phone: [facility] 11-04-2022 17:17-0500 Body height 156.[address] Alicia Castanon Work Phone: [facility] 11-04-2022 17:17-0500 Body mass index (BMI) [Ratio] 27.3 kg/m2 Dr. Alicia Castanon Work Phone: [facility] 11-04-2022 17:17-0500 Body temperature 100.2 [degF] Dr. Alicia Castanon Work Phone: [facility] 11-04-2022 17:17-0500 Body weight 66.[address] Alicia Castanon Work Phone: [facility] 11-04-2022 17:17-0500 Diastolic blood pressure 82 mm[Hg] Dr. Alicia Castanon Work Phone: [facility] 11-04-2022 17:17-0500 Heart rate 120 /min Dr. Alicia Castanon Work Phone: [facility] 11-04-2022 17:17-0500 Respiratory rate 16 /min Dr. Alicia Castanon Work Phone: [facility] 11-04-2022 17:17-0500 SaO2% (BldA) [Mass fraction] 98 % Dr. Alicia Castanon Work Phone: [facility] 11-04-2022 17:17-0500 Systolic blood pressure 140 mm[Hg] Dr. Alicia Castanon Work Phone: [facility] 02-18-2022 18:08-0400 Body height 154.9 cm Pcp Unknown [facility] 02-18-2022 18:08-0400 Body temperature 99.86 [degF] Pcp Unknown [facility] 02-18-2022 18:08-0400 Diastolic blood pressure 61 mm[Hg] Pcp Unknown [facility] 02-18-2022 18:08-0400 Heart rate 57 /min Pcp Unknown [facility] 02-18-2022 18:08-0400 Respiratory rate 16 /min Pcp Unknown [facility] 02-18-2022 18:08-0400 SaO2% (BldA) [Mass fraction] 97 % Pcp Unknown [facility] 02-18-2022 18:08-0400 Systolic blood pressure 133 mm[Hg] Pcp Unknown [facility] 04-26-2021 09:28-0400 Body temperature 97.7 [degF] Regina Hellinger Other Phone: [facility] 04-26-2021 09:28-0400 Diastolic blood pressure 70 mm[Hg] Regina Hellinger Other Phone: [facility] 04-26-2021 09:28-0400 Heart rate 71 /min Regina Hellinger Other Phone: [facility] 04-26-2021 09:28-0400 Respiratory rate 18 /min Regina Hellinger Other Phone: [facility] 04-26-2021 09:28-0400 SaO2% (BldA) [Mass fraction] 93 % Regina Hellinger Other Phone: [facility] 04-26-2021 09:28-0400 Systolic blood pressure 125 mm[Hg] Regina Roxannalinger Other Phone: [facility] 04-23-2021 11:41-0400 Body height 154.9 cm Regina Hellinger Other Phone: [facility] 04-23-2021 11:41-0400 Body temperature 98.96 [degF] Regina Roxannalinger Other Phone: [facility] 04-23-2021 11:41-0400 Diastolic blood pressure 76 mm[Hg] Regina Hellinger Other Phone: [facility] 04-23-2021 11:41-0400 Heart rate 89 /min Regina Hellinger Other Phone: [facility] 04-23-2021 11:41-0400 Respiratory rate 16 /min Regina Roxannalinger Other Phone: [facility] 04-23-2021 11:41-0400 SaO2% (BldA) [Mass fraction] 97 % Regina Roxannalinger Other Phone: [facility] 04-23-2021 11:41-0400 Systolic blood pressure 135 mm[Hg] Regina Hellinger Other Phone: [facility] Encounters Encounter Date Encounter Type Care Provider Facility Start: 03-13-2025 End: 03-13-[address] Alicia Castanon DO Work Phone: [facility] Work Phone: Start: 03-13-2025 End: 03-13-[address] Alicia Castanon DO Work Phone: -Laboratory Work Phone: Start: 03-13-2025 End: 03-13-2025 ambulatory Alicia Castanon Facility:[facility] Start: 02-27-2025 End: 02-27-[address] Alicia Castanon DO Work Phone: [facility] Work Phone: Start: 02-27-2025 End: 02-27-[address] Alicia Castanon DO Work Phone: -Janina Harman [facility] Start: 02-27-2025 End: 02-27-2025 ambulatory Alicia Malys Facility:[facility] Start: 10-31-2024 End: 10-31-2024 ambulatory Alicia Malys Facility:[facility] Start: 10-24-2024 End: 10-24-2024 Patient encounter procedure Mary Jo Rosenbaum MD Work Phone: [facility] Comment on above: Urinary incontinence , unspecified type (Primary Dx) Start: 10-24-2024 End: 10-24-2024 ambulatory [facility] Start: 09-19-2024 End: 09-19-2024 ambulatory [facility] Start: 09-19-2024 End: 09-19-2024 Office outpatient new 45 minutes Mary Jo Rosenbaum MD Work Phone: [facility] Comment on above: Nocturia; Urinary incontinence, unspecified type Start: 09-18-2024 End: 09-18-2024 ambulatory Alicia Malys Facility:[facility] Start: 08-24-2024 End: 08-24-2024 ambulatory Alicia Malys Facility:[facility] Start: 08-01-2024 End: 08-01-2024 ambulatory Alicia Malys Facility:[facility] Start: 06-19-2024 End: 06-19-2024 ambulatory Norberto Page Facility:[facility] Start: 05-22-2024 End: 05-22-2024 ambulatory Anne Tamayo FILM CASTING OPERATOR Facility:[facility] Start: 05-16-2024 End: 05-16-2024 ambulatory Anne Tamayo FILM CASTING OPERATOR Facility:[facility] Start: 05-10-2024 End: 05-10-2024 ambulatory Alicia Malys Facility:[facility] Start: 05-07-2024 End: 05-07-2024 ambulatory Alicia Malys Facility:[facility] Start: 03-14-2024 End: 03-14-2024 ambulatory [facility] Work Phone: Start: 03-14-2024 End: 03-14-2024 Patient encounter procedure [facility] Work Phone: Start: 02-21-2024 End: 02-21-2024 ambulatory [facility] Work Phone: Start: 02-21-2024 End: 02-21-2024 [facility] Start: 01-25-2024 End: 01-25-2024 ambulatory [facility] Work Phone: Start: 01-25-2024 End: 01-25-2024 [facility] Start: 03-31-2023 End: 03-31-2023 ambulatory FILM CASTING OPERATOR-C Regina Roxannaprashanther FILM CASTING OPERATOR Work Phone: [facility] Work Phone: Start: 03-31-2023 End: 03-31-2023 Patient encounter procedure FILM CASTING OPERATOR-C Regina Roxannalinger FILM CASTING OPERATOR [facility] Start: 02-23-2023 End: 02-23-2023 Patient encounter procedure FILM CASTING OPERATOR-C Regina Hellinger FILM CASTING OPERATOR Work Phone: [facility]-P[facility] Start: 02-04-2023 End: 02-04-[address] Alicia Castanon Work Phone: [facility] Work Phone: Start: 02-04-2023 End: 02-04-[address] Ailcia Castanon Work Phone: [facility]-Ultrasound, [facility] Start: 01-24-2023 End: 01-24-[address] Alicia Castanon Work Phone: [facility] Work Phone: Start: 01-24-2023 End: 01-24-[address] Alicia Castanon Work Phone: [facility]-Laboratory, Janina [facility] Start: 11-12-2022 Non-patient / Non-visit Dr. Janki Castanon Work Phone: [facility] Start: 11-12-2022 End: 11-12-[address] Alicia Castanon Work Phone: [facility] Work Phone: Start: 11-12-2022 End: 11-12-[address] Alicia Castanon Work Phone: [facility] Start: 11-04-2022 End: 11-04-[address] Alicia Castanon Work Phone: [facility] Start: 10-25-2022 End: 10-25-[address] Alicia Castanon Work Phone: [facility] Work Phone: Start: 10-25-2022 End: 10-25-[address] Alicia Castanon Work Phone: [facility]-Laboratory, Specimen Start: 02-18-2022 End: 02-18-2022 Emergency department patient visit Per [facility] 02 Start: 04-23-2021 End: 04-26-2021 Evaluation and management of inpatient [address] [facility] 3 Med Surg [place] [address] 01 Start: 04-23-2021 End: 04-23-2021 Emergency department patient visit Per [facility] 01 Start: 02-22-2018 End: 02-23-2018 Ambulatory Aranza Ines Facility:[facility] Start: 02-02-2018 End: 02-03-2018 Ambulatory [facility] Facility:[facility] Procedures Date Procedure Procedure Detail Performing [...] Jo Rosenbaum MD Work Phone: Urine culture FILM CASTING OPERATOR-C Regina kramer NP Work Phone: Plan of Treatment Date Care Activity Detail Author Start: 11-11-2030 Screening for malignant neoplasm of colon [facility] Start: 2025 RSV High Risk: (Elderly (60+) or Population) (1 - 1-dose 75+ series) RSV High Risk: (Elderly (60+) or Population) (1 - 1-dose 75+ series) [facility] Start: 07-15-2024 COVID-19 Vaccine ( season) COVID-19 Vaccine ( season) [facility] Start: 07-15-2024 Influenza vaccination Influenza Vaccine (#1) [facility] Start: 02-23-2023 Patient referral [facility] Work Phone: Start: 06-29-2022 Screening for malignant neoplasm of breast Mammogram [facility] Start: 04-24-2021 End: 04-25-2022 [facility] Start: 2000 Zoster Vaccines (1 of 2) Zoster Vaccines (1 of 2) [facility] Start: 1972 DTaP/Tdap/Td Vaccines (1 - Tdap) DTaP/Tdap/Td Vaccines (1 - Tdap) [facility] Start: 1968 Hepatitis C screening Hepatitis C Screening [facility] Start: 1950 Lipid panel Lipid Panel [facility] Start: 1950 Medicare Annual Wellness Visit Medicare Annual Wellness Visit (AWV) [facility] Start: 1950 Screening for malignant neoplasm of colon [facility] H/O: surgery History of bladd er suspension procedure [facility] H/O: tubal ligation History of tubal liga tion [facility] History of appendectomy History of appendectomy [facility] History of colonoscopy History of colonoscopy [facility] Past history of procedure History of esophagogastroduodenoscopy (EGD) [facility] Patient referral [facility] Work Phone: Immunizations Immunization Date Immunization Notes Care Provider Fa cility 10-06-2022 influenza virus vaccine, unspecified formulation Mary Jo Rosenbaum MD Work Phone: [facility] Work Phone: Payers Date Payer Category Payer Self-pay [id number] 2023 Unknown [id number] 2020 Medicare supplementa l policy (as second payer) GENERIC MEDICARE SUPPLEMENT [id number] 2015 Medicare 2015 Unknown 2015 Unknown [id number] 2015 Medicare [id number] 1950 Unknown [id number] .[id number] 1950 Unknown [id number] [id number] .[id number] Unknown [place] [id number] Unknown [id number] [id number] .2.462 Unknown [id number] [id number] .2.462 Unknown [id number] [id number] .2.462 Unknown [id number] [id number] .2.462 Unknown [id number] 2.16.840.1.770225.3.579 .2.462 Unknown [id number] 2.16.840.1.638663.3.579 .2.462 Unknown [id number] 2.16.840.1.803034.3.579 .2.462 Unknown [id number] [id number] .2.462 Unknown [id number] 2.16.840.1.367264.3.579 .2.462 Unknown [id number] [id number] .2.462 Unknown [id number] [id number] .2.462 Social History Date Type Detail Facility [facility] Start: 11-04-2022 End: 02-23-2023 Tobacco smoking consumption unknown [facility] Start: 1950 Sex Assigned At Female [facility] Start: 02-23-2023 End: 09-19-2024 Tobacco smoking status NHIS Never smoked tobacco [facility] Work Phone: Start: 09-19-2024 Tobacco use and exposure Smokeless tobacco non-user [facility] Work Phone: Start: 09-19-2024 End: 10-24-2024 History of Social function [facility] Work Phone: Start: 09-19-2024 End: 10-24-2024 Tobacco use panel [facility] Work Phone: Start: 1950 [facility] Start: 09-09-2024 End: 10-24-2024 Exposure to SARS-CoV-2 (event) Not sure [facility] Start: 03-06-2025 Sex Female (finding) [place] [facility] Functional Status Date Assessment Result Facility Functional observable [facility] Mental Status Date Assessment Result Facility 04-26-2021 Cognitive functions 0219:42 [facility] Clinical Notes 04-24-2021 to 10-24-2024 Juju Maria MA - 10/24/2024 8:30 AM Gladys Rosenbaum MD - 09/19/2024 9:30 AM EST Note Date & Type Note Facility 10-24-2024 History of Present illness Narrative Patient ID: Kristy Licoan is a 74 y.o. female. Procedures The [...] F/U 6 MONTHS documented in this encounter [facility] Work Phone: 09-19-2024 History of Present [...] and Med review documented in this encounter [facility] Work Phone: 04-26-2021 Note Send Summary: Discharge Summary Providers: Provider RoleProvider Name Baldo Hua Pierre [facility] Discharge: Summary: Admission Date: .23-Apr-2021 18:53:00 Discharge Date: 26-Apr-2021 Attending Physician at Discharge: Baldo Arriola Admission Reason: weakness Final Discharge Diagnoses: Pneumonia Procedures: none Condition at Discharge: Satisfactory Disposition at Discharge: .Home Vital Signs: T PRBPSpO2 [id number]/7093% Date/Time04/26 7:286/13 7: 7: 7: 7:28 Range(36.5C - 36.9C ) (71 - 72 ) (16 - 18 ) (120 - 125 )/ (67 - 71 ) (91% - 95% ) Highest temp of 36.9 C was recorded at 04/25 15:00 Date: Weight/Scale Type:Height: 24-Apr-2021 00:2964.9 kg / xqq440.9 cm Physical Exam: Constitutional: awake/alert/oriented x3, not [...] coordinating this patient's discharge. This includes a [id number] encounter, patient counseling, discharge and follow-up assessments. [...] Up Appointments: Follow-Up Appointment 01: Physician/Dept/Service: your top executive Call to Schedule in: 1 week Discharge [...] a day pantoprazole (more content not included)... [facility] 04-24-2021 Note History of Present I llness: [...] a day. Objective: Objective Information: T PRBPSpO2 [id number]/8094% Date/Time04/24 0: 0: 0: 0: 0:20 Range(36.9C [...] density irregular f (more content not included)... [facility] Chief complaint+Reason for v isit Narrative Reason for Visit [address] Work Phone: Evaluation note* Neurological: intact [...] behaviorConstitutional: awake/alert/oriented x3, not in acute distress, [facility] Onset Date [facility] Work Phone: Evaluation note* Diagnosis Onset Date Resolution Status ONIEL (obstructive sleep apnea) acute [facility] Work Phone: Evaluation noteNo assessment information available [facility] Work Phone: Evaluation note* Diagnosis Nocturia Urinary incontinence, unspecified type documented in this encounter [facility] Work Phone: Evaluation note* Diagnosis Urinary incontinence, unspecified type- Primary documented in this encounter [facility] Work Phone: Hospital Discharge instructions* Follow Up Appointment 1:Physician/Dept/Service: your pulmonologistCall to Schedule in: 1 weekComments: Patient prefers to schedule appointment. [facility] (n[facility]ative)No reason for referral information availableWWex[facility] Work Phone: Summary Purpose Family History No [...] section and content) DATE CREATED AUTHOR 05/04/2018 [facility] DATE CREATED AUTHOR AUTHOR'S ORGANIZ ATION 02/22/2022 [facility] DATE CREATED AUTHOR AUTHOR'S ORGANIZ ATION 02/23/2022 [facility] DATE CREATED AUTHOR AUTHOR'S ORGANIZ ATION 10/27/2024 [facility] DATE CREATED AUTHOR AUTHOR'S ORGANIZ ATION 03/23/2025 [facility] <item><item><item> Privacy Markings (unrecogniz ed section [...] Araya MD Family Provider Active Dr. Alicia Casatnon DO Primary Care Provider Active Team Status: [...] Inactive Member Role Status Dates Regina Quiñones FILM CASTING OPERATOR, FILM CASTING OPERATOR-C Referring Provider Active Anne Tamayo FILM CASTING OPERATOR, FILM CASTING OPERATOR-C Attending Provider Active Dr. Alicia Castanon [...] Contact Urology Diagnoses Unspecified urinary incontinence Procedures DE CYSTOURETHROSCOPY [facility] [address] [place] [address] [address] [place] [address] Phone: tel: fax: Mary Jo Rosenbaum MD [address] [place] [address] Phone: tel: fax: Referral ID Status Reason Start Date Expiration Date V isits Requested Visits Authorized [id number] Authorized 10/15/2024 10/15/2025 1 1 FOR RECORDS [...] BE BASED ON THE PRIMARY CLINICAL RECORDS. [employer] provides no warranty or guarantee of the accuracy or completeness of information in this document.
[2025-06-18 18:27] LABS: Hematocrit 41.5 % (37-47); Hemoglobin 13.4 g/dL (12.0-15.0); Immature Granulocytes Count 0.030 X10^3/uL (0.0-0.0); Mean Corp Hgb Conc 32.3 g/dL (32-36); Mean Corpuscular Volume 87.2 fL (81-99); NRBC Flagged by Analyzer 0 % (0-5); POSITIVE COUNT YES; RBC Distribution Width CV 13.4 % (11.6-14.6); RBC Distribution Width SD 43.2 fl (35.1-43.9); Red Blood Count 4.76 M/mm3 (4.2-5.4); White Blood Count 7.6 K/mm3 (4.4-11.0)
[2025-06-18 19:16] LABS: AST(SGOT) 34 U/L (<=31); Alanine Aminotransfer ALT/SGPT 24 U/L (<=34); Albumin, Serum 4.2 g/dL (3.4-4.8); Alkaline Phosphatase 241 U/L (35-104); Anion Gap 12 (5-15); BUN 18 mg/dL (4-19); BUN/Creat Ratio 14.3 RATIO (10-20); Calcium,Total 9.8 mg/dL (7.6-11.0); Carbon Dioxide 23.4 mmol/L (21.0-32.0); Chloride 99 mmol/L (98-108); Ferritin 46 ng/mL (22-378); Globulin 2.9 g/dL (2.2-4.2); Glucose 122 mg/dL (70-99); Iron 32 ug/dL (50-170); Potassium 4.0 mmol/L (3.3-5.1); Vitamin B12 1850 pg/mL (180-914); Vitamin D,25 Hydroxy 44.4 ng/mL (30-100)
[2025-06-18 20:49] LABS: FOLATES,SERUM (FOLIC ACID) 7.84 ng/mL (4.60-34.80)
[2025-06-18 21:00] LABS: Differential Indicated SCAN CRITERIA MET
[2025-06-18 21:01] LABS: Differential Comment SCANNED
== END | disposition home or self-care (01) ==
LOC: BFHLAB 09:17
PROVIDERS: PCP Family Medicine; Visit Provider Family Medicine
DX: E55.9 Vitamin D deficiency, unspecified (principal); R53.83 Other fatigue; E53.8 Deficiency of other specified B group vitamins; D64.9 Anemia, unspecified; Z51.81 Encounter for therapeutic drug level monitoring
CPT/HCPCS: 36415; 80053; 82306; 82607; 82728; 82746; 83540; 85025

== ENCOUNTER → 2025-07-01 | Outpatient (CLI) | payer MEDICARE, OTHER, SELFPAY ==
[2025-07-01 10:18] LABS: AST(SGOT) 34 U/L (<=31); Alanine Aminotransfer ALT/SGPT 18 U/L (<=34); Albumin, Serum 4.2 g/dL (3.4-4.8); Alkaline Phosphatase 156 U/L (35-104); Anion Gap 12 (5-15); BUN 22 mg/dL (4-19); BUN/Creat Ratio 16.7 RATIO (10-20); Calcium,Total 9.9 mg/dL (7.6-11.0); Carbon Dioxide 24.0 mmol/L (21.0-32.0); Chloride 101 mmol/L (98-108); Globulin 3.2 g/dL (2.2-4.2); Glucose 101 mg/dL (70-99); Potassium 4.5 mmol/L (3.3-5.1)
[2025-07-01 10:20] LABS: PTHIN 58 pg/mL (11-61)
--- OUTSIDE RECORDS SUMMARY | 2025-07-01 20:14 | XMS RPT_ITS | CCD ---
Author Organization [facility] Care Team Providers Care Professor Sculpture Name Role Phone Aranza Chacon Unavailable Unavailable DannysAranza L Unavailable Unavailable Rupert Araya Unavailable Unavailable Aranza Chacon Unavailable Unavailable Aranza Chacon L Unavailable Unavailable Rupert Araya Unavailable Unavailable Regina Quiñones Unavailable Per Berger Unavailable Unavailable Baldo Arriola Unavailable Unknown, Pcp Unavailable Unavailable Dr. Alicia Castanon Primary Care Provider Dr. Alicia Castanon Referring Provider [phone] DAVID Chen Attending Provider Dr. Ernesto Jason Attending Provider Dr. Alicia Castanon Primary Care Provider Dr. Alicia Castanon Referring Provider DAVID Chen Attending Provider Dr. Ernesto Jason Attending Provider [phone] Jeannette CENTER DIRECTOR, CENTER DIRECTOR-C Regina Referring Provider [phone] Belkis CENTER DIRECTOR, CENTER DIRECTOR-C Anne Attending Provider Dr. Alicia Castanon Primary Care Provider Unavailable Primary Care Provider UnavailMARY JO Fleming Attending Unavailable Dr. Alicia Castanon DO Primary Care Provider RICHA VARGHESE Attending Provider KAMABIMAEL HAHN Attending Provider [phone] ABIMAEL CHAUDHRY Referring Provider [phone] Kina PASCAL, Dr. Vargas Primary Care Provider [phone] [facility] Alic[facility] carter DO Attending Provider Medardo Tate Attending Unavailable Medardo Tate Referring Unavailable Malys, Alicia Primary Care Unavailable ALZOUBI, JENKINS Attending Unavailable Malys, Alicia Primary Care Unavailable ALZOUBI, JENKINS Attending Unavailable ALZOUBI, JENKINS Referring Unavailable Malys, Alicia Primary Care Unavailable Malys, Alicia Attending Unavailable Malys, Alicia Primary Care Unavailable Malys, Laicia Attending Unavailable Malys, Alicia Referring Unavailable Malys, Alicia Primary Care Unavailable Malys, Alicia Primary Care Unavailable Malys, Alicia Attending Unavailable Malys, Alicia Referring Unavailable Malys, Alicia Primary Care Unavailable Malys, Alicia Attending Unavailable Malys, Alicia Referring Unavailable Yinka, Marleny Attending Unavailable Yinka, Marleny Referring Unavailable Malys, Alicia Primary Care Unavailable Allergies Allergy Classification Reported Allergen(s) Allergy Type Date of Onset Reaction(s) Facility Penicillins (antibiotic) (2 sources) Penicillin Drug Allergy Hives/Urticaria [facility] Sulfonamides (antibiotic) (2 sources) Sulfonamides (Antibiotic) Drug Allergy Hives/Urticaria [facility] (13 sources) Penicillins; Translations: [penicillins] Propensity to adverse reactions (disorder) 2 AO, [facility] Repository (1 source) sertraline; Translations: [facility]ft[facility] Sulfonamides (Antibiotic); Translations: [sulfa drugs] Propensity to adverse reactions to drug (disorder) AOF, Hives/Urticaria [facility] Repository (4 sources) Penicillin; Translations: [PENICILLIN] Drug Allergy 4 [facility] (12 sources) Sulfonamides (Antibiotic); Translations: [SULFA (SULFONAMIDE ANTIBIOTICS)] Allergy to substance 2 [facility] (10 sources) Cephalexin; Translations: [CEPHALEXIN] Drug Allergy [address] [facility] Comment on above: Pt had C-diff (3 sources) Codeine; Translations: [CODEINE] Drug Allergy 4 Unknown [facility] Work Phone: (2 sources) Sulfonamides (Antibiotic) Propensity to adverse reactions 4 Anxiety [facility] Work Phone: (1 source) Cephalexin Drug Allergy 4 [facility] Repository (1 source) Sulfonamides (Antibiotic) Drug allergy (disorder) 4 [facility] Repository Medications Current Medications Medication Drug Class(es) Dates Sig (Normalized) Sig (Original) amiodarone hydrochloride 100 mg oral tablet (3 sources) Antiarrhythmic take 2 tablets by mouth once daily amiodarone 100 mg oral tablet ; 2 tab(s) orally once a day Quantity: 0 Refills: 0 Ordered: 04-Nov-2020 Alicia Baeza Status: Other Generic Substitution Allowed atorvastatin 10 mg oral tablet (16 sources) HMG-CoA Reductase Inhibitor Start: 02-24-2021 take [...] mg / cholecalciferol 0.005 mg oral tablet (11 sources) Vitamin D Start: 02-24-2021 Calcium Citrate-Vitamin D3 250 mg-5 mcg (200 unit) tablet Active 1 {tbl} PO DAILY February 24, 2021 12:00am ciprofloxacin 250 mg oral tablet (11 sources) Quinolone Antimicrobial Start: 10-24-2024 End: 10-27-2024 take 1 tablet by mouth twice daily ciprofloxacin (Cipro) 250 mg tablet Indications: Urinary incontinence, unspecified type Take 1 tablet (250 mg) by mouth 2 times a day for 3 days. 6 tablet 10/24/2024 10/27/2024 Active Start: 05-16-2024 take 1 tablet by levi th twice daily as needed Ciprofloxacin Hcl 500 mg tablet Active 500 mg PO TWICE A DAY as needed May 16, 2024 12:00am Start: 02-18-2022 End: 02-22-2022 take 1 tablet by mouth twice daily Cipro 500 mg oral tablet ; 1 tab(s) orally 2 times a day x 5 days Quantity: 10 Refills: 0 Ordered: 18-Feb-2022 Per Berger Start: 18-Feb-2022 End: 22-Feb-2022 Generic Substitution Allowed [...] of water. FLUoxetine 10 mg oral capsule (14 sources) Serotonin Reuptake Inhibitor Start: take 1 capsule by mouth once daily Fluoxetine 10 mg capsule Active 10 mg PO daily May 16, 2024 12:00am Start: 01-26-2018 End: 02-25-2020 take 1 tablet by mouth once daily Fluoxetine 20 mg tablet Discontinued 20 mg PO daily January 26, 2018 12:00am February 25, 2020 2:03pm fluticasone propionate 0.05 mg/actuat metered dose nasal spray (13 sources) Corticosteroid Start: 02-25-2020 Fluticasone Pr opionate 50 mcg/actuation spray,suspension Active 2 NMA INTRANASAL DAILY February 25, 2020 12:00am Start: 02-25-2020 Fluticasone Pr opionate Active 2 SPRAY INTRANASAL DAILY February 25, 2020 12:00am latanoprost 0.05 mg/ml ophthalmic solution (5 sources) Prostaglandin Analog Start: 05-16-[address] [...] Substitution Allowed montelukast 10 mg oral tablet (15 sources) Leukotriene Receptor Antagonist Start: 02-24-2021 take 1 tablet by mouth once daily Montelukast 10 mg tablet Active 10 mg PO DAILY February 24, 2021 12:00am Oral appliance (7 sources) Start: 02-23-2023 Oral appliance Active 0 .ROUTE .MEDSUPPLY 1 0 February 23, 2023 12:00am Obstructive sleep apnea syndrome Obstructive sleep apnea (adult) (pediatric) As directed Start: 02-23-2023 Oral appliance Active 0 .ROUTE .MEDSUPPLY 1 February 23, 2023 12:00am As directed pantoprazole 40 mg delayed release oral tablet (15 sources) Proton Pump Inhibitor Start: 02-24-2021 End: [...] Drug Class(es) Dates Sig (Normalized) Sig (Original) [id number] 200 actuat albuterol 0.09 mg/actuat metered dose inhaler (13 sources) beta2-Adrenergic Agonist Start: 05-01-2021 End: 09-14-2021 [...] sources) Dihydropyridine Calcium Channel Charmaine Start: 01-27-20 End: 02-25-20 take 1 tablet by mouth once daily Amlodipine 10 mg tablet Discontinued 10 mg PO daily 90 3 February 28, 2019 10:27am February 25, 2020 [...] by prescriber. citalopram 10 mg oral tablet (11 sources) Serotonin Reuptake Inhibitor Start: 09-14-20 End: [...] hr Discontinued 25 mg PO daily 90 3 February 28, 2019 10:27am February 25, 2020 [...] 02-May-2021 Status: Other Generic Substitution Allowed Molnupiravir (11 sources) Start: 11-05-2022 End: 11-10-2022 take 1 capsule by mouth every twelve hours Molnupiravir 200 mg capsule Discontinued 800 mg PO Q12H 40 5 0 November 05, 2022 1:00am November 09, 2022 1:00am November 10, 2022 1:04am Start: 11-05-2022 End: 11-10-2022 take 1 capsule by mouth every twelve hours Molnupiravir 200 mg capsule Discontinued 800 mg PO Q12H 40 5 November 05, 2022 1:00am November 09, 2022 1:00am November 10, 2022 1:04am Start: 11-05-2022 End: 11-10-2022 take 800 mg by mouth every twelve hours Molnupiravir Discontinued 800 MG PO Q12H 40 5 November 05, 2022 1:00am November 10, 2022 1:04am Start: 11-05-2022 End: 11-10-2022 take 800 mg by mouth every twelve hours Molnupiravir Discontinued 800 MG PO Q12H 40 5 November 05, 2022 12:00am November 10, 2022 12:04am vitamin b12 1 mg oral capsule (11 sources) Vitamin B12 Start: 02-24-2021 End: 09-14-2021 take 1 capsule by mouth once daily Cyanocobalamin (Vitamin B-12) 1,000 mcg capsule Discontinued 1000 ug PO DAILY February 24, 2021 12:00am September 14, 2021 8:39am Problems Active Problems Problem Classification Problem Date Documented Date Episodic/Chronic Cardiac dysrhythmias (11 sources) Palpitations; Translations: [Palpitations] 01-25-2018 Episodic Chronic kidney disease (1 source) Chronic kidney disease; Translations: [Chronic kidney disease, stage 3a] Onset: 06-25-2025 Disorders of lipid metabolism (11 sources) Hypercholesterolemia; Translations: [Pure hypercholesterolemia, unspecified] 05-01-2021 Chronic Essential hypertension (11 sources) Essential hypertension; Translations: [Essential (primary) hypertension] 02-23-2020 Chronic Fluid and electrolyte disorders (4 sources) Hypokalemia; Translations: [Hypopotassemia] 04-24-2021 Episodic Comment on above: HYPOKALEMIA Genitourinary symptoms and ill-defined conditions (4 sources) Urinary incontinence; Translations: [Unspecified urinary incontinence] Onset: 09-19-2024 09-19-2024 Chronic Genitourinary symptoms and ill-defined conditions (5 sources) Dysuria; Translations: [Dysuria] Onset: 09-19-2024 02-18-2022 Episodic Hypertension with complications and secondary hypertension (1 source) Hypertensive chronic kidney disease with stage 1 through stage 4 chronic kidney disease, or unspecified chronic kidney disease; Translations: [Hypertensive chronic kidney disease with stage 1 through stage 4 chronic kidney disease, or unspecified chronic kidney disease] Onset: 03-20-2025 Chronic Malaise and fatigue (5 sources) Fatigue; Translations: [Other malaise and fatigue] Onset: 06-28-2025 04-23-2021 Episodic Osteoarthritis (1 source) Osteoarthritis of knee, unspecified; Translations: [Osteoarthritis of knee, unspecified] Onset: 09-19-2024 Chronic Other aftercare (2 sources) Encounter for therapeutic drug level monitoring; Translations: [Encounter for therapeutic drug level monitoring] Onset: 08-28-2024 Episodic Other liver diseases (1 source) Abnormal levels of other serum enzymes; Translations: [Abnormal levels of other serum enzymes] Onset: 06-25-2025 Episodic Other lower respiratory disease (2 sources) Cough; Translations: [Cough] 04-23-2021 Episodic Other lower respiratory disease (12 sources) Abscess of lung; Translations: [Abscess of lung] 04-24-2021 Episodic Pleurisy; pneumothorax; pulmonary collapse (2 sources) Empyema ; Translations: [Empyema without mention of fistula] 04-24-2021 Episodic Residual codes; unclassified (11 sources) Obstructive sleep apnea syndrome; Translations: [Obstructive sleep apnea (adult) (pediatric)] 09-14-2021 Chronic Comment on above: oral device Residual codes; unclassified (1 source) Obstructive sleep apnea (adult) (pediatric); Translations: [Obstructive sleep apnea (adult)(pediatric)] 02-23-2023 Chronic Unclassified (2 sources) DRY COUGH FATIGUE BODY ACHES 04-23-2021 Comment on above: DRY COUGH FATIGUE PIERRE DY ACHES Unclassified (1 source) Lung abscess 04-24-2021 Urinary tract infections (2 sources) Urinary tract infectious disease 02-18-2022 Episodic Comment on above: UTI Viral infection (15 sources) Disease caused by 2019-nCoV; Translations: [COVID-19] Episodic Past or Other Problems Problem Classification Problem Date Documented Da te Episodic/Chronic Other non-traumatic joint disorders (1 source) Pain in right hip; Translations: [Pain in right hip] Onset: 12-05-2024 Episodic Spondylosis; intervertebral disc disorders; other back problems (1 source) Sciatica, left side; Translations: [Sciatica, left side] Onset: 10-10-2024 Episodic Unclassified (1 source) EXAM - SENT BY DOCTOR AT [facility] 04-24-2021 Comment on above: EXAM - SENT BY DOCTO Patricia AT [facility] Unclassified (2 sources) Onset: 09-19-2024 09-19-2024 Results Test Name Value Interpretation Reference Range Facility Absolute lymphocyte countOrd ered By: Alicia Castanon on 06-18-2025 Lymphocytes Auto (Unsp spec) [#/Vol] 1.50 10*3/uL 0.83-4.51 [facility] Absolute neutrophil countOrd ered By: Alicia Javierraul on 06-18-2025 Neutrophils (Bld) [#/Vol] 5.3 10*3/uL 2.0-7.7 [facility] Anion gap in Serum or Plasma Ordered By: Alicia Castanon on 06-18-2025 Anion gap [Moles/Vol] 12 mmol/L 5- [facility] Automated lymphocyte count a s percentage of total leukocytesOrdered By: Alicia Herreraraul on 06-18-2025 Lymphocytes/100 WBC Auto (Unsp spec) 19.8 % 19-41 [facility] BUN/creatinine ratioOrdered By: Alicia Castanon on 06-18-2025 Urea nitrogen/Creatinine [Mass ratio] 14.3 mg/mg 10-20 [facility] Basophil percentageOrdered B y: Alicia Castanon on 06-18-2025 Basophils/100 WBC (Bld) 0.4 % 0-1 [facility] Bilirubin, totalOrdered By: Alicia Herreraraul on 06-18-2025 Bilirubin [Mass/Vol] 0.21 mg/dL 0.00-1.30 [facility] Blood manual differential co mment interpretation (narrative result)Ordered By: Alicia Castanon on 06-18-2025 Manual differential comment Jose Guadalupe (Bld) [Interp] SCANNED [facility] CBC W/Diff, Automatedon PLT EST ADEQUATE Normal ADEQ [facility] Comment on above: Performed By: #### L 509.1000, L501.0900 #### [facility] [address] [place], [address] SMEAR COMMENT SCANNED Normal [facility] Comment on above: Performed By: #### L 509.1000, L501.0900 #### [facility] [address] [place], [address] Carbon dioxide, total [Moles /volume] in Central venous bloodOrdered By: Alicia Castanon on 06-18-2025 CO2 [Moles/Vol] 23.4 mmol/L 21.0-32.0 [facility] Chloride assayOrdered By: Janki Castanon on 06-18-2025 Chloride [Moles/Vol] 99 mmol/L 98-108 [facility] Comprehensive Metabolic Prof ilon 06-18-2025 Albumin [Mass/Vol] 4.2 g/dL Normal 3.4-4.8 [facility] Comment on above: Performed By: #### L 509.1000, L501.0900 #### [facility] [address] [place], [address] Albumin/Globulin [Mass ratio] 1.5 {ratio} Normal 0.9-2.4 [facility] Comment on above: Performed By: #### L 509.1000, L501.0900 #### [facility] [address] [place], [address] ALK PHOS 241 U/L High 35-104 [facility] Comment on above: Performed By: #### L 509.1000, L501.0900 #### [facility] [address] [place], [address] ALT [Catalytic activity/Vol] 24 U/L Normal <=34 [facility] Comment on above: Performed By: #### L 509.1000, L501.0900 #### [facility] [address] [place], [address] AST [Catalytic activity/Vol] 34 U/L High <=31 [facility] Comment on above: Performed By: #### L 509.1000, L501.0900 #### [facility] [address] [place], [address] Bilirubin [Mass/Vol] 0.21 mg/dL Normal 0.00-1.30 [facility] Comment on above: Performed By: #### L 509.1000, [id number] #### [facility] [address] [place], [address] BUN/CRE 14.3 RATIO Normal 10-20 [facility] Comment on above: Performed By: #### L 509.1000, L501.0900 #### [facility] [address] [place], [address] Calcium [Mass/Vol] 9.8 mg/dL Normal 7.6-11.0 [facility] Comment on above: Performed By: #### L 509.1000, [id number] #### [facility] [address] [place], [address] Chloride [Moles/Vol] 99 mmol/L Normal 98-108 [facility] Comment on above: Performed By: #### L 509.1000, L501.0900 #### [facility] [address] [place], [address] CO2 [Moles/Vol] 23.4 mmol/L Normal 21.0-32.0 [facility] Comment on above: Performed By: #### L 509.1000, [id number] #### [facility] [address] [place], [address] Creatinine [Mass/Vol] 1.26 mg/dL High 0.70-1.20 [facility] Comment on above: Performed By: #### L 509.1000, [id number] #### [facility] [address] [place], [address] GAP 12 Normal 5-15 [facility] Comment on above: Performed By: #### L 509.1000, [id number] #### [facility] [address] [place], [address] GFR/1.73 sq M.predicted among non-blacks MDRD (S/P/Bld) [Vol rate/Area] 45 mL/min/{1.73_m2} Low >60 [facility] Comment on above: Result Comment: mL/m in/1.73m2 CKD-EPI Creatinine Equation (2020) Performed By: #### L 509.1000, [id number] #### [facility] [address] [place], [address] Globulin (S) [Mass/Vol] 2.9 g/dL Normal 2.2-4.2 [facility] Comment on above: Performed By: #### L 509.1000, [id number] #### [facility] [address] [place], [address] Glucose [Mass/Vol] 122 mg/dL High 70-99 [facility] Comment on above: Performed By: #### L 509.1000, [id number] #### [facility] [address] [place], [address] Potassium [Moles/Vol] 4.0 mmol/L Normal 3.3-5.1 [facility] Comment on above: Performed By: #### L 509.1000, [id number] #### [facility] [address] [place], [address] Sodium [Moles/Vol] 135 mmol/L Normal 133-145 [facility] Comment on above: Performed By: #### L 509.1000, [id number] #### [facility] [address] [place], [address] T PROT 7.1 g/dL Normal 5.9-8.4 [facility] Comment on above: Performed By: #### L 509.1000, [id number] #### [facility] [address] [place], [address] Urea nitrogen [Mass/Vol] 18 mg/dL Normal 4-19 [facility] Comment on above: Performed By: #### L 509.1000, [id number] #### [facility] [address] [place], [address] Eosinophil percentageOrdered By: Alicia Castanon on 06-18-2025 Eosinophils/100 WBC (Bld) 1.5 % 0-5 [facility] Erythrocyte distribution wid th ratioOrdered By: Alicia Castanon on 06-18-2025 Erythrocyte distribution width (RBC) [Ratio] 13.4 % 11.6-14.6 [facility] Erythrocyte distribution wid th standard deviationOrdered By: Alicia Castanon on 06-18-2025 Erythrocyte distribution width (RBC) [Ratio] 43.2 fl 35.1-43.9 [facility] Ferritinon 06-18-2025 Ferritin [Mass/Vol] 46 ng/mL Normal 22-378 [facility] Comment on above: Performed By: #### L 509.1000, [id number] #### [facility] [address] [place], [address] Folate [Moles/volume] in Ser um or PlasmaOrdered By: Alicia Castanon on 06-18-2025 Folate [Moles/Vol] 7.84 ng/mL 4.60-34.80 [facility] Folates,Serum (Folic Acid)on 06-18-2025 FOLATES,SERUM 7.84 ng/mL Normal 4.60-34.80 [facility] Comment on above: Order Comment: N Performed By: #### L 509.1000, [id number] #### [facility] [address] [place], [address] Glomerular filtration rate ( GFR) estimation/1.73 sq m using serum, plasma, or whole bOrdered By: Alicia Castanon on 06-18-2025 GFR/1.73 sq M.predicted among non-blacks MDRD (S/P/Bld) [Vol rate/Area] 45 mL/min/{1.73_m2} Low >60 [facility] Comment on above: mL/min/1.73m2 CKD-EP I Creatinine Equation (2020) Hematocrit Auto (Bld) [Volum e fraction]Ordered By: Alicia Castanon on 06-18-2025 Hematocrit (Bld) [Volume fraction] 41.5 % 37-47 [facility] Hemoglobin measurementOrdere d By: Alicia Castanon on 06-18-2025 Hemoglobin (Bld) [Mass/Vol] 13.4 g/dL 12.0-15.0 [facility] Immature granulocytes/100 WB C Auto (Bld)Ordered By: Alicia Castanon on 06-18-2025 Immature granulocytes/100 WBC (Bld) 0.400 % 0.0-0.9 [facility] Comment on above: IG% - Immature Granu locytes (promyelocytes, myelocytes and metamyelocytes) > 1% indicates that a LEFT SHIFT is Present. Ironon 06-18-2025 Iron [Mass/Vol] 32 ug/dL Low 50-170 [facility] Comment on above: Performed By: #### L 509.1000, L501.0900 #### [facility] [address] [place] [address], [address] Iron measurement (mass/mass) Ordered By: Alicia Castanon on 06-18-2025 Iron (Unsp spec) [Mass/Mass] 32 ug/dL Low 50-170 [facility] - Chemistry and C hemistry - challengeOrdered By: Alicia Castanon on 06-18-2025 AST [Catalytic activity/Vol] 34 U/L High <32 [facility] MCV (mean corpuscular volume ) determinationOrdered By: Alicia Castanon on 06-18-2025 MCV (RBC) [Entitic vol] 87.2 fL 81-99 [facility] Mean corpuscular hemoglobin (MCH) determinationOrdered By: Alicia Castanon on 06-18-2025 MCH (RBC) [Entitic mass] 28.2 pg 27.0-32.0 [facility] Mean corpuscular hemoglobin concentration (MCHC) determinationOrdered By: Alicia Castanon on 06-18-2025 MCHC (RBC) [Mass/Vol] 32.3 g/dL 32-36 [facility] Mean platelet volume determi nationOrdered By: Alicia Castanon on 06-18-2025 [facility] platelet volume [facility] Comment on above: Test not performed Monocyte percentageOrdered B y: Alicia Castanon on 06-18-2025 Monocytes/100 WBC (Bld) 7.9 % 0-10 [facility] Neutrophil percentageOrdered By: Alicia Castanon on 06-18-2025 Neutrophils/100 WBC (Bld) 70.0 % 47-70 [facility] Nucleated red blood cell per centageOrdered By: Alicia Castanon on 06-18-2025 Nucleated RBC/100 WBC (Bld) [Ratio] 0 % 0-5 [facility] Platelet countOrdered By: Janki Castanon on 06-18-2025 Platelet count TNP [facility] Comment on above: Test not performedPl ease note: For this sample, a platelet estimate is provided rather than a platelet count due to platelet clumping. Other parameters associated with this sample are not affected by platelet clumping. If a more accurate platelet count is required, a redraw of the patient will be necessary. Platelet estimateOrdered By: Alicia Castanon on 06-18-2025 Platelets LM Ql (Bld) ADEQUATE ADEQ [facility] Potassium measurement (mass/ volume)Ordered By: Alicia Castanon on 06-18-2025 Potassium (Unsp spec) [Mass/Vol] 4.0 mmol/L 3.3-5.1 [facility] RBC Auto (Bld) [#/Vol]Ordere d By: Alicia Castanon on 06-18-2025 RBC (Bld) [#/Vol] 4.76 10*6/uL 4.2-5.4 [facility] Serum creatinine measurement (mass/volume)Ordered By: Alicia Castanon on 06-18-2025 Creatinine [Mass/Vol] 1.26 mg/dL High 0.70-1.20 [facility] Serum globulin measurementOr dered By: Alicia Castanon on 06-18-2025 Globulin (S) [Mass/Vol] 2.9 g/dL 2.2-4.2 [facility] Serum glucose measurement (m ass/volume)Ordered By: Alicia Castanon on 06-18-2025 Glucose [Mass/Vol] 122 mg/dL High 70-99 [facility] Serum or plasma alanine cat otransferase (ALT) measurementOrdered By: Alicia Castanon on 06-18-2025 ALT [Catalytic activity/Vol] 24 U/L <35 [facility] Serum or plasma albumin linnea urement (mass/volume)Ordered By: Alicia Castanon on 06-18-2025 Albumin [Mass/Vol] 4.2 g/dL 3.4-4.8 [facility] Serum or plasma albumin/glob ulin mass ratioOrdered By: Alicia Castanon on 06-18-2025 Albumin/Globulin [Mass ratio] 1.5 {ratio} 0.9-2.4 [facility] Serum or plasma alkaline hallie sphatase measurementOrdered By: Alicia Castanon on 06-18-2025 ALP [Catalytic activity/Vol] 241 U/L High 35-104 [facility] Serum or plasma calcium linnea urement (mass/volume)Ordered By: Alicia Castanon on 06-18-2025 Calcium [Mass/Vol] 9.8 mg/dL 7.6-11.0 [facility] Serum or plasma ferritin prem surement (mass/volume)Ordered By: Alicia Castanon on 06-18-2025 Ferritin [Mass/Vol] 46 ng/mL 22-378 [facility] Serum or plasma urea nitroge n measurement (mass/volume)Ordered By: Alicia Castanon on 06-18-2025 Urea nitrogen [Mass/Vol] 18 mg/dL 4-19 [facility] Sodium levelOrdered By: Alicia Castanon on 06-18-2025 Sodium [Moles/Vol] 135 mmol/L 133-145 [facility] Total proteinOrdered By: Eleni Castanon on 06-18-2025 Protein [Mass/Vol] 7.1 g/dL 5.9-8.4 [facility] Vitamin B12on 06-18-2025 Cobalamin (Vitamin B12) [Mass/Vol] 1850 pg/mL High 180-914 [facility] Comment on above: Performed By: #### L 509.1000, L501.0900 #### [facility] [place], [address] Vitamin B12 ser/plasOrdered By: Alicia Castanon on 06-18-2025 Cobalamin (Vitamin B12) [Mass/Vol] 1850 pg/mL High 180-914 [facility] Vitamin D,25 Hydroxyon 06-18 Vitamin D 25-OH 44.4 ng/mL Normal 30-100 [facility] Comment on above: Result Comment: Valentina min D Status Deficiency: <20 ng/mL (50nmol/L) Insufficiency: 20-30 ng/mL (50-75 nmol/L) Sufficiency: 30-100 ng/mL (75-250 nmol/L) Toxicity: >100 ng/mL (>250 nmol/L) Performed By: #### L 509.1000, L501.0900 #### [facility] [address] [place], [place], [id number] White blood cell (WBC) count Ordered By: Alicia Castanon on 06-18-2025 WBC (Bld) [#/Vol] 7.6 10*3/uL 4.4-11.0 [facility] Anion gap in Serum or Plasma on 03-13-2025 Anion gap [Moles/Vol] 12 mmol/L 5-15 [facility] BUN/creatinine ratioon 03-13 Urea nitrogen/Creatinine [Mass ratio] 16.4 mg/mg 10-20 [facility] Carbon dioxide, total [Moles /volume] in Central venous bloodon 03-13-2025 CO2 [Moles/Vol] 24.7 mmol/L 21.0-32.0 [facility] Chloride assayon 03-13-2025 Chloride [Moles/Vol] 104 mmol/L 98-108 [facility] Glomerular filtration rate ( GFR) estimation/1.73 sq m using serum, plasma, or whole bon 03-13-2025 GFR/1.73 sq M.predicted among non-blacks MDRD (S/P/Bld) [Vol rate/Area] 36 mL/min/{1.73_m2} Low >60 [facility] Comment on above: mL/min/1.73m2 CKD-EP I Creatinine Equation (2020) Potassium measurement (mass/ volume)on 03-13-2025 Potassium (Unsp spec) [Mass/Vol] 4.8 mmol/L 3.3-5.1 [facility] Renal Profileon 03-13-2025 Albumin [Mass/Vol] 4.6 g/dL Normal 3.4-4.8 [facility] Comment on above: Performed By: #### L 509.1000, L501.0900 #### [facility] [address] [place], [address] BUN/CRE 16.4 RATIO Normal 10-20 [facility] Comment on above: Performed By: #### L 509.1000, L501.0900 #### [facility] [address] [place], [address] Calcium [Mass/Vol] 10.1 mg/dL Normal 7.6-11.0 [facility] Comment on above: Performed By: #### L 509.1000, L501.0900 #### [facility] [address] [place], [address] Chloride [Moles/Vol] 104 mmol/L Normal 98-108 [facility] Comment on above: Performed By: #### L 509.1000, L501.0900 #### [facility] [address] [place], [address] CO2 [Moles/Vol] 24.7 mmol/L Normal 21.0-32.0 [facility] Comment on above: Performed By: #### L 509.1000, L501.0900 #### [facility] [address] [place], [address] Creatinine [Mass/Vol] 1.52 mg/dL High 0.70-1.20 [facility] Comment on above: Performed By: #### L 509.1000, L501.0900 #### [facility] [address] [place], [address] GAP 12 Normal 5-15 [facility] Comment on above: Performed By: #### L 509.1000, L501.0900 #### [facility] [address] [place], [address] GFR/1.73 sq M.predicted among non-blacks MDRD (S/P/Bld) [Vol rate/Area] 36 mL/min/{1.73_m2} Low >60 [facility] Comment on above: Result Comment: mL/m in/1.73m2 CKD-EPI Creatinine Equation (2020) Performed By: #### L 509.1000, L501.0900 #### [facility] [address] [place], [address] Glucose [Mass/Vol] 84 mg/dL Normal 70-99 [facility] Comment on above: Performed By: #### L 509.1000, L501.0900 #### [facility] [address] [place], [address] Phosphate [Mass/Vol] 3.5 mg/dL Normal 2.7-4.5 [facility] Comment on above: Performed By: #### L 509.1000, L501.0900 #### [facility] [address] [place], [address] Potassium [Moles/Vol] 4.8 mmol/L Normal 3.3-5.1 [facility] Comment on above: Performed By: #### L 509.1000, L501.0900 #### [facility] [address] [place], [address] Sodium [Moles/Vol] 140 mmol/L Normal 133-145 [facility] Comment on above: Performed By: #### L 509.1000, L501.0900 #### [facility] [address] [place], [address] Urea nitrogen [Mass/Vol] 25 mg/dL High 4-19 [facility] Comment on above: Performed By: #### L 509.1000, L501.0900 #### [facility] [address] [place], [address] Serum creatinine measurement (mass/volume)on 03-13-2025 Creatinine [Mass/Vol] 1.52 mg/dL High 0.70-1.20 [facility] Serum glucose measurement (m ass/volume)on 03-13-2025 Glucose [Mass/Vol] 84 mg/dL 70-99 [facility] Serum or plasma albumin linnea urement (mass/volume)on 03-13-2025 Albumin [Mass/Vol] 4.6 g/dL 3.4-4.8 [facility] Serum or plasma calcium linnea urement (mass/volume)on 03-13-2025 Calcium [Mass/Vol] 10.1 mg/dL 7.6-11.0 [facility] Serum or plasma urea nitroge n measurement (mass/volume)on 03-13-2025 Urea nitrogen [Mass/Vol] 25 mg/dL High 4-19 [facility] Sodium levelon 03-13-2025 Sodium [Moles/Vol] 140 mmol/L 133-145 [facility] Creatinine Unsp time (U) [Ma ss/Vol]on 02-27-2025 Creatinine (U) [Mass/Vol] 43.60 mg/dL 28.00-217. 00 [facility] PTH intacton 02-27-2025 Parathyroid Hormone (Intact) 70 pg/mL High [facility] PTHINon 02-27-2025 PTH 70 pg/mL High [facility] Comment on above: Performed By: #### L 509.1000, L501.0900 #### [facility] [address] [place], [address] Protein+Creatinine Ratio,Uri neon 02-27-2025 PROT:CRE RATIO 186 mg/g CRE Normal 0-200 [facility] Comment on above: Performed By: #### L 509.1000, L501.0900 #### [facility] [address] [place], [address] Protein (U) [Mass/Vol] 8.1 mg/dL Normal 0.0-12.0 [facility] Comment on above: Performed By: #### L 509.1000, L501.0900 #### [facility] [address] [place], [address] UR CREAT 43.60 mg/dL Normal 28.00-217. 00 [facility] Comment on above: Performed By: #### L 509.1000, L501.0900 #### [facility] [address] [place], [address] Protein/Creatinine (U) [Mass ratio]on 02-27-2025 Urine Protein/Creatinine Ratio 186 mg/g CRE 0-200 [facility] Random urine creatinine linnea urement (mass/volume)on 02-27-2025 Creatinine Unsp time (U) [Mass/Vol] 43.60 mg/dL 28.00-217. 00 [facility] Urine protein measurement (m ass/volume)on 02-27-2025 Protein (U) [Mass/Vol] 8.1 mg/dL 0.0-12.0 [facility] Urine protein/creatinine mas s ratioon 02-27-2025 Protein/Creatinine (U) [Mass ratio] 186 mg/g CRE 0-200 [facility] Hips B/L min 2 views w/ Pelv sully 10-31-2024 Hips B/L min 2 views w/ Pelvis [facility] [address] [place] [address] Hips B/L min 2 views w/ Pelvis MR#: [id number] Acct: [id number] Name: KRISTY LICONA SANA Rep #: [id number] : 1950 F 74 From: Iker Soriano MD PCP: Dr. Alicia Castanon DO Status: REG CLI Study: Hips B/L min 2 views w/ Pelvis Date of Exam: 01/01/24 Exam# [id number] Ordering Dr: Medardo Tate DO :[id number] INDICATION: BILATERAL HIP PAIN EXAMINATION/TECHNIQUE: X-RAY - [...] at 13:46 EST , CC: Dr. Alicia Castanon, DO; Dr. Medardo Tate, DO Associate Genetics Professor: Signed Normal [facility] Basic Metabolic Profile (BMP )on 09-18-2024 BUN/CRE 14.0 RATIO Normal 10-20 [facility] Comment on above: Performed By: #### L 500.2500 #### [facility] [address] [place], [address] CA,Total 10.1 mg/dL Normal 8.5-10.1 [facility] Comment on above: Performed By: #### L 500.2500 #### [facility] [address] [place], [address] Chloride [Moles/Vol] 105 mmol/L Normal 98-107 [facility] Comment on above: Performed By: #### L 500.2500 #### [facility] [address] [place], [address] CO2 [Moles/Vol] 25.0 mmol/L Normal 21.0-32.0 [facility] Comment on above: Performed By: #### L 500.2500 #### [facility] [address] [place], [address] Creatinine [Mass/Vol] 1.36 mg/dL High 0.55-1.02 [facility] Comment on above: Result Comment: The validity of the calculated GFR GFRAA in patients over 70 years has not been determined. Clinical correlation is essential. Performed By: #### L 500.2500 #### [facility] [address] [place], [address] EST GFR - AA 49 mL/min Low >60 [facility] Comment on above: Result Comment: Afri can Zambian GFR Calc Performed By: #### L 500.2500 #### [facility] [address] [place], [address] GAP 10 Normal 5-15 [facility] Comment on above: Performed By: #### L 500.2500 #### [facility] [address] [place], [address] GFR/1.73 sq M.predicted among non-blacks MDRD (S/P/Bld) [Vol rate/Area] 40 mL/min/{1.73_m2} Low >60 [facility] Comment on above: Result Comment: Non- GFR Calc Performed By: #### L 500.2500 #### [facility] [address] [place], [address] Glucose [Mass/Vol] 71 mg/dL Low 74-106 [facility] Comment on above: Performed By: #### L 500.2500 #### [facility] [address] [place], [address] Potassium [Moles/Vol] 4.0 mmol/L Normal 3.5-5.1 [facility] Comment on above: Performed By: #### L 500.2500 #### [facility] [address] [place], [address] Sodium [Moles/Vol] 140 mmol/L Normal 136-145 [facility] Comment on above: Performed By: #### L 500.2500 #### [facility] [address] [place], [address] Urea nitrogen [Mass/Vol] 19 mg/dL High 7-18 [facility] Comment on above: Performed By: #### L 500.2500 #### [facility] [address] [place], [address] L/S Spine Min 4 Viewson 11-0 5-2024 L/S Spine Min 4 Views [facility] [address] [place] [address] L/S Spine Min 4 Views MR#: [id number] Acct: [id number] Name: KRISTY LICONA SANA Rep #: [id number] : 1950 F 73 From: Iker Soriano MD PCP: Dr. Alicia Castanon, DO Status: REG CLI Study: L/S Spine Min 4 Views Date of Exam: 09/18/24 Exam# [id number] Ordering Dr: Marleny Honeycutt CENTER DIRECTOR-C :[id number] STUDY: X-RAY - LUMBAR SPINE REASON FOR [...] EST , CC: LEONARDO Honeycutt; Dr. Alicia Castanon, Associate Genetics Professor: Signed Normal [facility] Comprehensive Metabolic Prof ilon 08-24-2024 Albumin [Mass/Vol] 3.9 g/dL Normal 3.2-5.0 [facility] Comment on above: Performed By: #### L 509.1000, L501.0900 #### [facility] [address] [place], [address] Albumin/Globulin [Mass ratio] 1.1 {ratio} Normal 0.9-2.4 [facility] Comment on above: Performed By: #### L 509.1000, L501.0900 #### [facility] [address] [place], [address] ALK P 95 U/L Normal 45-117 [facility] Comment on above: Performed By: #### L 509.1000, L501.0900 #### [facility] [address] [place], [address] ALT [Catalytic activity/Vol] 21 U/L Normal 13-56 [facility] Comment on above: Performed By: #### L 509.1000, L501.0900 #### [facility] [address] [place], [address] AST [Catalytic activity/Vol] 24 U/L Normal 15-37 [facility] Comment on above: Performed By: #### L 509.1000, L501.0900 #### [facility] [address] [place], [address] Bilirubin [Mass/Vol] 0.50 mg/dL Normal 0.20-1.00 [facility] Comment on above: Result Comment: For patients on eltrombopag therapy, use of Dimension Barnard TBIL is not recommended. Performed By: #### L 509.1000, L501.0900 #### [facility] [address] [place], [address] BUN/CRE 12.5 RATIO Normal 10-20 [facility] Comment on above: Performed By: #### L 509.1000, L501.0900 #### [facility] [address] [place], [address] CA,Total 9.9 mg/dL Normal 8.5-10.1 [facility] Comment on above: Performed By: #### L 509.1000, L501.0900 #### [facility] [address] [place], [address] Chloride [Moles/Vol] 102 mmol/L Normal 98-107 [facility] Comment on above: Performed By: #### L 509.1000, L501.0900 #### [facility] [address] [place], [address] CO2 [Moles/Vol] 27.0 mmol/L Normal 21.0-32.0 [facility] Comment on above: Performed By: #### L 509.1000, L501.0900 #### [facility] [address] [place], [address] Creatinine [Mass/Vol] 1.36 mg/dL High 0.55-1.02 [facility] Comment on above: Result Comment: The validity of the calculated GFR GFRAA in patients over 70 years has not been determined. Clinical correlation is essential. Performed By: #### L 509.1000, L501.0900 #### [facility] [address] [place], [address] EST GFR - AA 49 mL/min Low >60 [facility] Comment on above: Result Comment: Afri can Zambian GFR Calc Performed By: #### L 509.1000, L501.0900 #### [facility] [address] [place], [address] GAP 7 Normal 5-15 [facility] Comment on above: Performed By: #### L 509.1000, L501.0900 #### [facility] [address] [place], [address] GFR/1.73 sq M.predicted among non-blacks MDRD (S/P/Bld) [Vol rate/Area] 40 mL/min/{1.73_m2} Low >60 [facility] Comment on above: Result Comment: Non- GFR Calc Performed By: #### L 509.1000, L501.0900 #### [facility] [address] [place], [address] Globulin (S) [Mass/Vol] 3.6 g/dL Normal 2.2-4.2 [facility] Comment on above: Performed By: #### L 509.1000, L501.0900 #### [facility] [address] [place], [address] Glucose [Mass/Vol] 78 mg/dL Normal 74-106 [facility] Comment on above: Performed By: #### L 509.1000, L501.0900 #### [facility] [address] [place], [address] Potassium [Moles/Vol] 4.1 mmol/L Normal 3.5-5.1 [facility] Comment on above: Performed By: #### L 509.1000, L501.0900 #### [facility] [address] [place], [address] Sodium [Moles/Vol] 136 mmol/L Normal 136-145 [facility] Comment on above: Performed By: #### L 509.1000, L501.0900 #### [facility] [address] [place], [address] T PROT 7.5 g/dL Normal 6.4-8.2 [facility] Comment on above: Performed By: #### L 509.1000, L501.0900 #### [facility] [address] [place], [address] Urea nitrogen [Mass/Vol] 17 mg/dL Normal 7-18 [facility] Comment on above: Performed By: #### L 509.1000, L501.0900 #### [facility] [address] [place], [address] Comprehensive Metabolic Prof ilon 08-01-2024 Albumin [Mass/Vol] 4.0 g/dL Normal 3.2-5.0 [facility] Comment on above: Performed By: #### L 506.0400, L501.7300, L501.5500, L501.9520, L501.7400, L501.40739, L501.1400, L500.4050, L502.0500 #### [facility] [address] [place], [address] Albumin/Globulin [Mass ratio] 1.2 {ratio} Normal 0.9-2.4 [facility] Comment on above: Performed By: #### L 506.0400, L501.7300, L501.5500, L501.9520, L501.7400, L501.07166, L501.1400, L500.4050, L502.0500 #### [facility] [address] [place], [address] ALK P 93 U/L Normal 45-117 [facility] Comment on above: Performed By: #### L 506.0400, L501.7300, L501.5500, L501.9520, L501.7400, L501.68195, L501.1400, L500.4050, L502.0500 #### [facility] [address] [place], [address] ALT [Catalytic activity/Vol] 21 U/L Normal 13-56 [facility] Comment on above: Performed By: #### L 506.0400, L501.7300, L501.5500, L501.9520, L501.7400, L501.75194, L501.1400, L500.4050, L502.0500 #### [facility] [address] [place], [address] AST [Catalytic activity/Vol] 25 U/L Normal 15-37 [facility] Comment on above: Performed By: #### L 506.0400, L501.7300, L501.5500, L501.9520, L501.7400, L501.69875, L501.1400, L500.4050, L502.0500 #### [facility] [address] [place], [address] Bilirubin [Mass/Vol] 0.40 mg/dL Normal 0.20-1.00 [facility] Comment on above: Result Comment: For patients on eltrombopag therapy, use of Dimension Barnard TBIL is not recommended. Performed By: #### L 506.0400, L501.7300, L501.5500, L501.9520, L501.7400, L501.88691, L501.1400, L500.4050, L502.0500 #### [facility] [address] [place], [address] BUN/CRE 14.6 RATIO Normal 10-20 [facility] Comment on above: Performed By: #### L 506.0400, L501.7300, L501.5500, L501.9520, L501.7400, L501.64089, L501.1400, L500.4050, L502.0500 #### [facility] [address] [place], [address] CA,Total 9.9 mg/dL Normal 8.5-10.1 [facility] Comment on above: Performed By: #### L 506.0400, L501.7300, L501.5500, L501.9520, L501.7400, L501.03428, L501.1400, L500.4050, L502.0500 #### [facility] [address] [place], [address] Chloride [Moles/Vol] 99 mmol/L Normal 98-107 [facility] Comment on above: Performed By: #### L 506.0400, L501.7300, L501.5500, L501.9520, L501.7400, L501.48377, L501.1400, L500.4050, L502.0500 #### [facility] [address] [place], [address] CO2 [Moles/Vol] 23.0 mmol/L Normal 21.0-32.0 [facility] Comment on above: Performed By: #### L 506.0400, L501.7300, L501.5500, L501.9520, L501.7400, L501.49111, L501.1400, L500.4050, L502.0500 #### [facility] [address] [place], [address] Creatinine [Mass/Vol] 1.51 mg/dL High 0.55-1.02 [facility] Comment on above: Result Comment: The validity of the calculated GFR GFRAA in patients over 70 years has not been determined. Clinical correlation is essential. Performed By: #### L 506.0400, L501.7300, L501.5500, L501.9520, L501.7400, L501.08803, L501.1400, L500.4050, L502.0500 #### [facility] [address] [place], [address] EST GFR - AA 43 mL/min Low >60 [facility] Comment on above: Result Comment: Afri can Zambian GFR Calc Performed By: #### L 506.0400, L501.7300, L501.5500, L501.9520, L501.7400, L501.54721, L501.1400, L500.4050, L502.0500 #### [facility] [address] [place], [address] GAP 9 Normal 5-15 [facility] Comment on above: Performed By: #### L 506.0400, L501.7300, L501.5500, L501.9520, L501.7400, L501.13227, L501.1400, L500.4050, L502.0500 #### [facility] [address] [facility] [place], [place], [id number] [phone] GFR/1.73 sq M.predicted among non-blacks MDRD (S/P/Bld) [Vol rate/Area] 36 mL/min/{1.73_m2} Low >60 [facility] Comment on above: Result Comment: Non- GFR Calc Performed By: #### L 506.0400, L501.7300, L501.5500, L501.9520, L501.7400, L501.66384, L501.1400, L500.4050, L502.0500 #### [facility] [address] [place], [place], [id number] (160) Globulin (S) [Mass/Vol] 3.4 g/dL Normal 2.2-4.2 [facility] Comment on above: Performed By: #### L 506.0400, L501.7300, L501.5500, L501.9520, L501.7400, L501.56105, L501.1400, L500.4050, L502.0500 #### [facility] [address] [place], [address] Glucose [Mass/Vol] 80 mg/dL Normal 74-106 [facility] Comment on above: Performed By: #### L 506.0400, L501.7300, L501.5500, L501.9520, L501.7400, L501.43193, L501.1400, L500.4050, L502.0500 #### [facility] [address] [place], [address] Potassium [Moles/Vol] 4.4 mmol/L Normal 3.5-5.1 [facility] Comment on above: Performed By: #### L 506.0400, L501.7300, L501.5500, L501.9520, L501.7400, L501.08652, L501.1400, L500.4050, L502.0500 #### [facility] [address] [place], [address] Sodium [Moles/Vol] 131 mmol/L Low 136-145 [facility] Comment on above: Performed By: #### L 506.0400, L501.7300, L501.5500, L501.9520, L501.7400, L501.67801, L501.1400, L500.4050, L502.0500 #### [facility] [address] [place], [address] T PROT 7.4 g/dL Normal 6.4-8.2 [facility] Comment on above: Performed By: #### L 506.0400, L501.7300, L501.5500, L501.9520, L501.7400, L501.13669, L501.1400, L500.4050, L502.0500 #### [facility] [address] [place], [address] Urea nitrogen [Mass/Vol] 22 mg/dL High 7-18 [facility] Comment on above: Performed By: #### L 506.0400, L501.7300, L501.5500, L501.9520, L501.7400, L501.00650, L501.1400, L500.4050, L502.0500 #### [facility] [address] [place], [address] Free T3on 08-01-2024 Free T3 [Mass/Vol] 2.5 pg/mL Normal 2.18-3.98 [facility] Comment on above: Performed By: #### L 506.0400, L501.7300, L501.5500, L501.9520, L501.7400, L501.22931, L501.1400, L500.4050, L502.0500 #### [facility] [address] [place], [address] Microalbumin,Random Urineon 08-01-2024 MICROALBUMIN,UR 17.8 mg/L Normal NO RANGE EST. [facility] Comment on above: Performed By: #### L 509.1000, L501.0900 #### [facility] [address] [place], [address] Osmolality, Serumon 08-01-20 24 OSMOLALITY,SER 280 mOsm/KG Normal 280-301 [facility] Comment on above: Performed By: #### L 506.0400, L501.7300, L501.5500, L501.9520, L501.7400, L501.84816, L501.1400, L500.4050, L502.0500 #### [facility] [address] [place], [address] Osmolality, Urineon 08-01-20 24 OSMOLALITY,UR 293 mOsm/KG Normal [facility] Comment on above: Result Comment: Normal Urine Reference Ranges Random: 50 - 1200 mOsm/kg H20 depending on fluid intake Random: >850 mOsm/kg after 12 hour fluid restriction 24 hour: 300 - 900 mOsm/kg H2O Performed By: #### L 506.0400, L501.7300, L501.5500, L501.9520, L501.7400, L501.05906, L501.1400, L500.4050, L502.0500 #### [facility] [address] [place], [address] T4 Free Directon 08-01-2024 T4 FREE DIRECT 0.96 ng/dL Normal 0.76-1.46 [facility] Comment on above: Performed By: #### L 506.0400, L501.7300, L501.5500, L501.9520, L501.7400, L501.15912, L501.1400, L500.4050, L502.0500 #### [facility] [address] [place], [place], [id number] Thyroid Stim Hormone (TSH)on 08-01-2024 TSH 1.740 uIU/mL Normal 0.358-3.74 0 [facility] Comment on above: Performed By: #### L 506.0400, L501.7300, L501.5500, L501.9520, L501.7400, L501.51357, L501.1400, L500.4050, L502.0500 #### [facility] [address] [place], [place], [id number] Uric Acidon 08-01-2024 URIC 4.1 mg/dL Normal 2.6-6.0 [facility] Comment on above: Result Comment: The drugs N-Acetylcysteine and Metamizole may falsely depress this assay. Performed By: #### L 506.0400, L501.7300, L501.5500, L501.9520, L501.7400, L501.20469, L501.1400, L500.4050, L502.0500 #### [facility] [address] [place], [place], [id number] Urine Sodiumon 08-01-2024 Sodium (U) [Moles/Vol] 47 mmol/L Normal Not Establ. [facility] Comment on above: Performed By: #### L 509.1000, L501.0900 #### [facility] [address] [place], [address] Basophil percentageOrdered B y: Alicia Castanon on 02-21-2024 Chloride [Moles/Vol] 106 mmol/L 98-107 [facility] Glucose [Mass/Vol] 136 mg/dL 74-106 [facility] Comment on above: Fasting Glucose resu lt greater than or equal to 126 mg/dL suggests DIABETES MELLITUS per A.D.A. criteria. Potassium [Moles/Vol] 4.3 mmol/L 3.5-5.1 [facility] Sodium [Moles/Vol] 140 mmol/L 136-145 [facility] - Chemistry and C hemistry - challengeOrdered By: Alicia Castanon on 02-21-2024 CO2 [Moles/Vol] 25.0 mmol/L 21.0-32.0 [facility] Urea nitrogen/Creatinine [Mass ratio] 15.5 mg/mg 10-20 [facility] No Panel InformationOrdered By: Alicia Castanon on 02-21-2024 Estimated GFR (MDRD) Amer 40 mL/min >60 [facility] Comment on above: GFR Calc Estimated GFR (MDRD) Non-Af Amer 33 mL/min >60 [facility] Comment on above: Non- GFR Calc Serum or plasma calcium linnea urement (mass/volume)Ordered By: Alicia Castanon on 02-21-2024 Calcium [Mass/Vol] 9.9 mg/dL 8.5-10.1 [facility] Serum or plasma creatinine m easurement (mass/volume)Ordered By: Alicia Castanon on 02-21-2024 Creatinine [Mass/Vol] 1.61 mg/dL 0.55-1.02 [facility] Comment on above: The validity of the calculated GFR & GFRAA in patients over 70 years has not been determined. Clinical correlation is essential. Serum or plasma urea nitroge n measurement (mass/volume)Ordered By: Alicia Castanon on 02-21-2024 Urea nitrogen [Mass/Vol] 25 mg/dL 7-18 [facility] Thin prep Papanicolaou smear with manual screeningOrdered By: Alicia Castanon on 02-21-2024 Thin prep Papanicolaou smear with manual screening 9 5-15 [facility] Basophil percentageOrdered B y: Alicia Castanon on 01-25-2024 Bilirubin [Mass/Vol] 0.40 mg/dL 0.20-1.00 [facility] Comment on above: For patients on eltr ombopag therapy, use of Dimension Barnard TBIL is not recommended. Chloride [Moles/Vol] 107 mmol/L 98-107 [facility] Glucose [Mass/Vol] 99 mg/dL 74-106 [facility] Potassium [Moles/Vol] 4.0 mmol/L 3.5-5.1 [facility] Protein [Mass/Vol] 7.3 g/dL 6.4-8.2 [facility] Sodium [Moles/Vol] 141 mmol/L 136-145 [facility] Laboratory - Chemistry and C hemistry - challengeOrdered By: Alicia Castanon on 01-25-2024 Albumin/Globulin [Mass ratio] 1.1 {ratio} 0.9-2.4 [facility] ALP [Catalytic activity/Vol] 88 U/L 45-117 [facility] ALT [Catalytic activity/Vol] 22 U/L 13-56 [facility] CO2 [Moles/Vol] 24.0 mmol/L 21.0-32.0 [facility] Globulin (S) [Mass/Vol] 3.4 g/dL 2.2-4.2 [facility] Urea nitrogen/Creatinine [Mass ratio] 14.0 mg/mg 10-20 [facility] No Panel InformationOrdered By: Alicia Castanon on 01-25-2024 Estimated GFR (MDRD) Amer 44 mL/min >60 [facility] Comment on above: GFR Calc Estimated GFR (MDRD) Non-Af Amer 36 mL/min >60 [facility] Comment on above: Non- GFR Calc Urine Microalbumin/Creatinin e Ratio 22.9 mg/g CRE <30 [facility] Serum or plasma calcium linnea urement (mass/volume)Ordered By: Alicia Castanon on 01-25-2024 Calcium [Mass/Vol] 9.4 mg/dL 8.5-10.1 [facility] Serum or plasma creatinine m easurement (mass/volume)Ordered By: Alicia Castanon on 01-25-2024 Creatinine [Mass/Vol] 1.50 mg/dL 0.55-1.02 [facility] Comment on above: The validity of the calculated GFR & GFRAA in patients over 70 years has not been determined. Clinical correlation is essential. Serum or plasma urea nitroge n measurement (mass/volume)Ordered By: Alicia Castanon on 01-25-2024 Urea nitrogen [Mass/Vol] 21 mg/dL 7-18 [facility] Thin prep Papanicolaou smear with manual screeningOrdered By: Alicia Castanon on 01-25-2024 Thin prep Papanicolaou smear with manual screening 3.9 g/dL 3.2-5.0 [facility] Thin prep Papanicolaou smear with manual screening 26 U/L 15-37 [facility] Thin prep Papanicolaou smear with manual screening 10 5-15 [facility] Thin prep Papanicolaou smear with manual screening 24.3 mg/L NO RANGE EST. [facility] Urine creatinine measurement (mass/volume)Ordered By: Alicia Castanon on 01-25-2024 Creatinine (U) [Mass/Vol] 106.00 mg/dL NO RANGE EST. [facility] Culture, urineOrdered By: Dr Radha Castanon on 04-03-2023 Bacteria identified Cx Nom (U) Proteus mirabilis [facility] Absolute lymphocyte countOrd ered By: Dr. Castanon on 03-31-2023 Lymphocytes Auto (Unsp spec) [#/Vol] 1.60 10*3/uL 0.83-4.51 [facility] Basophil percentageOrdered B y: Dr. Castanon on 03-31-2023 Basophils/100 WBC (Bld) 0.5 % 0-1 [facility] Bilirubin [Mass/Vol] 0.60 mg/dL 0.20-1.00 [facility] Comment on above: For patients on eltr ombopag therapy, use of Dimension [place] TBIL is not recommended. Chloride [Moles/Vol] 109 mmol/L 98-107 [facility] Cholesterol [Mass/Vol] 143 mg/dL <200 [facility] Comment on above: <200 mg/dL Desirable 200-240 mg/dL Borderline >240 mg/dL High Risk Eosinophils/100 WBC (Bld) 1.8 % 0-5 [facility] Glucose [Mass/Vol] 78 mg/dL 74-106 [facility] Neutrophils (Bld) [#/Vol] 4.2 10*3/uL 2.0-7.7 [facility] Neutrophils/100 WBC (Bld) 62.7 % 47-70 [facility] Potassium [Moles/Vol] 4.1 mmol/L 3.5-5.1 [facility] Protein [Mass/Vol] 7.5 g/dL 6.4-8.2 [facility] Sodium [Moles/Vol] 141 mmol/L 136-145 [facility] Triglyceride [Mass/Vol] 43 mg/dL <199 [facility] Comment on above: The drugs N-Acetylcy steine and Metamizole may falsely depress this assay.Serum Triglycerides Reference Interval Normal <150 mg/dL Borderline high 150 - 199 mg/dL High 200 - 499 mg/dL Very High > or = 500 mg/dL WBC (Bld) [#/Vol] 6.6 10*3/uL 4.4-11.0 [facility] Bilirubin Test strip Ql (U)O rdered By: Dr. Castanon on 03-31-2023 Bilirubin Ql (U) Negative Negative [facility] Blood erythrocytes count (nu mber/volume)Ordered By: Dr. Castanon on 03-31-2023 RBC (Bld) [#/Vol] 4.44 10*6/uL 4.2-5.4 [facility] Blood hemoglobin measurement (mass/volume)Ordered By: Dr. Castanon on 03-31-2023 Hemoglobin (Bld) [Mass/Vol] 12.9 g/dL 12.0-15.0 [facility] Blood lymphocytes/100 leukoc ytesOrdered By: Dr. Castanon on 03-31-2023 Lymphocytes/100 WBC (Bld) 24.1 % 19-41 [facility] Blood monocytes/100 leukocyt esOrdered By: Dr. Castanon on 03-31-2023 Monocytes/100 WBC (Bld) 10.6 % 0-10 [facility] Blood platelet mean volumeOr dered By: Dr. Castanon on 03-31-2023 Platelet mean volume (Bld) [Entitic vol] 10.3 fL 6.2-12.0 [facility] Determination of erythrocyte mean corpuscular volume (MCV)Ordered By: Dr. Castanon on 03-31-2023 MCV (RBC) [Entitic vol] 91.2 fL 81-99 [facility] Hematocrit Auto (Bld) [Volum e fraction]Ordered By: Dr. Castanon on 03-31-2023 Hematocrit (Bld) [Volume fraction] 40.5 % 37-47 [facility] Ketones Test strip Ql (U)Ord ered By: Dr. Castanon on 03-31-2023 Ketones Ql (U) Negative Negative [facility] Laboratory - Chemistry and C hemistry - challengeOrdered By: Dr. Castanon on 03-31-2023 ALP [Catalytic activity/Vol] 94 U/L 45-117 [facility] ALT [Catalytic activity/Vol] 27 U/L 13-56 [facility] CO2 [Moles/Vol] 27.0 mmol/L 21.0-32.0 [facility] Globulin (S) [Mass/Vol] 3.8 g/dL 2.2-4.2 [facility] Urea nitrogen/Creatinine [Mass ratio] 14.4 mg/mg 10-20 [facility] Laboratory - Hematology and Cell countsOrdered By: Dr. Castanon on 03-31-2023 Erythrocyte distribution width (RBC) [Entitic vol] 44.6 fL 35.1-43.9 [facility] Erythrocyte distribution width (RBC) [Ratio] 13.2 % 11.6-14.6 [facility] Immature granulocytes/100 WBC (Bld) 0.300 % 0.0-0.9 [facility] Comment on above: IG% - Immature Granu locytes (promyelocytes, myelocytes and metamyelocytes) > 1% indicates that a LEFT SHIFT is Present. MCH (RBC) [Entitic mass] 29.1 pg 27.0-32.0 [facility] Nucleated RBC/100 WBC (Bld) [Ratio] 0 % 0-5 [facility] ([facility]) [Mass/Vol]Or dered By: Dr. Castanon on 03-31-2023 MCHC (RBC) [Mass/Vol] 31.9 g/dL 32-36 [facility] Nitrite Test strip Ql (U)Ord ered By: Dr. Castanon on 03-31-2023 Nitrite Ql (U) Negative Negative [facility] No Panel InformationOrdered By: Dr. Castanon on 03-31-2023 Estimated GFR (MDRD) Amer 51 mL/min >60 [facility] Comment on above: GFR Calc Estimated GFR (MDRD) Non-Af Amer 42 mL/min >60 [facility] Comment on above: Non- GFR Calc Urine Microalbumin/Creatinin e Ratio 84.9 mg/g CRE <30 [facility] Platelets bldOrdered By: Dr. Castanon on 03-31-2023 Platelets (Bld) [#/Vol] 193 10*3/uL 150-450 [facility] Protein Test strip Ql (U)Ord ered By: Dr. Castanon on 03-31-2023 Protein Ql (U) 30 mg/dl Negative [facility] Serum or plasma albumin linnea urement (mass/volume)Ordered By: Dr. Castanon on 03-31-2023 Albumin [Mass/Vol] 3.7 g/dL 3.2-5.0 [facility] Serum or plasma albumin/glob ulin mass ratioOrdered By: Dr. Castanon on 03-31-2023 Albumin/Globulin [Mass ratio] 1.0 {ratio} 0.9-2.4 [facility] Serum or plasma calcium linnea urement (mass/volume)Ordered By: Dr. Castanon on 03-31-2023 Calcium [Mass/Vol] 9.6 mg/dL 8.5-10.1 [facility] Serum or plasma cholesterol in HDL measurement (mass/volume)Ordered By: Dr. Castanon on 03-31-2023 Cholesterol in HDL [Mass/Vol] 84 mg/dL >40 [facility] Comment on above: The drugs N-Acetylcy steine and Metamizole may falsely depress this assay. Reference Range HDL <40 mg/dL Low HDL Cholesterol HDL >or= 60 mg/dL High HDL Cholesterol Serum or plasma cholesterol in VLDL measurement (mass/volume)Ordered By: Dr. Castanon on 03-31-2023 Cholesterol in VLDL [Mass/Vol] 9 mg/dL 5-40 [facility] Serum or plasma creatinine m easurement (mass/volume)Ordered By: Dr. Castanon on 03-31-2023 Creatinine [Mass/Vol] 1.32 mg/dL 0.55-1.02 [facility] Comment on above: The validity of the calculated GFR & GFRAA in patients over 70 years has not been determined. Clinical correlation is essential. Serum or plasma low density lipoprotein (LDL) cholesterol measurement (mass/volume)Ordered By: Dr. Castanon on 03-31-2023 Cholesterol in LDL [Mass/Vol] 50 mg/dL 0-130 [facility] Serum or plasma urea nitroge n measurement (mass/volume)Ordered By: Dr. Castanon on 03-31-2023 Urea nitrogen [Mass/Vol] 19 mg/dL 7-18 [facility] Thin prep Papanicolaou smear with manual screeningOrdered By: Dr. Castanon on 03-31-2023 Thin prep Papanicolaou smear with manual screening 33 U/L 15-37 [facility] Thin prep Papanicolaou smear with manual screening 5 5-15 [facility] Thin prep Papanicolaou smear with manual screening 95.1 mg/L NO RANGE EST. [facility] Urine blood detectionOrdered By: Dr. Castanon on 03-31-2023 RBC Ql (U) 25 /ul Negative [facility] Urine clarityOrdered By: Dr. Castanon on 03-31-2023 Clarity (U) Cloudy Clear [facility] Urine color determinationOrd ered By: Dr. Castanon on 03-31-2023 Color (U) Yellow Yellow [facility] Urine creatinine measurement (mass/volume)Ordered By: Dr. Castanon on 03-31-2023 Creatinine (U) [Mass/Vol] 112.00 mg/dL NO RANGE EST. [facility] Urine glucose detectionOrder ed By: Dr. Castanon on 03-31-2023 Glucose Ql (U) Normal mg/dl Normal [facility] Urine leukocyte esterase det ection by dipstickOrdered By: Dr. Castanon on 03-31-2023 Leukocyte esterase Test strip Ql (U) 500 /ul Negative [facility] Urine pHOrdered By: Dr. Martha jones on 03-31-2023 pH (U) 9.0 [pH] 5.0 - 8.0 [facility] Urine specific gravity measu rementOrdered By: Dr. Castanon on 03-31-2023 Specific gravity (U) [Rel density] 1.015 1.002-1.03 0 [facility] Urobilinogen Auto test strip Ql (U)Ordered By: Dr. Castanon on 03-31-2023 Urobilinogen Ql (U) Normal mg/dl Normal [facility] Basophil percentageOrdered B y: Dr. Castanon on 01-24-2023 Bilirubin [Mass/Vol] 0.30 mg/dL 0.20-1.00 [facility] Comment on above: For patients on eltr ombopag therapy, use of Dimension [place] TBIL is not recommended. Chloride [Moles/Vol] 111 mmol/L 98-107 [facility] Glucose [Mass/Vol] 102 mg/dL 74-106 [facility] Comment on above: Fasting Glucose resu lt from 100 to 125 mg/dL suggests IMPAIRED HOMEOSTASIS per A.D.A. criteria. Potassium [Moles/Vol] 3.9 mmol/L 3.5-5.1 [facility] Protein [Mass/Vol] 7.5 g/dL 6.4-8.2 [facility] Sodium [Moles/Vol] 144 mmol/L 136-145 [facility] Laboratory - Chemistry and C hemistry - challengeOrdered By: Dr. Castanon on 01-24-2023 ALP [Catalytic activity/Vol] 90 U/L 45-117 [facility] ALT [Catalytic activity/Vol] 31 U/L 13-56 [facility] CO2 [Moles/Vol] 26.0 mmol/L 21.0-32.0 [facility] Globulin (S) [Mass/Vol] 3.7 g/dL 2.2-4.2 [facility] Urea nitrogen/Creatinine [Mass ratio] 14.3 mg/mg 10-20 [facility] No Panel InformationOrdered By: Dr. Castanon on 01-24-2023 Urine Microalbumin/Creatinin e Ratio 200.0 mg/g CRE <30 [facility] Estimated GFR (MDRD) Amer 54 mL/min >60 [facility] Comment on above: GFR Calc Estimated GFR (MDRD) Non-Af Amer 44 mL/min >60 [facility] Comment on above: Non- GFR Calc Serum or plasma albumin linnea urement (mass/volume)Ordered By: Dr. Castanon on 01-24-2023 Albumin [Mass/Vol] 3.8 g/dL 3.2-5.0 [facility] Serum or plasma albumin/glob ulin mass ratioOrdered By: Dr. Castanon on 01-24-2023 Albumin/Globulin [Mass ratio] 1.0 {ratio} 0.9-2.4 [facility] Serum or plasma calcium linnea urement (mass/volume)Ordered By: Dr. Castanon on 01-24-2023 Calcium [Mass/Vol] 9.8 mg/dL 8.5-10.1 [facility] Serum or plasma creatinine m easurement (mass/volume)Ordered By: Dr. Castanon on 01-24-2023 Creatinine [Mass/Vol] 1.26 mg/dL 0.55-1.02 [facility] Comment on above: The validity of the calculated GFR & GFRAA in patients over 70 years has not been determined. Clinical correlation is essential. Serum or plasma urea nitroge n measurement (mass/volume)Ordered By: Dr. Castanon on 01-24-2023 Urea nitrogen [Mass/Vol] 18 mg/dL 7-18 [facility] Thin prep Papanicolaou smear with manual screeningOrdered By: Dr. Castanon on 01-24-2023 Thin prep Papanicolaou smear with manual screening 234.0 mg/L NO RANGE EST. [facility] Thin prep Papanicolaou smear with manual screening 33 U/L 15-37 [facility] Thin prep Papanicolaou smear with manual screening 7 5-15 [facility] Urine creatinine measurement (mass/volume)Ordered By: Dr. Castanon on 01-24-2023 Creatinine (U) [Mass/Vol] 117.00 mg/dL NO RANGE EST. [facility] - Microbiology an d Antimicrobial susceptibilityon 11-04-2022 SARS-CoV-2 (COVID-19) RNA MARILY+probe Ql (Unsp spec) Detected [facility] No Panel Informationon 11-04 Influenza Types A,B Rapid (Clinic) Not detected [facility] Bilirubin Test strip Ql (U)O rdered By: Dr. Castanon on 10-25-2022 Bilirubin Ql (U) Negative Negative [facility] Ketones Test strip Ql (U)Ord ered By: Dr. Castanon on 10-25-2022 Ketones Ql (U) Negative Negative [facility] Nitrite Test strip Ql (U)Ord ered By: Dr. Castanon on 10-25-2022 Nitrite Ql (U) Negative Negative [facility] No Panel InformationOrdered By: Dr. Castanon on 10-25-2022 Urine Microalbumin/Creatinin e Ratio 52.4 mg/g CRE <30 [facility] Protein Test strip Ql (U)Ord ered By: Dr. Castanon on 10-25-2022 Protein Ql (U) Negative Negative [facility] Thin prep Papanicolaou smear with manual screeningOrdered By: Dr. Castanon on 10-25-2022 Thin prep Papanicolaou smear with manual screening 40.0 mg/L NO RANGE EST. [facility] Urine blood detectionOrdered By: Dr. Castanon on 10-25-2022 RBC Ql (U) Negative Negative [facility] Urine clarityOrdered By: Dr. Castanon on 10-25-2022 Clarity (U) Clear Clear [facility] Urine color determinationOrd ered By: Dr. Castanon on 10-25-2022 Color (U) Yellow Yellow [facility] Urine creatinine measurement (mass/volume)Ordered By: Dr. Castanon on 10-25-2022 Creatinine (U) [Mass/Vol] 76.30 mg/dL NO RANGE EST. [facility] Urine glucose detectionOrder ed By: Dr. Castanon on 10-25-2022 Glucose Ql (U) Normal mg/dl Normal [facility] Urine leukocyte esterase det ection by dipstickOrdered By: Dr. Castanon on 10-25-2022 Leukocyte esterase Test strip Ql (U) Negative Negative [facility] Urine pHOrdered By: Dr. Martha jones on 10-25-2022 pH (U) 6.0 [pH] 5.0 - 8.0 [facility] Urine specific gravity measu rementOrdered By: Dr. Castanon on 10-25-2022 Specific gravity (U) [Rel density] 1.015 1.002-1.03 0 [facility] Urobilinogen Auto test strip Ql (U)Ordered By: Dr. Castanon on 10-25-2022 Urobilinogen Ql (U) Normal mg/dl Normal [facility] Provider Note - ED v3on 04-0 Provider Note - ED v3 Provider Note: [...] vaccine + 1 booster. Has received the [id number] flu vaccine. CRITICAL CARE RESULTS: Recent Lab Results: POCT Urinalysis showed trace blood and 1+ leukocytes; neg nitrites. SG 1.025. VITAL SIGNS: T PRBP SpO2O2(LPM) %FiO2 Method 18-Feb-2022 16:08:[id number]/61 97 MDM MDM/ED COURSE: This note was [...] Musculoskeletal: Grossly normal; appropriate for age. Integumentary: Tab, warm, dry, and intact. No rashes or skin discoloration appreciated. Good skin turgor. Neurologic: Alert and oriented; grossly intact. Cognition and Speech: Oriented, Speech clear and coherent. Psychiatric: Cooperative, Appropriate mood & affect. MEDICAL DECISION MAKING Course: Worsening; stable. Impression/Plan: Symptoms/exam consistent with UTI, although reviewed other potential etiologies. No CVA tenderness, but has low-grade fever (more content not included)... Normal [facility] URINE CULTURE,BACTERIALon URINE CULTURE,BACTERIAL PATIENT: KRISTY LICONA LOCATION: [address]#: [id number] : 50 AGE: SEX: F ORDERED BY: PER BERGER SOURCE: URINE COLLECTED: 02/18/22 16:28 ANTIBIOTICS AT SAM.: RECEIVED : 02/19/22 00:26 SITE: Clean Catch/Voided R E S U L T S URINE CULTURE,BACTERIAL FINAL 02/19/22 18:47 NO SIGNIFICANT GROWTH. Normal [facility] Comment on above: Performed By: #### U [facility] #### [facility] [address] [address] BONE DENSITY, DEXA 1 OR MORE SITES: AXIAL SKELETONon 06-29-2021 BONE DENSITY, DEXA 1 OR MORE SITES: AXIAL SKELETON Patient Name: KRISTY LICONA STUDY: BONE DENSITY, DEXA 1 OR MORE SITES: AXIAL SKELETN; 06/29/2021 7:45 am INDICATION: POST MENOPAUSAL 2 YRS. Evaluate for osteopenia/osteoporosis, ACCESSION NUMBER(S): [id number] ORDERING CLINICIAN: REGINA QUIÑONES FINDINGS: Standard measurements [...] study. Electronically signed by: HARDIK YUNG MD [facility] DIGITAL MAMM SCREENING W/ TO Zafar 06-29-2021 DIGITAL MAMM SCREENING W/ GERONIMO Patient Name: KRISTY LICONA STUDY: DIGITAL MAMM SCREENING W/ GERONIMO; 06/29/2021 7:52 am ACCESSION NUMBER(S): [id number] ORDERING CLINICIAN: REGINA QUIÑONES INDICATION: Screening. COMPARISON: [...] any future breast imaging appointments, please call [phone] ([phone]). Electronically signed by: MIKE SOUSA MD Normal [facility] BASIC METABOLIC PANELon 06- Anion gap [Moles/Vol] 12 mmol/L Normal 10 - 20 [facility] Comment on above: Performed By: #### B MP #### [address] [address] Calcium [Mass/Vol] 9.3 mg/dL Normal 8.6 - 10.3 [facility] Comment on above: Performed By: #### B MP #### [address] [address] Chloride [Moles/Vol] 104 mmol/L Normal 98 - [address] [facility] Comment on above: Performed By: #### B MP #### [address] [address] Creatinine [Mass/Vol] 0.95 mg/dL Normal 0.50 - 1.05 [facility] Comment on above: Performed By: #### B MP #### [address] [address] GFR- AM. 70 mL/min/1.73m2 Normal >60 [facility] Comment on above: Result Comment: CALC ULATIONS OF ESTIMATED GFR ARE PERFORMED USING THE MDRD STUDY EQUATION FOR THE IDMS-TRACEABLE CREATININE METHODS. CLIN CHEM 2007;53:766-72 Performed By: #### B MP #### [address] [address] GFR-NON AM. 58 mL/min/1.73m2 Abnormal >60 [facility] Comment on above: Performed By: #### B MP #### [address] [address] Glucose [Mass/Vol] 87 mg/dL Normal 74 - 99 [facility] Comment on above: Performed By: #### B MP #### [address] [address] HCO3 (Bld) [Moles/Vol] 26 mmol/L Normal 21 - 32 [facility] Comment on above: Performed By: #### B MP #### [address] [address] Potassium [Moles/Vol] 3.9 mmol/L Normal 3.5 - 5.3 [facility] Comment on above: Performed By: #### B MP #### [address] [address] Sodium [Moles/Vol] 138 mmol/L Normal 136 - 145 [facility] Comment on above: Performed By: #### B MP #### [address] [address] Urea nitrogen [Mass/Vol] 10 mg/dL Normal 6 - 23 [facility] Comment on above: Performed By: #### B MP #### [address] [address] Discharge [id number] Discharge Profile2 Discharge Orders: Anticipated Discharge Date: Anticipated Discharge [id number] DNAR: DNAR Status: none Diet: Dietlow fat, low sodium Provider FINAL REVIEW of Orders: Final Review: Final Review of Medication Reconciliation and Orders Completedby Physician Reviewing ProviderBaldo Dorado MD at 26-Apr-2021 09:45:10 Appointments: Follow-Up Appointment 01: Physician/Dept/Serviceyour family mediator Call to Schedule in1 week CommentsPatient prefers to schedule appointment. Electronic Signatures: Baldo Arriola) (Signed 26-Apr-2021 09:45) Authored: Discharge Orders, Provider FINAL REVIEW of Orders, Appointments, Gold Form - [employer] Equipment Operator Summary Shruthi Diaz (CHECKOUT OPERATOR) (Signed 26-Apr-2021 09:46) Authored: Discharge Orders, Appointments Last Updated: 26-Apr-2021 09:46 by Shruthi Diaz (SUZIE) Normal [facility] MAGNESIUMon 04-26-2021 Magnesium [Mass/Vol] 1.84 mg/dL Normal 1.60 - 2.40 [facility] Comment on above: Performed By: #### B MP #### [address] [address] Order Reconciliationon 04-26 Order Reconciliation Page 1 [...] to discha (more content not included)... Normal [facility] PHOSPHORUSon 04-26-2021 Phosphate [Mass/Vol] 3.6 mg/dL Normal 2.5 - 4.[address] [facility] Comment on above: Result Comment: The performance characteristics of phosphorus testing in heparinized plasma have been validated by the individual laboratory site where testing is performed. Testing on heparinized plasma is not approved by the FDA; however, such approval is not necessary. Performed By: #### P HOS ####[address] [address] BASIC METABOLIC PANELon 04-14 Anion gap [Moles/Vol] 10 mmol/L Normal 10 - 20 [facility] Comment on above: Performed By: #### B MP #### [address] [place] [address] Calcium [Mass/Vol] 9.4 mg/dL Normal 8.6 - 10.3 [facility] Comment on above: Performed By: #### B MP #### [address] [address] Chloride [Moles/Vol] 107 mmol/L Normal 98 - [address] [facility] Comment on above: Performed By: #### B MP #### [address] [address] Creatinine [Mass/Vol] 0.92 mg/dL Normal 0.50 - 1.05 [facility] Comment on above: Performed By: #### B MP #### [address] [address] GFR- AM. 73 mL/min/1.73m2 Normal >60 [facility] Comment on above: Result Comment: CALC ULATIONS OF ESTIMATED GFR ARE PERFORMED USING THE MDRD STUDY EQUATION FOR THE IDMS-TRACEABLE CREATININE METHODS. CLIN CHEM 2007;53:766-72 Performed By: #### B MP #### [address] [address] GFR-NON AM. 60 mL/min/1.73m2 Abnormal >60 [facility] Comment on above: Performed By: #### B MP #### [address] [address] Glucose [Mass/Vol] 85 mg/dL Normal 74 - 99 [facility] Comment on above: Performed By: #### B MP #### [address] [address] HCO3 (Bld) [Moles/Vol] 27 mmol/L Normal 21 - 32 [facility] Comment on above: Performed By: #### B MP #### [address] [address] Potassium [Moles/Vol] 4.1 mmol/L Normal 3.5 - 5.3 [facility] Comment on above: Performed By: #### B MP #### [address] [address] Sodium [Moles/Vol] 140 mmol/L Normal 136 - 145 [facility] Comment on above: Performed By: #### B MP #### [address] [address] Urea nitrogen [Mass/Vol] 9 mg/dL Normal 6 - 23 [facility] Comment on above: Performed By: #### B MP #### [place] [id number] CBC AND DIFFERENTIALon 04-25 DIFFERENTIAL SEE MANUAL DIFF Normal [facility] Comment on above: Performed By: #### B MP #### [place] [id number] Erythrocyte distribution width (RBC) [Ratio] 13.2 % Normal 11.5 - 14.5 [facility] Comment on above: Performed By: #### B MP #### [place] [id number] Hematocrit (Bld) [Volume fraction] 30.3 % Low 36.0 - 46.0 [facility] Comment on above: Performed By: #### B MP #### [place] [id number] Hemoglobin (Bld) [Mass/Vol] 10.1 g/dL Low 12.0 - 16.0 [facility] Comment on above: Performed By: #### B MP #### [place] [id number] MCHC (RBC) [Mass/Vol] 33.4 g/dL Normal 32.0 - 36.0 [facility] Comment on above: Performed By: #### B MP #### [place] [id number] MCV (RBC) [Entitic vol] 85 fL Normal 80 - 100 [facility] Comment on above: Performed By: #### B MP #### [place] [id number] Platelets (Bld) [#/Vol] 326 10*3/uL Normal 150 - 450 [facility] Comment on above: Performed By: #### B MP #### [place] [id number] RBC 3.56 x10E12/L Low 4.00 - 5.20 [facility] Comment on above: Performed By: #### B MP #### [address] [address] [place] [address] WBC (Bld) [#/Vol] 10.0 10*3/uL Normal 4.4 - 11.3 [facility] Comment on above: Performed By: #### B MP #### [address] [place] [address] Daily Progress Note-Medicine on 04-25-2021 Daily Progress Note-Medicine Service: Medicine Subjective Data: KRISTY LICONA is a 70 year old Female who is Hospital Day # 3. No acute events overnight. Patient today reports that she is still feeling crappy and weak and tired. No subjective fever or chills. No chest pain. Appetite is good. Objective Data: Objective Information: T PRBPSpO2 [id number]/7193% Date/Time04/25 7: 7: 7: 7: 7:51 Range(36.4C [...] Updated: 25-Apr-2021 10:52 by Baldo Arriola) Normal [facility] MAGNESIUMon 04-25-2021 Magnesium [Mass/Vol] 1.85 mg/dL Normal 1.60 - 2.40 [facility] Comment on above: Performed By: #### B MP #### [address] [address] MANUAL DIFFERENTIALon 2020 % BASOPHIL 0.0 % Normal 0.0 - 2.0 [facility] Comment on above: Performed By: #### B MP #### [address] [address] % EOSINOPHIL 0.0 % Normal 0.0 - 6.0 [facility] Comment on above: Performed By: #### B MP #### [address] [address] % LYMPHOCYTE 21.0 % Normal 13.0 - 44.0 [facility] Comment on above: Performed By: #### B MP #### [address] [address] % MONOCYTE 4.0 % Normal 2.0 - 10.0 [facility] Comment on above: Performed By: #### B MP #### [address] [address] % SEG NEUTROPHIL 75.0 % Normal 40.0 - 80.0 [facility] Comment on above: Result Comment: Perc ent differential counts (%) should be interpreted in the context of the absolute cell counts (cells/L). Performed By: #### B MP #### [address] [address] ANC 7.50 x10E9/L Normal 1.20 - 7.70 [facility] Comment on above: Performed By: #### B MP #### [address] [address] BASOPHIL 0.00 x10E9/L Normal 0.00 - 0.10 [facility] Comment on above: Performed By: #### B MP #### [address] [address] EOSINOPHIL 0.00 x10E9/L Normal 0.00 - 0.70 [facility] Comment on above: Performed By: #### B MP #### [address] [address] LYMPHOCYTE 2.10 x10E9/L Normal 1.20 - 4.80 [facility] Comment on above: Performed By: #### B MP #### [address] [address] MONOCYTE 0.40 x10E9/L Normal 0.10 - 1.00 [facility] Comment on above: Performed By: #### B MP #### [address] [address] SEG NEUTROPHIL 7.50 x10E9/L High 1.20 - 7.00 [facility] Comment on above: Performed By: #### B MP #### [address] [address] PHOSPHORUSon 04-25-2021 Phosphate [Mass/Vol] 2.1 mg/dL Low 2.5 - 4.[address] [facility] Comment on above: Result Comment: The performance characteristics of phosphorus testing in heparinized plasma have been validated by the individual laboratory site where testing is performed. Testing on heparinized plasma is not approved by the FDA; however, such approval is not necessary. Performed By: #### B MP #### [address] [address] RED CELL MORPHOLOGYon 2020 RBC morphology finding Nom (Bld) NORMAL Normal [facility] Comment on above: Performed By: #### B MP #### [address] [address] Admission Risk Screen - Adul ton 04-24-2021 Admission Risk Screen - Adult Allergies: Allergies: penicillin: Hives/Urticaria sulfa drugs: Hives/Urticaria Intolerances: Doxycycline Hyclate: Nausea/Vomiting levofloxacin: Nausea/Vomiting Patient Verification: New W ID Band Applied in my Departmentno Type of ID Patient is WearingW wristband, but not applied here Patient Transferred from Other Facility ([facility], [facility],etc)no Patient Identity Verified Bypatient ID Band FULL [...] AlertFor Ebola-like Symptoms: Isolate Patient and Notify Provider/Biochemical Development Engineer For Contact: Notify Provider/Biochemical Development Engineer Advance Directive: Advance Directive/DNRyes Advance Directive typeLiving Will Living Will AvailabilityLiving Will not available now Living Will [id number] Advanced Directive CommentPt states she thinks it [...] Learning Preferencesindividual instruction Cultural Considerationsnone Developmental Considerationsnone Alevism Considerationsnone Learning Assessment (Other Learner): Other learner availableno Depression Screen: During the past month, have you often been bothered by feeling down, depressed or hopelessno During the past month, have you often had little interest or pleasure in doing thingsno Have you had any thoughts of harming anyone elseno (1) [place] Suicide: Risk Screen Not Applicable/Able to Answerable to be screened In the Past Month: Have you wished you were or could go to sleep and not wake upno(1) In the Past Month: Have you had any actual thoughts of killing yourself no(1) Lifetime: Have you ever done, started to do, or prepared to do anything to end your lifeno [place] Suicide Risknegative Adult Nutrition Screen: Have you [...] Paper Dishes/Plasti (more content not included)... Normal [facility] BASIC METABOLIC PANELon 04-14 Anion gap [Moles/Vol] 11 mmol/L Normal 10 - 20 [facility] Comment on above: Performed By: #### B MP #### [address] [address] Calcium [Mass/Vol] 8.8 mg/dL Normal 8.6 - 10.3 [facility] Comment on above: Performed By: #### B MP #### [address] [address] Chloride [Moles/Vol] 104 mmol/L Normal 98 - [address] [facility] Comment on above: Performed By: #### B MP #### [address] [address] Creatinine [Mass/Vol] 0.81 mg/dL Normal 0.50 - 1.05 [facility] Comment on above: Performed By: #### B MP #### [address] [address] GFR- AM. >60 Normal >60 [facility] Comment on above: Result Comment: CALC ULATIONS OF ESTIMATED GFR ARE PERFORMED USING THE MDRD STUDY EQUATION FOR THE IDMS-TRACEABLE CREATININE METHODS. CLIN CHEM 2007;53:766-72 Performed By: #### B MP #### [address] [address] GFR-NON AM. >60 Normal >60 [facility] Comment on above: Performed By: #### B MP #### [address] [address] Glucose [Mass/Vol] 95 mg/dL Normal 74 - 99 [facility] Comment on above: Performed By: #### B MP #### [address] [address] HCO3 (Bld) [Moles/Vol] 26 mmol/L Normal 21 - 32 [facility] Comment on above: Performed By: #### B MP #### [place] [address] Potassium [Moles/Vol] 3.2 mmol/L Low 3.5 - 5.3 [facility] Comment on above: Performed By: #### B MP #### [address] [address] Sodium [Moles/Vol] 138 mmol/L Normal 136 - 145 [facility] Comment on above: Performed By: #### B MP #### [address] [address] Urea nitrogen [Mass/Vol] 11 mg/dL Normal 6 - 23 [facility] Comment on above: Performed By: #### B MP #### [address] [address] CBC AND DIFFERENTIALon 04-24 Basophils (Bld) [#/Vol] 0.00 10*3/uL Normal 0.00 - 0.10 [facility] Comment on above: Performed By: #### C BCDF #### [address] [address] Basophils/100 WBC (Bld) 0.2 % Normal 0.0 - 2.0 [facility] Comment on above: Performed By: #### C BCDF #### [address] [address] Eosinophils (Bld) [#/Vol] 0.10 10*3/uL Normal 0.00 - 0.70 [facility] Comment on above: Performed By: #### C BCDF #### [address] [address] Eosinophils/100 WBC (Bld) 0.6 % Normal 0.0 - 6.0 [facility] Comment on above: Performed By: #### C BCDF #### [address] [address] Erythrocyte distribution width (RBC) [Ratio] 13.0 % Normal 11.5 - 14.5 [facility] Comment on above: Performed By: #### C BCDF #### [address] [address] Hematocrit (Bld) [Volume fraction] 29.0 % Low 36.0 - 46.0 [facility] Comment on above: Performed By: #### C BCDF #### [address] [address] Hemoglobin (Bld) [Mass/Vol] 9.8 g/dL Low 12.0 - 16.0 [facility] Comment on above: Performed By: #### C BCDF #### [address] [address] Lymphocytes (Bld) [#/Vol] 1.90 10*3/uL Normal 1.20 - 4.80 [facility] Comment on above: Performed By: #### C BCDF #### [address] [address] Lymphocytes/100 WBC (Bld) 17.4 % Normal 13.0 - 44.0 [facility] Comment on above: Performed By: #### C BCDF #### [address] [address] MCHC (RBC) [Mass/Vol] 33.8 g/dL Normal 32.0 - 36.0 [facility] Comment on above: Performed By: #### C BCDF #### [address] [address] MCV (RBC) [Entitic vol] 84 fL Normal 80 - 100 [facility] Comment on above: Performed By: #### C BCDF #### [address] [address] Monocytes (Bld) [#/Vol] 1.10 10*3/uL High 0.10 - 1.00 [facility] Comment on above: Performed By: #### C BCDF #### [address] [address] Monocytes/100 WBC (Bld) 9.7 % Normal 2.0 - 10.0 [facility] Comment on above: Performed By: #### C BCDF #### [address] [address] Neutrophils (Bld) [#/Vol] 7.90 10*3/uL High 1.20 - 7.70 [facility] Comment on above: Result Comment: Perc ent differential counts (%) should be interpreted in the context of the absolute cell counts (cells/L). Performed By: #### C BCDF #### [address] [address] Neutrophils/100 WBC (Bld) 72.1 % Normal 40.0 - 80.0 [facility] Comment on above: Performed By: #### C BCDF #### [address] [address] Platelets (Bld) [#/Vol] 307 10*3/uL Normal 150 - 450 [facility] Comment on above: Performed By: #### C BCDF #### [address] [address] RBC 3.45 x10E12/L Low 4.00 - 5.20 [facility] Comment on above: Performed By: #### C BCDF #### [address] [address] WBC (Bld) [#/Vol] 11.0 10*3/uL Normal 4.4 - 11.3 [facility] Comment on above: Performed By: #### C BCDF #### [facility] [address] [place] [address] CORONAVIRUS 2019 BY PCRon SARS-CoV-2 (COVID-19) RNA MARILY+probe Ql (Unsp spec) Not detected Normal Not Detected [facility] Comment on above: Result Comment: . This assay is designed to detect the ORF1ab and/or S genes of SARS-CoV-2 via nucleic acid amplification. A Not Detected result does not preclude 2019-nCoV infection since the adequacy of sample collection and/or low viral burden may result in presence of viral nucleic acids below the clinical sensitivity of this test method. Fact sheet for providers: www.fda.gov/media/401350/download Fact sheet for patients: www.fda.gov/media/799517/download This test has received FDA Emergency Use Authorization (EUA) and has been verified by [facility] ([facility]). This test is only authorized for the duration of time that circumstances exist to justify the authorization of the emergency use of in vitro diagnostic tests for the detection of SARS-CoV-2 virus and/or diagnosis of COVID-19 infection under section 564(b)(1) of the Act, 21 U.S.C. 360bbb-3(b)(1), unless the authorization is terminated or revoked sooner. [facility] is certified under CLIA-88 as qualified to perform high complexity testing. Testing is performed in the [facility] laboratories located at [address] [place] [address]. Performed By: #### C OV19 #### [address] [place] [address] Covid 19 Resultson SARS-CoV-2 (COVID-19) RNA MARILY+probe [...] [facility] [place] [facility] to see if any of your [...] or Naproxen (Aleve) can also be used. Oesx-yuu-zpfuoto cough and cold medicines can be used according to the instructions on the package. Some vaiv-fzv-fysczgr medicines also contain acetaminophen. Make sure you [...] water are not available, use alcohol-based hand associate professor of law. Avoid touching your eyes, nose, and mouth [...] 24 gaurav (more content not included)... Normal [facility] Discharge Planning [id number] 0 04-24-2021 Discharge Planning Note2 Discharge Planning: Planned Dispositionhome Discharge DestinationHome [facility] 20[facility] Patient/Principal Associate Stated GoalHome Anticipated Discharge [id number] Discharge Planning 04/26/2021 @1030- Pt A+Ox4. VS [...] No needs at this time. 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 JULIANNA Haro Primary Contact Name and NumberJian Licona, Stated Reason for Admissionno energy for 8 days, decided to go to urgent care(1) Arrived [place] (1) Readmission Within the Last 30 Daysno previous admission in last 30 days PCPHellinger PCP Last Date Seenapprox 1 week ago [facility] Medication Adherence/Afford/Obtainyes InsuranceMedicare, Other Lives Withspouse(1) Living Arrangementshouse(1) Prior Level of FunctioningIndependent Resource/Environmental Concernsnone(1) Anticipated Transition [place](1) Services Anticipated at Transitionnone(1) Anticipated Changes Related to Illnessnone Equipment Needed After Dischargenone Anticipated Discharge Facility/Level of Care NeedsHome Discharge Planning Comments04/24/21 @ 311pm Care Transitions; recycling worker reviewed chart and met with pt to complete the assessment. Pt is alert and oriented, pleasant and cooperative and she was educated to the social professionals's roles in the discharge planning process. Prior [...] if needed. JULIANNA Andujar Discharge Documentation: Discharge/Transfer Date/Fipv07-Skf-8024 11:35 Discharge Modewheelchair Discharged Accompanied Byspouse Transportation Methodprivate car Final DispositionHome Electronic Signatures: Jasmina Millan (SATIN FINISHER-S) (Signed 24-Apr-2021 15:16) Authored: Discharge Planning, Assessment Judi Ch (RN) (Signed 26-Apr-2021 11:37) Authored: Discharge Planning, Discharge Documentation Clemencia Landaverde (RN) (Signed 24-Apr-2021 01:09) Authored: Assessment Last Updated: 26-Apr-2021 11:37 by Judi Ch (RN) References: 1. Data Referenced From Patient Profile - Adult v2 24-Apr-2021 00:29 Normal [facility] EMR ADDONon 04-24-2021 ADDON CONFIRMATION REQUEST REC'D Normal [facility] Comment on above: Performed By: #### E MRAD #### [address] [address] MAGNESIUMon 04-24-2021 Magnesium [Mass/Vol] 1.95 mg/dL Normal 1.60 - 2.40 [facility] Comment on above: Performed By: #### M G #### [place] [id number] Nutrition Therapy-Assessment on 04-24-2021 Nutrition Therapy-Assessment Assessment Subjective/Objective: Note Type: Assessment Note Authored by: Registered Dietitian Territory Representative Pager Number: Doc Halo Nutrition Note: The [...] bladder suspension procedure: Objective Information: T PRBPSpO2 [id number]/7195% Date/Time04/24 8: 8: 8: 8: 8:02 Range(36.8C [...] Change in Oral Intake/Appetite: decrease 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 Normal [facility] Order Reconciliationon 04-24 Order Reconciliation Page [...] As Needed for wheezing or shortness of [id number] Reviewed and Held amLODIPine 10 mg oral tablet 1 tab(s) orally once a [id number] 9:00 AM amLODIPine (NORVASC) TabletDOSE = 10 mg Oral DailyamLODIPine 10 mg oral tablet continued as the inpatient order amLODIPine (NORVASC) atorvastatin 10 mg oral tablet 1 tab(s) orally once a [id number]-Apr-2021 Atorvastatin Tablet (LIPITOR)DOSE = 10 mg Oral Daily atorvastatin 10 mg oral tablet continued as the inpatient order Atorvastatin fluticasone 50 mcg/inh nasal spray 1 spray(s) nasal once a [id number]-Apr-2021 9:00 AM Reviewed and Held metoprolol tartrate 25 mg oral tablet 1 tab(s) orally once a [id number]-Apr-2021 AM Metoprolol Tartrate Tablet (LOPRESSOR)DOSE = 25 mg Oral 2 Times a Daymetoprolol tartrate 25 mg oral tablet continued as the inpatient order Metoprolol Tartrate montelukast 10 mg oral tablet 1 tab(s) orally once a [id number]-Apr-2021 9:00 AM Montelukast Tablet (SINGULAIR)DOSE = 10 mg Oral At Bedtimemontelukast 10 mg oral tablet continued as the inpatient order Montelukast pantoprazole 40 mg oral delayed release tablet 1 tab(s) orally once a day Pantoprazole Enteric Coated Tablet (PROTONIX)DOSE = 40 mg Oral Dailypantoprazole 40 mg oral delayed release tablet continued as the inpatient order Pantoprazole Zithromax Z-Arsh 250 mg oral tablet 2 tab(s) by mouth at once on day 1, then 1 tablet once a day on days [id number] 2:00 PM Reviewed and Held Additional Current Orders Pneumococcal 23-Valent (PNEUMOVAX) Vaccine DOSE = 0.5 mL IntraMuscular OnceClinician Notes: :: Must be given prior to discharge. Order entered from Admission Screen. [facility] Patient Profile - Adult v2on 04-24-2021 Patient Profile - Adult v2 Profile: Initial Info: How to be AddressedDeb(1) Spoken Language PreferredEnglish (1) Stated Reason for Admissionno energy for 8 days, decided to go to urgent care Primary Contact Name and NumberJian Licona Other Contact Names and [phone] Patient Belongingsremains with patient Patient Belongings Remaining with Patientmedication(s); vision aids; jewelry; clothing; cell phone/electronics Arrived [place] Medications Brought to Hospitalyes Medication Dispositionbedside Are you currently using the Personal Electronic Health Record or Managed Objectsno (1) Wants Family/Rep Notified of Admissionn/a; family present Notify PCPnotify PCP Informed of Patient Visiting [facility] General Health: Weight in kg64.9 kilogram(s) Weight in wix373 pound(s) Weight Methodactual (measured) Scale Typebed Height [...] Arrangementshouse Services Anticipated at Transitionnone Anticipated Transition Tohome Significant IndicatorsComplete Information Review: Allergies, Home Meds and Significant Events have been Reviewed and Verified with Patient/Familyyes ALLERGY, INTOLERANCE, ADVERSE EVENT: Allergies: penicillin: Drug, Hives/Urticaria, Active sulfa drugs: Drug Category, Hives/Urticaria, Active Intolerances: Doxycycline Hyclate: Drug, Nausea/Vomiting, Active levofloxacin: Drug, Nausea/Vomiting, Active Electronic Signatures: Clemencia Landaverde (RN) (Signed 24-Apr-2021 00:41) Authored: Initial Info, General Health, [facility] Based Care, Substance, Health Mgmt, Relationship/Environ, Additional Information Last Updated: 24-Apr-2021 00:41 by Clemencia Landaverde (RN) References: 1. Data Referenced From Patient Profile - Procedure-H and P 04-Nov-2020 10:02 2. Data Referenced From 1. Vital Signs 23-Apr-2021 20:01 [facility] STAPH/MRSA SCREENon 04-24-20 21 STAPH/MRSA SCREEN PATIENT: COLUMBA LICONA LOCATION: [address] BILL#: [id number] : 50 AGE: SEX: F ORDERED BY: BALDO ARRIOLA SOURCE: ANTERIOR NARES COLLECTED: 04/24/21 06:43 ANTIBIOTICS AT SAM.: RECEIVED : 04/24/21 10:52 SITE: nares R E S U L T S STAPH/MRSA SCREEN FINAL 04/26/21 08:30 NO Staphylococcus aureus ISOLATED. [facility] Comment on above: Performed By: #### B MP #### [place] [id number] BLOOD CULTURE, BACTERIALon 0 04-23-2021 BLOOD CULTURE, BACTERIAL PATIENT: KRISTY LICONA LOCATION: [address] BILL#: [id number] : 50 AGE: SEX: F ORDERED BY: KACI HAZEL SOURCE: Blood COLLECTED: 04/23/21 21:22 ANTIBIOTICS AT SAM.: RECEIVED : 04/24/21 10:10 SITE: R E S U L T S BLOOD CULTURE, BACTERIAL FINAL 04/29/21 11:42 No Growth at 1 days No Growth at 2 days No Growth at 3 days No Growth at 4 days NO GROWTH - FINAL REPORT Normal [facility] Comment on above: Performed By: #### B LDC #### [facility] [address] [place] [address] BLOOD CULTURE, BACTERIAL PATIENT: KRISTY LICONA LOCATION: [address]#: [id number] : 50 AGE: SEX: F ORDERED BY: KACI HAZEL SOURCE: Blood COLLECTED: 04/23/21 20:46 ANTIBIOTICS AT SAM.: RECEIVED : 04/24/21 10:12 SITE: PERIPHERAL R E S U L T S BLOOD CULTURE, BACTERIAL FINAL 04/29/21 11:42 No Growth at 1 days No Growth at 2 days No Growth at 3 days No Growth at 4 days NO GROWTH - FINAL REPORT Normal [facility] Comment on above: Performed By: #### B LDC ####[id number] [place] [address] CBC AND DIFFERENTIALon 04-23 Basophils (Bld) [#/Vol] 0.00 10*3/uL Normal 0.00 - 0.10 [facility] Comment on above: Performed By: #### C BCDF ####[address] [address] Basophils/100 WBC (Bld) 0.2 % Normal 0.0 - 2.0 [facility] Comment on above: Performed By: #### C BCDF ####[address] [address] Eosinophils (Bld) [#/Vol] 0.00 10*3/uL Normal 0.00 - 0.70 [facility] Comment on above: Performed By: #### C BCDF ####[address] [address] Eosinophils/100 WBC (Bld) 0.2 % Normal 0.0 - 6.0 [facility] Comment on above: Performed By: #### C BCDF ####[address] [address] Erythrocyte distribution width (RBC) [Ratio] 13.0 % Normal 11.5 - 14.5 [facility] Comment on above: Performed By: #### C BCDF ####[address] [address] Hematocrit (Bld) [Volume fraction] 36.2 % Normal 36.0 - 46.0 [facility] Comment on above: Performed By: #### C BCDF ####[address] [address] Hemoglobin (Bld) [Mass/Vol] 11.8 g/dL Low 12.0 - 16.0 [facility] Comment on above: Performed By: #### C BCDF ####[place] [id number] Lymphocytes (Bld) [#/Vol] 2.30 10*3/uL Normal 1.20 - 4.80 [facility] Comment on above: Performed By: #### C BCDF ####[address] [address] Lymphocytes/100 WBC (Bld) 16.4 % Normal 13.0 - 44.0 [facility] Comment on above: Performed By: #### C BCDF ####[address] [address] MCHC (RBC) [Mass/Vol] 32.5 g/dL Normal 32.0 - 36.0 [facility] Comment on above: Performed By: #### C BCDF ####[address] [address] MCV (RBC) [Entitic vol] 85 fL Normal 80 - 100 [facility] Comment on above: Performed By: #### C BCDF ####[address] [address] Monocytes (Bld) [#/Vol] 1.10 10*3/uL High 0.10 - 1.00 [facility] Comment on above: Performed By: #### C BCDF ####[address] [address] Monocytes/100 WBC (Bld) 7.7 % Normal 2.0 - 10.0 [facility] Comment on above: Performed By: #### C BCDF ####[address] [address] Neutrophils (Bld) [#/Vol] 10.50 10*3/uL High 1.20 - 7.70 [facility] Comment on above: Result Comment: Perc ent differential counts (%) should be interpreted in the context of the absolute cell counts (cells/L). Performed By: #### C BCDF ####[address] [address] Neutrophils/100 WBC (Bld) 75.5 % Normal 40.0 - 80.0 [facility] Comment on above: Performed By: #### C BCDF ####[address] [address] Platelets (Bld) [#/Vol] 367 10*3/uL Normal 150 - 450 [facility] Comment on above: Performed By: #### C BCDF ####[address] [address] RBC 4.25 x10E12/L Normal 4.00 - 5.20 [facility] Comment on above: Performed By: #### C BCDF ####[address] [address] WBC (Bld) [#/Vol] 14.0 10*3/uL High 4.4 - 11.3 [facility] Comment on above: Performed By: #### C BCDF ####[address] [address] CHEST 2 VIEW PA AND LATon CHEST 2 VIEW PA AND LAT Patient Name: KRISTY LICONA STUDY: CHEST 2 VIEW PA AND LAT; 04/23/2021 10:41 am INDICATION: persistent cough, fatigue, body aches x 3.5 weeks. COMPARISON: None. ACCESSION NUMBER(S): [id number] ORDERING CLINICIAN: PER BERGER FINDINGS: PA and [...] Electronically signed by: HARDIK YUNG MD Normal [facility] COMPREHENSIVE PANELon 2020 Anion gap [Moles/Vol] 13 mmol/L Normal 10 - 20 [facility] Comment on above: Order Comment: Potleti sium Called- RB to Cece Ramírez, 04/23/2021 17:39 Performed By: #### C MP ####[place] [id number] Potassium [Moles/Vol] 2.9 mmol/L Critically low 3.5 - 5.3 [facility] Comment on above: Order Comment: Potas sium Called- RB to Cece Ramírez, 04/23/2021 17:39 Result Comment: Pota ssium Called- RB to Cece Ramírez, 04/23/2021 17:39 Performed By: #### C MP ####[address] [address] Albumin [Mass/Vol] 3.6 g/dL Normal 3.4 - 5.0 [facility] Comment on above: Order Comment: Potas sium Called- RB to Cece Ramírez, 04/23/2021 17:39 Performed By: #### C MP ####[address] [address] ALP [Catalytic activity/Vol] 128 U/L Normal 33 - 136 [facility] Comment on above: Order Comment: Potas sium Called- RB to Cece Ramírez, 04/23/2021 17:39 Performed By: #### C MP ####[address] [address] ALT [Catalytic activity/Vol] 17 U/L Normal 7 - 45 [facility] Comment on above: Order Comment: Potas sium Called- RB to Cece Ritz, 04/23/2021 17:39 Result Comment: Khadijah ents treated with Sulfasalazine may generate falsely decreased results for ALT. Performed By: #### C MP ####[place] [address] AST [Catalytic activity/Vol] 21 U/L Normal 9 - 39 [facility] Comment on above: Order Comment: Potas sium Called- RB to Cece Ritz, 04/23/2021 17:39 Performed By: #### C MP ####[place] [address] Bilirubin [Mass/Vol] 0.6 mg/dL Normal 0.0 - 1.[address] [facility] Comment on above: Order Comment: Potas sium Called- RB to Cece Ritz, 04/23/2021 17:39 Performed By: #### C MP ####[place] [address] Calcium [Mass/Vol] 9.9 mg/dL Normal 8.6 - 10.3 [facility] Comment on above: Order Comment: Potas sium Called- RB to Cece Ritz, 04/23/2021 17:39 Performed By: #### C MP ####[place] [address] Chloride [Moles/Vol] 98 mmol/L Normal 98 - [address] [facility] Comment on above: Order Comment: Potas sium Called- RB to Cece Ritz, 04/23/2021 17:39 Performed By: #### C MP ####[place] [id number] Creatinine [Mass/Vol] 1.00 mg/dL Normal 0.50 - 1.05 [facility] Comment on above: Order Comment: Potas sium Called- RB to Cece Ritz, 04/23/2021 17:39 Performed By: #### C MP ####[place] [address] GFR- AM. 67 mL/min/1.73m2 Normal >60 [facility] Comment on above: Order Comment: William begumum Called- RB to Cece Ramírez, 04/23/2021 17:39 Result Comment: CALC ULATIONS OF ESTIMATED GFR ARE PERFORMED USING THE MDRD STUDY EQUATION FOR THE IDMS-TRACEABLE CREATININE METHODS. CLIN CHEM 2007;53:766-72 Performed By: #### C MP ####[place] [id number] GFR-NON AM. 55 mL/min/1.73m2 Abnormal >60 [facility] Comment on above: Order Comment: Potleti sium Called- RB to Cece Jean Baptistez, 04/23/2021 17:39 Performed By: #### C MP ####[place] [id number] Glucose [Mass/Vol] 134 mg/dL High 74 - 99 [facility] Comment on above: Order Comment: Potas sium Called- RB to Cece Ramírez, 04/23/2021 17:39 Performed By: #### C MP ####[address] [address] HCO3 (Bld) [Moles/Vol] 30 mmol/L Normal 21 - 32 [facility] Comment on above: Order Comment: Potas sium Called- RB to Cecejasen Jean Baptistez, 04/23/2021 17:39 Performed By: #### C MP ####[address] [address] Protein [Mass/Vol] 7.3 g/dL Normal 6.4 - 8.2 [facility] Comment on above: Order Comment: Potas sium Called- RB to Cece Ritz, 04/23/2021 17:39 Performed By: #### C MP ####[address] [address] Sodium [Moles/Vol] 138 mmol/L Normal 136 - 145 [facility] Comment on above: Order Comment: Potas sium Called- RB to Cece Ritz, 04/23/2021 17:39 Performed By: #### C MP ####[place] [address] Urea nitrogen [Mass/Vol] 14 mg/dL Normal 6 - 23 [facility] Comment on above: Order Comment: William simon Called- RB to Cece Ramírez, 04/23/2021 17:39 Performed By: #### C MP ####[place] [address] CORONAVIRUS 2019 BY PCRon SARS-CoV-2 (COVID-19) RNA MARILY+probe Ql (Unsp spec) Not detected Normal Not Detected [facility] Comment on above: Result Comment: . This test has received [facility] Emergency Use Authorization (EUA) and has been verified by [facility]. This test is only authorized for the duration of time that circumstances exist to justify the authorization of the emergency use of in vitro diagnostic tests for the detection of SARS-CoV-2 virus and/or diagnosis of COVID-19 infection under section 564(b)(1) of the Act, 21 U.S.C. 360bbb-3(b)(1), unless the authorization is terminated or revoked sooner. [facility] is certified under CLIA-88 as qualified to perform high complexity testing. Testing is performed in the [facility] laboratory located at [address] [place] [address]. SARS-CoV-2/Flu/RSV Multiplex Test: Fact sheet for providers: https://www.fda.gov/media/482465/download Fact sheet for patients: https://www.fda.gov/media/708716/download Performed By: #### C OV19 ####[place] [address] Lab Specimen Source Nasal, Nasopharyngeal Normal [facility] Comment on above: Performed By: #### C OV19 ####[place] [address] DATE OF SYMPTOM ONSET [YYYYMMDD]? [id number] Normal [facility] Comment on above: Performed By: #### C OV19 ####[place] [address] DATE OF SYMPTOM ONSET [YYYYMMDD]? [id number] Normal [facility] Comment on above: Performed By: #### C OV19 #### [facility] [address] [place] [address] Lab Specimen Source Nasal, Nasopharyngeal Normal [facility] Comment on above: Performed By: #### C OV19 #### [facility] [address] [place] [address] CT CHEST W CONTRASTon 2020 CT CHEST W CONTRAST STUDY: CT Chest with IV Contrast; 04/23/2021 at 6:53 p.m. INDICATION: Shortness of breath. Cough. Fatigue. Additional History: Hypertension. Appendectomy. COMPARISON: None Available. ACCESSION NUMBER(S): [id number] ORDERING CLINICIAN: KACI HAZEL PA-C TECHNIQUE: CT [...] MD Electronically signed by: VAUGHN MARTINEZ MD [facility] Covid 19 Resultson 1 SARS-CoV-2 (COVID-19) RNA [...] [facility] to see if any of your close [...] or Naproxen (Aleve) can also be used. Xgjj-ujw-cjbrkwo cough and cold medicines can be used according to the instructions on the package. Some imwq-eqp-tkryzpp medicines also contain acetaminophen. Make sure you [...] water are not available, use alcohol-based hand associate professor of law. Avoid touching your eyes, nose, and mouth [...] 24 gaurav (more content not included)... Normal [facility] LACTATEon 04-23-2021 Lactate [Moles/Vol] 1.1 mmol/L Normal 0.4 - 2.0 [facility] Comment on above: Result Comment: Lou puncture immediately after or during the administration of Metamizole may lead to falsely low results. Testing should be performed immediately prior to Metamizole dosing. Performed By: #### L ACT ####[place] [address] Provider Note - ED v2on 04-14 Provider [...] breath. He states that she went to [facility] urgent care today and was told that [...] made to minimize errors. 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 Please call if questions.. HISTORY OF PRESENTING ILLNESS KRISTY is a 70 year old Female and was seen by me at 23-Apr-2021 19:02 for a chief complaint of other (Seen at [facility] and diagnosed with Pneumonia which she go [...] Drug Nam (more content not included)... Normal [facility] Provider Note - ED v2 Provider [...] YUNG CHRISTOPHER, MD 04/23/21 10:55 Facility: [facility] Patient Name: KRISTY LICONA STUDY: CHEST 2 VIEW PA AND LAT; 04/23/2021 10:41 am INDICATION: persistent cough, fatigue, body aches x 3.5 weeks. COMPARISON: None. ACCESSION NUMBER(S): [id number] ORDERING CLINICIAN: PER BERGER FINDINGS: PA and [...] SIGNS: T PRBP SpO2O2(LPM) %FiO2 Method 23-Apr-2021 09:41:[id number] MEDICAL DECISION MAKING/ED COURSE MDM/ED COURSE: [...] was last nigh (more content not included)... [facility] Risk Screen - Adult Emergenc yon 04-23-2021 Risk Screen - Adult Emergency Preferred Language: Preferred Language: Preferred Language for Discussing Health Care (patient/designee)Lithuanian Advanced Directives: Advance Directive/DNRno Family Violence Adult: Abuse Screen: Are you or have you been threatened or abused physically, emotionally, or sexually by anyoneno Learning Assessment (Patient): Learning Assessment (Patient): Patient is Able to be Assessed for Learningyes Factors Influencing Readiness to Learnpain Factors that Impact Ability to Learnnone Devices/Methods Used to Communicatenone Learning Preferenceswritten material Cultural Considerationsnone Developmental Considerationsnone Alevism Considerationsnone Other Learnersnone Learning Assessment (Other Learner): Learning Assessment (Other Learner): Other learner availableno Pressure Injury/TB/Substance: Pressure Injury: Pressure Injury Present on Admissionno Do you have a coughno Substance Use Current or Former Historynever: Cigarette/Tobacco, e-Cigarette/Vaping, Alcohol, Street Drugs Admission Risk Screen: Significant IndicatorsComplete CAGE: CAGE: Is this an injured patient at a Trauma Center ([facility]/[place]): no Electronic Signatures: Kalpana Kebede (SUPV) (Signed 23-Apr-2021 20:10) Authored: Preferred Language, Advanced Directives, Family Violence Adult, Learning Assessment (Patient), Learning Assessment (Other Learner), Pressure Injury/TB/Substance, Pressure Injury, CAGE Last Updated: 23-Apr-2021 20:10 by Kalpana Kebede (SUPV) [facility] Triage - EDon 04-23-2021 Triage - ED Quick Triage: The patient and/or guardian verbally acknowledges placement for services into the following (when Urgent Care Service hours are operating):emergency department Chart Review: ARRIVAL INFORMATION Mode of Arrival: private vehicle CHIEF COMPLAINT KRISTY LICONA is a Female patient with a chief complaint of other (Seen at [facility] and diagnosed with Pneumonia which she go [...] BMI (kg/m2): 25.839 Calculated BSA (m2) 1.63 Fei Coma Scale: Best Eye Response: (E4) spontaneous Best Motor Response: (M6) obeys commands Cough lasting greater than 3 weeks: no Patient immunocompromised related to: N/A 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 Patient has homicidal thoughts: no [...] 23-Apr-2021 20:08 by Kalpana Kebede (SUPV) Normal [facility] URINALYSIS WITH CULTURE IF I NDICATEDon 04-23-2021 Appearance (U) CLEAR Normal CLEAR [facility] Comment on above: Performed By: #### U ARFX #### [address] [address] Bilirubin Ql (U) Negative Normal NEGATIVE [facility] Comment on above: Performed By: #### U ARFX #### [place] [id number] Color (U) Straw Normal STRAW,YELL OW [facility] Comment on above: Performed By: #### U ARFX #### [address] [address] Glucose Ql (U) Negative Normal NEGATIVE [facility] Comment on above: Performed By: #### U ARFX #### [address] [address] Hemoglobin Ql (U) Negative Normal NEGATIVE [facility] Comment on above: Performed By: #### U ARFX #### [address] [address] Ketones Ql (U) Negative Normal NEGATIVE [facility] Comment on above: Performed By: #### U ARFX #### [address] [address] Leukocyte esterase Test strip Ql (U) Negative Normal NEGATIVE [facility] Comment on above: Performed By: #### U ARFX #### [address] [address] Nitrite Ql (U) Negative Normal NEGATIVE [facility] Comment on above: Performed By: #### U ARFX #### [address] [place] [address] pH (U) 6.0 [pH] Normal 5.0 - 8.0 [facility] Comment on above: Performed By: #### U ARFX #### [address] [address] Protein Ql (U) Negative Normal NEGATIVE [facility] Comment on above: Performed By: #### U ARFX #### [address] [address] Specific gravity (U) [Rel density] 1.004 Low 1.005 - 1.035 [facility] Comment on above: Performed By: #### U ARFX #### [address] [address] Urobilinogen (U) [Mass/Vol] mg/dL Normal 0.0 - 1.9 [facility] Comment on above: Performed By: #### U ARFX #### [address] [address] [place] Mamm Diag w/CAD if perfor med [...] months FINAL REPORT Dictated: 02/22/2018 6:22 pm Ivonne ABEL, Mike KSigned (Electronic Signature): 02/22/2018 6:22 pmSigned by: Mike Sousa MD Technologist: Sunitaessment: BI-RADS Category 2-Benign findingRecommendation: Normal interval follow-up Normal [facility] [place] Mamm Screen w/CAD if perf ormed [...] REPORT Dictated: 02/05/2018 8:38 pm Mike Sousa MD KSigned (Electronic Signature): 02/05/2018 8:38 pmSigned by: Mike Sousa MD Technologist: SCARLETTssessment: BI-RADS Category 0-Incomplete: Need additional imaging evaluationRecommendation: Additional projections Normal [facility] Vital Signs Date Time Vital Sign Value Performing Clinician Facility 10-24-2024 08:54-0500 Body height 152.4 cm Mary Jo Rosenbaum MD Work Phone: [facility] 10-24-2024 08:54-0500 Body mass index (BMI) [Ratio] 26.95 kg/m2 Mary Jo Rosenbaum MD Work Phone: [facility] 10-24-2024 08:54-0500 Body weight 62.6 kg Mary Jo Rosenbaum MD Work Phone: [facility] 09-19-2024 09:41-0500 Body height 152.4 cm Mary Jo Rosenbaum MD Work Phone: [facility] 09-19-2024 09:41-0500 Body mass index (BMI) [Ratio] 26.95 kg/m2 Mary Jo Rosenbaum MD Work Phone: [facility] 09-19-2024 09:41-0500 Body weight 62.6 kg Mary Jo Rosenbaum MD Work Phone: [facility] 09-19-2024 09:41-0500 Diastolic blood pressure 71 mm[Hg] Mary Jo Rosenbaum MD Work Phone: [facility] 09-19-2024 09:41-0500 Heart rate 76 /min Mary Jo Rosenbaum MD Work Phone: [facility] 09-19-2024 09:41-0500 Systolic blood pressure 166 mm[Hg] Mary Jo Rosenbaum MD Work Phone: [facility] 02-23-2023 07:44-0400 Body height 156.21 cm CENTER DIRECTOR-C Regina Hellinger CENTER DIRECTOR Work Phone: [facility] 02-23-2023 07:44-0400 Body mass index (BMI) [Ratio] 26.6 kg/m2 CENTER DIRECTOR-C Regina Hellinger CENTER DIRECTOR Work Phone: [facility] 02-23-2023 07:44-0400 Body temperature 97.2 [degF] CENTER DIRECTOR-C Regina Hellinger CENTER DIRECTOR Work Phone: [facility] 02-23-2023 07:44-0400 Body weight 64.86 kg CENTER DIRECTOR-C Regina Hellinger CENTER DIRECTOR Work Phone: [facility] 02-23-2023 07:44-0400 Diastolic blood pressure 76 mm[Hg] CENTER DIRECTOR-C Regina Hellinger CENTER DIRECTOR Work Phone: [facility] 02-23-2023 07:44-0400 Heart rate 66 /min CENTER DIRECTOR-C Regina Hellinger CENTER DIRECTOR Work Phone: [facility] 02-23-2023 07:44-0400 Respiratory rate 18 /min CENTER DIRECTOR-C Regina Quiñones CENTER DIRECTOR Work Phone: [facility] 02-23-2023 07:44-0400 SaO2% (BldA) [Mass fraction] 99 % CENTER DIRECTOR-C Regina Quiñones CENTER DIRECTOR Work Phone: [facility] 02-23-2023 07:44-0400 Systolic blood pressure 162 mm[Hg] CENTER DIRECTOR-C Regina Quiñones CENTER DIRECTOR Work Phone: [facility] 11-04-2022 17:17-0500 Body height 156.[address] Alicia Castanon Work Phone: [facility] 11-04-2022 17:17-0500 Body mass index (BMI) [Ratio] 27.3 kg/m2 Dr. Alicia Castanon Work Phone: [facility] 11-04-2022 17:17-0500 Body temperature 100.2 [degF] Dr. Alicia Castanon Work Phone: [facility] 11-04-2022 17:17-0500 Body weight 66.[address] Alicia Castanon Work Phone: [facility] 11-04-2022 17:17-0500 Diastolic blood pressure 82 mm[Hg] Dr. Alicia Castanon Work Phone: [facility] 11-04-2022 17:17-0500 Heart rate 120 /min Dr. Alicia Castanon Work Phone: [facility] 11-04-2022 17:17-0500 Respiratory rate 16 /min Dr. Alicia Castanon Work Phone: [facility] 11-04-2022 17:17-0500 SaO2% (BldA) [Mass fraction] 98 % Dr. Alicia Castanon Work Phone: [facility] 11-04-2022 17:17-0500 Systolic blood pressure 140 mm[Hg] Dr. Alicia Castanon Work Phone: [facility] 02-18-2022 18:08-0400 Body height 154.9 cm Pcp Unknown [facility] 02-18-2022 18:08-0400 Body temperature 99.86 [degF] Pcp Unknown [facility] 02-18-2022 18:08-0400 Diastolic blood pressure 61 mm[Hg] Pcp Unknown [facility] 02-18-2022 18:08-0400 Heart rate 57 /min Pcp Unknown [facility] 02-18-2022 18:08-0400 Respiratory rate 16 /min Pcp Unknown [facility] 02-18-2022 18:08-0400 SaO2% (BldA) [Mass fraction] 97 % Pcp Unknown [facility] 02-18-2022 18:08-0400 Systolic blood pressure 133 mm[Hg] Pcp Unknown [facility] 04-26-2021 09:28-0400 Body temperature 97.7 [degF] Regina Hellinger Other Phone: [facility] 04-26-2021 09:28-0400 Diastolic blood pressure 70 mm[Hg] Regina Hellinger Other Phone: [facility] 04-26-2021 09:28-0400 Heart rate 71 /min Regina Hellinger Other Phone: [facility] 04-26-2021 09:28-0400 Respiratory rate 18 /min Regina Hellinger Other Phone: [facility] 04-26-2021 09:28-0400 SaO2% (BldA) [Mass fraction] 93 % Regina Hellinger Other Phone: [facility] 04-26-2021 09:28-0400 Systolic blood pressure 125 mm[Hg] Regina Hellinger Other Phone: [facility] 04-23-2021 11:41-0400 Body height 154.9 cm Regina Hellinger Other Phone: [facility] 04-23-2021 11:41-0400 Body temperature 98.96 [degF] Regina Quiñones Other Phone: [facility] 04-23-2021 11:41-0400 Diastolic blood pressure 76 mm[Hg] Regina Whitfielder Other Phone: [facility] 04-23-2021 11:41-0400 Heart rate 89 /min Regina Whitfielder Other Phone: [facility] 04-23-2021 11:41-0400 Respiratory rate 16 /min Regina Quiñones Other Phone: [facility] 04-23-2021 11:41-0400 SaO2% (BldA) [Mass fraction] 97 % Regina Whitfielder Other Phone: [facility] 04-23-2021 11:41-0400 Systolic blood pressure 135 mm[Hg] Regina Quiñones Other Phone: [facility] Encounters Encounter Date Encounter Type Care Provider Facility Start: 06-25-2025 ambulatory Alicia Castanon Facility:[facility] Start: 06-18-2025 End: 06-18-[address] Alicia Castanon DO Work Phone: -Laboratory Jnaina England [facility] Start: 06-18-2025 End: 06-18-[address] Alicia Castanon DO -Laboratory Janina England [facility] Start: 06-18-2025 End: 06-18-2025 ambulatory Alicia Castanon Facility:[facility] Start: 03-13-2025 End: 03-13-[address] Alicia Castanon DO Work Phone: [facility] Work Phone: Start: 03-13-2025 End: 03-13-[address] Alicia Castanon DO Work Phone: -Laboratory Work Phone: Start: 03-13-2025 End: 03-13-2025 ambulatory GREGORY FRAGOSO Facility:[facility] Start: 02-27-2025 End: 02-27-[address] Alicia Castanon DO Work Phone: [facility] Work Phone: Start: 02-27-2025 End: 02-27-[address] Alicia Castanon DO Work Phone: -Ghazal Janina Samanta [facility] Start: 02-27-2025 End: 02-27-2025 ambulatory JENKINS JVALLYSSA Facility:[facility] Start: 10-31-2024 End: 10-31-2024 ambulatory Medardo Tate Facility:[facility] Start: 10-24-2024 End: 10-24-2024 Patient encounter procedure Mary Jo Rosenbaum MD Work Phone: [facility] Comment on above: Urinary incontinence , unspecified type (Primary Dx) Start: 10-24-2024 End: 10-24-2024 ambulatory [facility] Start: 09-19-2024 End: 09-19-2024 ambulatory [facility] Ambulatory Start: 09-19-2024 End: 09-19-2024 Office outpatient new 45 minutes Mary Jo Rosenbaum MD Work Phone: [facility] Comment on above: Nocturia; Urinary incontinence, unspecified type Start: 09-18-2024 End: 09-18-2024 ambulatory Marleny Honeycutt Facility:[facility] Start: 08-24-2024 End: 08-24-2024 ambulatory Alicia Castanon Facility:[facility] Start: 08-01-2024 End: 08-01-2024 ambulatory Alicia Castanon Facility:[facility] Start: 03-14-2024 End: 03-14-2024 ambulatory [facility] Work Phone: Start: 03-14-2024 End: 03-14-2024 Patient encounter procedure [facility] Work Phone: Start: 02-21-2024 End: 02-21-2024 ambulatory [facility] Work Phone: Start: 02-21-2024 End: 02-21-2024 Patient encounter procedure [facility], Janina England [facility] Start: 01-25-2024 End: 01-25-2024 ambulatory [facility] Work Phone: Start: 01-25-2024 End: 01-25-2024 Patient encounter procedure [facility], Janina England [facility] Start: 03-31-2023 End: 03-31-2023 ambulatory CENTER DIRECTOR-C Regina Roxannania CENTER DIRECTOR Work Phone: [facility] Work Phone: Start: 03-31-2023 End: 03-31-2023 Patient encounter procedure CENTER DIRECTOR-C Regina Helprashanther CENTER DIRECTOR Work Phone: [facility] Janina England [facility] Start: 02-23-2023 End: 02-23-2023 Patient encounter procedure CENTER DIRECTOR-C Regina Mcknightnia CENTER DIRECTOR Work Phone: [facility] Start: 02-04-2023 End: 02-04-[address] Alicia Castanon Work Phone: [facility] Work Phone: Start: 02-04-2023 End: 02-04-[address] Alicia Castanon Work Phone: [facility], [facility] Start: 01-24-2023 End: 01-24-[address] Alicia Castanon Work Phone: [facility] Work Phone: Start: 01-24-2023 End: 01-24-[address] [facility] Start: 11-12-2022 Non-patient / Non-visit Dr. Janki Castanon Work Phone: [facility] Start: 11-12-2022 End: 11-12-[address] Alicia Castanon Work Phone: [facility] Work Phone: Start: 11-12-2022 End: 11-12-[address] Alicia Castanon Work Phone: [facility] Start: 11-04-2022 End: 11-04-[address] Alicia Castanon Work Phone: [facility] Start: 10-25-2022 End: 10-25-[address] Alicia Castanon Work Phone: [facility] Work Phone: Start: 10-25-2022 End: 10-25-[address] Alicia Castanon Work Phone: [facility]-Laboratory, Specimen Start: 02-18-2022 End: 02-18-2022 Emergency department patient visit Per [facility] 02 Start: 04-23-2021 End: 04-26-2021 Evaluation and management of inpatient Baldo El [facility] 3 Med Surg [place] [id number] 01 Start: 04-23-2021 End: 04-23-2021 Emergency department patient visit Per [facility] 01 Start: 02-22-2018 End: 02-23-2018 Ambulatory [facility] Facility:[facility] Start: 02-02-2018 End: 02-03-2018 Ambulatory [facility] Facility:[facility] Procedures Date Procedure Procedure Detail Performing Clinician Start: 06-18-2025 Vitamin D, 25-hydrox y measurement Dr. Alicia Castanon DO Work Phone: Comment on above: Vitamin D StatusDefi ciency: <20 ng/mL (50nmol/L)Insufficiency: 20-30 ng/mL (50-75 nmol/L)Sufficiency: 30-100 ng/mL (75-250 nmol/L)Toxicity: >100 ng/mL (>250 nmol/L) Start: 03-13-2025 Serum inorganic phos phate measurement Dr. Alicia Castanon DO Work Phone: Start: 02-27-[address] Alicia Castanon DO Work Phone: Start: 03-14-2024 US urinary tract Start: 02-04-[address] Janki Castanon Work Phone: Start: 06-29-2021 Mammography Mary Jo Rosenbaum MD Work Phone: Start: 11-11-2020 Colonoscopy Mary Jo Rosenbaum MD Work Phone: Urine culture CENTER DIRECTOR-C Regina kramer NP Work Phone: Plan of Treatment Date Care Activity Detail Author Start: 11-11-2030 Screening for malignant neoplasm of colon [facility] Start: 2025 RSV High Risk: (Elderly (60+) or Population) (1 - 1-dose 75+ series) RSV High Risk: (Elderly (60+) or Population) (1 - 1-dose 75+ series) [facility] Start: 07-15-2024 COVID-19 Vaccine ( season) COVID-19 Vaccine ( season) [facility] Start: 07-15-2024 Influenza vaccination Influenza Vaccine (#1) [facility] Start: 02-23-2023 Patient referral [facility] Work Phone: Start: 06-29-2022 Screening for malignant neoplasm of breast Mammogram [facility] Start: 04-24-2021 End: 04-25-2022 [facility] [facility] Start: 2000 Zoster Vaccines (1 of 2) Zoster Vaccines (1 of 2) [facility] Start: 1972 DTaP/Tdap/Td Vaccines (1 - Tdap) DTaP/Tdap/Td Vaccines (1 - Tdap) [facility] Start: 1968 Hepatitis C screening Hepatitis C Screening [facility] Start: 1950 Lipid panel Lipid Panel [facility] Start: 1950 Medicare Annual Wellness Visit Medicare Annual Wellness Visit (AWV) [facility] Start: 1950 Screening for malignant neoplasm of colon [facility] H/O: surgery History of bladd er suspension procedure [facility] H/O: tubal ligation History of tubal liga tion [facility] History of appendectomy History of appendectomy [facility] History of colonoscopy History of colonoscopy [facility] Past history of procedure History of esophagogastroduodenoscopy (EGD) [facility] Patient referral [facility] Work Phone: Immunizations Immunization Date Immunization Notes Care Provider Fa cili 10-06-2022 influenza virus vaccine, unspecified formulation Mary Jo Rosenbaum MD Work Phone: [facility] Work Phone: Payers Date Payer Category Payer Self-pay [id number] 2024 Unknown [id number] 2020 Medicare supplementa l policy (as second payer) GENERIC MEDICARE SUPPLEMENT [id number] 2015 Medicare 2015 Unknown 2015 Unknown [id number] 2015 Medicare [id number] 1950 Unknown [id number] .[id number] 1950 Unknown [id number] .2.1244 Unknown [place] [id number] Unknown [id number] .[id number] Unknown [id number] .2.462 Unknown [id number] [id number] .2.462 Unknown [id number] [id number] .2.462 Unknown [id number] [id number] .2.462 Unknown [id number] 2.16.840.1.606134.3.579 .2.462 Unknown [id number] [id number] .2.462 Unknown [id number] [id number] .2.462 Social History Date Type Detail Facility [facility] Start: 11-04-2022 End: 02-23-2023 Tobacco smoking consumption unknown [facility] Start: 1950 Sex Assigned At Female [facility] Start: 02-23-2023 End: 09-19-2024 Tobacco smoking status NHIS Never smoked tobacco [facility] Work Phone: Start: 09-19-2024 Tobacco use and exposure Smokeless tobacco non-user [facility] Work Phone: Start: 09-19-2024 End: 10-24-2024 History of Social function [facility] Work Phone: Start: 09-19-2024 End: 10-24-2024 Tobacco use panel [facility] Work Phone: Start: 1950 Sex assigned at Not on file [facility] Work Phone: Start: 09-09-2024 End: 10-24-2024 Exposure to SARS-CoV-2 (event) Not sure [facility] Start: 03-06-2025 Sex Female (finding) [place] [facility] Functional Status Date Assessment Result Facility Functional observable [facility] Mental Status Date Assessment Result Facility 04-26-2021 Cognitive functions 0219:42 [facility] Clinical Notes 04-24-2021 to 10-24-2024 Juju Maria MA - 10/24/2024 8:30 AM ESTMary Jo Rosenbaum MD - 09/19/2024 9:30 AM EST [...] F/U 6 MONTHS documented in this encounter [facility] Work Phone: 09-19-2024 History of Present [...] and Med review documented in this encounter [facility] Work Phone: 04-26-2021 Note Send Summary: Discharge Summary Providers: Provider RoleProvider Name Baldo Hua Pierre PrimaryHellinger, Terry L Discharge: Summary: Admission Date: .23-Apr-2021 18:53:00 Discharge Date: 26-Apr-2021 Attending Physician at Discharge: Baldo Arriola Admission Reason: weakness Final Discharge Diagnoses: Pneumonia Procedures: none Condition at Discharge: Satisfactory Disposition at Discharge: .Home Vital Signs: T PRBPSpO2 Value36.83653034/7093% Date/Time04/26 7: 7: 7: 7: 7:28 Range(36.5C - 36.9C ) (71 - 72 ) (16 - 18 ) (120 - 125 )/ (67 - 71 ) (91% - 95% ) Highest temp of 36.9 C was recorded at 04/25 15:00 Date: Weight/Scale Type:Height: 24-Apr-2021 00:2964.9 kg / dnl576.9 cm Physical Exam: Constitutional: awake/alert/oriented x3, not [...] coordinating this patient's discharge. This includes a [id number] encounter, patient counseling, discharge and follow-up assessments. [...] Up Appointments: Follow-Up Appointment 01: Physician/Dept/Service: your family mediator Call to Schedule in: 1 week Discharge [...] a day pantoprazole (more content not included)... [facility] 04-24-2021 Note History of Present I llness: HPI: OLIVA LICONAORAH SANA is a 70 year old Female Who [...] a day. Objective: Objective Information: T PRBPSpO2 Value36.37974420/8094% Date/Time04/24 0: 0: 0: 0: 0:20 Range(36.9C [...] density irregular f (more content not included)... [facility] Chief complaint+Reason for v isit Narrative Reason for Visit COVID-19 [facility] Work Phone: Evaluation note* Neurological: intact senses, [...] behaviorConstitutional: awake/alert/oriented x3, not in acute distress, [facility] Diagnosis Onset Date Resolution Status COVID-19 acute [facility] Work Phone: Evaluation note* Diagnosis Onset Date Resolution Status ONIEL (obstructive sleep apnea) acute [facility] Work Phone: Evaluation noteNo assessment information available [facility] Work Phone: Evaluation note* Diagnosis Nocturia Urinary incontinence, unspecified type documented in this encounter [facility] Work Phone: Evaluation note* Diagnosis Urinary incontinence, unspecified type- Primary documented in this encounter [facility] Work Phone: Hospital Discharge instructions* Follow Up Appointment 1:Physician/Dept/Service: your pulmonologistCall to Schedule in: 1 weekComments: Patient prefers to schedule appointment. [facility] (narrative)No reason for referral information availableWJoint [facility] Work Phone: Summary Purpose Family History [...] section and content) DATE CREATED AUTHOR 05/04/2018 [facility] DATE CREATED AUTHOR AUTHOR'S ORGANIZ ATION 02/22/2022 [facility] DATE CREATED AUTHOR AUTHOR'S ORGANIZ ATION 02/23/2022 [facility] DATE CREATED AUTHOR AUTHOR'S ORGANIZ ATION 10/27/2024 [facility] DATE CREATED AUTHOR AUTHOR'S ORGANIZ ATION 06/30/2025 [facility] <item><item><item> Privacy Markings (unrecogniz ed section and [...] Inactive Member Role Status Dates Regina Quiñones CENTER DIRECTOR, CENTER DIRECTOR-C Referring Provider Active Anne Tamayo CENTER DIRECTOR, CENTER DIRECTOR-C Attending Provider Active Dr. Alicia Castanon DO Primary Care Provider Active Team Status: Inactive Member Role Status Dates Dr. Alicia Castanon DO Primary Care Provide r, Attending Provider, Referring Provider Active JAGRUTINESULAIMANADAJASEN Other Provider Active Team Status: Inactive Member Role Status Dates Dr. Alicia Castanon DO Primary Care Provider Active Start: February 27, 2025 End: February 27, 2025 KAMADANA, ABIMAEL Attending Provider Active Start : February 27, 2025 End: February 27, 2025 Team Status: Active Member Role Status Dates Dr. Alicia Castanon DO Primary Care Provider Active Team Status: Inactive Member Role Status Dates Dr. Alicia Castanon DO Primary Care Provider Active Start: March 13, 2025 End: March 13, 2025 ABIMAEL, KAMADANA Attending Provider Active Start : March 13, 2025 End: March 13, 2025 ABIMAEL, KAMADANA Referring Provider Active Start : March 13, 2025 End: March 13, 2025 Team Status: Active Member Role/Relationship Status Dates Dr. Alicia Castanon DO Primary Care Provider Active Team Status: Inactive Member Role/Relationship Status Dates Dr. Alicia Castanon DO Primary Care Provider Active Start: March 13, 2025 End: March 13, 2025 ABIMAEL, KAMADANA Attending Provider Active Start : March 13, 2025 End: March 13, 2025 ABIMAEL, KAMADANA Referring Provider Active Start : March 13, 2025 End: March 13, 2025 Team Status: Inactive Member Role/Relationship Status Dates Dr. Alicia Castanon DO Primary Care Provider Active Start: June 18, 2025 End: June 18, 2025 Dr. Alicia Castanon DO Attending Provider Active St art: June 18, 2025 End: June 18, 2025 Reason for Visit (unrecogniz ed section and content) Reason Comments Urine Leakage Reason Comments CYSTOSCOPY Specialty Diagnoses / Procedures Referred By Contac t Referred To Contact Urology Diagnoses Unspecified urinary incontinence Procedures [place] CYSTOURETHROSCOPY [place] [id number] [facility] [address] [place] [address] Phone: tel: fax: Mary Jo Rosenbaum MD [facility] [place] [address] Phone: tel: fax: Referral ID Status Reason Start Date Expiration Date V isits Requested Visits Authorized [id number] Authorized 10/15/2024 10/15/2025 1 1 FOR RECORDS [...] BE BASED ON THE PRIMARY CLINICAL RECORDS. [employer] provides no warranty or guarantee of the accuracy or completeness of information in this document.
[2025-07-02 16:09] LABS: Alkaline Phosphatase, Serum 160 IU/L (44-121); GGTP 98 IU/L (0-60)
== END | disposition home or self-care (01) ==
PROVIDERS: PCP Family Medicine; Referring Provider Family Medicine; Visit Provider Family Medicine
DX: R74.8 Abnormal levels of other serum enzymes (principal); N18.31 Chronic kidney disease, stage 3a; Z51.81 Encounter for therapeutic drug level monitoring
CPT/HCPCS: 36415; 80053; 82977; 83970; 84075; 84080

== ENCOUNTER → 2025-07-22 | Outpatient (CLI) | payer MEDICARE, OTHER, SELFPAY ==
--- NOTE | 2025-07-22 13:28 | RAD_ITS ---
PROCEDURE: CHEST PA AND LATERAL 07/22/2025 REASON FOR EXAM: COUGH TECHNIQUE: Procedure Code: RADCXR Modality: DX Procedure: CHEST PA AND LATERAL COMPARISON: None FINDINGS: Hardware: None Heart: Heart size and configuration are within normal limits. Arteriosclerotic vascular disease of the aorta is noted. Mediastinum: Mediastinal silhouette is within normal limits. Trachea is midline. Pulmonary vasculature is unremarkable. Lungs: Lungs are expanded and clear without evidence of atelectasis, consolidation, effusion, pneumonic infiltrate or pneumothorax. Bones: Diffuse osteopenia of the bony thorax is seen. There is increased kyphotic curvature of the thoracic spine. Spondylosis of the thoracic spine is noted. RAD/Chest PA and Lateral IMPRESSION: No acute cardiopulmonary process is identified radiographically. Reading Location: [id number]
[2025-07-22 18:35] LABS: Hematocrit 40.3 % (37-47); Hemoglobin 13.0 g/dL (12.0-15.0); Immature Granulocytes Count 0.020 X10^3/uL (0.0-0.0); Mean Corp Hgb Conc 32.3 g/dL (32-36); Mean Corpuscular Volume 85.2 fL (81-99); NRBC Flagged by Analyzer 0 % (0-5); POSITIVE COUNT YES; RBC Distribution Width CV 14.0 % (11.6-14.6); RBC Distribution Width SD 43.8 fl (35.1-43.9); Red Blood Count 4.73 M/mm3 (4.2-5.4); White Blood Count 6.7 K/mm3 (4.4-11.0)
[2025-07-22 19:05] LABS: Anion Gap 14 (5-15); BUN 19 mg/dL (4-19); BUN/Creat Ratio 15.3 RATIO (10-20); Calcium,Total 9.6 mg/dL (7.6-11.0); Carbon Dioxide 20.9 mmol/L (21.0-32.0); Chloride 100 mmol/L (98-108); Glucose 86 mg/dL (70-99); Potassium 4.2 mmol/L (3.3-5.1); Pro- Brain NATRIURETIC PEPTIDE 308 pg/mL (<=900)
[2025-07-22 20:59] LABS: Differential Indicated SCAN CRITERIA MET
[2025-07-22 21:00] LABS: Differential Comment SCANNED
== END | disposition home or self-care (01) ==
LOC: MTLAB 13:26
PROVIDERS: PCP Family Medicine; Referring Provider Family Medicine; Visit Provider Family Medicine
DX: R05.9 Cough, unspecified (principal); N18.32 Chronic kidney disease, stage 3b; R60.9 Edema, unspecified
CPT/HCPCS: 36415; 71046; 80048; 83880; 85025

== ENCOUNTER → 2025-08-22 | Outpatient (CLI) | payer MEDICARE, OTHER, SELFPAY ==
[2025-08-22 10:39] LABS: Hematocrit 44.6 % (37-47); Hemoglobin 14.9 g/dL (12.0-15.0); Immature Granulocytes Count 0.020 X10^3/uL (0.0-0.0); Mean Corp Hgb Conc 33.4 g/dL (32-36); Mean Corpuscular Volume 84.8 fL (81-99); Mean Platelet Vol. 9.4 fl (6.2-12.0); NRBC Flagged by Analyzer 0 % (0-5); Platelet Count 190 K/mm3 (150-450); RBC Distribution Width CV 14.0 % (11.6-14.6); RBC Distribution Width SD 43.3 fl (35.1-43.9); Red Blood Count 5.26 M/mm3 (4.2-5.4); White Blood Count 5.8 K/mm3 (4.4-11.0)
[2025-08-22 12:08] LABS: Ferritin 383 ng/mL (22-378); Iron 84 ug/dL (50-170); Iron Binding Capacity,Total 297 ug/dL (250-450); Iron Binding Capacity,Unsat 213 ug/dL (228-428); Vitamin B12 1097 pg/mL (180-914)
[2025-08-22 12:16] LABS: AST(SGOT) 32 U/L (<=31); Alanine Aminotransfer ALT/SGPT 20 U/L (<=34); Albumin, Serum 4.7 g/dL (3.4-4.8); Alkaline Phosphatase 108 U/L (35-104); Anion Gap 16 (5-15); BUN 23 mg/dL (4-19); BUN/Creat Ratio 14.6 RATIO (10-20); Calcium,Total 10.1 mg/dL (7.6-11.0); Carbon Dioxide 20.4 mmol/L (21.0-32.0); Chloride 100 mmol/L (98-108); Cholesterol 165 mg/dL (<=200); Globulin 2.9 g/dL (2.2-4.2); Glucose 107 mg/dL (70-99); Low Density Lipoprotein Calc. 52 mg/dL; Potassium 4.2 mmol/L (3.3-5.1); Triglycerides 52 mg/dL; Very Low Density Lipoprotein 10 mg/dL (5-40); cholesterol:hdl ratio screen 1.60
[2025-08-22 13:11] LABS: PTHIN 66 pg/mL (11-61)
[2025-08-23 04:07] LABS: GGTP 30 IU/L (0-60)
[2025-08-27 16:09] LABS: Alkaline Phosphatase, Serum 111 IU/L (49-135)
== END | disposition home or self-care (01) ==
LOC: LAB 10:12
PROVIDERS: PCP Family Medicine; Referring Provider Family Medicine; Visit Provider Family Medicine
DX: E53.8 Deficiency of other specified B group vitamins (principal); N18.31 Chronic kidney disease, stage 3a; E61.1 Iron deficiency; E78.5 Hyperlipidemia, unspecified; R74.8 Abnormal levels of other serum enzymes; Z51.81 Encounter for therapeutic drug level monitoring
CPT/HCPCS: 36415; 80053; 80061; 82607; 82728; 82977; 83540; 83550; 83970; 84075; 84080; 85025

== ENCOUNTER → 2025-09-05 | Outpatient (CLI) | payer MEDICARE, OTHER, SELFPAY ==
[2025-09-05 14:27] LABS: Color, Urine Yellow (Yellow); Glucose, Dipstick Normal (Normal); Ketone-Dipstick Negative (Negative); Leukocyte Esterase-Dipstick 100 /ul (Negative); Nitrite-Dipstick Negative (Negative); Occult Blood-Urine 25 /ul (Negative); Protein-Dipstick 30 mg/dl (Negative); Specific Gravity, Urine 1.020 (1.002-1.030); Urine Bilirubin Dipstick Negative (Negative)
[2025-09-05 14:43] LABS: AST(SGOT) 30 U/L (<=31); Alanine Aminotransfer ALT/SGPT 20 U/L (<=34); Albumin, Serum 4.4 g/dL (3.4-4.8); Alkaline Phosphatase 102 U/L (35-104); Anion Gap 12 (5-15); BUN 19 mg/dL (4-19); BUN/Creat Ratio 14.9 RATIO (10-20); Calcium,Total 9.6 mg/dL (7.6-11.0); Carbon Dioxide 22.0 mmol/L (21.0-32.0); Chloride 99 mmol/L (98-108); Globulin 2.6 g/dL (2.2-4.2); Glucose 99 mg/dL (70-99); Potassium 4.3 mmol/L (3.3-5.1)
[2025-09-05 15:18] LABS: Creatinine, Urine (random) 129.00 mg/dL (28.00-217.00); Microalbumin,Random Urine 43.3 mg/L (<20 mg/L)
== END | disposition home or self-care (01) ==
PROVIDERS: PCP Family Medicine; Referring Provider Family Medicine; Visit Provider Family Medicine
DX: Z51.81 Encounter for therapeutic drug level monitoring (principal); N18.32 Chronic kidney disease, stage 3b; R30.0 Dysuria
CPT/HCPCS: 36415; 80053; 81002; 82043; 82570; 87086; 87088

== ENCOUNTER → 2025-09-18 | Outpatient (CLI) | payer MEDICARE, OTHER, SELFPAY ==
[2025-09-18 10:59] LABS: PTHIN 74 pg/mL (11-61)
[2025-09-18 11:09] LABS: Albumin, Serum 4.3 g/dL (3.4-4.8); Anion Gap 10 (5-15); BUN 22 mg/dL (4-19); BUN/Creat Ratio 18.3 RATIO (10-20); Calcium 9.8 mg/dL (7.6-11.0); Calcium,Total 9.8 mg/dL (7.6-11.0); Carbon Dioxide 25.4 mmol/L (21.0-32.0); Chloride 101 mmol/L (98-108); Glucose 85 mg/dL (70-99); Potassium 4.5 mmol/L (3.3-5.1); Vitamin D,25 Hydroxy 43.5 ng/mL (30-100)
[2025-09-18 12:28] LABS: Creatinine, Urine (random) 61.00 mg/dL (28.00-217.00); Microalbumin,Random Urine 77.8 mg/L (<20 mg/L)
== END | disposition home or self-care (01) ==
PROVIDERS: PCP Family Medicine
DX: N18.32 Chronic kidney disease, stage 3b (principal); E55.9 Vitamin D deficiency, unspecified
CPT/HCPCS: 36415; 80069; 82043; 82306; 82310; 82570; 83970

== ENCOUNTER → 2025-10-21 | Outpatient (CLI) | payer MEDICARE, OTHER, SELFPAY ==
[2025-10-21 13:50] LABS: Color, Urine Yellow (Yellow); Glucose, Dipstick Normal (Normal); Ketone-Dipstick Negative (Negative); Leukocyte Esterase-Dipstick 500 /ul (Negative); Nitrite-Dipstick Negative (Negative); Occult Blood-Urine 10 /ul (Negative); Protein-Dipstick 15 mg/dl (Negative); Specific Gravity, Urine 1.010 (1.002-1.030); Urine Bilirubin Dipstick Negative (Negative)
== END | disposition home or self-care (01) ==
LOC: LAB 12:32
PROVIDERS: PCP Family Medicine; Referring Provider Family Medicine; Visit Provider Family Medicine
DX: R30.0 Dysuria (principal)
CPT/HCPCS: 81002; 87086; 87088; 87186